=== PATIENT | female | born 1960 | race Caucasian/White ===

== ENCOUNTER 2019-09-08 00:41 | Outpatient (CLI) | payer OTHER, SELFPAY ==
--- NOTE | 2019-09-08 15:58 | DI.MAMMO_ITS ---
EXAM: MG MAMMO SCREENING CLINICAL HISTORY: screening Z12.31 TECHNIQUE: Bilateral full field digital CC and MLO mammographic images were obtained with 3D tomosyn thesis and utilizing computer aided detection (CAD). COMPARISON: Available for comparison. FINDINGS: Masses/Architectural Distortion: None seen. Microcalcifications: No suspicious pleomorphic-type are seen. Skin Thickening/Nipple Retraction: None. IMPRESSION: 1. No significant interval change with no specific features of malignancy noted. 2. Unless there is more urgent need, screening mammography is recommended, as per [employer] guidelines. ACR BI-RAD Category- 1 Negative Breast Density - Category B - Scattered areas of fibroglandular density A negative radiographic report should not delay biopsy if a dominant or clinically suspicious mass is present. Up to ten percent of cancers are not identified on mammography. A negative report may reinforce clinical impression. Adenosis and dense breasts may obscure an underlying neoplasm. False positive reports average 6 to 10%. Patient will receive a letter notifying them of these results.
== END 2019-09-08 01:01 ==
PROVIDERS: PCP Family Medicine; Visit Provider Obstetrics & Gynecology
DX: Z12.31 Encounter for screening mammogram for malignant neoplasm of breast (principal)
CPT/HCPCS: 77063; 77067

== ENCOUNTER 2021-04-05 01:04 | Outpatient (CLI) | payer OTHER, SELFPAY ==
--- NOTE | 2021-04-05 | DI.MAMMO_ITS ---
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 TECHNIQUE: Bilateral full field digital CC and MLO mammographic images were obtained with 3D tomosyn thesis and utilizing computer aided detection (CAD). COMPARISON: Prior mammograms dating back to 2011, the most recent being August 2019. FINDINGS: There are no new spiculated masses nor malignant appearing microcalcification groups. There is no significant architectural distortion nor skin thickening-retraction. IMPRESSION: No radiographic evidence of malignancy. BI-RADS Category 1 - Negative Breast Density - Category B - Scattered areas of fibroglandular density Breast density Category C or D implies that the patient has dense breast tissue. Dense breast tissue can make it harder to find cancer on a mammogram. Dense breast tissue is also associated with an incr eased risk of breast cancer. This information about the result of the mammogram report was provided to the patient to raise their awareness. Use this report when you speak with the patient about their risks for breast cancer, which includes their family history. At that time, you may recommend additional screening tests (Ultrasoun d or MRI) as these tests may add significant information. A negative radiographic report should not delay biopsy if a dominant or clinically suspicious mass is present. Up to ten percent of cancers are not identified on mammography. A negative report may reinforce clinical impression. Adenosis and dense breasts may obscure an underlying neoplasm. False positive reports average 6 to 10%. Patient will receive a letter notifying them of these results.
== END 2021-04-05 01:24 ==
PROVIDERS: PCP Family Medicine; Visit Provider Obstetrics & Gynecology
DX: Z12.31 Encounter for screening mammogram for malignant neoplasm of breast (principal); Z01.419 Encounter for gynecological examination (general) (routine) without abnormal findings; R92.8 Other abnormal and inconclusive findings on diagnostic imaging of breast
CPT/HCPCS: 77063; 77067

== ENCOUNTER 2021-04-05 02:49 | Outpatient (CLI) | payer OTHER, SELFPAY ==
[2021-04-05 13:08] LABS: Abs Immature Grans 0.02 10^3/uL (0.0-0.06); Absolute Basophil Count 0.05 10^3/uL (0.0-0.2); Absolute Lymphocyte Count 1.23 10^3/uL (1.2-3.4); Absolute Monocyte Count 0.58 10^3/uL (0.1-0.8); Absolute Neutrophil Count 6.47 10^3/uL (1.2-6.7); Basophils % 0.6; Eosinophils % 2.3; HCT 38.9 % (36.0-46.0); HGB 12.9 g/dL (11.2-15.7); Immature Grans % 0.2; Lymphocytes % 14.4; MCH 31.2 pg (27.0-33.0); MCHC 33.2 % (32.0-36.0); MPV 10.3 fL (8.0-11.0); Monocytes % 6.8; Neutrophils % 75.7; Nucleated RBC 0 %; Platelet Count 142 10^3/uL (130-400); RBC 4.14 10^6/uL (3.93-5.22); RDW 12.8 % (11.7-14.6); RDW-SD 44.2 fL; WBC 8.55 10^3/uL (4.4-10.8)
[2021-04-05 13:20] LABS: ALT 21 U/L (14-59); AST 17 U/L (15-37); Albumin 3.6 g/dL (3.4-5.0); Alkaline Phosphatase 84 U/L (46-116); BUN 9 mg/dL (7-18); Bilirubin, Total 0.3 mg/dL (0.2-1.0); CREATININE 0.9 mg/dL (0.55-1.02); Chloride 105 mmol/L (98-107); Glucose 139 mg/dL (74-106); LDH 198 U/L (81-234); Potassium 4.1 mmol/L (3.5-5.1); Sodium 141 mmol/L (136-145); Total Protein 6.8 g/dL (6.4-8.2)
== END 2021-04-05 02:50 | disposition home or self-care (01) ==
LOC: LBO 02:49
PROVIDERS: PCP Family Medicine; Visit Provider Internal Medicine Hematology & Oncology
DX: C82.01 Follicular lymphoma grade I, lymph nodes of head, face, and neck (principal)
CPT/HCPCS: 36415; 80053; 83615; 85025

== ENCOUNTER 2021-07-12 01:40 | Outpatient (CLI) | payer OTHER, SELFPAY ==
[2021-07-12 13:47] LABS: Abs Immature Grans 0.01 10^3/uL (0.0-0.06); Absolute Basophil Count 0.04 10^3/uL (0.0-0.2); Absolute Eosinophil Count 0.12 10^3/uL (0.0-0.7); Absolute Lymphocyte Count 1.31 10^3/uL (1.2-3.4); Absolute Monocyte Count 0.57 10^3/uL (0.1-0.8); Basophils % 0.6; Eosinophils % 1.8; HCT 38.5 % (36.0-46.0); HGB 12.6 g/dL (11.2-15.7); Immature Grans % 0.2; MCH 30.6 pg (27.0-33.0); MCHC 32.7 % (32.0-36.0); MCV 93.4 fL (80-95); MPV 10.5 fL (8.0-11.0); Monocytes % 8.7; Neutrophils % 68.7; Nucleated RBC 0 %; Platelet Count 165 10^3/uL (130-400); RBC 4.12 10^6/uL (3.93-5.22); RDW 12.8 % (11.7-14.6); WBC 6.55 10^3/uL (4.4-10.8)
[2021-07-12 14:01] LABS: ALT 21 U/L (14-59); AST 22 U/L (15-37); Albumin 3.6 g/dL (3.4-5.0); Alkaline Phosphatase 98 U/L (46-116); Anion Gap 8.4 mmol/L (3-11); BUN 8 mg/dL (7-18); Bilirubin, Total 0.3 mg/dL (0.2-1.0); CO2 26.6 mmol/L (21.0-32.0); CREATININE 0.8 mg/dL (0.55-1.02); Calcium 8.7 mg/dL (8.5-10.1); Chloride 105 mmol/L (98-107); Glucose 108 mg/dL (74-106); LDH 218 U/L (81-234); Potassium 3.8 mmol/L (3.5-5.1); Sodium 140 mmol/L (136-145); Total Protein 6.7 g/dL (6.4-8.2)
== END 2021-07-12 01:41 | disposition home or self-care (01) ==
LOC: LBO 01:40
PROVIDERS: PCP Family Medicine; Visit Provider Internal Medicine Hematology & Oncology
DX: C82.01 Follicular lymphoma grade I, lymph nodes of head, face, and neck (principal)
CPT/HCPCS: 36415; 80053; 83615; 85025

== ENCOUNTER 2021-08-30 12:43 | Outpatient (CLI) | payer OTHER, SELFPAY ==
[2021-08-30 10:29] LABS: Abs Immature Grans 0.02 10^3/uL (0.0-0.06); Absolute Basophil Count 0.02 10^3/uL (0.0-0.2); Absolute Eosinophil Count 0.09 10^3/uL (0.0-0.7); Absolute Lymphocyte Count 1.26 10^3/uL (1.2-3.4); Absolute Neutrophil Count 4.94 10^3/uL (1.2-6.7); Basophils % 0.3; Eosinophils % 1.3; HCT 38.4 % (36.0-46.0); HGB 12.7 g/dL (11.2-15.7); Immature Grans % 0.3; Lymphocytes % 18.4; MCH 30.9 pg (27.0-33.0); MCHC 33.1 % (32.0-36.0); MCV 93.4 fL (80-95); MPV 10.6 fL (8.0-11.0); Monocytes % 7.3; Neutrophils % 72.4; Nucleated RBC 0 %; Platelet Count 148 10^3/uL (130-400); RBC 4.11 10^6/uL (3.93-5.22); RDW 12.8 % (11.7-14.6); RDW-SD 43.8 fL; WBC 6.83 10^3/uL (4.4-10.8)
[2021-08-30 10:43] LABS: Albumin 3.6 g/dL (3.4-5.0); BUN 11 mg/dL (7-18); Bilirubin, Total 0.3 mg/dL (0.2-1.0); CREATININE 0.8 mg/dL (0.55-1.02); Calcium 8.9 mg/dL (8.5-10.1); Glucose 117 mg/dL (74-106); Total Protein 6.8 g/dL (6.4-8.2)
[2021-08-30 10:44] LABS: ALT 19 U/L (14-59); AST 16 U/L (15-37); Alkaline Phosphatase 88 U/L (46-116); Anion Gap 6.7 mmol/L (3-11); CO2 27.3 mmol/L (21.0-32.0); Chloride 106 mmol/L (98-107); LDH 204 U/L (81-234); Potassium 4.1 mmol/L (3.5-5.1); Sodium 140 mmol/L (136-145)
== END 2021-08-30 12:44 | disposition home or self-care (01) ==
LOC: LBO 12:45
PROVIDERS: PCP Family Medicine; Visit Provider Internal Medicine Hematology & Oncology
DX: C82.01 Follicular lymphoma grade I, lymph nodes of head, face, and neck (principal)
CPT/HCPCS: 36415; 80053; 83615; 85025

== ENCOUNTER 2021-11-29 02:48 | Outpatient (CLI) | payer OTHER, SELFPAY ==
[2021-11-29 12:43] LABS: Abs Immature Grans 0.02 10^3/uL (0.0-0.06); Absolute Basophil Count 0.02 10^3/uL (0.0-0.2); Absolute Eosinophil Count 0.08 10^3/uL (0.0-0.7); Absolute Lymphocyte Count 1.18 10^3/uL (1.2-3.4); Absolute Monocyte Count 0.48 10^3/uL (0.1-0.8); Absolute Neutrophil Count 4.13 10^3/uL (1.2-6.7); Basophils % 0.3; Eosinophils % 1.4; HCT 39.2 % (36.0-46.0); HGB 12.8 g/dL (11.2-15.7); Immature Grans % 0.3; MCH 30.7 pg (27.0-33.0); MCHC 32.7 % (32.0-36.0); MPV 10.3 fL (8.0-11.0); Monocytes % 8.1; Neutrophils % 69.9; Nucleated RBC 0 %; Platelet Count 161 10^3/uL (130-400); RBC 4.17 10^6/uL (3.93-5.22); RDW 12.5 % (11.7-14.6); RDW-SD 43.1 fL; WBC 5.91 10^3/uL (4.4-10.8)
[2021-11-29 12:57] LABS: ALT 70 U/L (14-59); AST 44 U/L (15-37); Albumin 3.8 g/dL (3.4-5.0); Alkaline Phosphatase 100 U/L (46-116); Anion Gap 10.7 mmol/L (3-11); BUN 9 mg/dL (7-18); Bilirubin, Total 0.4 mg/dL (0.2-1.0); CO2 25.3 mmol/L (21.0-32.0); CREATININE 0.9 mg/dL (0.55-1.02); Calcium 9.1 mg/dL (8.5-10.1); Chloride 104 mmol/L (98-107); Glucose 142 mg/dL (74-106); LDH 234 U/L (81-234); Potassium 3.9 mmol/L (3.5-5.1); Sodium 140 mmol/L (136-145); Total Protein 7.2 g/dL (6.4-8.2)
== END 2021-11-29 02:49 | disposition home or self-care (01) ==
LOC: LBO 02:48
PROVIDERS: PCP Family Medicine; Visit Provider Internal Medicine Hematology & Oncology
DX: C82.01 Follicular lymphoma grade I, lymph nodes of head, face, and neck (principal)
CPT/HCPCS: 36415; 80053; 83615; 85025

== ENCOUNTER 2022-04-04 04:03 | Outpatient (CLI) | payer OTHER, SELFPAY ==
[2022-04-04 08:32] LABS: Abs Immature Grans 0.01 10^3/uL (0.0-0.06); Absolute Basophil Count 0.03 10^3/uL (0.0-0.2); Absolute Lymphocyte Count 0.99 10^3/uL (1.2-3.4); Absolute Monocyte Count 0.52 10^3/uL (0.1-0.8); Absolute Neutrophil Count 3.87 10^3/uL (1.2-6.7); Basophils % 0.5; Eosinophils % 1.8; HCT 37.7 % (36.0-46.0); HGB 12.5 g/dL (11.2-15.7); Immature Grans % 0.2; Lymphocytes % 17.9; MCH 30.6 pg (27.0-33.0); MCHC 33.2 % (32.0-36.0); MCV 92 fL (80-95); Monocytes % 9.4; Neutrophils % 70.2; Platelet Count 161 10^3/uL (130-400); RBC 4.08 10^6/uL (3.93-5.22); RDW 12.7 % (11.7-14.6); WBC 5.52 10^3/uL (4.4-10.8)
[2022-04-04 08:50] LABS: ALT 56 U/L (14-59); AST 42 U/L (15-37); Albumin 3.6 g/dL (3.4-5.0); Alkaline Phosphatase 116 U/L (46-116); Anion Gap 9.1 mmol/L (3-11); BUN 13 mg/dL (7-18); Bilirubin, Total 0.6 mg/dL (0.2-1.0); CO2 24.9 mmol/L (21.0-32.0); CREATININE 1.2 mg/dL (0.55-1.02); Chloride 109 mmol/L (98-107); Estimated GFR 45.98 (mL/min/1.73m2); Glucose 118 mg/dL (74-106); LDH 242 U/L (81-234); Potassium 4.4 mmol/L (3.5-5.1); Sodium 143 mmol/L (136-145)
== END 2022-04-04 04:04 | disposition home or self-care (01) ==
LOC: LBO 04:03
PROVIDERS: PCP Family Medicine; Visit Provider Internal Medicine Hematology & Oncology
DX: C82.01 Follicular lymphoma grade I, lymph nodes of head, face, and neck (principal)
CPT/HCPCS: 36415; 80053; 83615; 85025

== ENCOUNTER 2022-08-22 02:57 | Outpatient (CLI) | payer OTHER, SELFPAY ==
[2022-08-22 09:33] LABS: Abs Immature Grans 0.02 10^3/uL (0.0-0.06); Absolute Basophil Count 0.02 10^3/uL (0.0-0.2); Absolute Eosinophil Count 0.07 10^3/uL (0.0-0.7); Absolute Lymphocyte Count 0.73 10^3/uL (1.2-3.4); Absolute Monocyte Count 0.56 10^3/uL (0.1-0.8); Absolute Neutrophil Count 4.41 10^3/uL (1.2-6.7); Basophils % 0.3; Eosinophils % 1.2; HCT 36.8 % (36.0-46.0); HGB 12.3 g/dL (11.2-15.7); Immature Grans % 0.3; Lymphocytes % 12.6; MCH 30.3 pg (27.0-33.0); MCHC 33.4 % (32.0-36.0); MCV 91 fL (80-95); MPV 9.9 fL (8.0-11.0); Monocytes % 9.6; Platelet Count 170 10^3/uL (130-400); RBC 4.06 10^6/uL (3.93-5.22); RDW 13.6 % (11.7-14.6); WBC 5.81 10^3/uL (4.4-10.8)
[2022-08-22 09:53] LABS: ALT 16 U/L (14-59); AST 19 U/L (15-37); Albumin 3.4 g/dL (3.4-5.0); Alkaline Phosphatase 115 U/L (46-116); BUN 15 mg/dL (7-18); Bilirubin, Total 0.5 mg/dL (0.2-1.0); Calcium 9.3 mg/dL (8.5-10.1); Chloride 105 mmol/L (98-107); Estimated GFR 64.49 (mL/min/1.73m2); Glucose 75 mg/dL (74-106); LDH 246 U/L (81-234); Potassium 4.2 mmol/L (3.5-5.1); Sodium 139 mmol/L (136-145)
== END 2022-08-22 02:58 | disposition home or self-care (01) ==
LOC: LBO 02:57
PROVIDERS: PCP Family Medicine; Visit Provider Internal Medicine Hematology & Oncology
DX: C82.01 Follicular lymphoma grade I, lymph nodes of head, face, and neck (principal)
CPT/HCPCS: 36415; 80053; 83615; 85025

== ENCOUNTER 2022-09-10 11:17 | Outpatient (REF) | payer OTHER, SELFPAY ==
--- NOTE | 2022-09-10 10:00 | PAPFT_PTH ---
PATIENT: Alicia Main LOC: [facility]#:[id number] AGE/SX: 62/F ROOM: RE09/10/[address]: Otilia Thomas : 1960 BED: DIS: 09/10/2022 SPEC #: [id number] RECD: 09/10/22 13:03 STATUS: JULIOCESAR REQ #: [id number] FAITH: 09/10/22 10:[address]: Otilia Thomas DEPT: [facility] Cytology RECD BY: Anca Barrera ENTERED: 09/10/22 13:04 SP TYPE: PAPFT OTHR DR: Santhosh Herron Tissues: 1 - CX/ENDOCX FOR PAP SMEARS Procedures: PAP THIN PREP/[facility] Screening HPV DNA PROBE Comments: [id number]
== END 2022-09-10 11:18 | disposition home or self-care (01) ==
LOC: LBN 11:17
PROVIDERS: PCP Family Medicine; Visit Provider Obstetrics & Gynecology Gynecology
DX: Z12.4 Encounter for screening for malignant neoplasm of cervix (principal); Z11.51 Encounter for screening for human papillomavirus (HPV)
CPT/HCPCS: 88142; 87624

== ENCOUNTER → 2022-09-13 00:36 | Outpatient (CLI) | payer OTHER, SELFPAY ==
--- OUTSIDE RECORDS SUMMARY | 2022-09-13 00:37 | XMS_ITS | Encounter Summary ---
:1960 Author Organization [facility] Address [address] [place] [address] Care Team Providers Name Role Phone Santhosh Herron MD Primary Care Provider Encounter Details Date Type Department Care Team Description 11/29/2020 Lab Requisition [facility] Eileen Joe for other Pathology & MD Florinda general examination Laboratory Medicine [address] [place] [address] [address] [place] [address] [place] [address] Social History Tobacco Use Types Packs/Day Years Used Date Smoking Tobacco: Every Day Cigarettes 0.8 Alcohol Use Standard Drinks/Week Comments Yes 0 (1 standard drink = 0.6 oz pure alcoho l) occ Sex Assigned at Date Recorded Not on file documented as of this encounter Plan of Treatment Not on filedocumented as of this encounter Procedures Procedure Name Priority Date/Time Associated Diagnosis Comme nts SURGICAL PATHOLOGY Today 11/29/2020 13:00 Resul ts for this EST procedure are i n the results section. documented in this encounter Results SURGICAL PATHOLOGY (11/29/2020 13:00 EST) Component Value Ref Test Analysis Performed Pathologis t Range Method Time At Signature Final A. LYMPH NODE, RIGHT CERVICAL, EXCISION: 12/01/[address] 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 See comment. 13:32 [facility]ENTER LABORATORY SERVICES Diagnosis The specimen is composed of lymphoid tissue fragments with closely packed follicles that efface the architecture and demonstrate loss of polarity. Concurrent flow cytometry ([id number]) is positive for a 12/01/[address] [facility] MEDICAL Comment CD10+ B-cell lymphoprolifera tive disorder. Immunoperoxidase stains were performed on this case to further characterize the lesion. The follicles contain primarily PAX5+ B-lymphocytes, and CD3+ T-lymphoc 13:3 2 [facility]ENTER ytes are present in a predom inantly interfollicular pattern with some in follicles. The B-lymphocytes are variable in size and range from typlv-wq-bnrxna irregular centrocytes to larger, round, vesicula LABORATORY r centroblasts with prominen t nucleoli. Taken together, the morphologic and immunophenotypic features are diagnostic of follicular lymphoma. The centroblast count averages <15 centroblasts per 40x hi SERVICES gh-powered field correspondi ng to a grade of 1-2 (low grade). Clinical correlation is essential. Dr Ghosh has reviewed selected slides of this case. ANTIBODY(CLONE)(BLOCK):RESULT CD3 (SP7, [employer]) (A1): Highlights predominantly interfollicular T-lymphocytes PAX-5 (1EW, Leica) (A1): Highlights predominantly follicular B-lymphocytes CD21 (2G9, Leica) (A1): Highlights a retained follicular d endritic meshwork Ki67 (MIB-1) (K2, Leica) (A1 ): Estimated at 20%. Few follicles retain some polarization. NOTE: One or more of the re agents used in immunoperoxidase testing in this case may not have been cleared or approved by the U.S. Food and Drug Administration (FDA). The FDA has determined that such cl earance or approval is not n ecessary. These tests are used for clinical purposes. They should not be regarded as investigational or for research. These reagents' performance characteristics have been de termined by [facility] and/or by the referring laboratory. The positive and negative controls worked appropriately. If immunoperoxidase staining has been performed on alcoh ol fixed cytology specimens, which has not been fully validated, the assays should be interpreted with caution and correlated with clinical data. This laboratory is certified under the Clinical Laborato ry Improvement Amendments of 1988 (CLIA-88) as qualified to perform high complexity clinical laboratory testing. Attestation There was significant 12/01/[address] [facility] M EDICAL Electronically resident/fellow 13:32 [facility] sign ed by involvement in the LABORATORY [place], diagnostic evaluation SERVICES Binta Leung, of this case. By the MD on 12/01/2020 signature below, the at 1332 attending physician certifies that they have personally conducted a gross and/or microscopic examination of the described specimens and rendered or confirmed the above diagnosis. Clinical Right cervical 12/01/[address] [facility] MEDICAL History lymphadenopathy 13:32 [facility] LABORATORY SERVICES Gross A. 12/01/[address] [facility] MEDICAL Description Received in formalin ayse d with proper patient identification (initials R, P) and right cervical lymph is a rubbery mnceil-pink portion of lymph node, 1.0 x 0.6 x 0.5 cm. Trisected and entirely submitted in A1. 13:32 [facility] LABORATORY WILLA HUNT(ASCP) 11/30/2020 7:37 SERVICES Preliminary A preliminary 12/01/[address] [facility] MEDICAL Diagnosis diagnosis of B-cell 13:32 [facility] lymphoma was LABORATORY reported to Dr. CASEY Joe's nurse on 11/30/2020 at 15:[address] Camila Cedillo. Resident/Chevy Kramer, 12/01/[address] [facility] MEDICAL ow: 13:32 [facility] LABORATORY SERVICES Performing [facility] 12/01/[address] [facility] MEDIC AL Lab 13:32 [facility] LABORATORY SERVICES Scanned 12/01/[address] [facility] MEDICAL Images 13:32 [facility] LABORATORY SERVICES Specimen Anatomical Collection Method Collection Time Receive d Time (Source) Location / / Volume Laterality Tissue ENTIRE LYMPH NODE 11/29/2020 13:00 2020 7:13 / Unknown EST EST Eileen Joe MD PATHOLOGY ORDERABLES Performing Organization Address City/State/ZIP Code Phon e Number [facility]ORY [address] [place] [address] SERVICES documented in this encounter Visit Diagnoses Diagnosis Encounter for other general examination documented in this encounter Care Teams Electroplater Apprentice Relationship Specialty Start Date End Date Santhosh Herron MD PCP - General 07/13/09 [address] [place], [place] [id number] documented as of this encounter
--- OUTSIDE RECORDS SUMMARY | 2022-09-13 00:37 | XMS_ITS | Encounter Summary ---
:1960 Author Organization [facility] Address [address] [place] [address] Care Team Providers Name Role Phone Santhosh Herron MD Primary Care Provider Encounter Details Date Type Department Care Team Description 12/15/2020 Lab Requisition [facility] Outr Resulting Lab, Pathology & Laboratory Provider General acute hospital [address] [place] [address] Social History Tobacco Use Types Packs/Day Years Used Date Smoking Tobacco: Every Day Cigarettes 0.8 Alcohol Use Standard Drinks/Week Comments Yes 0 (1 standard drink = 0.6 oz pure alcoho l) occ Sex Assigned at Date Recorded Not on file documented as of this encounter Plan of Treatment Not on filedocumented as of this encounter Procedures Procedure Name Priority Date/Time Associated Comments Diagnosis SPEP, INCLUDES Today 12/15/2020 9:07 Results fo r this QUANTITATION OF EST procedure ar e in MONOCLONAL SPIKE the results PERFORMABLE section. IMMUNOGLOBULINS Routine 12/15/2020 9:07 Results f or this EST procedure are i n the results section. SPEP, INCLUDES Routine 12/15/2020 9:07 Results fo r this QUANTITATION OF EST procedure ar e in MONOCLONAL SPIKE the results section. PROTEIN, TOTAL Today 12/15/2020 9:07 EST documented in this encounter Results SPEP, INCLUDES QUANTITATION OF MONOCLONAL SPIKE PERFORMABLE (12/15/2020 9:07 EST) Component Value Ref Test Analysis Performed At Patholo gist Range Method Time Signature Albumin % 63.4 55.8 - 12/18/2020 [facility] 66.1 % 14:20 [facility] LABORATORY SERVICES Alpha-1 % 4.1 2.9 - 12/18/2020 [facility] 4.9 % 14:20 [facility] LABORATORY SERVICES Alpha-2 % 11.4 7.1 - 12/18/2020 [facility] 11.8 % 14:20 [facility] LABORATORY SERVICES Beta % 9.8 8.4 - 12/18/2020 [facility] 13.1 % 14:20 [facility] LABORATORY SERVICES Gamma % 11.3 11.1 - 12/18/2020 [facility] 18.8 % 14:20 [facility] LABORATORY SERVICES SPEP Comment No apparent 12/18/2020 [facility] monoclonal protein 14:20 [facility] seen on serum LABORATORY electrophoresis SERVICES Comment: See scanned/supplementary repor t. Total Protein 6.7 6.3 - 8.2 g/dL 12/18/2020 14:[address] [facility] LABORATORY SERVICES Specimen Anatomical Collection Method Collection Time Receive d Time (Source) Location / / Volume Laterality Blood VENOUS BLOOD / 12/15/2020 9:07 12/15/2020 Unknown EST 21:34 EST Narrative This result has an attachment that is no t available. Provider Outr Resulting Lab CHEMISTRY & BLOOD GAS ORDE SIRI Performing Organization Address City/State/ZIP Code Phon e Number [facility] LABOR[facility]ORY [address] [place] [address] SERVICES PROTEIN, TOTAL (12/15/2020 9:07 EST) Specimen Anatomical Collection Method Collection Time Receive d Time (Source) Location / / Volume Laterality Blood VENOUS BLOOD / 12/15/2020 9:07 12/15/2020 Unknown EST 21:34 EST Provider Outr Resulting Lab CHEMISTRY & BLOOD GAS ORDE UMESHLES Performing Organization Address City/State/ZIP Code Phon e Number [facility] LABOR[facility] [address] [place] [address] SERVICES (ABNORMAL) IMMUNOGLOBULINS (12/15/2020 9:07 EST) P athologist Signature IgG 692 610-1,616 12/18/2020 [facility] mg/dL 9:37 [facility] CENTER LABORATORY SERVICES IgA 127 85 - 499 12/18/2020 [facility] mg/dL 9:37 EST [facility]ENTER LABORATORY SERVICES IgM 280 (H) 35 - 242 12/18/2020 [facility] mg/dL 9:37 [facility] LABORATORY SERVICES Specimen Anatomical Collection Method Collection Time Receive d Time (Source) Location / / Volume Laterality Blood VENOUS BLOOD / 12/15/2020 9:07 12/15/2020 Unknown EST 21:34 EST Provider Outr Resulting Lab CHEMISTRY & BLOOD GAS NITO HORNER Performing Organization Address City/State/ZIP Code Phon e Number [facility] [address] [place] [address] SERVICES documented in this encounter Visit Diagnoses Not on filedocumented in this encounter Care Teams Dip Unit Operator Relationship Specialty Start Date End Date Santhosh Herron MD PCP - General 07/13/[address] [place] [id number] documented as of this encounter
--- OUTSIDE RECORDS SUMMARY | 2022-09-13 00:37 | XMS_ITS | Encounter Summary ---
:1960 Author Organization [facility] Address [address] [place] [address] Care Team Providers Name Role Phone Santhosh Herron MD Primary Care Provider Encounter Details Date Type Department Care Team Description 04/02/2021 Lab Requisition [facility] Eileen Joe for other Pathology & MD Florinda general examination Laboratory Medicine [address] [place] [address] [address] [place] [address] [place], [place] [id number] Social History Tobacco Use Types Packs/Day Years [...] Associated Diagnosis Comme nts SURGICAL PATHOLOGY Today 04/02/2021 11:00 Resul ts for this EDT procedure are i n the results section. documented in this encounter Results SURGICAL PATHOLOGY (04/02/2021 11:00 EDT) Component Value Ref Test Analysis Performed At [facility] Range Method Time Signature Final A. GALLBLADDER, CHOLECYSTECTOMY: 021 [facility] Diagnosis - Changes consistent with chronic cholecystitis 14:42 EDT CENTER LABORATORY SERVICES Attestation By the signature 04/06/2021 [facility] Electronically below, the 14:42 EDT CENTER signed by attending LABORATORY Yaw Gillespie, physician SERVICES on 04/06 certifies that at 14 41 they have 1) personally conducted a gross and/or microscopic examination of the described specimen(s), and/or personally interpreted the results of laboratory testing of the described specimen(s), and 2) personally rendered or confirmed the above diagnosis. Clinical Biliary 04/06/2021 [facility] MEDICAL History dyskinesia 14:42 T CENTER LABORATORY SERVICES Gross A. 04/06/2021 [facility] MEDICAL Description Received in formalin ayse d with proper patient identification (initials R, P) and gallbladder is an intact gallbladder with an attached segment of cystic duct (7.4 x 2.6 x 2.1 cm). A cystic duct lymph node is not present. 14:42 [facility] CENTER The serosa is smooth, blue-g reen and glistening. The mucosa is velvety dark green with focal yellow-mcneil stippling. A collection of intramuscular fundic cysts (0.8 x 0.7 x 0.4 cm) is identified. The wall LABORATORY averages 0.1 cm in thicknes s. The cystic duct lumen is patent and is 0.7 cm in diameter. The cystic duct margin is inked blue. No choleliths are present. SERVICES Two union representative sections (to include the fundic cysts and yellow-mcneil stippling) and the en face cystic duct margin are submitted in A1. WILLA BRENNAN(ASC) 04/03/2021 8:10 Performing Lab [facility] 04/06/2021 [facility] MED[facility] AL LAB 14:42 T CENTER LABORATORY SERVICES Scanned Images 04/06/2021 [facility] 14:42 T [facility] LABORATORY SERVICES Specimen Anatomical Location Collection Method Collection Time Received Time (Source) / Laterality / Volume Tissue ENTIRE GALLBLADDER 04/02/2021 11:00 04/02 / Unknown EDT 21:29 EDT Eileen Joe MD PATHOLOGY ORDERABLES Performing Organization Address City/State/ZIP Code Phon e Number [facility]OR[facility] [address] [place] [address] SERVICES documented in this encounter Visit Diagnoses Diagnosis Encounter for other general examination documented in this encounter Care Teams Archivist Economic History Relationship Specialty Start Date End Date Santhosh Herron MD PCP - General 07/13/09 [address] [place] [address] documented as of this encounter
--- OUTSIDE RECORDS SUMMARY | 2022-09-13 00:37 | XMS_ITS | Encounter Summary ---
:1960 Author Organization [facility] Address [address] [place] [address] Care Team Providers Name Role Phone Santhosh Herron MD Primary Care Provider Encounter Details Date Type Department Care Team Description 09/11/2022 Lab Requisition [facility] Chiquita Alanis Encounter for other Pathology & [address] [place] [address] general examination Laboratory Medicine [facility] [phone] [address] [facility] [phone] [place] [address] (Work) [phone] Social History Tobacco Use Types Packs/Day Years Used Date Smoking Tobacco: Every Day Cigarettes 0.8 Alcohol Use Standard Drinks/Week Comments Yes 0 (1 standard drink = 0.6 oz pure alcoho l) occ Sex Assigned at Date Recorded Not on file documented as of this encounter Plan of Treatment Pending Results Name Type Priority Associated Diagnoses Date/Ti me PAP TEST Pathology Today Encounter for other general 09/10/2022 10:00 EST examination documented as of this encounter Visit Diagnoses Diagnosis Encounter for other general examination documented in this encounter Care Teams Director Of Strategic Partnerships Relationship Specialty Start Date End Date Santhosh Herron MD PCP - General 07/13/[address] [place] [phone] documented as of this encounter
--- OUTSIDE RECORDS SUMMARY | 2022-09-13 00:37 | XMS_ITS | Encounter Summary ---
:1960 Author Organization [facility] Address [address] [place] [address] Care Team Providers Name Role Phone Santhosh Herron MD Primary Care Provider Encounter Details Date Type Department Care Team Description 11/29/2020 Lab Requisition [facility] Eileen Joe for other Pathology & MD Florinda general examination Laboratory Medicine [address] [place] [address] [address] [place] [address] [place] [address] Social History Tobacco Use Types [...] Name Priority Date/Time Associated Diagnosis Comme nts NON ASBESTOS HAZARD ABATEMENT WORKER/FNA Today 11/29/2020 13:45 Results for this CYTOLOGY EST procedure are i n the results section. documented in this encounter Results NON ASBESTOS HAZARD ABATEMENT WORKER/FNA CYTOLOGY (11/29/2020 13:45 EST) Component Value Ref Test Analysis Performed Pathologis t Range Method Time At Signature Final A. LYMPH NODE, RIGHT CERVICAL, FINE-NEEDLE ASPIRATION: 12/05/2020 [facility] MEDICAL Diagnosis - Atypical lymphoproliferative lesion. See comment. 7:53 EST CENTER LABORATORY SERVICES Diagnosis The specimen consists 12/05/2020 [facility] MED ICAL Comment of cell block 7:53 [facility] CENTER material only and LABORATORY shows suboptimal SERVICES cellular preservation precluding further evaluation (credit issued). Please see report of the concurrent right cervical lymph node excision ([id number]) for complete diagnostic information. Attestation By the signature below, the attending physician certifies that they have personally conducted a gross and/or microscopic 0 12/05/2020 [facility] MEDICAL Electronically examination of the described specimens and rendered or confirmed the above diagnosis. 7:53 EST CENTER signed by LABORATORY Erik, CASEY Chavez MD on 12/05 at 0753 Clinical Right cervical 12/05/2020 [facility] MEDICAL History lymphadenopathy 7:53 [facility] LABORATORY SERVICES Gross A. 12/05/2020 [facility] MEDICAL Description 1 tube of RPMI for cell block processing were received. 7:53 [facility] LABORATORY SERVICES Performing [facility] LAB 12/05/2020 [facility] MEDIC AL Lab 7:53 [facility] LABORATORY SERVICES Scanned 12/05/2020 [facility] MEDICAL Images 7:53 [facility] LABORATORY SERVICES Specimen Anatomical Collection Method Collection Time Receive d Time (Source) Location / / Volume Laterality ZZUNK ENTIRE LYMPH NODE 11/29/2020 13:45 2020 8:42 / Unknown EST EST Eileen Joe MD PATHOLOGY ORDERABLES Performing Organization Address City/State/ZIP Code Phon e Number [facility] LABOR[facility]ORY [address] [place] [address] SERVICES documented in this encounter Visit Diagnoses Diagnosis Encounter for other general examination documented in this encounter Care Teams Air Defense Artillery Officer Relationship Specialty Start Date End Date Santhosh Herron MD PCP - General 07/13/[address] [place] [phone] documented as of this encounter
--- OUTSIDE RECORDS SUMMARY | 2022-09-13 00:37 | XMS_ITS | Encounter Summary ---
:1960 Author Organization [facility] Address [address] [place] [address] Care Team Providers Name Role Phone Santhosh Herron MD Primary Care Provider Encounter Details Date Type Department Care Team Description 11/29/2020 Lab Requisition [facility] Eileen Joe for other Pathology & MD Florinda general examination Laboratory Medicine [address] [place] [address] [address] [place] [address] [place] [address] Social History Tobacco Use Types [...] Name Priority Date/Time Associated Diagnosis Comme nts LEUKEMIA/LYMPHOMA Today 11/29/2020 13:45 Result s for this PANEL BY FLOW EST procedure are in CYTOMETRY the results section. documented in this encounter Results LEUKEMIA/LYMPHOMA PANEL BY FLOW CYTOMETRY (11/29/2020 13:45 EST) Component Value Ref Test Analysis Performed Pathologis t Range Method Time At Signature Final Lymph node, right cervical, flow cytometric analysis: [facility] Immunophenotypic - CD10+ B-cell lymphoproliferative disorder. See c omment. 1 16:13 CENTER Interpretation [facility] Comment The results of flow [facility] L cytometry are those 16:13 FANSHAWE of involvement by a [facility] [id number] SERVICES lymphoproliferative disorder of B-cell lineage expressing surface lambda light chains. The immunophenotypic profile is: CD19+, CD20+, CD10+, CD5-. This immunophenotype is typical of lymphomas of a follicular center cell origin, including follicular lymphoma, Burkitt lymphoma, and some diffuse large B-cell lymphomas. By light scatter criteria, a small subset of the cells appear larger than normal lymphocytes. Correlation of these findings with morphologic and clinical data is essential. Please refer to report [id number] and [id number] for morphologic details. Flow cytometry is not sensitive for the detection of large cell lymphoma or Hodgkin lymphoma. Attestation There was [facility] Electr onically significant 1 16:13 FANSHAWE signed b y resident/fellow [facility] Dev itt, involvement in the SERVICES teena Morse MD on 11/20 evaluation of this a t 1613 case. By the signature below, the attending physician certifies that they have personally conducted a gross and/or microscopic examination of the described specimens and rendered or confirmed the above diagnosis. Clinical History 60 yo female with [facility] M EDICAL right cervical 1 16:13 FANSHAWE lymphadenopathy. [facility] Description The specimen consists of lym ph node tissue from which a single cell suspension is prepared. Gating is performed using CD45 fluorescence and side scatter. Cellular viability (assessed by propidium iodide [facility] exclusion) is good (94%) am sara the CD45 positive events. Scatter plots incorporating all of the markers have been interpreted and evaluated for the presence or absence of abnormal cell populations. Onl 16:13 CENTER y pertinent abnormal finding s are included. If not otherwise addressed all other markers were normal/negative. [facility] There is a population of B-c ells that are lambda-restricted comprising 64% of lymphocytes. These cells are positive for CD19, CD10, CD20, FMC7, CD22 (variable) and CD23. They are negative for CD5, kappa , and CD11c. There is a smal l remaining population of B-lymphocytes that are positive for kappa (<1%). The remainder of the lymphocytes are T-lymphocytes (CD2+CD3+CD5+CD7+) with CD4+ and CD8+ subsets represented. By light scatt er criteria, the cells are predominantly similar in size to normal lymphocytes with a subset that is larger. Flow Markers CD2, CD3, CD4, CD5, [facility] ICAL CD7, CD8, CD10, 1 16:13 CENTER CD11b, CD11c, CD14, [facility] CD16, CD19, CD20, SERVICES CD22, CD23, CD38, CD45, CD56, CD57, FMC7, HLADR, [place], and Lambda. FDA Disclaimer This test was [facility] developed and its 1 16:13 CENTER performance [facility] characteristics SERVICES determined by the Department of Pathology and Laboratory Medicine, [facility], [place], [place]. It has not been cleared or approved by the U.S. Food and Drug Administration. FDA does not require this test to go through premarket FDA review. This test is used for clinical purposes. It should not be regarded as investigational or for research. This laboratory is certified under the Clinical Laboratory Improvement Amendments (CLIA) as qualified to perform high complexity clinical laboratory testing. Resident/Fellow: Chevy Cedillo, [facility] DO 1 16:13 FANSHAWE [facility] Scanned Images [facility] 1 16:13 [facility] SERVICES Specimen Anatomical Collection Method Collection Time Receive d Time (Source) Location / / Volume Laterality ZZUNK ENTIRE LYMPH NODE 11/29/2020 13:45 2020 7:32 / Unknown EST EST Eileen Joe MD PATHOLOGY ORDERABLES Performing Organization Address City/State/ZIP Code Phon e Number [facility] [address] [place] [address] SERVICES documented in this encounter Visit Diagnoses Diagnosis Encounter for other general examination documented in this encounter Care Teams Lime Kiln Worker Relationship Specialty Start Date End Date Santhosh Herron MD PCP - General 07/13/[address] [place] [address] [phone] documented as of this encounter
--- OUTSIDE RECORDS SUMMARY | 2022-09-13 00:38 | XMS_ITS | Encounter Summary ---
:[address] [facility] Address [address] [place] [address] Care Team Providers Name Role Phone Santhosh Herron MD Primary Care Provider Encounter Details Date Type Department Care Team Description 10/28/2006 Hospital Encounter [facility] - Barry Herron [place] MD [address] [address] [place] [address] Social History Tobacco Use Types Packs/Day Years [...] Name Priority Date/Time Associated Diagnosis Comme nts L SPINE 2-3 VIEWS 10/28/2006 10:49 Result s for this EST procedure are i n the results section. documented in this encounter Results L SPINE 2-3 VIEWS (10/28/2006 10:49 EST) Anatomical Region Laterality Modality Other Specimen (Source) Anatomical Collection Method Collection Time Re ceived Time Location / / Volume Laterality 10/28/2006 10:49 EST Narrative 04/29/2009 6:15 EDT LBP. S/P 09/18/06 L5-S1 PSF/TLIF. ASSESS FUSION MATURATION. EXAMINATION: ??TWO VIEWS OF THE LUMBAR S AYDEN, 10/28/2006, 1047 HOURS. COMPARISON: ??Two views of the lumbar sp ine from September 19, 2006 and fluoroscopy from September 18, 2006 are available for correlation. CLINICAL HISTORY: ??A 46-year-old female with lower back pain, status post PSF/TLIF of L5-S1. FINDINGS: ??There is a bilateral interpe duncular fusion with posterior fixation associated with transforaminal lumbar interbody fusion. There is no evidence of loosening of eit her lumbosacral screws although the sacral screw extends throug h the cortical layer of the anterior aspect of the vertebral body. ? ?There is no evidence of hardware failure. ??There is slight inte rval maturation of fusion material, though complete fusion not yet present. ?? There may be a slight retrolisthesis of L5 with respect to S1. ??Multilevel degenerative disease is present in the l umbar spine. [id number] D: ??10/29/2006 16:11 T: ??10/31/2006 11:57 I have personally reviewed the images an d the above interpretation and agree with the findings. Procedure Note Cyril Limon MD / Bimal Villafana MD - 04/29/2009 LBP. S/P 09/18/06 L5-S1 PSF/TLIF. ASSES S FUSION MATURATION. EXAMINATION: TWO VIEWS OF THE LUMBAR SPI NE, 10/28/2006, 1047 HOURS. COMPARISON: Two views of the lumbar spin e from September 19, 2006 and fluoroscopy from September 18, 2006 are available for correlation. CLINICAL HISTORY: A 46-year-old female w ith lower back pain, status post PSF/TLIF of L5-S1. FINDINGS: There is a bilateral interpedu ncular fusion with posterior fixation associated with transforaminal lumbar interbody fusion. There is no evidence of loosening of eit her lumbosacral screws although the sacral screw extends throug h the cortical layer of the anterior aspect of the vertebral body. T here is no evidence of hardware failure. There is slight interv al maturation of fusion material, though complete fusion not yet present. There may be a slight retrolisthesis of L5 with respect to S1. Multilevel degenerative disease is present in the l umbar spine. [id number] I have personally reviewed the images an d the above interpretation and agree with the findings. Alessandro Torres MD IMG DIAGNOSTIC IMAGING ORDER HI documented in this encounter Visit Diagnoses Not on filedocumented in this encounter Care Teams Corporate Treasury Analyst Relationship Specialty Start Date End Date Santhosh Herron MD PCP - General 07/13/[address] [place] [id number] documented as of this encounter
--- OUTSIDE RECORDS SUMMARY | 2022-09-13 00:38 | XMS_ITS | Encounter Summary ---
:1960 Author Organization [facility] Address [address] [place] [address] Care Team Providers Name Role Phone Santhosh eHrron MD Primary Care Provider Encounter Details Date Type Department Care Team Description 10/30/2009 Hospital Encounter [facility] - Camila Torres MD [place] [address] [place], [place], [place] [phone] (Wo rk) Social History Tobacco Use Types Packs/Day Years Used Date Smoking Tobacco: Never Assessed Sex Assigned at Date Recorded Not on file documented as of this encounter Medications at Time of Discharge Medication Sig Dispensed Refills Start Date End Date gabapentin (NEURONTIN) 600 Take 600 mg by 0 mg tablet mouth 3 times daily. 2 -3 times daily ibuprofen (MOTRIN) 800 mg Take 800 mg by 0 tablet mouth 2 times daily. acetaminophen (TYLENOL) Take 2 Tabs by 100 Tab 0 08/12/20 09 01/29/2010 325 mg tablet mouth every 6 hours. atorvastatin (LIPITOR) 10 Take 10 mg by mouth 0 07/30/2010 mg tablet daily. docusate sodium (COLACE) Take 2 Caps by 100 Cap 0 009 07/18/2011 100 mg capsule mouth 2 times daily. methocarbamol (ROBAXIN) Take 1-2 Tabs by 30 Tab 0 200801/29/2010 500 mg tablet mouth every 6 hours as needed. muscle spasms multivitamin (THERAGRAN) Take 1 Tab by mouth 0 07/18/2011 per tablet daily. oxycodone (ROXICODONE) 5 Take 1-4 Tabs by 150 Tab 0 08/1201/29/2010 mg immediate release mouth every 4 hours tablet as needed for Pain. documented as of this encounter Discharge Disposition Disposition Code Departure Means Destination Home or Self Correction documented in this encounter Plan of Treatment Not on filedocumented as of this encounter Visit Diagnoses Not on filedocumented in this encounter Care Teams Heater Worker Relationship Specialty Start Date End Date Santhosh Herron MD PCP - General 07/13/[address] [place] [id number] documented as of this encounter
--- OUTSIDE RECORDS SUMMARY | 2022-09-13 00:38 | XMS_ITS | Encounter Summary ---
:1960 Author Organization [facility] Address [address] [place] [address] Care Team Providers Name Role Phone Santhosh Herron MD Primary Care Provider Reason for Visit Reason Comments Follow-up 6 mo. f/u s/p 08/11/09 L5-S1 fusion Encounter Details Date Type Department Care Team Description 01/29/2010 Office Visit [facility] Alessandro Torres, Spondyl isthesis; Spine Program - Acquired spondylolisthesis; [place] [address] Degeneration of lumbar or lumbosacral in tervertebral disc; [address] [place], [place] Lumbago; [place] [address] Nonunion of fracture [id number] [phone] Social History Tobacco Use Types Packs/Day Years Used Date Smoking Tobacco: Never Assessed Sex Assigned at Date Recorded Not on file documented as of this encounter Last Filed Vital Signs Vital Sign Reading Time Taken Comments Blood Pressure - - Pulse - - Temperature - - Respiratory Rate - - Oxygen Saturation - - Inhaled Oxygen Concentration - - Weight 70.3 kg (155 lb) 01/29/2010 1052 EDT Height 162.6 cm (5' 4) 01/29/2010 1052 EDT Body Mass Index 26.61 01/29/2010 1052 EDT documented in this encounter Progress Notes Alessandro Torres MD - 01/29/2010 1154 EDT 49yoF 6mo s/p rev ASF L5,S1. No c/o, no issues. Incisions healed, neuro s change. Xrays healed L5,[id number]. Spent 15min FTF dx, PE and review of Xrays c >50% time counseling wrt above. Plan F/U 6 mo c repeat Xrays. Pt understands and agrees. All Qs answered. JTB documented in this encounter Plan of Treatment Not on filedocumented as of this encounter Visit Diagnoses Diagnosis Spondylisthesis Congenital spondylolisthesis Acquired spondylolisthesis Degeneration of lumbar or lumbosacral in tervertebral disc Lumbago Nonunion of fracture documented in this encounter Discontinued Medications Medication Sig Discontinue Reason Start Date End Date acetaminophen (TYLENOL) Take 2 Tabs by 08/12/2009 325 mg tablet mouth every 6 hours. methocarbamol (ROBAXIN) Take 1-2 Tabs by 08/12/2009 01/29/2010 500 mg tablet mouth every 6 hours as needed. muscle spasms oxycodone (ROXICODONE) 5 Take 1-4 Tabs by 08/12/2009 01/29/2010 mg immediate release mouth every 4 tablet hours as needed for Pain. documented as of this encounter Care Teams Board Handler Relationship Specialty Start Date End Date Santhosh Herron MD PCP - General 07/13/[address] [place] [id number] documented as of this encounter
--- OUTSIDE RECORDS SUMMARY | 2022-09-13 00:38 | XMS_ITS | Encounter Summary ---
:1960 Author Organization [facility] Address [address] [place] [address] Care Team Providers Name Role Phone Santhosh Herron MD Primary Care Provider Encounter Details Date Type Department Care Team Description 2009 - Hospital Encounter [facility] Alessandro Torres, 08/12/2009 General Surgery Unit MD [address] [facility] [address] [place], [place] [id number] [place] [phone] Social History Tobacco Use Types Packs/Day Years Used Date Smoking Tobacco: Never Assessed Sex Assigned at Date Recorded Not on file documented as of this encounter Last Filed Vital Signs Vital Sign Reading Time Taken Comments Blood Pressure 91/59 08/12/200945 EDT Pulse 64 08/12/2009 0545 EDT Temperature 37.2 ??C (99 ??F) 08/12/2009 0545 EDT Respiratory Rate 16 08/12/2009 0545 EDT Oxygen Saturation 95% 08/12/2009 0545 EDT Inhaled Oxygen Concentration - - Weight 70.3 kg (155 lb) 08/03/2009 1452 EDT Height 162.6 cm (5' 4) 08/03/2009 1452 EDT Body Mass Index 26.61 08/03/2009 1452 EDT documented in this encounter Discharge Summaries Chevy Castillo MD - 2009 1307 EDT Discharge Summary Chief Complaint/Reason for Admission: Pseudoarthrosis L5/S1 TLIF Admitted Via: DOSA Principal/Final Diagnosis: Pseudoarthrosis Principal Procedure: L5/S1 ASF Date: 2009 Secondary Procedures: Condition at Discharge: Good Assessment at Discharge: Vital signs: Patient Vitals in the past 12 hrs: BP Temp Temp src Pulse Resp SpO2 Height Wt - Scale 08/12/09 0545 91/59 mmHg 37.2 ??C (99 ??F) Tympanic 64 16 95 % - - 08/12/09 0148 95/55 mmHg 37.3 ??C (99.1 ??F) Tympanic 67 16 93 % - - 08/11/09 2127 94/56 mmHg 36.1 ??C (97 ??F) Tympanic 57 14 93 % - - Hospital Course: Admitted DOS for above procedure. Tolerated the procedure well. Was sent to PACU then floor postoperatively. Recovered well with good pain control on PO pain meds. Participated well with PT. Able to void on own. PT cleared for discharge home. Upright x-rays OK. Discharged to home on 08/12/09. Relevant Studies at Discharge: none Last Lab Results at Discharge: none cc: MD Santhosh CULP Discharge Summary Completed: documented in this encounter Discharge Instructions Discharge InstructionsJessee Aguilar - 2009 13:07 EDT Diet: Regular Activity: Activity as tolerated No heavy lifting or strenuous activity Skin/Wound Care: Remove dressing in 4-5 days. Keep dressing intact intil then. If no drainage then OK to leave uncovered. Bathing: May shower in 5-7 days, if no drainage. Pending Results: Not applicable Symptoms to Call Your Doctor About: No bowel movement within 3 days of discharge Numbness in extremity Odor from incision Pain unrelieved by medication Poor circulation (skin cool to touch or blue) Redness, swelling or drainage from wound Shortness of breath Skin rash Temperature greater than 101 degrees F Appointments: See Alessandro Stock MD in 6 weeks. Please call for an appointment. Follow-up Services Contacted at Discharge: none Health Risk and Disease Information: Not applicable documented in this encounter Medications at Time of Discharge [...] by mouth 0 07/30/2010 mg tablet daily. celecoxib (CELEBREX) 100 Take 1 Cap by mouth 10 Cap 0 08/17/2009 mg capsule every 12 hours for 5 days. docusate sodium (COLACE) Take 2 Caps by 100 Cap 0 009 07/18/2011 100 mg capsule mouth 2 times daily. methocarbamol (ROBAXIN) Take 1-2 Tabs by 30 Tab 0 200801/29/2010 500 mg tablet mouth every 6 hours as needed. muscle spasms morphine (MS CONTIN) 15 mg Take 1 Tab by mouth 15 Tab 0 2009 08/13/2009 CR tablet every 12 hours for 4 doses. multivitamin (THERAGRAN) Take 1 Tab by mouth 0 07/18/2011 per tablet daily. oxycodone (ROXICODONE) 5 Take 1-4 Tabs by 150 Tab 0 08/1201/29/2010 mg immediate release mouth every 4 hours tablet as needed for Pain. documented as of this encounter Ordered Prescriptions Prescription Sig Dispensed Refills Start Date End Date acetaminophen (TYLENOL) Take 2 Tabs by 100 Tab 0 08/12/2001/29/2010 325 mg tablet mouth every 6 hours. celecoxib (CELEBREX) 100 Take 1 Cap by mouth 10 Cap 0 08/17/2009 mg capsule every 12 hours for 5 days. docusate sodium (COLACE) Take 2 Caps by 100 Cap 0 009 07/18/2011 100 mg capsule mouth 2 times daily. methocarbamol (ROBAXIN) Take 1-2 Tabs by 30 Tab 0 200801/29/2010 500 mg tablet mouth every 6 hours as needed. muscle spasms oxycodone (ROXICODONE) 5 Take 1-4 Tabs by 150 Tab 0 08/1201/29/2010 mg immediate release mouth every 4 hours tablet as needed for Pain. oxycodone (ROXICODONE) 5 Take 1-4 Tabs by 150 Tab 0 08/1108/12/2009 mg immediate release mouth every 4 hours tablet as needed for Pain. morphine (MS CONTIN) 15 mg Take 1 Tab by mouth 15 Tab 0 2009 08/13/2009 CR tablet every 12 hours for 4 doses. methocarbamol (ROBAXIN) Take 1-2 Tabs by 30 Tab 0 200808/12/2009 500 mg tablet mouth every 6 hours as needed. muscle spasms docusate sodium (COLACE) Take 2 Caps by 100 Cap 0 009 08/12/2009 100 mg capsule mouth 2 times daily. celecoxib (CELEBREX) 100 Take 1 Cap by mouth 10 Cap 0 08/12/2009 mg capsule every 12 hours for 5 days. documented in this encounter Discharge Disposition Disposition Code Departure Means Destination Home or Self Care documented in this encounter Progress Notes Carolee Herman MD - 09/26/2009 1126 EST Anesthesia Post-op Note Patient location: [facility]/ Procedure detail: Level of Consciousness: Awake BP 91/59 Pulse 64 Temp(Src) 37.2 ??C (99 ??F) (Tympanic) Resp 16 Ht 1.626 m (5' 4) Wt 70.308 kg (155 lb) SpO2 95% Post Op Pain: No complaints of pain or discomfort Perioperative events: No postop complications noted CAROLEE HERMAN MD 09/26/2009 11:26 AM Grecia Cody, PT - 08/12/2009 1134 EDT Physical Therapy Contact Note Site: Acute Care PT consult received. Chart reviewed. Discharge to home today order written. Per RN patient does not require PT examination. Evaluation not completed secondary to patient leaving for home GRECIA CODY, PT 08/12/2009 11:35 AM Zachary Nieto RN - 08/12/2009 1105 EDT BP 91/59 Pulse 64 Temp(Src) 37.2 ??C (99 ??F) (Tympanic) Resp 16 Ht 1.626 m (5' 4) Wt 70.308 kg (155 lb) SpO2 95% DC teaching done. Pain well controlled by PO meds Chevy Castillo MD - 08/12/2009 0708 EDT Ortho Spine Procedure: ASF L5-S1 Surgeon: Melissa Date: 08/11/09 S: Doing well, ambulating without problems. O: Blood pressure 91/59, pulse 64, temperature 37.2 ??C (99 ??F), temperature source Tympanic, resp.rate 16, height 1.626 m (5' 4), weight 70.308 kg (155 lb), SpO2 95%. Awake/alert NAD Dressing C/D/I 2+ DP LTSI Motor 5/ Upright films demonstrate appropriate alignment, broken left Sacral screw that is seen on previous films and not new. A/P: POD 1 s/p ASF L5/S1. Ready for D/C. D/C home today Jessee Aguilar - 2009 191 EDT POC S: Doing OK. Pain controlled O: Blood pressure 112/64, pulse 62, temperature 35.6 ??C (96.1 ??F), resp. rate 15, height 1.626 m (5' 4), weight 70.308 kg (155 lb), SpO2 98%. Awake/alert NAD Dressings clean 2+ DP No gross blood in Bucio LTSI Motor 5/5 A/P: POD 0 s/p ASF L5/S1 Stable D/C bucio in AM Reg diet Uprights Poss d/c home tomorrow Miranda Adkins RN - 2009 1301 EDT 08/11/09 130 Pt awake, comfortable denies any numbness or tingling of lower legs. ABD DDI. Lungs clear. Bucio patent and draining well. visiting. Bed now available on B3 report called. Waiting for transport. LIDIA Stanton Miranda Adkins RN - 2009 1134 EDT 08/11/09 1130 Pt awake visiting with her . Abd pain down to being tolerable 12/27. Antonino sips ofwater. ABD DDI, lungs clear, bucio patent and draining clear yellow. Ready for transfer but waiting for a bed assignment. LIDIA Stanton Miranda Adkins RN - 2009 1027 EDT 08/11/09 1027 Pt admit to pacu, vss, sleepy but arousable, follows commands. Denies pain or nausea, numbness or tingling. LIDIA Stanton documented in this encounter H&P Notes InpatientPhysician MD - 08/17/2009 1228 EDT documented in this encounter Procedure Notes Physician Gray MD - 08/17/2009 1228 EDTAssociated Order(s): ECG REPORT - SCANNED; ECG REPORT - SCANNED Physician Gray MD - 08/17/2009 1228 EDTAssociated Order(s): ORDERS - SCANNED; ORDERS - SCANNED documented in this encounter OR Notes OR PreOp - Inpatient, Physician, MD - 08/17/2009 1228 EDT OR PreOp - Physician Gray MD - 08/17/2009 1228 EDT Anesthesia Procedure Notes - Physician Gray MD - 2009 1009 EDT OR PreOp - Physician Gray MD - 2009 0949 EDT OR PreOp - Physician Gray MD - 2009 0934 EDT OR Surgeon - Rohit Goff MD - 2009 0000 EDT OPERATIVE REPORT SERVICE DATE: 2009 PREOPERATIVE DIAGNOSIS: Dictated by Alessandro Torres MD POSTOPERATIVE DIAGNOSIS: Dictated by Alessandro Torres MD PROCEDURE: Anterior retroperitoneal exposure of the lumbar spine and L5-S1 diskectomy and fusion. SURGEON: Alessandro Torres MD CO-SURGEON: Rohit Goff MD INDICATIONS: Dictated by Dr Torres. NARRATIVE: The patient was brought to the operating room under general anesthesia in the supine position. The abdomen was prepped and draped in a sterile manner. We made a midline left paramedian incision infraumbilical sharply through the skin and then with cautery down onto the rectus sheath. The left rectus sheath was opened up. The muscle was retracted laterally. We entered the retroperitoneal cavity inferiorly in the incision, carefully swept the peritoneum off the transverse fascia, which was then cut laterally at the abdominal wall. This opened up the retroperitoneum. We identified the ureter, which was carefully protected. We dissected on the psoas muscle and down by the iliac vessels. We go in between the iliacs down onto the L5-S1 disk space. The middle sacral artery and vein were carefully dissected out and doubly clipped and divided. Dr Torres then performs diskectomy and fusion, which is separately dictated by him. Good hemostasis was obtained. The wound was irrigated and cleaned. The Omni retractor that was used was removed and the wound then closed with a #1 PDS from each corner for fascial closure, 2-0 Vicryl for dermis and skin closed with nathaniel. Dry dressing placed on the wound. She was stable during the procedure. She had already been fixed on the posterior side, so she was extubated and transferred to the postanesthesia care unit in good stable condition. Instrument and sponge count was correct. She did receive perioperative antibiotics. I was present throughout the full length of the anterior part. Unless otherwise noted, there were no complications, no blood loss, no cultures obtained, no specimens removed, and no drains retained. Rohit Goff MD Dictated by: Rohit Goff MD 09 45 AM / css Confirmation: [id number] Dictation ID: [id number] OR Surgeon - Alessandro Torres MD - 2009 0000 EDT OPERATIVE REPORT SERVICE DATE: 2009 INDICATIONS: Alicia Main is a 49-year-old female who was celebrating her birthday today. She is well known to us for her remote instrumented fusion at the L5-S1 level. Alicia did well for many,many months after this surgery, and indeed by plain x-ray was felt to have a solid fusion. She apparently had a twisting injury last Marguerite and has had progressive pain over the last many months. Weeventually obtained additional imaging including a CT scan and a bone scan which demonstrated a nonunion at the L5-S1 level. We discussed various options for treatment both operative and nonoperative, along with the associated risks, potential complications and expected outcomes. Alicia weighed all of these appropriately, and because of her severe pain, severe disability and the failure of conservative management over an extended period of time she wished to consider surgery at this point in time.We discussed an anterior revision diskectomy with bone grafting, BMP, and possible instrumentation as probably the most appropriate treatment option for her. We discussed the rationale for use of allograft bone, the FDA status of BMP and the rationale for the use of instrumentation. Alicia asked appropriate questions, all of her questions were answered, and she wished to proceed with surgery. 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 PROCEDURE: Anterior spinal fusion with revision diskectomy at L5-S1, with subsequent placement of structural corticocancellous allograft bone, BMP, and single L5 interference screw. SURGEON: Alessandro Torres MD COSURGEON: Rohit Goff MD, who assisted with the approach and closure of the wound. COMPUTED TOMOGRAPHY TECHNOLOGIST: Yeimy Castillo RN ANESTHESIA: General endotracheal. ESTIMATED BLOOD LOSS: Less than 100 mL. FLUIDS: 2.2 L of crystalloid. URINE OUTPUT: 550 mL. DRAINS: None. COMPLICATIONS: None. The patient tolerated the procedure well and was taken to the recovery room in stable condition postoperatively. NARRATIVE: Alicia Main was brought to the operating room, appropriately identified and then intubated by the anesthesia department. After appropriate monitoring equipment was applied she was carefully repositioned on the regular operating table with a towel roll in the small of her back to accentuate her lumbar lordosis and improve the access during the procedure. Once in a stable and appropriate position on the operating table with all bony prominences padded, her anterior abdomen was preppedand draped in the usual sterile fashion, first with alcohol and then subsequently with Hibiclens, alcohol and DuraPrep. Prior to initiation of the procedure a time out was called and a brief performed outlining the goals of the procedure with the operating room personnel. The procedure was then initiated with a vertical left paramedian incision just below the umbilicus extending down to the region ofthe pubis, but not to the pubis. Sharp dissection was used through skin, followed by electrocautery through the subcutaneous tissues down to the rectus sheath which was incised anteriorly. The muscle was teased laterally. The retroperitoneal space was entered, and then blunt dissection carried out down to the great vessels. The details of the exposure will be dictated by Dr Goff, as well as the details of the closure. Nevertheless appropriate retractors were placed allowing exposure of the bifurcation of the great vessels. The L5-S1 disk space was identified beneath these, and then with appropriate retraction and protection of the vessels the disk space was outlined with electrocautery, entered with Wells elevator, and then curettes and rongeurs used to remove disk and previous bone graft. The bone graft had partially healed and was difficult to remove requiring a significant amount of drilling with a 4 mm round catherine. Once the disk space was thoroughly cleaned and the bony endplates were prepared using a 4 mm round catherine, the trial bone graft sizers were used to select the appropriate-sized corticocancellous bone graft. Prior to placement of this bone graft the disk was thoroughly irrigated. A medium Infuse set of BMP sponges were placed within the disk and then bone graft tamped intoposition. In order to ensure the stability of this bone graft a single interference screw was placedin the inferior aspect of the L5 vertebral body with the lip of the screw acting as a doorstop or block to any dislodgement of the L5-S1 graft. At this point a final film was taken to ensure that the bone graft and instrumentation was in good position, and then the wound irrigated and prepared for closure. Closure will be dictated by Dr Goff. It should be noted that a standard layered closure was utilized with use of nathaniel in the skin, Betadine-soaked Adaptic over the wound and a sterile dressing which was taped in place. The patient did tolerate the procedure well and was taken to the recovery room in stable condition. Unless otherwise noted, there were no complications, no blood loss, no cultures obtained, no specimens removed, and no drains retained. Alessandro Torres MD Dictated by: Alessandro Torres MD 05 30 PM / Confirmation: [id number] Dictation ID: [id number] cc:Rohit Goff MD documented in this encounter Miscellaneous Notes Scanned Note-Null - Inpatient, MD Tee - 08/17/2009 1228 EDT Scanned Note-Null - Inpatient, MD Tee - 08/17/2009 1228 EDT Scanned Note-Null - Inpatient, MD Tee - 08/17/2009 1228 EDT Plan of Care - Mnaisha Kramer RN - 08/12/2009 0438 EDT Problem: PAIN Goal: Patient's Pain And Discomfort Are Adequately Managed Outcome: Ongoing Data: pain 12/27 Action: on oxy ir 10mg prn Response: pain well controlled with po meds Manisha Kramer RN 08/12/2009 4:36 AM documented in this encounter Plan of Treatment Not on filedocumented as of this encounter Procedures Procedure Name Priority Date/Time Associated Comments Diagnosis ECG REPORT - SCANNED 08/17/2009 12:28 Res ults for this EDT procedure are i n the results section. ORDERS - SCANNED 08/17/2009 12:28 Results for this EDT procedure are i n the results section. L SPINE 2-3 VIEWS Routine 08/12/2009 7:45 Results for this EDT procedure are i n the results section. COMPLETE BLOOD COUNT Routine 08/12/2009 6:56 Resu lts for this AND DIFFERENTIAL EDT procedure a re in the results section. BUN Routine 08/12/2009 6:56 Results for this EDT procedure are i n the results section. CREATININE Routine 08/12/2009 6:56 Results for this EDT procedure are i n the results section. ELECTROLYTES Routine 08/12/2009 6:56 Results for this EDT procedure are i n the results section. URINALYSIS WITH Routine 08/12/2009 5:45 Results f or this MICROSCOPIC IF EDT procedure are in POSITIVE the results section. UA REFLEX Routine 08/12/2009 5:45 Results for this EDT procedure are i n the results section. URINE CULTURE IF Routine 08/12/2009 5:45 Results for this POSITIVE EDT procedure are i n the results section. SCREENING GLUCOSE Routine 2009 15:38 Result s for this EDT procedure are i n the results section. L SPINE 1 VIEW 2009 9:27 Results fo r this EDT procedure are i n the results section. PREPARE RED BLOOD Routine 2009 7:31 Results for this CELLS EDT procedure are i n the results section. PREPARE RED BLOOD Routine 2009 7:31 Results for this CELLS EDT procedure are i n the results section. TYPE AND SCREEN Routine 2009 7:31 Results f or this EDT procedure are i n the results section. GLUCOSE, GLUCOMETER Routine 2009 6:55 Resul ts for this EDT procedure are i n the results section. documented in this encounter Results ORDERS - SCANNED (08/17/2009 12:28 EDT) Specimen (Source) Anatomical Collection Method Collection Time Re ceived Time Location / / Volume Laterality 08/17/2009 12:28 EDT Narrative This result has an attachment that is no t available. Procedure Note Inpatient, MD Tee - 08/17/2009 12 :28 EDT Physician Inpatient ADMISSION ORDERABLES ECG REPORT - SCANNED (08/17/2009 12:28 EDT) Specimen (Source) Anatomical Collection Method Collection Time Re ceived Time Location / / Volume Laterality 08/17/2009 12:28 EDT Narrative 08/17/2009 13:06 EDT This result has an attachment that is no t available. Ordered by an unspecified provider. Transcriptions Inpatient, MD Tee - 08/17/2009 12 :28 EDT Physician Inpatient PROCEDURE/MINOR SURGICAL ORD ERABLES L SPINE 2-3 VIEWS (08/12/2009 7:45 EDT) Anatomical Region Laterality Modality Other Specimen Anatomical Collection Method Collection Time Receive d Time (Source) Location / / Volume Laterality 08/12/2009 7:45 08/12/2009 EDT 11:11 EDT Narrative 08/12/2009 11:11 EDT L SPINE 2-3 VIEWS ??Aug 12, 2009 07:45:0 0 AM Clinical History/Comments: s/p l5/s1 asf Comparison: 2009. Findings: AP and lateral views of the lo wer lumbar spine show orthopedic hardware spanning the L5-S1 l evel with interval disc plug material. There is a single screw anteri ananda that transfixes the L5 vertebral body. Posterior rods and bilat eral intrapedicular screws are present at the L5-S1 level. Alignmen t is unchanged. The orthopedic hardware appears stable. Procedure Note 08/12/2009 L SPINE 2-3 VIEWS Aug 12, 2009 07:45:00 AM Clinical History/Comments: s/p l5/s1 asf Comparison: 2009. Findings: AP and lateral views of the lo wer lumbar spine show orthopedic hardware spanning the L5-S1 l evel with interval disc plug material. There is a single screw anteri ananda that transfixes the L5 vertebral body. Posterior rods and bilat eral intrapedicular screws are present at the L5-S1 level. Alignmen t is unchanged. The orthopedic hardware appears stable. Jessee Aguilar MD IMG DIAGNOSTIC IMAGING ORDER HI (ABNORMAL) HEMAGRAM AND DIFFERENTIAL (08/12/2009 6:56 EDT) [facility] gist Method Time Signature WBC 11.48 4.0 - PACK 12.4 [facility] K/cmm RBC 3.44 (L) 3.86 - PACK 5.04 [facility] M/cmm Hemoglobin 10.9 (L) 11.6 - PACK 15.2 [facility] gm/dl HCT 32.0 (L) 34.9 - PACK 44.4 % [facility] MCV 93 81 - 98 PACK fl [facility] MCH 31.8 26.7 - PACK 33.3 pg [facility] MCHC 34.1 32.1 - PACK 35.9 [facility] gm/dl PLT 150 141 - 320 PACK K/cmm [facility] RDW-CV 13.1 11.7 - PACK 14.6 % [facility] Neutrophils 68.2 45.5 - PACK 79.7 % [facility] Lymphocytes 25.9 15.0 - PACK 46.8 % [facility] Monocytes 4.3 1.8 - PACK 12.0 % [facility] Eosinophils 1.3 0.6 - 6.9 PACK % [facility] Basophils 0.3 0.2 - 1.4 PACK % [facility] ABS Neutrophils 7.82 2.20 - PACK 8.85 [facility] K/cmm ABS Lymphs 2.97 1.09 - PACK 3.30 [facility] K/cmm ABS Monocytes 0.50 0.1 - 0.8 PACK K/cmm [facility] ABS Eosinophils 0.15 0.03 - PACK 0.61 [facility] K/cmm ABS Basophils 0.04 0.01 - PACK 0.11 [facility] K/cmm Type of Diff: Automated [facility] Specimen Anatomical Collection Method Collection Time Receive d Time (Source) Location / / Volume Laterality Blood specimen 08/12/2009 6:56 08/12/2009 8:12 (specimen) EDT EDT Jessee Aguilar MD PACKAGES & DNA PROBE ORDERAB LES Performing Organization Address City/[facility]/ZIP Code Phon e Number [facility] [address] [place] [address] SERVICES [facility] [address] [place] [address] CREATININE (08/12/2009 6:56 EDT) athologist Signature Creatinine 0.70 0.7 - 1.5 [facility] mg/dl LAB GFR, Calculated >60 ml/min/1.7 [facility] 3[facility]2 [facility] Specimen Anatomical Collection Method Collection Time Receive d Time (Source) Location / / Volume Laterality Blood specimen 08/12/2009 6:56 08/12/2009 8:12 (specimen) EDT EDT Jessee Aguilar MD CHEMISTRY & BLOOD GAS ORDERA BLES Performing Organization Address City/[facility]/ZIP Code Phon e Number [facility] [address] [place] [address] SERVICES [facility] [address] [place] [address] (ABNORMAL) BUN (08/12/2009 6:56 EDT) athologist Signature BUN 6 (L) 10 - 26 [facility] mg/dl LAB Specimen Anatomical Collection Method Collection Time Receive d Time (Source) Location / / Volume Laterality Blood specimen 08/12/2009 6:56 08/12/2009 8:12 (specimen) EDT EDT Jessee Aguilar MD CHEMISTRY & BLOOD GAS ORDERA BLES Performing Organization Address City/[facility]/ZIP Code Phon e Number [facility] [address] [place] [address] SERVICES [facility] [address] [place] [address] ELECTROLYTES (08/12/2009 6:56 EDT) athologist Signature Sodium 140 136 - 145 [facility] mEq/L LAB Potassium 3.5 3.5 - 5.0 [facility] mEq/L LAB Chloride 108 96 - 110 [facility] mEq/L LAB CO2 27 24 - 32 [facility] mEq/L LAB Specimen Anatomical Collection Method Collection Time Receive d Time (Source) Location / / Volume Laterality Blood specimen 08/12/2009 6:56 08/12/2009 8:12 (specimen) EDT EDT Jessee Aguilar MD CHEMISTRY & BLOOD GAS ORDERA BLES Performing Organization Address City/State/ZIP Code Phon e Number [facility] [address] [place] [address] SERVICES [facility] [address] [place] [address] UA REFLEX (08/12/2009 5:45 EDT) [facility] gist Method Time Signature UA Billing Microscopic not [facility]. [facility] Specimen Anatomical Collection Method Collection Time Receive d Time (Source) Location / / Volume Laterality 08/12/2009 5:45 08/12/2009 8 :09 EDT EDT Jessee Aguilar MD URINALYSIS ORDERABLES Performing Organization Address City/[facility]/ZIP Code Phon e Number [facility] [address] [place] [address] SERVICES [facility] [address] [place] [address] URINALYSIS, CHEMICAL (08/12/2009 5:45 EDT) athologist Signature Color, UA Yellow [facility] Clarity, UA Clear [facility] Glucose, UA Neg NEG [facility] Bilirubin, UA Neg NEG [facility] Ketones, UA Neg NEG [facility] Specific <1.005 1.001 - [facility] Tamiment, Urine 1.03 LAB Blood, UA Neg NEG [facility] pH, UA 6.5 4.6 - 8.0 [facility] Protein, UA Neg NEG [facility] Urobilinogen, 0.2 0.2 - 1.0 [facility] UA E.U./dl LAB Nitrite, UA Neg NEG [facility] Leuk Esterase Neg NEG [facility] Specimen Anatomical Collection Method Collection Time Receive d Time (Source) Location / / Volume Laterality 08/12/2009 5:45 08/12/2009 8 :09 EDT EDT Jessee Aguilar MD URINALYSIS ORDERABLES Performing Organization Address [facility]/ZIP Code Phon e Number [facility] [address] [place] [address] SERVICES [facility] [address] [place] [address] CULTURE IF UA POSITIVE (08/12/2009 5:45 EDT) Patholo gist Method Time Signature Culture if Culture not PACK Indicated indicated by [facility] urinalysis results. Specimen Anatomical Collection Method Collection Time Receive d Time (Source) Location / / Volume Laterality Urine 08/12/2009 5:45 08/12/2009 8 :09 (substance) EDT EDT Jessee Aguilar MD MICROBIOLOGY - GENERAL ORDER HI Performing Organization Address [facility] Phon e Number [facility] [address] [place] [address] SERVICES [facility] [address] [place] [address] (ABNORMAL) SCREENING GLUCOSE (2009 15:38 EDT) P athologist Signature Glucose, 172 (H) 70 - 100 [facility] Screening mg/dl LAB Specimen Anatomical Collection Method Collection Time Receive d Time (Source) Location / / Volume Laterality Blood specimen 2009 15:38 9 (specimen) EDT 15:47 EDT Jessee Aguilar MD CHEMISTRY & BLOOD GAS ORDERA BLES Performing Organization Address City/[facility]/ZIP Code Phon e Number [facility] [address] [place] [address] SERVICES [facility] [address] [place] [address] L SPINE 1 VIEW (2009 9:27 EDT) Anatomical Region Laterality Modality Other Specimen Anatomical Collection Method Collection Time Receive d Time (Source) Location / / Volume Laterality 2009 9:27 2009 9 :44 EDT EDT Narrative 2009 9:44 EDT L SPINE 1 VIEW ??2009 09:27:00 A M Clinical History/Comments: LUMBAR PSEUDO ARHTROSIS L5-S1 ASF R/O CHECK LEVEL Comparison: May 2008 Findings: A retractor is seen at the L5-S1 level. This is a crosstable intraoperative lateral film. Procedure Note 2009 L SPINE 1 VIEW 2009 09:27:00 AM Clinical History/Comments: LUMBAR PSEUDO ARHTROSIS L5-S1 ASF R/O CHECK LEVEL Comparison: May 2008 Findings: A retractor is seen at the L5-S1 level. This is a crosstable intraoperative lateral film. Alessandro Torres MD IMG DIAGNOSTIC IMAGING ORDER HI TYPE AND SCREEN (2009 7:31 EDT) P athologist Signature ABO O PACK [facility] Rh Factor Positive PACK [facility] Antibody Negative PACK Screen [facility] Comment: SPECIMEN EXPIRES 23:59 08/14/20 09 Specimen Anatomical Collection Method Collection Time Receive d Time (Source) Location / / Volume Laterality 2009 7:31 2009 7 :31 EDT EDT Alessandro Torres MD BLOOD BANK TESTS Performing Organization Address City/State/ZIP Code Phon e Number [facility] [address] [place] [address] SERVICES PACK [facility] [address] [place] [address] PREPARE RED BLOOD CELLS (2009 7:31 EDT) Patholo gist Method Time Signature Product Code -3 RED BLOOD PACK CELLS,ADENINE- [facility] SALINE ADDED,LEUKOCYT ES REDUCED Donor Number [id number] PACK [facility] Unit ABO O PACK [facility] Unit Rh POS PACK [facility] Cross Match Compatible PACK Interp [facility] Unit Status Released From [facility] Crossmatch [facility] Specimen Anatomical Collection Method Collection Time Receive d Time (Source) Location / / Volume Laterality 2009 7:31 2009 7 :31 EDT EDT Alessandro Torres MD BLOOD BANK ORDERABLES Performing Organization Address City/State/ZIP Code Phon e Number [facility] [address] [place] [address] SERVICES [facility] [address] [place] [address] PREPARE RED BLOOD CELLS (2009 7:31 EDT) [facility] Method Time Signature Product Code -3 RED BLOOD PACK CELLS,ADENINE- [facility] SALINE ADDED,LEUKOCYT ES REDUCED Donor Number [id number] [facility] Unit ABO O [facility] Unit Rh POS [facility] Cross Match Compatible PACK Interp [facility] Unit Status Released From PACK Fernandomstch [facility] Specimen Anatomical Collection Method Collection Time Receive d Time (Source) Location / / Volume Laterality 2009 7:31 2009 7 :31 EDT EDT Alessandro Torres MD BLOOD BANK ORDERABLES Performing Organization Address City/State/ZIP Code Phon e Number [facility] [address] [place] [address] SERVICES [facility] [address] [place] [address] (ABNORMAL) GLUCOSE, GLUCOMETER (2009 6:55 EDT) [facility] Method Time Signature Glucose, 103 (H) 70 - 100 PACK Fingerstick mg/dl [facility] Marketing Traffic Coordinator ID [id number] PACK Test Performed by Nursing Services [facility] Specimen Anatomical Collection Method Collection Time Receive d Time (Source) Location / / Volume Laterality 2009 6:55 2009 6 :59 EDT EDT Alessandro Torres MD CHEMISTRY & BLOOD GAS ORDERA BLES Performing Organization Address City/[facility]/ZIP Code Phon e Number [facility] [address] [place] [address] SERVICES PACK [facility] [address] [place] [address] documented in this encounter Visit Diagnoses Not on filedocumented in this encounter Administered Medications Inactive Administered Medications - up to 3 most recent administrations Medication Order MAR Action Action Date Dose Rate Site acetaminophen (TYLENOL) tablet Given 2009 6:50 EDT 1,000 m g 1,000 mg 1,000 mg, oral, PRE-OP ONCE, 1 dose, On Fri08/11/09 at 0600, Routine, Pre Op Day of Surgery acetaminophen (TYLENOL) tablet 650 mg Given 08/12/2009 6:00 EDT 650 mg 650 mg, oral, EVERY 6 HOURS (4 times per day), First dose on Fri08/11/09 at 1800, Until Discontinued, Routine Given 08/12/2009 0:00 EDT 650 mg Given 2009 18:00 EDT 650 mg atorvastatin (LIPITOR) tablet 10 mg Given 08/12/2009 9:00 EDT 10 mg 10 mg, oral, DAILY, First dose on Fri08/11/09 at 1530, Until Discontinued, Routine, On Unit celecoxib (CELEBREX) capsule 100 mg Given 08/12/2009 9:00 EDT 100 mg 100 mg, oral, EVERY 12 HOURS (2 times per day), 10 doses, First dose on Fri08/11/09 at 2100, Last dose on Fri08/16/09 at 0900, Routine, On Unit Given 2009 21:00 EDT 100 mg celecoxib (CELEBREX) capsule 200 mg Given 2009 6:50 EDT 200 mg 200 mg, oral, PRE-OP ONCE, 1 dose, On Fri08/11/09 at 0600, Routine, Pre Op Day of Surgery Cholecalciferol (Vitamin D3) tablet 400 Given 2009 21:00 E DT 400 Units Units 400 Units, oral, AT BEDTIME, First dose on Fri08/11/09 at 2100, Until Discontinued, Routine, On Unit ciprofloxacin (CIPRO) tablet 750 mg Given 08/12/2009 9:00 EDT 750 mg 750 mg, oral, EVERY 12 HOURS (2 times per day), 2 doses, First dose on Fri08/11/09 at 2100, Last dose on Fri08/12/09 at 0900, Controlled antibiotic, has ID approved? No: Surgical Prophylaxis, Routine, On Unit Given 2009 21:00 EDT 750 mg dexaMETHasone (DECADRON) injection 8 mg Given 2009 7:04 EDT 8 mg 8 mg, intravenous, PRE-OP ONCE, 1 dose, On Fri08/11/09 at 0600, Routine, Pre Op Day of Surgery dextrose 5 % and 0.9 % NaCl with KCl 20 New Bag 2009 12:00 E DT 100 mL/hr mEq/L infusion at 100 mL/hr, intravenous, CONTINUOUS, Starting on Fri08/11/09 at 1215, Until Fri08/12/09 at 1346, Routine, On Unit diazepam (VALIUM) tablet 10 mg Given 2009 6:50 EDT 10 mg 10 mg, oral, PRE-OP ONCE, 1 dose, On Fri08/11/09 at 0600, Routine, Pre Op Day of Surgery diphenhydrAMINE (BENADRYL) 50 mg in sodium Given 2009 7:15 EDT 50 mg chloride 0.9 % 50 mL IVPB 50 mg, intravenous, Administer over 15 Minutes, NOW X1, 1 dose, On Fri08/11/09 at 0730, Routine diphenhydrAMINE (BENADRYL) injection 12. 5 mg Given 08/12/2009 0:10 EDT 12.5 mg 12.5 mg, intravenous, EVERY 6 HOURS PRN, Starting on Fri08/11/09 at 2315, Until 08/12/09 at 1346, Itching, Routine docusate sodium (COLACE) capsule 200 mg Given 08/12/2009 9:00 EDT 200 mg 200 mg, oral, 2 TIMES DAILY, First dose on Fri08/11/09 at 2100, Until Discontinued, Routine, On Unit Given 2009 21:00 EDT 200 mg fentanyl citrate (PF) 50 mcg/mL injection Given 2009 11:05 EDT 50 mcg 25-100 mcg 25-100 mcg, intravenous, EVERY 5 MIN PRN, Starting on Fri08/11/09 at 0721, Until Fri08/11/09 at 1323, Pain, Routine, Recovery (only) Given 2009 10:53 EDT 50 mcg gabapentin (NEURONTIN) capsule 600 mg Given 08/12/2009 9:00 EDT 600 mg 600 mg, oral, 3 TIMES DAILY, First dose on Fri08/11/09 at 1545, Until Discontinued, Routine Given 2009 21:00 EDT 600 mg HYDROmorphone (DILAUDID) 2 mg tablet 1 dose, Starting on Fri08/11/09 at 1051, Until Fri at 1053 HYDROmorphone (DILAUDID) tablet 2 mg Given 2009 10:53 EDT 4 mg 2 mg, oral, PRN, 2 doses, Starting on Fri08/11/09 at 0722, Until Fri08/11/09 at 1215, Pain, Routine, Recovery (only) HYDROmorphone (PF) (DILAUDID) 1 mg/mL injection Given 2009 11:22 EDT 0.2 mg 0.2 mg 0.2 mg, intravenous, EVERY 10 MINUTES PRN, Starting on Fri08/11/09 at 0721, Until Fri08/11/09 at 1323, Pain, Routine, Recovery (only) Given 2009 11:06 EDT 0.4 mg Given 2009 10:54 EDT 0.4 mg lactated ringers (LR) infusion New Bag 2009 7:00 EDT 25 mL/hr at 25 mL/hr, intravenous, CONTINUOUS, Starting on Fri08/09/09 at 1445, Until Fri08/11/09 at 0722, Routine, Pre Op Day of Surgery morphine (MS CONTIN) CR tablet 15 mg Given 08/12/2009 9:00 EDT 15 mg 15 mg, oral, EVERY 12 HOURS (2 times per day), 4 doses, First dose on Fri08/11/09 at 2100, Last dose on Fri08/13/09 at 0900, Routine, On Unit Given 2009 21:00 EDT 15 mg Multivitamins with Minerals tablet 1 Tab Given 2009 21:00 EDT 1 Tablet 1 Tablet, oral, AT BEDTIME, First dose on Fri08/11/09 at 2100, Until Discontinued, Routine, On Unit oxycodone (OXYCONTIN) CR tablet 20 mg Given 2009 6:50 EDT 20 mg 20 mg, oral, PRE-OP ONCE, 1 dose, On Fri08/11/09 at 0600, Routine, Pre Op Day of Surgery oxycodone (ROXICODONE) immediate release tablet Given 2008 19:52 EDT 5 mg 5-20 mg 5-20 mg, oral, EVERY 4 HOURS PRN, Starting on Fri08/11/09 at 1506, Until 08/12/09 at 1346, Pain, Routine, On Unit PEG 3350-Electrolytes (MIRALAX) packet 1 7 g Given 08/12/2009 9:00 EDT 17 g 17 g, oral, DAILY, First dose on Fri08/11/09 at 1530, Until Discontinued, Routine, On Unit pregabalin (LYRICA) capsule 150 mg Given 2009 6:50 EDT 150 mg 150 mg, oral, PRE-OP ONCE, 1 dose, On Fri08/11/09 at 0600, Routine, Pre Op Day of Surgery senna (SENOKOT) tablet 2 Tab Given 2009 21:00 EDT 2 Tablets 2 Tablet, oral, AT BEDTIME, 2 doses, First dose on Fri08/11/09 at 2100, Last dose on Fri08/12/09 at 2100, Routine, On Unit vancomycin (VANCOCIN) IVPB 1,000 mg Given 2009 7:17 EDT 1,000 mg 1,000 mg, intravenous, Administer over 60 Minutes, PRE-OP ONCE, 1 dose, On Fri08/11/09 at 0730, Routine vancomycin (VANCOCIN) IVPB 1,000 mg Given 08/12/2009 0:10 EDT 1,000 mg 1,000 mg, intravenous, Administer over 60 Minutes, EVERY 12 HOURS, 2 doses, First dose on Fri08/11/09 at 1900, Last dose on Fri08/12/09 at 1200, Routine documented in this encounter Discontinued Medications Medication Sig Discontinue Reason Start Date End Date acetaminophen (TYLENOL) Take 2 Tabs by 2009 325 mg tablet mouth every 6 hours. docusate sodium (COLACE) Take 2 Caps by 2009 1 100 mg capsule mouth 2 times daily. methocarbamol (ROBAXIN) Take 1-2 Tabs by 2009 08/12/2009 500 mg tablet mouth every 6 hours as needed. muscle spasms oxycodone (ROXICODONE) 5 Take 1-4 Tabs by 2009 08/12/2009 mg immediate release mouth every 4 tablet hours as needed for Pain. celecoxib (CELEBREX) 100 Take 1 Cap by 2009 mg capsule mouth every 12 hours for 5 days. acetaminophen (TYLENOL Take 650 mg by ARTHRITIS) 650 mg CR mouth 2 times tablet daily. documented as of this encounter Historical Medications This list may reflect changes made after this encounter. Medication Sig Dispensed Refills Start Date End Date ibuprofen (MOTRIN) 800 mg Take 800 mg by 0 tablet mouth 2 times daily. gabapentin (NEURONTIN) 600 Take 600 mg by 0 mg tablet mouth 3 times daily. 2 -3 times daily acetaminophen (TYLENOL) 325 Take 2 Tabs by 100 Tab 0 07/2108/12/2009 mg tablet mouth every 6 hours. multivitamin (THERAGRAN) Take 1 Tab by 0 07/18/2011 per tablet mouth daily. acetaminophen (TYLENOL Take 650 mg by 0 08/12/2009 ARTHRITIS) 650 mg CR tablet mouth 2 times daily. atorvastatin (LIPITOR) 10 Take 10 mg by 0 07/30/2010 mg tablet mouth daily. added in this encounter Active and Recently Administered Medications Times are shown in EDT. Scheduled Medication Order 08/10/2009 2009 08/12/2009 acetaminophen (TYLENOL) tablet 1,000 mg (COMPLETED) 0650 (Given - Provider: Ruma Palma RN) 1,000 mg, Oral, PRE-OP ONCE, 1 dose, Fri08/11/09 at 0600 acetaminophen (TYLENOL) tablet 650 mg 18 00 (Given - Provider: Cynthia Tavares) 0000 (Given - Provider: Manisha Kramer RN)0600 (Given - Provider: Manisha Kramer RN) 650 mg, Oral, EVERY 6 HOURS (4 times per day), First dose on Fri08/11/09 at 1800, Until Discontinued atorvastatin (LIPITOR) tablet 10 mg (CANCELED) 1530 (Not Given - Provider: America Billingsley - Reason: Other - Comment: morning med) 0900 (Given - Provider: Zachary Nieto RN) 10 mg, Oral, DAILY, First dose on Fri08/11/09 at 1530, Until Di scontinued celecoxib (CELEBREX) capsule 100 mg 2100 (Given - Provider: Cynthia Tavares) 0900 (Given - Provider: Zachary pike RN) 100 mg, Oral, EVERY 12 HOURS (2 times pe r day), 10 doses, First dose on Fri08/11/09 at 2100, Last dose on Fri08/16/09 at 0900 celecoxib (CELEBREX) capsule 200 mg (COMPLETED) 0650 (Given - Provider: Ruma Palma RN) 200 mg, Oral, PRE-OP ONCE, 1 dose, Fri08/11/09 at 0600 Cholecalciferol (Vitamin D3) tablet 400 Units (CANCELED) 2100 (Given - Provider: Cynthia Tavares) 400 Units, Oral, AT BEDTIME, First dose on Fri08/11/09 at 2100, Until Discontinued ciprofloxacin (CIPRO) tablet 750 mg (COMPLETED) 2099 (Given - Provider: Cynthia Tavares) 09 (Given - Provider: Zachary pike RN) 750 mg, Oral, EVERY 12 HOURS (2 times pe r day), 2 doses, First dose on Fri08/11/09 at 2100, Last dose on Fri08/12/09 at 0900 dexaMETHasone (DECADRON) injection 8 mg (COMPLETED) 703 (Given - Provider: Ruma Palma RN) 8 mg, Intravenous, PRE-OP ONCE, 1 dose, Fri08/11/09 at 0600 diazepam (VALIUM) tablet 10 mg (COMPLETED) 649 (Given - Provider: Ruma Palma RN) 10 mg, Oral, PRE-OP ONCE, 1 dose, Fri08/11/09 at 0600 diphenhydrAMINE (BENADRYL) 50 mg in sodi um chloride 0.9 % 50 mL IVPB (COMPLETED) 714 (Given - Provider: Ruma Palma RN) 50 mg, Intravenous, for 15 Minutes, NOW X1, 1 dose, Fri08/11/09 at 0730 docusate sodium (COLACE) capsule 200 mg 2099 (Given - Provider: Cynthia Tavares) 09 (Given - Provider: Zachary pike RN) 200 mg, Oral, 2 TIMES DAILY, First dose on Fri08/11/09 at 2100, Until Discontinued gabapentin (NEURONTIN) capsule 600 mg (CANCELED) 1545 (Due)2099 (Given - Provider: Cynthia Tavares) 09 (Given - Provider: Zachary pike RN) 600 mg, Oral, 3 TIMES DAILY, First dose on Fri08/11/09 at 1545, Until Discontinued morphine (MS CONTIN) CR tablet 15 mg 210 0 (Given - Provider: Cynthia Tavares) 0900 (Given - Provider: Zachary pike RN) 15 mg, Oral, EVERY 12 HOURS (2 times per day), 4 doses, First dose on Fri08/11/09 at 2100, Last dose on Fri08/13/09 at 0900 Multivitamins with Minerals tablet 1 Tab (CANCELED) 2099 (Given - Provider: Cynthia Tavares) 1 Tab, Oral, AT BEDTIME, First dose on Fri08/11/09 at 2100, Until Discontinued oxycodone (OXYCONTIN) CR tablet 20 mg (COMPLETED) 0650 (Given - Provider: Ruma Palma, LIDIA) 20 mg, Oral, PRE-OP ONCE, 1 dose, Fri08/11/09 at 0600 PEG 3350-Electrolytes (MIRALAX) packet 17 g (CANCELED) 1530 (Not Given - Provider: America Billingsley - Reason: Other - Comment: morning med) 0900 (Given - Provider: Zachary Nieto RN) 17 g, Oral, DAILY, First dose on Fri08/11/09 at 1530, Until Dis continued pregabalin (LYRICA) capsule 150 mg (COMPLETED) 0650 (Given - Provider: Ruma Palma RN) 150 mg, Oral, PRE-OP ONCE, 1 dose, Fri08/11/09 at 0600 senna (SENOKOT) tablet 2 Tab (CANCELED) 2099 (Given - Provider: Cynthia Tavares) 2 Tab, Oral, AT BEDTIME, 2 doses, First dose on Fri08/11/09 at 2100, Last dose on Fri08/12/09 at 2100 vancomycin (VANCOCIN) IVPB 1,000 mg (COMPLETED) 0717 (Given - Provider: Ruma Palma RN) 1,000 mg, Intravenous, for 60 Minutes, P RE-OP ONCE, 1 dose, Fri08/11/09 at 0730 vancomycin (VANCOCIN) IVPB 1,000 mg (CANCELED) 0010 (Given - Provider: Manisha Kramer RN - Comment: med not given at 1900 r/t pt having vanco allergy history. Md and pharmacy called and aware benadryl order to prevent itching) 1,000 mg, Intravenous, for 60 Minutes, E VERY 12 HOURS, 2 doses, First dose on Fri08/11/09 at 1900, Last dose on 08/12/09 at 1200 Continuous Medication Order 08/10/2009 2009 08/12/2009 dextrose 5 % and 0.9 % NaCl with KCl 20 mEq/L infusion (CANC ELED) 1200 (New Bag - Provider: Miranda Adkins RN) 0800 (Completed - Provider: Zachary Nieto, LIDIA) at 100 mL/hr, Intravenous, CONTINUOUS, S tarting Fri08/11/09 at 1215, Until Discontinued lactated ringers (LR) infusion (CANCELED) 0700 (New Bag - Provider: Ruma Palma, LIDIA) at 25 mL/hr, Intravenous, CONTINUOUS, St arting 08/09/09 at 1445, Until Discontinued PRN Medication Order 08/10/2009 2009 08/12/2009 diphenhydrAMINE (BENADRYL) injection 12.5 mg (CANCELED) 0010 (Given - Provider: Manisha Kramer, LIDIA) 12.5 mg, Intravenous, EVERY 6 HOURS PRN, Starting Fri08/11/09 at 2315, Until Discontinued fentanyl citrate (PF) 50 mcg/mL injection 25-100 mcg (CANCEL ED) 1053 (Given - Provider: Miranda Adkins RN)1105 (Given - Provider: Miranda Adkins RN) 25-100 mcg, Intravenous, EVERY 5 MIN PRN , Starting Fri08/11/09 at 0721, Until Discontinued HYDROmorphone (DILAUDID) tablet 2 mg (CANCELED) 1053 (Given - Provider: Miranda Adkins RN) 2 mg, Oral, PRN, 2 doses, Starting Fri08/11/09 at 0722, Until D iscontinued HYDROmorphone (PF) (DILAUDID) 1 mg/mL injection 0.2 mg (CANC ELED) 1054 (Given - Provider: Miranda Adkins RN)1106 (Given - Provider: Miranda Adkins RN)1122 (Given - Provider: Miranda Adkins RN) 0.2 mg, Intravenous, EVERY 10 MINUTES DC N, Starting Fri08/11/09 at 0721, Until Discontinued methocarbamol (ROBAXIN) tablet 500-1,000 mg 500-1,000 mg, Oral, EVERY 6 HOURS PRN, S tarting Fri08/11/09 at 1506, Until Discontinued, muscle spasms oxycodone (ROXICODONE) immediate release tablet 5-20 mg 1951 (Given - Provider: Cynthia Tavares) 5-20 mg, Oral, EVERY 4 HOURS PRN, Maribel pike Fri08/11/09 at 1506, Until Discontinued documented in this encounter Orders Medications Ordered That Might Not Have Count Last Ord ered Date First Ordered Date Been Administered acetaminophen (TYLENOL) CR tablet 650 mg 1 009 acetaminophen (TYLENOL) suppository 650 mg 2 08/11 aluminum & magnesium hydroxide-simethicone 1 08/11 (MYLANTA-DS) 400-400-40 mg/5 mL suspension 30 mL atropine 0.1 mg/mL 10 mL syringe 0.5 mg 1 08/11/20 09 bisacodyl (DULCOLAX) suppository 10 mg 2 9 calcium carbonate (TUMS) 500 mg per 1 2009 chewable tablet Chew 1-2 Tab gabapentin (NEURONTIN) tablet 600 mg 1 2009 hydrocodone-acetaminophen (LORTAB) 5-500 1 009 mg per tablet 1 Tab HYDROmorphone (DILAUDID) tablet 2 mg 1 2009 HYDROmorphone (DILAUDID) tablet 2-4 mg 1 9 lactated ringers (LR) infusion 2 2009 1 magnesium hydroxide (MILK OF MAGNESIA) 400 2 08/11 mg/5 mL suspension 30 mL meperidine (PF) (DEMEROL) 25 mg/0.5 mL 1 9 injection 12.5 mg methocarbamol (ROBAXIN) tablet 500-1,000 1 009 mg morphine injection 1-4 mg 1 2009 naloxone (NARCAN) injection 0.2 mg 1 2009 ondansetron (PF) (ZOFRAN) 4 mg/2 mL 1 2009 injection 2 mg ondansetron (PF) (ZOFRAN) 4 mg/2 mL 1 2009 injection 2-4 mg oxycodone-acetaminophen (PERCOCET) 5-325 1 009 mg per tablet 1 Tab PEG 3350-Electrolytes (MIRALAX) packet 17 1 2008 g prochlorperazine (COMPAZINE) 25 mg 1 2009 suppository 25 mg prochlorperazine (COMPAZINE) tablet 10 mg 1 2008 promethazine (PHENERGAN) injection 12.5 mg 1 08/11 senna (SENOKOT) tablet 2-4 Tab 1 2009 sodium phosphate (FLEET) enema 1 Enema 1 9 vancomycin (VANCOCIN) 1,000 mg in dextrose 1 08/11 (D5W) 5 % 500 mL IVPB Diet Count Last Ordered Date First Ordered Date DIET REGULAR 1 2009 Nursing Count Last Ordered Date First Ordered Date INSERT BUCIO CATHETER [address] SEQUENTIAL COMPRESSION DEVICE 1 2009 PT Count Last Ordered Date First Ordered Date PT EVALUATION AND TREAT 1 2009 Admission Count Last Ordered Date First Ordered Date ADMIT TO INPATIENT 1 08/12/2009 NOTIFY PPS OF DISCHARGE COMPLETE 1 08/12/2009 NOTIFY PPS PATIENT ARRIVAL IN PACU 1 2009 PPS NOTIFICATION OF PATIENT ARRIVAL ON 1 9 UNIT Precaution Count Last Ordered Date First Ordered Date ORTHOPEDIC SPINAL PRECAUTIONS 1 2009 documented in this encounter Care Teams Cell Inspector Relationship Specialty Start Date End Date Santhosh Herron MD PCP - General 07/13/09 [address] [place] [address] documented as of this encounter
--- OUTSIDE RECORDS SUMMARY | 2022-09-13 00:38 | XMS_ITS | Encounter Summary ---
:1960 Author Organization [facility] Address [address] [place] [address] Care Team Providers Name Role Phone Santhosh Herron MD Primary Care Provider Encounter Details Date Type Department Care Team Description 12/19/2008 Before PRISM Converted [facility] - Alessandro Michelle MD Visit (Maple) Maple conversion [address] [place] [phone] Social History Tobacco Use Types Packs/Day Years Used Date Smoking Tobacco: Never Assessed Sex Assigned at Date Recorded Not on file documented as of this encounter Progress Notes Alessandro Torres MD - 11/22/2009 0027 EST [facility] ([facility] [address] [place] [id number] PROGRESS/FOLLOWUP NOTE - 12/19/2008 Primary Care Provider: Santhosh Herron MD Referred by: Santhosh Herron MD Attending: Alessandro Torres MD SUBJECTIVE Alicia Main is now approximately two and a half years status post a single level instrumented fusion at L5-S1 for spondylolisthesis who was doing quite well until [place] when she bent over a vacuum dry cleaner helper and pulled her low back. Today shecomplains of pain just above her previous incision with some radiation of the pain to her anterior right thigh. Her back pain seems to be the greater component of pain and has not improved over the past two month period. OBJECTIVE Alicia has a well healedlumbar incision today with no evidence of infection. Her incision is non tender. She appears to have a tender area that represents the greatest area of her pain just above herincision. This is somewhat painful with forward flexion but more significantly with 10 degrees of extension. Her neurologic exam is unchanged with no numbness or weakness particularly in her right thigh. Radiographs: Standard lumbar spine films were brought in on CD from October of 2008 which demonstrates good position of L5-[id number] screw instrumentation with what appears to be a solid fusion across this segment. There does not appear to be any evidence of complication. The adjacent segment above appears to have some mild to moderate degenerative change within the disk and facet but this does not appear to have worsened significantly when compared to films over the past two year period. ASSESSMENT Alicia Main is now two and a half years status post single level instrumented fusion at L5-S1.Alicia was doing quite well until a recent bending and lifting type injury in which she appears tohave strained her low back. On exam today this appears to be just above the level of her fusion but c ertainly it is difficult to pinpoint the particular location of her problem clinically or on her radiographs. We did spend at least 25 minutes today with Alicia in face to face discussion, examination and in review of her x-ray images with her with greater than 50% of the visit spent counseling her with respect to her options at this point in time. We did agree to obtain a CT scan of the lumbar spine as well as bone scan to ensure that indeed Alicia has achieved a solid fusion at her L5-S1 leveland to rule out facet arthropathy potentially contributing to her symptoms at L4-5.Alicia did understand and agree with the above plan. She asked appropriate questions today and all questions were answered. She will follow-up once the above studies are completed for a further discussion of options. PLAN 1. CT scan and bone scan of the lumbar spine with follow-up after these tests for further discussionof options. Signed by Alessandro Torres MD 12/21/2008 11:34 MD Damian Lawler: 12/19/2008 - Alessandro Torres MD - TORREY Job ID: [id number] Doc ID: [id number] cc: Santhosh Herron MD documented in this encounter Plan of Treatment Not on filedocumented as of this encounter Visit Diagnoses Not on filedocumented in this encounter Care Teams Stereotyper Apprentice Relationship Specialty Start Date End Date Santhosh Herron MD PCP - General 07/13/[address] [place] [id number] documented as of this encounter
--- OUTSIDE RECORDS SUMMARY | 2022-09-13 00:38 | XMS_ITS | Encounter Summary ---
:1960 Author Organization [facility] Address [address] [place] [address] Care Team Providers Name Role Phone Unavailable Primary Care Provider Unavailable Encounter Details Date Type Department Care Team Description 06/14/2008 Before PRISM Converted [facility] - Alessandro Michelle MD Visit (Maple) Maple conversion [address] [place] [phone] Social History Tobacco Use Types Packs/Day Years Used Date Smoking Tobacco: Never Assessed Sex Assigned at Date Recorded Not on file documented as of this encounter Progress Notes Alessandro Torres MD, MD - 05/13/2009 0626 EDT [facility] ([facility]) [facility] [address] [place] [phone] PROGRESS/FOLLOWUP NOTE - 06/14/2008 Primary Care Provider: Santhosh Herron MD Referred by: Santhosh Herron MD Attending: Alessandro Torres MD SUBJECTIVE Alicia Main is now two years status post a single level fusion at the L5- S1 level for a spondylolisthesis with associated degenerative changes. Alicia has done quite well with her surgery and today has essentially no complaints of pain and no issues with respect to her back or her legs. OBJECTIVE has a well healed lumbar incision with no evidence of infection. Her neurologic exam is grossly intact and her neurologic exam is grossly intact. RADIOGRAPHS Standard x-rays of the lumbar spine including AP and lateral views demonstrate excellent position ofpedicle screw instrumentation spanning L5-S1 with good position of anterior bone graft and what appears to be a solid fusion across this segment. ASSESSMENT Alicia Main is now two years status post a single levellumbar fusion at L5-S1 and has had an excellent result from her surgery. She is quite pleased and has returned essentially to full function.We did spend at least 15 minutes today with Alicia in face to face discussion, examination, and inreview of her x-ray images with her with greater than 50% of the visit today spent counseling her with respect to her status. We did agree at the end of the visit to followup on an as needed basis only. Alicia understood and agreed with the above plan. PLAN 1. Followup on an as needed basis only. Signed by Alessandro Torres MD 06/22/2008 17:50 Alessandro Torres MD - Alessandro Torres MD - [facility] Job ID: [id number] Doc ID: [id number] cc: Santhosh Herron MD documented in this encounter Plan of Treatment Not on filedocumented as of this encounter Visit Diagnoses Not on filedocumented in this encounter
--- OUTSIDE RECORDS SUMMARY | 2022-09-13 00:38 | XMS_ITS | Encounter Summary ---
:1960 Author Organization Health system Address [address] [place] [address] Care Team Providers Name Role Phone Santhosh Herron MD Primary Care Provider Encounter Details Date Type Department Care Team Description 11/29/2020 Lab Requisition [facility] Outr Resulting Lab, Pathology & Laboratory Provider [facility] [address] [place] [address] Social History Tobacco Use Types [...] Name Priority Date/Time Associated Diagnosis Comme nts AFB CULTURE/SMEAR, Routine 11/29/2020 13:42 Resul ts for this OTHER EST procedure are i n the results section. FUNGUS Routine 11/29/2020 13:42 Results for this CULTURE/SMEAR EST procedure are in the results section. documented in this encounter Results FUNGUS CULTURE/SMEAR (11/29/2020 13:42 EST) [facility] Method Time Signature Organism ID No fungi 12/28/2020 [facility] MEDICAL isolated 9:40 [facility] LABORATORY SERVICES Fungal Smear No Fungi 12/28/2020 [facility] MEDICAL Seen 9:40 [facility] LABORATORY SERVICES Specimen Anatomical Collection Method Collection Time Receive d Time (Source) Location / / Volume Laterality Tissue ENTIRE LYMPH NODE 11/29/2020 13:42 2020 / Unknown EST 22:36 EST Provider Outr Resulting Lab MICROBIOLOGY - GENERAL ORD ERABLES Performing Organization Address City/State/ZIP Code Phon e Number [facility] [address] [place] [address] SERVICES AFB CULTURE/SMEAR, OTHER (11/29/2020 13:42 EST) Component Value Ref Test Method Analysis Performed At [facility] Range Time Signature Organism ID No VITEK 01/25/2021 [facility] MEDICAL acid-fast SUSCEPTIBILITY 9:[address] [facility] bacilli LABORATORY isolated SERVICES AFB Smear No Acid 01/25/2021 [facility] MEDICAL Fast 9:[address] [facility] Bacilli LABORATORY Seen SERVICES Specimen Anatomical Collection Method Collection Time Receive d Time (Source) Location / / Volume Laterality Tissue ENTIRE LYMPH NODE 11/29/2020 13:42 2020 / Unknown EST 22:36 EST Provider Outr Resulting Lab MICROBIOLOGY - GENERAL ORD ERABLES Performing Organization Address City/State/ZIP Code Phon e Number [facility] [address] [place] [address] SERVICES documented in this encounter Visit Diagnoses Not on filedocumented in this encounter Care Teams Creative Engagement Director Relationship Specialty Start Date End Date Santhosh Herron MD PCP - General 07/13/[address] [place] [phone] documented as of this encounter
--- OUTSIDE RECORDS SUMMARY | 2022-09-13 00:38 | XMS_ITS | Clinical Summary ---
:1960 Author Organization [facility] [place] [address] Care Team Providers Name Role Phone Santhosh Herron MD Primary Care Provider Allergies Active Allergy Reactions Severity Noted Date Comments Erythromycin Nausea And Vomiting 07/18/2011 Cephalexin Itching 02/07/2021 Itching all ove r Oxycodone Itching 07/30/2017 Penicillins Hives 03/05/2017 Vancomycin Itching 03/05/2017 Red man's synd aline Medications Medication Sig Dispensed Refills Start Date End Date Status ibuprofen (ADVIL;MOTRIN) Take 800 mg by 0 Active 200 mg Tablet mouth 2 times daily. gabapentin (NEURONTIN) Take 600 mg by 0 Active 600 mg Tablet mouth 3 times daily. acetaminophen (TYLENOL) Take 1,000 mg by 0 Active 500 mg Tablet mouth every 6 hours as needed for Pain. albuterol 90 0 03/21/2019 Active mcg/actuation HFA Aerosol Inhaler ascorbic acid, vitamin Take by mouth. 0 Active C, (VITAMIN C) 500 mg Tablet, Chewable calcium-vitamin D 500 Take 1 tablet by 0 Active mg(1,250mg) -200 unit mouth 2 times Tablet daily (with meals). pregabalin (Lyrica) 75 Take 75 mg by 0 Active mg Capsule mouth 3 times daily. Active Problems Problem Noted Date Follicular non-Hodgkin's lymphoma 04/04/2022 Overview: Dx November 2020 - no treatment to date, grade 1-2 (low-grade), Ki67 proliferatio n index is estimated at ~20-30% Acute pain of right knee 07/09/2017 s/p conversion of uni to R TKA 07/08/17 Dr. Hatch 06/20 Cigarette smoker 06/09/2017 Acquired spondylolisthesis 03/14/2008 Degeneration of lumbar or lumbosacral intervertebral d isc 03/14/2008 Lumbago 03/14/2008 Resolved Problems Problem Noted Date Resolved Date Anticoagulation management encounter 07/09/2017 Encounters Date Type Specialty Care Team Description 08/22/2022 Office Visit Hematology and Julian Gutierrez, Follicular Oncology non-Hodgkin's lymphoma Olivia Alonzo, MOHIT 08/22/2022 Travel from Last 3 Months Family History Medical History Relation Comments Arthritis Mother Myocardial Infarction Mother Diabetes Sister Deep Vein Thrombosis Neg Hx Relation Status Comments Mother Sister Social History Tobacco Use Types Packs/Day Years Used Date Smoking Tobacco: Every Day Cigarettes 1 40 Smokeless Tobacco: Never Comments: 3/4 to 1/2 pack a day Alcohol Use Standard Drinks/Week Comments Yes 0 (1 standard drink = 0.6 oz pure alcoho l) occasional Sex Assigned at Date Recorded Not on file Last Filed Vital Signs Vital Sign Reading Time Taken Comments Blood Pressure 123/71 08/22/2022 10:22 AM EDT Pulse 59 08/22/2022 10:22 AM EDT Temperature 36.3 ??C (97.3 ??F) 08/22/2022 10:22 AM EDT Respiratory Rate 16 08/22/2022 10:22 AM EDT Oxygen Saturation 100% 08/22/2022 10:22 AM EDT Inhaled Oxygen Concentration - - Weight 64.4 kg (142 lb) 08/22/2022 10:22 AM EDT Height 157.5 cm (5' 2.01) 08/22/2022 10:22 AM EDT Body Mass Index 25.97 08/22/2022 10:22 AM EDT Plan of Treatment Health Maintenance Due Date Last Done Comments Covid-19 Vaccine (#1) 02/09/1961 Pneumococcal Vaccine: At-Risk 5-64yrs 1968 (1 - PCV) HIV screen 1980 Hepatitis C Screening 1980 Lipid Screening 1980 Tdap adult 1981 Tetanus vaccine 1981 HPV test 1992 PAP Smear 1992 Breast Cancer Share Decision Needed 2002 Colonoscopy 2007 Breast Cancer screening 2012 Zoster vaccine (1 of 2) 2012 Influenza (Flu) vaccine (1 of 1 - 06/20/2022 Influenza standard series) Diabetes Screening (HgbA1C or 12/26/2023 12/25/2020, 2016, Glucose) 06/09/2017 Medical Devices Implanted Type Area Manager Club Device Shelf Model / Identifier Expiration Serial / Date Lot PinaAureliano Mdl,Veena,35mm ([id number]) (Autoreq) - [id number] ANTS Right: DO NOT USE Depuy 03/19/2022 [id number] / Implanted: Qty: 1 on 07/08/2017 by Dylan Hatch MD at [facility] Knee Visual Merchandising Specialist - / [id number] Procedures Procedure Name Priority Date/Time Associated Comments Diagnosis LAB SCAN 08/23/2022 12:00 Results for this AM EDT procedure are i n the results section. COMPREHENSIVE Routine 08/22/2022 Results for th is METABOLIC PANEL procedure ar e in (NON-FASTING) the results section. CBC (WITH DIFF) Routine 08/22/2022 Results for this procedure are i n the results section. from Last 3 Months Results SCAN DOC: LAB (08/23/2022 12:00 AM EDT) Narrative 08/23/2022 12:00 AM EDT This result has an attachment that is no t available. Ordered by an unspecified provider. Scanning Provider MEDIA MGR SCAN EXT ORDR/RSLT CBC (with Diff) (08/22/2022) P athologist Signature WBC 5.81 RBC 4.06 Hemoglobin 12.3 Hematocrit 36.8 Platelets 170 Neutr Abs (ANC) 4.41 Specimen (Source) Anatomical Location Collection Method / Collectio n Time Received Time / Laterality Volume Blood 08/22/2022 Historical Provider HEMATOLOGY ORDERABLES (ABNORMAL) Comprehensive metabolic panel (non-fasting) (08/22/2022) P athologist Signature BUN 15 Creatinine 1.0 Sodium 139 Potassium 4.2 Calcium 9.3 Total Protein 7.0 Albumin 3.4 Total Bilirubin 0.5 Alk Phos 115 AST 19 ALT 16 LDH 246 (H) Specimen (Source) Anatomical Location Collection Method / Collectio n Time Received Time / Laterality Volume Blood 08/22/2022 Historical Provider CHEMISTRY ORDERABLES from Last 3 Months Insurance Payer Benefit Plan / Subscriber ID Effective Dates Phone Addre ss Type Group CIGNA CIGNA POS OPEN [id number] 2019-Present [phone] [address] [facility] [place] [id number] [phone] (Work) Advance Directives Documents on File Type Date Recorded Patient Director Of Construction Explanati on Advance Directives and Living 06/18/2017 9:44 AM 8.17 Will Latest Code Status on File Code Status Date Activated Date Inactivated Comments Full Code 07/08/2017 3:23 PM 07/09/2017 5:38 PM Question Answer Comments Does patient have capacity to make decision: Yes Care Teams Area Cleaner Relationship Specialty Start Date End Date Santhosh Herron MD PCP - General Family Medicine 02/18/17 [address] [place] [phone]
--- OUTSIDE RECORDS SUMMARY | 2022-09-13 00:38 | XMS_ITS | Encounter Summary ---
:1960 Author Organization [facility] Address [address] [place] [address] Care Team Providers Name Role Phone Santhosh Herron MD Primary Care Provider Encounter Details Date Type Department Care Team Description 01/12/[address] [facility] Alessandro Torres MD Visit (Map) Spine Program - [address] [phone] Social History Tobacco Use Types Packs/Day Years Used Date Smoking Tobacco: Never Assessed Sex Assigned at Date Recorded Not on file documented as of this encounter Progress Notes Alessandro Torres MD, MD - 04/12/2009 1818 EDT Spine [place] [facility] [place] (Sp[facility]) [facility] [address] [place] [phone] PROGRESS/FOLLOWUP NOTE - 01/30/2009 Primary Care Provider: Santhosh Herron MD Referred by: Santhosh Herron MD Attending: Alessandro Torres MD SUBJECTIVE Alicia Main is now [age] and [age] years status post an L5-S1 posterior instrumented fusion. She has a very low level of back pain; however, this was enough to prompt a CT scan and a bone scan to assure that she had achieved a solid fusion. 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 ASSESSMENT We did spend at least 25 minutes with Alicia today reviewing her studies and discussion various options for treatment at this point in time. Greater than 50% of the visit was spent counseling her with respect to the above. Alicia is expecting her first grandchild some time in the next several weeks and is not interested in considering revision surgery at this point in time. We did agree to followup in a 3 to 6 month period of time to discuss the potential for an anterior revision surgery at L5-S1 only. Alicia understood and agreed with the above plan. She asked appropriate questions today and all questions were answered. PLAN As above. Signed by Alessandro Torres MD 02/06/2009 12:42 Alessandro Torres MD - Alessandro Torres MD - [facility] Job ID: [id number] Doc ID: [id number] cc: Santhosh Herron MD documented in this encounter Plan of Treatment Not on filedocumented as of this encounter Procedures Procedure Name Priority Date/Time Associated Diagnosis Comme nts NM BONE WHOLE BODY 01/12/2009 16:03 Resul ts for this WITH SPECT EDT procedure are i n the results section. CT LUMBAR SPINE WO 01/12/2009 15:07 Resul ts for this CONTRAST EDT procedure are i n the results section. documented in this encounter Results NM BONE WHOLE BODY WITH SPECT (01/12/2009 16:03 EDT) Anatomical Region Laterality Modality Other Specimen (Source) Anatomical Collection Method Collection Time Re ceived Time Location / / Volume Laterality 01/12/2009 16:03 EDT Narrative 02/14/2009 2:11 EDT LBP, right leg pain NM Bone Whole Body With SPECT ??Jan 12, 2009 4:03:00 PM Signs and Symptoms: ??LBP, right leg renetta n Technique: ??Approximately 3 hours after intravenous administration of 25 mCi Tc 99m MDP whole-body images were obtained. In addition SPECT images were obtained of the lumbar spine with CT. Findings: ??There is increased bone trac er uptake in both acromioclavicular joints, right worse th an left, and proximal right tibia. The latter may be posttraumatic. No comparison radiographs are available. Patient is status post ??posterior spina l fusion L5-S1. Bilateral pedicle screws are identified. No increa sed bone tracer uptake is associated within either of the screws. The tips of the anterior screws extend through the anterior corti rosa of L5 and S1, worse on the left side as described in detail in the separate CT report. There is some increased bone tracer uptake ass ociated with intervertebral disc grafts on both sides of the disc sp farrah, inferiorly likely related to the pseudarthroses and superi ananda due to progressive fusion. There is also increased bone tra cer uptake which corresponds to the central area of the disc space wh ere irregular bone formation is identified on the CT. Mild increased bone tracer uptake is identified associated with endplate trent ges at the L3-L4 level. No abnormal uptake is seen within the lumba r facet joints. Impression: 1. Increased bone tracer uptake at the i nferior margin of the intervertebral disc graft corresponds to area of well-defined sclerosis and likely a failure of incorp oration of the disc graft through the sacrum. 2. Increased osseous activity with progr essive bone formation posterior and central portion of the int ervertebral disc space L5-S1 adjacent to the right and posterior to t he intervertebral disc graft. 3. No evidence of abnormal bone tracer u ptake along the position of the screws to suggest hardware loosening or failure. 4. Incidentally noted increased uptake i n the proximal right tibia presumably posttraumatic. Procedure Note Elian Hauser MD - 02/14/2009Formatti ng of this note might be different from the original. LBP, right leg pain NM Bone Whole Body With SPECT Jan 12 4:03:00 PM Signs and Symptoms: LBP, right leg pain Technique: Approximately 3 hours after i ntravenous administration of 25 mCi Tc 99m MDP whole-body images were obtained. In addition SPECT images were obtained of the lumbar spine with CT. Findings: There is increased bone tracer uptake in both acromioclavicular joints, right worse th an left, and proximal right tibia. The latter may be posttraumatic. No comparison radiographs are available. Patient is status post posterior spinal fusion L5-S1. Bilateral pedicle screws are identified. No increa sed bone tracer uptake is associated within either of the screws. The tips of the anterior screws extend through the anterior corti rosa of L5 and S1, worse on the left side as described in detail in the separate CT report. There is some increased bone tracer uptake ass ociated with intervertebral disc grafts on both sides of the disc sp farrah, inferiorly likely related to the pseudarthroses and superi ananda due to progressive fusion. There is also increased bone tra cer uptake which corresponds to the central area of the disc space wh ere irregular bone formation is identified on the CT. Mild increased bone tracer uptake is identified associated with endplate trent ges at the L3-L4 level. No abnormal uptake is seen within the lumba r facet joints. Impression: 1. Increased bone tracer uptake at the i nferior margin of the intervertebral disc graft corresponds to area of well-defined sclerosis and likely a failure of incorp oration of the disc graft through the sacrum. 2. Increased osseous activity with progr essive bone formation posterior and central portion of the int ervertebral disc space L5-S1 adjacent to the right and posterior to t he intervertebral disc graft. 3. No evidence of abnormal bone tracer u ptake along the position of the screws to suggest hardware loosening or failure. 4. Incidentally noted increased uptake i n the proximal right tibia presumably posttraumatic. Alessandro Torres MD IMG NM ORDERABLES CT LUMBAR SPINE WO CONTRAST (01/12/2009 15:07 EDT) Anatomical Region Laterality Modality Other Specimen (Source) Anatomical Collection Method Collection Time Re ceived Time Location / / Volume Laterality 01/12/2009 15:07 EDT Narrative 02/14/2009 2:11 EDT LBP, right leg pain Lumbar spine CT without contrast Clinical indication: ??Lower back pain w hich radiates to the right leg. Technique: Multiple contiguous axial sec tions were taken through the lumbar spine without the use of contrast , followed by sagittal and coronal reformations. There are no prior lumbar spine CT exams. Findings: The patient has had a prior posterior sp inal fusion. Transpedicular fixation screws are seen at L5 and S1 le vels. On the right side, these extend maybe a couple of millimete rs beyond the cortical margin of the L5 and S1 levels. On the left sushma e, this extends beyond the cortical margin of L5 by about 5 to 6 mm and a couple of millimeters in front of S1. Interbody bone graft is seen with incomplete incorporation of the L5-S1 disc space le consuelo. There is no lucent line at the prothesis-osseous interface or al sara the threads of the screw. There is a slight anterolisthesis of L5 with respect to S1 on the order of about 2-3 mm roughly. Degenerat pamela changes are present in the lumbar spine including marginal oste ophytes and facet joint space compartment narrowing with subchondral s clerosis and ligament flavum hypertrophy. On the coronal reformations , there is slight curvature of the lumbar spine convex-right, some o f which may be positional. At the T12-L1 level, no focal herniation is seen. At the L1-L2 level, no focal herniation or foraminal stenosis or central canal stenosis is seen At the L2-L3 level, there is adiffuse co ncentric bulge present, and there may be a more focal herniation, ri ght paracentral-foraminal. There is right more than left lateral re cess stenosis and foraminal narrowing. There appears to be some comp onent of borderline central canal stenosis or mild central canal radha nosis at that level with narrowing of anterior to posterior dimen shantel of spinal canal. At the L3-L4 level, a more diffuse home ntric disc bulge is present with lateral recess stenosis and foramin al narrowing bilaterally. There does not appear to be significant central canal stenosis at this level. At the L4-L5 level, a diffuse concentric bulge is present. There may be a small component of central disc her niation present as well. There appears be some component of dutch inal narrowing and lateral recess stenosis bilaterally that is mild . There is minor degenerative change of th e SI joints, right more than left, and hypertrophic osteophyte develo pment. Impression: 1. Status post L5-S1 fusion as described above but no evidence of hardware failure. 2. 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 3. Degenerative disc disease with suspec pranav central herniation at L4-L5 level and small right paracentral- foraminal herniation at L2-L3 level. MR may be helpful for further ass essment 4. Stable minor anterolisthesis of L5 wi th respect to S1. Procedure Note Bimal Villafana MD - 02/14/2009F ormatting of this note might be different from the original. LBP, right leg pain Lumbar spine CT without contrast Clinical indication: Lower back pain whi ch radiates to the right leg. Technique: Multiple contiguous axial sec tions were taken through the lumbar spine without the use of contrast , followed by sagittal and coronal reformations. There are no prior lumbar spine CT exams. Findings: The patient has had a prior posterior sp inal fusion. Transpedicular fixation screws are seen at L5 and S1 le vels. On the right side, these extend maybe a couple of millimete rs beyond the cortical margin of the L5 and S1 levels. On the left sushma e, this extends beyond the cortical margin of L5 by about 5 to 6 mm and a couple of millimeters in front of S1. Interbody bone graft is seen with incomplete incorporation of the L5-S1 disc space le consuelo. There is no lucent line at the prothesis-osseous interface or al sara the threads of the screw. There is a slight anterolisthesis of L5 with respect to S1 on the order of about 2-3 mm roughly. Degenerat pamela changes are present in the lumbar spine including marginal oste ophytes and facet joint space compartment narrowing with subchondral s clerosis and ligament flavum hypertrophy. On the coronal reformations , there is slight curvature of the lumbar spine convex-right, some o f which may be positional. At the T12-L1 level, no focal herniation is seen. At the L1-L2 level, no focal herniation or foraminal stenosis or central canal stenosis is seen At the L2-L3 level, there is adiffuse co ncentric bulge present, and there may be a more focal herniation, ri ght paracentral-foraminal. There is right more than left lateral re cess stenosis and foraminal narrowing. There appears to be some comp onent of borderline central canal stenosis or mild central canal radha nosis at that level with narrowing of anterior to posterior dimen shantel of spinal canal. At the L3-L4 level, a more diffuse home ntric disc bulge is present with lateral recess stenosis and foramin al narrowing bilaterally. There does not appear to be significant central canal stenosis at this level. At the L4-L5 level, a diffuse concentric bulge is present. There may be a small component of central disc her niation present as well. There appears be some component of dutch inal narrowing and lateral recess stenosis bilaterally that is mild . There is minor degenerative change of th e SI joints, right more than left, and hypertrophic osteophyte develo pment. Impression: 1. Status post L5-S1 fusion as described above but no evidence of hardware failure. 2. 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 3. Degenerative disc disease with suspec pranav central herniation at L4-L5 level and small right paracentral- foraminal herniation at L2-L3 level. MR may be helpful for further ass essment 4. Stable minor anterolisthesis of L5 wi th respect to S1. Alessandro Torres MD IMG CT ORDERABLES documented in this encounter Visit Diagnoses Not on filedocumented in this encounter Care Teams Market Intelligence Consultant Relationship Specialty Start Date End Date Santhosh Herron MD PCP - General 07/13/[address] [place] [id number] documented as of this encounter
--- OUTSIDE RECORDS SUMMARY | 2022-09-13 00:38 | XMS_ITS | Encounter Summary ---
:1960 Author Organization [facility] Address [address] [place] [address] Care Team Providers Name Role Phone Santhosh Herron MD Primary Care Provider Encounter Details Date Type Department Care Team Description 10/28/2006 Before PRISM Converted [facility] - Alessandro Michelle MD Visit (Maple) Maple conversion [address] [place] [phone] Social History Tobacco Use Types Packs/Day Years Used Date Smoking Tobacco: Never Assessed Sex Assigned at Date Recorded Not on file documented as of this encounter Progress Notes Alessandro Torres MD - 11/06/2009 0026 EST Spine [place] [facility] [place] (SpINE) [facility]ics & Rehabilitation [address] [place] [phone] PROGRESS/FOLLOWUP NOTE - 10/28/2006 S: Alicia Main is now six weeks S/P a one level instrumented fusion at L5- S1 for spondylolisthesis. She is doing quite well at this time with no complaint of back pain and only minimal twinges inher left posterior thigh after walking on the treadmill extensively. Her pain today is essentially zero with no other specific complaints. O: The posterior midline lumbar incision is well healed and the neurologic exam grossly intact. Plain radiographs of the lumbar spine today included AP and lateral views which demonstrate excellent position of bone graft in the L5-S1 disc spaceaswell as pedicle screw instrumentation spanning the L5-[id number]. The overall lumbar alignment is quite good and there is no evidence of complication. A: Alicia Main is doing well at the six week postoperative time point. She is interested in returning to work which I think is quite reasonable for her. She will follow up with us in another six week period of time for repeat x-rays. P: 1. Return to clinic in six to eight weeks for follow up with x-rays. Signed by Alessandro Torres MD 11/02/2006 17:24 Kiley Torres MDJoana Torres MD Alessandro Torres MD - William Torres MD P - cmg Job ID: [id number] Document ID: [id number] cc: Santhosh Herron MD documented in this encounter Plan of Treatment Not on filedocumented as of this encounter Visit Diagnoses Not on filedocumented in this encounter Care Teams Maintenance Mechanic 2Nd Shift Relationship Specialty Start Date End Date Santhosh Herron MD PCP - General 07/13/[address] [place] [id number] documented as of this encounter
--- OUTSIDE RECORDS SUMMARY | 2022-09-13 00:38 | XMS_ITS | Encounter Summary ---
:1960 Author Organization [facility] Address [address] [place] [address] Care Team Providers Name Role Phone Santhosh Herron MD Primary Care Provider Encounter Details Date Type Department Care Team Description 08/28/2007 Before PRISM Converted [facility] - Alessandro Michelle MD Visit (Maple) Maple conversion [address] [place] [phone] Social History Tobacco Use Types Packs/Day Years Used Date Smoking Tobacco: Never Assessed Sex Assigned at Date Recorded Not on file documented as of this encounter Progress Notes Alessandro Torres MD - 08/29/2009 0138 EST Spine [place] [facility] [place] (SpINE) Orthopa[facility]ics and Rehabilitation [address] [place] [phone] PROGRESS/FOLLOWUP NOTE - 08/28/2007 Primary Care Provider: Santhosh Herron M.D. Referred by: Santhosh Herron MD Reason for referral: Attending: Alessandro Torres M.D. SUBJECTIVE Alicia Main is now one year status post an L5-S1 instrumented fusion for spondylolisthesis with associated degenerative changes and stenosis. Alicia is doing quite well at this time with essentially no complaint of back pain. She does get occasional pain at the end of the day in her low back but she states this is minimal and well controlled by Ibuprofen. She does take Ibuprofen, 800 mg. twice a day and states that this is quite helpful to her. She has no complaint of leg pain whatsoever andis quite pleased with her surgical result at this point in time. OBJECTIVE Alicia has a well healed lumbar incision with no evidence of infection. Her neurologic exam is intact. Standard AP and lateral lumbar spine films today demonstrate excellent position of pedicle screwinstrumentation spanning L5-S1 with what appears to be a solid fusion within the disc space, however, the AP film does show perhaps some lucency around the bone graft but it is difficult to mileage clerk if this really represents an aspect of the healing. There is no evidence of non union with respect to loosening of theinstrumentation. The instrumentation looks quite solid and the overall L5-S1 quite good. ASSESSMENT Alicia Main is now one year status post an instrumented fusion at L5-S1 and seems to be doing quite well at this time with a likely solid fusion. We did spend 15 minutes with her today in face toface discussion, examination and in review of her x-rays. Greater than 50% of the visit was spent counseling her with respect to her status and follow-up in one year. Again Alicia is quite happy withher overall surgical result at this point in time. She states that essentially she has no pain and this has made her life quite a bit easier at this point in time. She did understand and agree with theabove and will follow- up as mentioned above. PLAN 1. Follow-up in one year with AP and lateral lumbar spine films. Signed by Alessandro Torres MD 09/02/2007 20:24 Alessandro Torres MD - Alessandro Torres MD - [facility] Job ID: [id number] Doc ID: [id number] cc: Santhosh Herron MD documented in this encounter Plan of Treatment Not on filedocumented as of this encounter Visit Diagnoses Not on filedocumented in this encounter Care Teams Pot Feeder Relationship Specialty Start Date End Date Santhosh Herron MD PCP - General 07/13/09 [address] [place] [address] documented as of this encounter
--- OUTSIDE RECORDS SUMMARY | 2022-09-13 00:38 | XMS_ITS | Encounter Summary ---
:1960 Author Organization [facility] Address [address] [place] [address] Care Team Providers Name Role Phone Santhosh Herron MD Primary Care Provider Reason for Visit Reason Onset Date Comments Appointment Related 07/18/2011 Encounter Details Date Type Department Care Team Description 07/18/2011 Orders Only [facility] Blaire Sinclair listhesis; Spine Program - S, PA-C Degeneration of lumbar or lumbosacral intervertebral disc; [facility] L[facility] [address] [place] [address] Social History Tobacco Use Types Packs/Day Years Used Date Smoking Tobacco: Every Day Cigarettes 0.8 Alcohol Use Standard Drinks/Week Comments Yes 0 (1 standard drink = 0.6 oz pure alcoho l) occ Sex Assigned at Date Recorded Not on file documented as of this encounter Plan of Treatment Not on filedocumented as of this encounter Visit Diagnoses Diagnosis Spondylisthesis Congenital spondylolisthesis Degeneration of lumbar or lumbosacral in tervertebral disc Lumbago documented in this encounter Care Teams Binding Folder Machine Relationship Specialty Start Date End Date Santhosh Herron MD PCP - General 07/13/[address] [place] [phone] documented as of this encounter
--- OUTSIDE RECORDS SUMMARY | 2022-09-13 00:38 | XMS_ITS | Encounter Summary ---
:1960 Author Organization [facility] Address [address] [place] [address] Care Team Providers Name Role Phone Santhosh Herron MD Primary Care Provider Encounter Details Date Type Department Care Team Description 12/19/2008 Hospital Encounter [facility] - Camila Torres MD Maple conversion [address] [place] [phone] (Wo rk) Social History Tobacco Use Types [...] on filedocumented in this encounter Care Teams Park Naturalist Relationship Specialty Start Date End Date Santhosh Herron MD PCP - General 07/13/09 [address] [place], [place] [phone] documented as of this encounter
--- OUTSIDE RECORDS SUMMARY | 2022-09-13 00:38 | XMS_ITS | Encounter Summary ---
:1960 Author Organization [facility] Address [address] [place] [address] Care Team Providers Name Role Phone Unavailable Primary Care Provider Unavailable Encounter Details Date Type Department Care Team Description 10/28/2006 Hospital Encounter [facility] - Camila Torres MD Maple conversion [address] [place] [phone] (Wo rk) Social History Tobacco Use Types Packs/Day Years Used Date Smoking Tobacco: Never Assessed Sex Assigned at Date Recorded Not on file documented as of this encounter Discharge Disposition Disposition Code Departure Means Destination Auto Discharge documented in this encounter Plan of Treatment Not on filedocumented as of this encounter Visit Diagnoses Not on filedocumented in this encounter
--- OUTSIDE RECORDS SUMMARY | 2022-09-13 00:38 | XMS_ITS | Encounter Summary ---
:1960 Author Organization [facility] Address [address] [place] [address] Care Team Providers Name Role Phone Unavailable Primary Care Provider Unavailable Encounter Details Date Type Department Care Team Description 12/25/2006 Hospital Encounter [facility] - Camila Torres MD Maple conversion [address] [place] [phone] (Wo rk) Social History Tobacco Use Types [...] Diagnosis Comme nts L SPINE 2-3 VIEWS 03/30/2007 10:14 Result s for this EDT procedure are i n the results section. L SPINE 2-3 VIEWS 12/25/2006 8:29 EST Res ults for this procedure are i n the results section. documented in this encounter Results L SPINE 2-3 VIEWS (03/30/2007 10:14 EDT) Anatomical Region Laterality Modality Other Specimen (Source) Anatomical Collection Method Collection Time Re ceived Time Location / / Volume Laterality 03/30/2007 10:14 EDT Narrative 04/19/2009 12:43 EDT BACK PAIN, S/P L5-S1 POST FUSION AND TLIF 09/18/06. ASSESS FUSION MATURATION. History: ?? BACK PAIN, S/P L5-S1 POST FU ELIJAH AND TLIF 09/18/06. ASSESS FUSION MATURATION. L SPINE 2-3 VIEWS . Findings: 2 views of the lumbar spine ar e compared with the previous examination of December 25, 2006. Exam again shows pedicle screws transfix L5 and S1. No evidence of hardware failure is seen. Alignment is u nchanged. Interbody graft remains in place. Impression: Changes noted since the prev ious study. Pedicle screws remain satisfactory position with no james dence of hardware failure seen. Graft remains in place at the L5-S 1 level. Procedure Note Alessandro Spencer MD - 04/19/2009Formattin g of this note might be different from the original. BACK PAIN, S/P L5-S1 POST FUSION AND TL IF 09/18/06. ASSESS FUSION MATURATION. History: BACK PAIN, S/P L5-S1 POST FUSIO N AND TLIF 09/18/06. ASSESS FUSION MATURATION. L SPINE 2-3 VIEWS . Findings: 2 views of the lumbar spine ar e compared with the previous examination of December 25, 2006. Exam again shows pedicle screws transfix L5 and S1. No evidence of hardware failure is seen. Alignment is u nchanged. Interbody graft remains in place. Impression: Changes noted since the prev ious study. Pedicle screws remain satisfactory position with no james dence of hardware failure seen. Graft remains in place at the L5-S 1 level. Alessandro Torres MD IMG DIAGNOSTIC IMAGING ORDER HI L SPINE 2-3 VIEWS (12/25/2006 8:29 EST) Anatomical Region Laterality Modality Other Specimen (Source) Anatomical Collection Method Collection Time Re ceived Time Location / / Volume Laterality 12/25/2006 8:29 EST Narrative 04/19/2009 10:04 EDT LBP. S/P 09/18/06 L5-S1 PSF. ASSESS FUSION MATURATION. DOI: 2002. I agree with the above history. Comparison is October 28, 2006. Two views of lumbar spine Hardware is intact. No changes have occu rred. The alignment is near anatomic. In healing is evident. Procedure Note Willie Vance MD - 04/19/2009Formatti ng of this note might be different from the original. LBP. S/P 09/18/06 L5-S1 PSF. ASSESS FUS ION MATURATION. DOI: 2002. I agree with the above history. Comparison is October 28, 2006. Two views of lumbar spine Hardware is intact. No changes have occu rred. The alignment is near anatomic. In healing is evident. Alessandro Torres MD IMG DIAGNOSTIC IMAGING ORDER HI documented in this encounter Visit Diagnoses Not on filedocumented in this encounter
--- OUTSIDE RECORDS SUMMARY | 2022-09-13 00:38 | XMS_ITS | Encounter Summary ---
:1960 Author Organization [facility] Address [address] [place] [address] Care Team Providers Name Role Phone Santhosh Herron MD Primary Care Provider Encounter Details Date Type Department Care Team Description 07/22/2006 Hospital Encounter [facility] - Camila Torres MD Maple conversion [address] [place] [phone] (Wo rk) Social History Tobacco Use Types [...] on filedocumented in this encounter Care Teams Colon Therapist Relationship Specialty Start Date End Date Santhosh Herron MD PCP - General 07/13/09 [address] [place], [place] [phone] documented as of this encounter
--- OUTSIDE RECORDS SUMMARY | 2022-09-13 00:38 | XMS_ITS | Encounter Summary ---
:1960 Author Organization [facility] Address [address] [place] [address] Care Team Providers Name Role Phone Santhosh Herron MD Primary Care Provider Encounter Details Date Type Department Care Team Description 08/30/2009 Hospital Encounter [facility] - Camila Torres MD [place] [address] [place], [place], [place] [phone] (Wo rk) Social History Tobacco Use Types [...] Code Departure Means Destination Home or Self Halfway documented in this encounter Progress Notes Inpatient, PhysicianMD - 08/30/2009 0000 EST documented in this encounter Plan of Treatment Not on filedocumented as of this encounter Procedures Procedure Name Priority Date/Time Associated Diagnosis Comme nts L SPINE 2-3 VIEWS 10/30/2009 11:49 Result s for this EST procedure are i n the results section. documented in this encounter Results L SPINE 2-3 VIEWS (10/30/2009 11:49 EST) Anatomical Region Laterality Modality Other Specimen Anatomical Collection Method Collection Time Receive d Time (Source) Location / / Volume Laterality 10/30/2009 11:49 10/30/2009 EST 14:58 EST Narrative 10/30/2009 14:58 EST L SPINE 2-3 VIEWS ??Oct 30, 2009 11:49:0 0 AM Signs and Symptoms/Comments: ??Low back pain Comparison: 09/18/2009 Findings: Two views of the lumbar spine were obtai madeline. There has been progressive incorporation of the interbo dy bone graft at L5-S1 since the previous examination, with no signif icant surrounding lucency identified on the current projection. Ho shahnaz, the previous AP projection was a Magallon type view, [facility] this level more precisely. Hardware appears intact with no change from the previous examination. Procedure Note 10/30/2009 L SPINE 2-3 VIEWS Oct 30, 2009 11:49:00 AM Signs and Symptoms/Comments: Low back pa in Comparison: 09/18/2009 Findings: Two views of the lumbar spine were obtai madeline. There has been progressive incorporation of the interbo dy bone graft at L5-S1 since the previous examination, with no signif icant surrounding lucency identified on the current projection. Ho wever, the previous AP projection was a Magallon type view, [facility] evaluate this level more precisely. Hardware appears intact with no change from the previous examination. Alessandro Torres MD IMG DIAGNOSTIC IMAGING ORDER HI documented in this encounter Visit Diagnoses Not on filedocumented in this encounter Care Teams Fish Cleaner Machine Tender Relationship Specialty Start Date End Date Santhosh Herron MD PCP - General 07/13/[address] [place] [phone] documented as of this encounter
--- OUTSIDE RECORDS SUMMARY | 2022-09-13 00:38 | XMS_ITS | Encounter Summary ---
:1960 Author Organization [facility] Address [address] [place] [address] Care Team Providers Name Role Phone Santhosh Herron MD Primary Care Provider Encounter Details Date Type Department Care Team Description 08/01/2000 Results Only [facility] - Nicole Lozada MD [address] [facility] ISA [address] [place], [place] [id number] [place] [address] [phone] (Wo rk) Social History Tobacco Use Types Packs/Day Years Used Date Smoking Tobacco: Never Assessed Sex Assigned at Date Recorded Not on file documented as of this encounter Plan of Treatment Not on filedocumented as of this encounter Procedures Procedure Name Priority Date/Time Associated Diagnosis Comme [facility] CYTOPATHOLOGY Routine 08/01/2000 0:00 EDT Results for this procedure are i n the results section . documented in this encounter Results CYTOPATHOLOGY (08/01/2000 0:00 EDT) Component Value Ref Test Analysis Performed At [facility] Pathology CYTOPATHOLOGY REPORT [facility] Report: [facility] Reports generated via electronic interface contain original data; however they are lacking the format of the original report. Caution should be taken when reading/interpreting unformatte d reports. Name: ? JEWEL LAGUNA ? Accession #: ? [id number] : ? 1960 (Age: 39) ??F ?Collect Date: ? 08/01/2000 Location: ? [facility] ? Receive Date: ? 08/04/2000 Provider: ?NICOLE DOSS MD Copy to: ? Specimen/Source: ?Conventional Pap Test, Cervix/En docervix Last Menstrual Period: ? 07/14/00 ? SPECIMEN ADEQUACY ? Satisfactory for evaluation. GENERAL CATEGORIZATION ? Within Normal Limits ? Document reviewed and electronically signed by: ? JENNIFER Figueroa(ASCP) ? Report Date: ??08/08/2000 12:43 End of Report Specimen (Source) Anatomical Location Collection Method / Collectio n Time Received Time / Laterality Volume 08/01/2000 08/04/2000 Nicole Doss MD PATHOLOGY ORDERABLES Performing Organization Address City/State/ZIP Code Phon e Number [facility] [address] [place] [address] SERVICES [facility] [address] [place] [address] documented in this encounter Visit Diagnoses Not on filedocumented in this encounter Care Teams Stage Electrician Helper Relationship Specialty Start Date End Date Santhosh Herron MD PCP - General 07/13/09 [address] [place] [address] documented as of this encounter
--- OUTSIDE RECORDS SUMMARY | 2022-09-13 00:38 | XMS_ITS | Encounter Summary ---
:1960 Author Organization [facility] Address [address] [place] [address] Care Team Providers Name Role Phone Santhosh Herron MD Primary Care Provider Encounter Details Date Type Department Care Team Description 11/23/2020 Lab Requisition [facility] Outr Resulting Lab, Pathology & Laboratory Provider [facility] [address] [place] [address] Social History Tobacco Use Types [...] Name Priority Date/Time Associated Diagnosis Comme nts COVID-19 TEST [facility] Today 11/23/2020 9:59 EST LAB PCR COVID-19 TESTING Routine 11/23/2020 9:59 EST Resu lts for this procedure are i n the results section. documented in this encounter Results COVID-19 TEST [facility] LAB PCR (11/23/2020 9:59 EST) Specimen Anatomical Location Collection Method Collection Time Received Time (Source) / Laterality / Volume Swab ENTIRE NASOPHARYNX 11/23/2020 9:59 2020 / Unknown EST 22:18 EST Provider Outr Resulting Lab MICROBIOLOGY - GENERAL ORD ERABLES Performing Organization Address City/State/[facility] Code Phon e Number [facility] [address] [place] [address] SERVICES COVID-19 TESTING (11/23/2020 9:59 EST) Analysis Performed At [facility] Time Signature COVID-19 Negative Negative 11/24/2020 [facility] rt-PCR Result 13:59 EST CENTER LABORATORY SERVICES Comment: This test has not been FDA cleared or ap proved. This test has been authorized by FDA under an EUA for use by authorized laboratories. This test has been authorized only for detection of nucleic acid fro m 2019-nCoV, not for any other viruses o r pathogens. This test is only authorized for the duration of the declaration that circumstances exist justifying the authorization of emergency use of in vitro d iagnostic tests for detection and/or dalia gnosis of 2019-nCoV under section 564(b)(1) of Act, 21 U.S.C ?? 360bbb-3(b) (1), unless the authorization is terminated or revoked sooner. Negative results do not preclude 2019-nC oV infection and should not be used as the sole basis for treatment or other patient management decisions. Negative results must be combined with clinical observa tions, patient history, and epidemiologi karl information. Testing was performed using the mann SA RS-CoV-2 assay ([employer] on the Mann 6800 System Performing Lab Mann 68[address] [facility] 11/24/2020 13:59 E [facility] Lab LABORATORY SERVICES Specimen Anatomical Collection Method Collection Time Receive d Time (Source) Location / / Volume Laterality Swab 11/23/2020 9:59 11/23/2020 EST 22:18 EST Provider Outr Resulting Lab MICROBIOLOGY - GENERAL ORD ERABLES Performing Organization Address City/[facility]/ZIP Code Phon e Number [facility] [address] [place] [address] SERVICES documented in this encounter Visit Diagnoses Not on filedocumented in this encounter Care Teams Chain Mortiser Operator Relationship Specialty Start Date End Date Santhosh Herron MD PCP - General 07/13/09 [address] [place] [address] documented as of this encounter
--- OUTSIDE RECORDS SUMMARY | 2022-09-13 00:38 | XMS_ITS | Encounter Summary ---
:1960 Author Organization [facility] Address [address] [place] [address] Care Team Providers Name Role Phone Santhosh Herron MD Primary Care Provider Encounter Details Date Type Department Care Team Description 08/19/2006 Hospital Encounter [facility] - Camila Torres MD [place] [address] [place] [phone] (Wo rk) Social History Tobacco Use Types [...] Name Priority Date/Time Associated Diagnosis Comme nts COMPLETE BLOOD Routine 08/19/2006 16:04 Results f or this COUNT EST procedure are i n the results section. documented in this encounter Results HEMAGRAM (08/19/2006 16:04 EST) P athologist Signature WBC 8.80 4.0 - 12.4 [facility] K/cmm LAB RBC 3.92 3.86 - 5.04 [facility] M/cmm LAB Hemoglobin 12.2 11.6 - 15.2 [facility] gm/dl LAB HCT 36.1 34.9 - 44.4 [facility] % LAB MCV 92 81 - 98 fl [facility] LAB MCH 31.0 26.7 - 33.3 [facility] pg LAB MCHC 33.7 32.1 - 35.9 [facility] gm/dl LAB PLT 235 141 - 320 [facility] K/cmm LAB RDW-CV 12.5 11.7 - 14.6 [facility] % LAB Specimen Anatomical Collection Method Collection Time Receive d Time (Source) Location / / Volume Laterality 08/19/2006 16:04 08/19/2006 EST 16:04 EST Alessandro Torres MD HEMATOLOGY & PF4 ORDERABLES Performing Organization Address City/State/ZIP Code Phon e Number [facility] [address] [place] [address] SERVICES [facility] [address] [place] [address] documented in this encounter Visit Diagnoses Not on filedocumented in this encounter Care Teams Barrel Inspector Tight Relationship Specialty Start Date End Date Santhosh Herron MD PCP - General 07/13/[address] [place] [phone] documented as of this encounter
--- OUTSIDE RECORDS SUMMARY | 2022-09-13 00:38 | XMS_ITS | Encounter Summary ---
:1960 Author Organization [facility] Address [address] [place] [address] Care Team Providers Name Role Phone Santhosh Herron MD Primary Care Provider Encounter Details Date Type Department Care Team Description 12/25/[address] [facility] - Alessandro Michelle MD Visit (Maple) Maple conversion [address] [place] [phone] Social History Tobacco Use Types Packs/Day Years Used Date Smoking Tobacco: Never Assessed Sex Assigned at Date Recorded Not on file documented as of this encounter Progress Notes Alessandro Torres MD - 08/23/2009 0311 EST [facility] ([facility] [address] [place] [phone] PROGRESS/FOLLOWUP NOTE - 12/25/2006 PROBLEM SUBJECTIVE Alicia Main is now three months S/P an L5-S1 posterior spinal fusion with pedicle screw instrumentation with an additional TLIF procedure at that same level. She appears to be doing quite well atthis time with minimal complaint of back pain. She does have some fullness she states in the region of her incision but feels this is improving over time. She has been taking some Ibuprofen for her knee arthritis which we suggested she stop because this may actually have some detrimental effects on her fusion. OBJECTIVE Alicia has a well healed lumbar incision today with no evidence of infection. Her neurologic exam is unchanged. Radiographs today demonstrate excellent position of pedicle screw instrumentation spanning L5-S1 with good position of anterior bone graft, however, perhaps a mild halo around the anteriorbone graft of uncertain significance. ASSESSMENT AND PLAN Alicia Main is now three months S/P an L5-S1 posterior instrumented fusion with a TLIF procedure who seems to be doing quite well at the three month priscilla. Alicia has been taking Ibuprofen whichmay wind up being detrimental to her fusion and therefore we have switched her to Celebrex at this time which should have less of an effect on the biology of her fusion. It should also help her knee arthritis which prompted her use of anti-inflammatory medication in the first place. We did spend approximately 15 minutes today with Alicia in face to face discussion, examination and in review of her x-rays with her. Greater than 50% of the visit was spent counseling Alicia with respect to the above. We would like to see her back in a three month period of time with AP and lateral lumbar spine x-rays to assure that he has achieved a solid fusion. She understands and agrees with the above and willfollow up as mentioned above. Signed by Alessandro Torres MD 12/27/2006 16:41 Maria Eugenia Rutledge MD Alessandro Torres MD - Alessandro Torres MD A - [facility] Job ID: [id number] Document ID: [id number] cc: Santhosh Herron MD documented in this encounter Plan of Treatment Not on filedocumented as of this encounter Visit Diagnoses Not on filedocumented in this encounter Care Teams Broomcorn Sorter Relationship Specialty Start Date End Date Santhosh Herron MD PCP - General 07/13/[address] [place] [phone] documented as of this encounter
--- OUTSIDE RECORDS SUMMARY | 2022-09-13 00:38 | XMS_ITS | Encounter Summary ---
:1960 Author Organization [facility] Address [address] [place] [address] Care Team Providers Name Role Phone Santhosh Herron MD Primary Care Provider Encounter Details Date Type Department Care Team Description 01/23/2010 Abstract [facility] Alessandro Torres, Spondyl isthesis; Orthopedics & MD Acquired spondylolisthesis; Rehabilitation Center - [address] [place] [address] Degeneration of lumbar or lumbosacral in tervertebral disc; [employer] [place], [place] Lumbago; [address] [phone] Nonunion of fracture [place] [address] Social History Tobacco Use Types Packs/Day Years Used Date Smoking Tobacco: Never Assessed Sex Assigned at Date Recorded Not on file documented as of this encounter Plan of Treatment Not on filedocumented as of this encounter Visit Diagnoses Diagnosis Spondylisthesis Congenital spondylolisthesis Acquired spondylolisthesis Degeneration of lumbar or lumbosacral in tervertebral disc Lumbago Nonunion of fracture documented in this encounter Care Teams Aerospace Products Sales Engineer Relationship Specialty Start Date End Date Santhosh Herron MD PCP - General 07/13/[address] [place] [phone] documented as of this encounter
--- OUTSIDE RECORDS SUMMARY | 2022-09-13 00:38 | XMS_ITS | Encounter Summary ---
:1960 Author Organization [facility] Address [address] [place] [address] Care Team Providers Name Role Phone Santhosh Herron MD Primary Care Provider Encounter Details Date Type Department Care Team Description 01/22/2010 Results Only [facility] Lenore Valenzuela MD Laboratory Services - [address] [place] [address] [address] [facility] [place] [address] [phone] Social History Tobacco Use Types Packs/Day Years Used Date Smoking Tobacco: Never Assessed Sex Assigned at Date Recorded Not on file documented as of this encounter Plan of Treatment Not on filedocumented as of this encounter Procedures Procedure Name Priority Date/Time Associated Comments Diagnosis HPV DETECTION, HIGH Routine 01/22/2010 14:12 Resu lts for this RISK TYPES EDT procedure are i n the results section. CYTOPATHOLOGY Routine 01/22/2010 0:00 Results for this EDT procedure are i n the results section. documented in this encounter Results HUMAN PAPILLOMA VIRUS DNA TEST (01/22/2010 14:12 EDT) [facility] Method Time Signature Specimen Cervix, PACK Description ThinPrep [facility] vial Result Negative for [facility] HPV types [facility] 16, 18, 31, 33, 35, 39, 45, 51, 52, 56, 58, 59, and 68. Report Status Final [facility] 02/07/2010 [facility] Specimen Anatomical Collection Method Collection Time Receive d Time (Source) Location / / Volume Laterality 01/22/2010 14:12 02/03/2010 EDT 14:12 EDT Lenore Valenzuela MD MICROBIOLOGY - GENERAL ORDER HI Performing Organization Address City/State/ZIP Code Phon e Number [facility] [address] [place] [address] SERVICES [facility] [address] [place] [address] CYTOPATHOLOGY (01/22/2010 0:00 EDT) Component Value Ref Test Analysis Performed At [facility] Range Method Time Signature Pathology CYTOPATHOLOGY REPORT ? PACK Report: ? [facility] Reports generated via [employer] interface contain original data; ? however they are lacking the format of the original report. ? Caution should be taken when reading/interpreting unformatted reports. ? Name: ? TAMEKA LAGUNA ? Accession #: ? [id number] ? : ? 1960 (Age: 49) ??F ?Collect Date: ? 01/22/2010 ? Location: ? [facility] ? Receive Date: ? 01/23/2010 ? Provider: ?LENORE MARGARETTE L MD ? Copy to: ? Specimen/Source: ? Pap Test, Cervix/Endocervix, ThinPrep Imaging System ? with manual evaluation ? Last Menstrual Period: ? 04.03.10 ? Other: ? HPVA - HPV testing requested if ASC-US on the current ThinPrep Pap test. ? SPECIMEN ADEQUACY ? Satisfactory for Eval uation ? - transformation zone compon ent present ? GENERAL CATEGORIZATION ? Epithelial Cell Abnor mality ? INTERPRETATION ? Squamous Cell Abnorma lity - Atypical squamous cells, undetermined ? significance (ASC-US). ? Fungal organisms present mor phologically consistent with Ying species. ? EDUCATIONAL NOTES/RECOMMENDA TIONS ? FA recommends follo wing the 2006 Consensus Guidelines for the Management of Women with Abnormal Cervi karl Cancer Screening Tests (JLGTD, ? 2007;11(4):201-222). ??Conse nsus guidelines are available online at ? www.ASCCP.org. ? Document reviewed and electr onically signed by: ? KRISHNA D PLOTZ MD ? Report Date: ??04/16/ 2010 16:19 ? End of Report ? Specimen (Source) Anatomical Location Collection Method / Collectio n Time Received Time / Laterality Volume 01/22/2010 01/23/2010 Lenore Valenzuela MD PATHOLOGY ORDERABLES Performing Organization Address City/State/ZIP Code Phon e Number [facility] [address] [place] [address] SERVICES [facility] [address] [place] [address] documented in this encounter Visit Diagnoses Not on filedocumented in this encounter Care Teams Technical Producer Relationship Specialty Start Date End Date Santhosh Herron MD PCP - General 07/13/09 [address] [place] [address] documented as of this encounter
--- OUTSIDE RECORDS SUMMARY | 2022-09-13 00:38 | XMS_ITS | Encounter Summary ---
:1960 Author Organization [facility] Address [address] [place] [address] Care Team Providers Name Role Phone Santhosh Herron MD Primary Care Provider Reason for Referral (Routine) - Closed Specialty Diagnoses / Procedures Referred By Contact Refer red To Contact Diagnoses Low back pain Blaire Sinclair PA-C Procedures SED. RATE:WESTERGREN [address] [place] [address] Referral ID Status Reason Start Date Expiration Date Visits Requ ested Visits Authorized [id number] Closed 07/18/2011 1 1 (Routine) - Closed Specialty Diagnoses / Procedures Referred By Contact Refer red To Contact Diagnoses Low back pain Blaire Sinclair PA-C Procedures C-REACTIVE PROTEIN [address] [place] [address] Referral ID Status Reason Start Date Expiration Date Visits Requ ested Visits Authorized [id number] Closed 07/18/2011 1 1 (Routine) - Closed Specialty Diagnoses / Procedures Referred By Contact Refer red To Contact Diagnoses Low back pain Blaire Sinclair PA-C Procedures HLA B27 [address] [place] [address] Referral ID Status Reason Start Date Expiration Date Visits Requ ested Visits Authorized [id number] Closed 07/18/2011 1 1 (Routine) - Closed Specialty Diagnoses / Procedures Referred By Contact Refer red To Contact Diagnoses Low back pain Blaire Sinclair PA-C Procedures RHEUMATOID FACTOR [address] [place] [address] Referral ID Status Reason Start Date Expiration Date Visits Requ ested Visits Authorized [id number] Closed 07/18/2011 1 1 Reason for Visit Reason Comments Back Pain Encounter Details Date Type Department Care Team Description 07/18/2011 Office Visit [facility] [place] [facility] Blaire Sinclair, Low back pain; Spine Program - [facility] FERNANDO Lumbar radiculopathy [address] [place] [address] Social History Tobacco Use Types Packs/Day Years Used Date Smoking Tobacco: Every Day Cigarettes 0.8 Alcohol Use Standard Drinks/Week Comments Yes 0 (1 standard drink = 0.6 oz pure alcoho l) occ Sex Assigned at Date Recorded Not on file documented as of this encounter Progress Notes Blaire Blanc PA - 07/18/2011 1211 EDT Alicia Main is being seen as a consultation from Dr. Torres. Chief Complaint Patient presents with ??? Back Pain Diagnoses of Low back pain and Lumbar radiculopathy were pertinent to this visit. GAMALIEL Vargas is a 50-year-old female that presents with 70% back and 30% leg pain. Approximately in 2006, she had an L5-S1 posterior spinal fusion and TLIF by Dr. Torres. Approximately two years later, she began experiencing increased back pain and further workup indicated nonunion. She then underwent L5-S1 ASF and her back pain improved. She had not been having any issues up until a few weeks ago when she started a new job. 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 She decided to switch jobs because she could not stand anymore due to her right knee pain, for which she one year agohad a partial knee replacement, but continues to have pain. Sitting, bending forward and lifting increases her low back pain and she experiences right greater than left posterior thigh pain that did not go below the knee. She also experiences left anterior thigh and numbness proximally that is unchanged since her first surgery. She denies any lower extremity weakness and she denies any bladder or bowel dysfunction. For this problem has not done any physical therapy, care taker, any acupuncture or had any injections. She takes 800 mg ibuprofen t.i.d. and has done so for the last 10 years. Nany was taking narcotics that she had left over from her knee surgery with some relief and also tried some muscle relaxants from her sister, which helped as well. Alicia states that she has polyarthritis including her hips, her knees, back and wrists. She does have a family history of rheumatoid arthritis with her mother and sister, and her niece has lupus. She recently had a bone scan on her knee last week, which was normal, and a white blood cell count, which she states was slightly elevated. She has never seen rheumatology or had any labs to evaluate for rheumatoid arthritis or any other inflammatory arthropathies. Patient Active Problem List Diagnoses Code ??? Spondylisthesis 756.12B ??? Acquired spondylolisthesis 738.4 ??? Degeneration of lumbar or lumbosacral intervertebral disc 722.52 ??? Lumbago 724.2 ??? 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 Arthritis ??? Hypercholesteremia ??? Migraines ??? Trigeminal neuralgia Past Surgical History Procedure Date ??? Knee surgery 2010 Right partial knee replacement History Substance Use Topics ??? Smoking status: Current Everyday Smoker -- 0.7 packs/day ??? Smokeless tobacco: Not on file ??? Alcohol Use: Yes occ History reviewed. No pertinent family history. Current outpatient prescriptions Medication Sig Dispense Refill ??? hydrOXYzine (ATARAX) 10 mg tablet Take 10 mg by mouth daily. ??? simvastatin (ZOCOR) 20 mg tablet Take 20 mg by mouth at bedtime. ??? gabapentin (NEURONTIN) 600 mg tablet Take 600 mg by mouth 3 times daily. 2 - 3 times daily ??? ibuprofen (MOTRIN) 800 mg tablet Take 800 mg by mouth 2 times daily. Allergies Allergen Reactions ??? Penicillins Hives ??? Vancomycin Itching ??? Erythromycin Nausea And Vomiting Review of Systems Constitutional: Positive for activity change. Eyes: Negative. Respiratory: Negative. Cardiovascular: Negative. Gastrointestinal: Negative. Genitourinary: Negative. Musculoskeletal: Positive for back pain. Skin: Negative. Neurological: Positive for numbness and headaches. Hematological: Negative. Psychiatric/Behavioral: Negative. Physical Exam Constitutional: She is oriented to person, place, and time. She appears well- developed and well-nourished. HENT: Head: Normocephalic and atraumatic. Eyes: Extraocular motions are normal. Cardiovascular: Normal rate. Pulmonary/Chest: Effort normal. Musculoskeletal: Palpable tenderness lumbosacrum. Normal gait. Patient is able to walk on heels and toes without difficulty. 4/5 left 5/5 right hip flexion, 5/5 b/l TA,4+/5 left 5/5 right EHL, 4+/5 left 5/5 right peroneal strength. Negative FABERS maneuver b/l. Neurological: She is alert and oriented to person, place, and time. 2+ patellar, 2+ left and unable to elicit right achilles reflex. Decreased sensation to light touchleft lateral thigh. Straight leg raise elicits back pain only. Negative clonus. Babinski is downgoing. Skin: Skin is warm and dry. No rashes, lesions, or hair serenity. Psychiatric: She has a normal mood and affect. Ortho Exam Neurologic Exam Mental Status Oriented to person, place, and time. Cranial Nerves CN III, IV, Extraocular motions are normal. Radiology: AP, lateral, flexion, and extension x-rays of the lumbar spine reveals multilevel disc degeneration. There are no signs of hardware failure or lucency. No spondylolisthesis. Assessment: 50 year old female with discogenic low back pain and radicular symptoms in an S1 distribution vs. Referred pain. We discussed various treatment options including PT, chiropractics, acupuncture, neuroleptics, and steroid injections. She really does not want to have another surgery. She is interested injections and we also discussed RFA. She would like to see Dr. Zamarripa at [facility] for the injections if she is available. Additionally, I think she should be worked-up for RA. She also states her insurance will be running out tomorrow. MRI would be helpful but we could hold offfor now. She would like to proceed with the following plan: Other Orders Placed This Visit Procedure ??? L spine 4 or more views ??? Rheumatoid factor ??? Hla b27 ??? C-reactive protein ??? Sed. rate:westergren Plan: 1) Injections by Dr. Zamarripa 2) RF, ESR, HLA-B27, CRP. I will call patient once I receive these results. I also cc'd her PCP results. 3) F/u PRN documented in this encounter Plan of Treatment Scheduled Orders Name Type Priority Associated Diagnoses Order S chedule RHEUMATOID FACTOR Lab Routine Low back pain Ordered: 07/18/2011 HLA B27 Lab Routine Low back pain Ordered: 07/18 C-REACTIVE PROTEIN Lab Routine Low back pain Ordered: 07/18/2011 SED. RATE:WESTERGREN Lab Routine Low back pain Ordere d: 07/18/2011 documented as of this encounter Procedures Procedure Name Priority Date/Time Associated Diagnosis Comme nts L SPINE 4 OR MORE Routine 07/18/2011 11:16 Low back pain Results for this VIEWS EDT Lumbar radiculopathy procedu re are in the results section. documented in this encounter Results L SPINE 4 OR MORE VIEWS (07/18/2011 11:16 EDT) Anatomical Region Laterality Modality Other Specimen Anatomical Collection Method Collection Time Receive d Time (Source) Location / / Volume Laterality 07/18/2011 11:16 07/23/2011 EDT 15:15 EDT Narrative 07/23/2011 15:15 EDT L SPINE 4 OR MORE VIEWS ??Jul 18, 2011 11:16:00 AM Signs and Symptoms/Comments: ?? 724.2-LO W BACK PAIN-I9 724.4-LUMBAR RADICULOPATHY-I9 low back pain Comparison: 07/30/2010 Findings: L5 has been fused to S1 with p osterior rods and screws. Another screw traverses the bottom of L5 from front to back. Aside from mild right convex scoliosis, alignm ent is normal. There is narrowing at the L3-L4 disc space. Alexys ectomy has been performed at L5. There is no evidence of hardware saran lure. Procedure Note 07/23/2011 L SPINE 4 OR MORE VIEWS Jul 18, 2011 11: 16:00 AM Signs and Symptoms/Comments: 724.2-LOW B ACK PAIN-I9 724.4-LUMBAR RADICULOPATHY-I9 low back pain Comparison: 07/30/2010 Findings: L5 has been fused to S1 with p osterior rods and screws. Another screw traverses the bottom of L5 from front to back. Aside from mild right convex scoliosis, alignm ent is normal. There is narrowing at the L3-L4 disc space. Alexys ectomy has been performed at L5. There is no evidence of hardware saran lure. Blaire Sinclair PA-C IMG DIAGNOSTIC IMAGING ORDER HI documented in this encounter Visit Diagnoses Diagnosis Low back pain Lumbago Lumbar radiculopathy Thoracic or lumbosacral neuritis or radi culitis, unspecified documented in this encounter Discontinued Medications Medication Sig Discontinue Reason Start Date End Date docusate sodium (COLACE) Take 2 Caps by 08/12/2009 0 07/18/2011 100 mg capsule mouth 2 times daily. multivitamin (THERAGRAN) Take 1 Tab by per tablet mouth daily. documented as of this encounter Historical Medications This list may reflect changes made after this encounter. Medication Sig Dispensed Refills Start Date End Date hydrOXYzine (ATARAX) 10 mg Take 10 mg by mouth 0 07/18/2011 tablet daily. added in this encounter Care Teams Research Neuropsychologist Relationship Specialty Start Date End Date Santhosh Herron MD PCP - General 07/13/[address] [place] [id number] documented as of this encounter
--- OUTSIDE RECORDS SUMMARY | 2022-09-13 00:38 | XMS_ITS | Encounter Summary ---
:1960 Author Organization [facility] Address [address] [place] [address] Care Team Providers Name Role Phone Santhosh Herron MD Primary Care Provider Encounter Details Date Type Department Care Team Description 08/09/2020 Lab Requisition [place] Outr Resulting Lab, Pathology & Laboratory Provider [facility] [address] [place] [address] Social History Tobacco Use Types [...] Procedure Name Priority Date/Time Associated Comments Diagnosis DO NOT ORDER Today 08/09/2020 10:50 Results for this STANDALONE - [facility] EDT procedure are in COVID TEST the results section. COVID-19 TESTING Routine 08/09/2020 10:50 Results for this EDT procedure are i n the results section. documented in this encounter Results DO NOT ORDER STANDALONE - [facility] COVID TEST (08/09/2020 10:50 EDT) Analysis Performed At [facility] Time Signature COVID-19 NEGATIVE Negative 08/10/2020 [facility] rt-PCR Result 22:09 EDT [facility] Comment: 2019-novel Coronavirus (2019-nCoV) not d etected by the qRT-PCR assay. Consider testing for other respiratory viruses or re-collecting for 2019-nCoV testing. Note: Optimum timing for peak viral levels du ring infections caused by 2019-nCoV have not been determined. Collection of multiple specimens from the same patient may be necessary to detect the virus. Limitations Positive results are indicative of activ e infection with SARS-CoV-2 but do not rule out bacterial infection or co-infection with other viruses. The agent detected may not be the definite cause of diseas e. In addition, detection of viral RNA m ay not indicate the presence of infectious virus or that SARS-CoV-2 is the causative agent for clinical symptoms. Negative results do not preclude SARS-Co V-2 infection and should not be used as the sole basis for patient management decisions. Negative results must be combined with clinical observations, patient his tory, and epidemiological information. F alse negative results may also occur if amplification inhibitors are present in the specimen or if inadequate numbers of organisms are present in the specimen. Op timum specimen types and timing for peak viral levels during infections caused by SARS-CoV-2 have not been fully determined. Collection of multiple specimens (types and time points) from the same patient may be necessary to detect the virus. The test was validated for use with uppe r respiratory specimens obtained via nasopharyngeal or oropharyngeal swabs in VTM, UTM, M4, M5, M6, saline, and MTM media. The performance of this test has not be en established for other specimens. Spec imens collected using other FDA recommended Specimen Collection Materials listed in the FDA COVID-19 [employer] communication (January 13, 2020) are pr ocessed with the caveat that they were n ot all validated for use with this test and the result must be interpreted in this context. Furthermore, a false negative results may occur if a specimen is improperly collected, transported or handled. If the virus mutates in the RT-PCR targe t region, SARS-CoV-2 may not be detected or may be detected less predictably. Inhibitors or other types of interferenc e may produce a false negative result. An interference study evaluating the effect of common cold medications was not performed. This test is not FDA-cleared but its per formance characteristics were established by our CLIA-certified, CAP-accredited, high complexity laboratory in accordance with CLIA regulations, College of [employer]ologists (CAP) guidelines (Dec), and FDA guidance (Dec 18, 2019). This test is only for use under the Food and Drug Administration's Emergency Use Authorization. Specimen Anatomical Location Collection Method Collection Time Received Time (Source) / Laterality / Volume Swab ENTIRE NASOPHARYNX 08/09/2020 10:50 08/09 / Unknown EDT 23:38 EDT Provider Outr Resulting Lab MICROBIOLOGY - GENERAL ORD ERABLES Performing Organization Address City/State/ZIP Code Phon e Number [facility] [place] COVID-19 TESTING (08/09/2020 10:50 EDT) Analysis Performed At [facility] Time Signature COVID-19 NEGATIVE Negative 08/10/2020 [facility] rt-PCR Result 23:16 EDT [facility] Comment: 2019-novel Coronavirus (2019-nCoV) not d etected by the qRT-PCR assay. Consider testing for other respiratory viruses or re-collecting for 2019-nCoV testing. Note: Optimum timing for peak viral levels du ring infections caused by 2019-nCoV have not been determined. Collection of multiple specimens from the same patient may be necessary to detect the virus. Limitations Positive results are indicative of activ e infection with SARS-CoV-2 but do not rule out bacterial infection or co-infection with other viruses. The agent detected may not be the definite cause of diseas e. In addition, detection of viral RNA m ay not indicate the presence of infectious virus or that SARS-CoV-2 is the causative agent for clinical symptoms. Negative results do not preclude SARS-Co V-2 infection and should not be used as the sole basis for patient management decisions. Negative results must be combined with clinical observations, patient his tory, and epidemiological information. F alse negative results may also occur if amplification inhibitors are present in the specimen or if inadequate numbers of organisms are present in the specimen. Op timum specimen types and timing for peak viral levels during infections caused by SARS-CoV-2 have not been fully determined. Collection of multiple specimens (types and time points) from the same patient may be necessary to detect the virus. The test was validated for use with uppe r respiratory specimens obtained via nasopharyngeal or oropharyngeal swabs in VTM, UTM, M4, M5, M6, saline, and MTM media. The performance of this test has not be en established for other specimens. Spec imens collected using other FDA recommended Specimen Collection Materials listed in the FDA COVID-19 [employer] communication (January 13, 2020) are pr ocessed with the caveat that they were n ot all validated for use with this test and the result must be interpreted in this context. Furthermore, a false negative results may occur if a specimen is improperly collected, transported or handled. If the virus mutates in the RT-PCR targe t region, SARS-CoV-2 may not be detected or may be detected less predictably. Inhibitors or other types of interferenc e may produce a false negative result. An interference study evaluating the effect of common cold medications was not performed. This test is not FDA-cleared but its per formance characteristics were established by our CLIA-certified, CAP-accredited, high complexity laboratory in accordance with CLIA regulations, College of [employer] an Pathologists (CAP) guidelines (Dec), and FDA guidance (Dec 18, 2019). This test is only for use under the Food and Drug Administration's Emergency Use Authorization. Performing Lab [facility] 08/10/2020 23:1 6 EDT [facility] Specimen Anatomical Collection Method Collection Time Receive d Time (Source) Location / / Volume Laterality Swab 08/09/2020 10:50 08/09/2020 EDT 23:38 EDT Provider Outr Resulting Lab MICROBIOLOGY - GENERAL ORD ERABLES Performing Organization Address City/State/ZIP Code Phon e Number [facility] [address] [place] [address] SERVICES [facility] [place], [place] documented in this encounter Visit Diagnoses Not on filedocumented in this encounter Care Teams Supervisor Decorating Relationship Specialty Start Date End Date Santhosh Herron MD PCP - General 07/13/[address] [place] [id number] documented as of this encounter
--- OUTSIDE RECORDS SUMMARY | 2022-09-13 00:38 | XMS_ITS | Encounter Summary ---
:[address] [facility] Address [address] [place] [address] Care Team Providers Name Role Phone Unavailable Primary Care Provider Unavailable Encounter Details Date Type Department Care Team Description 01/12/2009 Hospital Encounter [facility] - Camila Torres MD [address] [place] [phone] (Wo rk) Social History Tobacco Use Types [...]
--- OUTSIDE RECORDS SUMMARY | 2022-09-13 00:38 | XMS_ITS | Encounter Summary ---
:1960 Author Organization [facility] Address [address] [place] [address] Care Team Providers Name Role Phone Unavailable Primary Care Provider Unavailable Encounter Details Date Type Department Care Team Description 10/08/2006 - Hospital Encounter [facility], 10/19/2006 Merced Trevizo MD [address] [address] [place] [address] Social History Tobacco Use Types Packs/Day Years [...]
--- OUTSIDE RECORDS SUMMARY | 2022-09-13 00:38 | XMS_ITS | Encounter Summary ---
:1960 Author Organization [facility] Address [address] [place] [address] Care Team Providers Name Role Phone Mariia March MD Primary Care Provider Encounter Details Date Type Department Care Team Description 04/27/2013 Results Only [facility] Lenore Valenzuela MD Laboratory Services - [address] [place] [address] [address] [facility] [place] [address] [phone] Social History Tobacco Use Types Packs/Day Years [...] Name Priority Date/Time Associated Diagnosis Comme nts PAP TEST- RESULT Routine 04/27/2013 0:00 EDT Resu lts for this ONLY procedure are i n the results section. documented in this encounter Results PAP TEST- RESULT ONLY (04/27/2013 0:00 EDT) Component Value Ref Test Analysis Performed At [facility] Method Time Signature Pathology CYTOPATHOLOGY REPORT [facility] Report: [facility] Reports generated via electronic interface contain original data; however they are lacking the format of the original report. Caution should be taken when reading/interpreting unformatte d reports. Name: ? TAMEKA LAGUNA ? Accession #: ? [id number] ? : ? 1960 (Age: 52) ??F ?Collect Da te: ? 04/27/2013 ? Location: ? [facility] ? Receive Date: ? 04/28/2013 ? Provider: LENORE VALENZUELA MD Copy to: MARIIA MARCH MD ? Final Report SPECIMEN ADEQUACY ? Satisfactory for Evaluation - transformation zone component present GENERAL CATEGORIZATION ? Negative for Intraepithelial Lesion or Malignancy INTERPRETATION ? Reactive cellular kye nges associated with inflammation present (includes repair). Specimen/Source: ??Pap Test, Cervix/Endocervix, ThinPr ep Imaging System with manual evaluation Document reviewed and electronically signed by: ? KOKI TORO MD ? Report ??Date: 05/05/2013 09:15 HPV with Pap Test ? Date Ordered: ? 05/04/2013 ? Status: ?? Abby d Out ?Date Complete: ? 05/07/2013 ? By: ??System Interface ? Date Reported: ? 05/07/2013 ? Interpretation RESULT: Negative for HPV. No E6 or E7 mRNA is detected from HPV types 16,18,31,33,35, 39,45,51,52,56,58,59,66, and 68 by plain goods hemmer mediated amplification. Comments Document reviewed and electronically signed by: ? System Interface ? Report date: 05/07/2013 By the signature above, the attending physician certifies th at he/she has personally conducted a gross and/or microscopic examin ation of the described specimens and rendered or confirmed the above diagnosis. End of Report Specimen (Source) Anatomical Location Collection Method / Collectio n Time Received Time / Laterality Volume 04/27/2013 04/28/2013 Lenore Valenzuela MD PATHOLOGY ORDERABLES Performing Organization Address City/State/ZIP Code Phon e Number [facility] [address] [place] [address] SERVICES [facility] [address] [place] [address] documented in this encounter Visit Diagnoses Not on filedocumented in this encounter Care Teams Side Gluer Relationship Specialty Start Date End Date Mariia March MD PCP - General 07/13/[address] [place] [id number] documented as of this encounter
--- OUTSIDE RECORDS SUMMARY | 2022-09-13 00:38 | XMS_ITS | Encounter Summary ---
:1960 Author Organization [facility] Address [address] [place] [address] Care Team Providers Name Role Phone Santhosh Herron MD Primary Care Provider Reason for Visit Reason Onset Date Comments Appointment Related 07/05/2011 Encounter Details Date Type Department Care Team Description 07/05/2011 Telephone [facility] Spine Alessandro Torres MD Appointment Related Program - Ozzy [address] [place] [address] [address] [place], [place], [place] [phone] (Wo rk) Social History Tobacco Use Types Packs/Day Years Used Date Smoking Tobacco: Never Assessed Sex Assigned at Date Recorded Not on file documented as of this encounter Miscellaneous Notes Telephone Encounter - Troy Marrero - 07/08/2011 0951 EDT Spoke with Sybil this morning. She states she believes she has a new disc herniation in her back. I let her know that we could get her to see a non-op provider by the end of the month and she approved this plan. Telephone Encounter - Troy Marrero - 07/05/2011 1127 EDT Sybil leaves a msg that she would like to have an appt with Dr. Torres within the next 2 wks as her insurance will at the end of the month. ~ Called back at work number that Sybil left, which was not in service. Left on her [employer] phone to that affect. documented in this encounter Plan of Treatment Not on filedocumented as of this encounter Visit Diagnoses Not on filedocumented in this encounter Care Teams Concrete Handler Relationship Specialty Start Date End Date Santhosh Herron MD PCP - General 07/13/[address] [place] [address] documented as of this encounter
--- OUTSIDE RECORDS SUMMARY | 2022-09-13 00:38 | XMS_ITS | Encounter Summary ---
:1960 Author Organization [facility] Address [address] [place] [address] Care Team Providers Name Role Phone Mariia March MD Primary Care Provider Encounter Details Date Type Department Care Team Description 02/21/2005 Results Only [facility] - Mireya Valenzuela MD Maple conversion [address] [place] [address] [place] [address] [phone] Social History Tobacco Use Types Packs/Day Years Used Date Smoking Tobacco: Never Assessed Sex Assigned at Date Recorded Not on file documented as of this encounter Plan of Treatment Not on filedocumented as of this encounter Procedures Procedure Name Priority Date/Time Associated Diagnosis Comme [facility] SURGICAL PATHOLOGY Routine 02/21/2005 0:00 EDT Re sults for this procedure are i n the results section. documented in this encounter Results SURGICAL PATHOLOGY (02/21/2005 0:00 EDT) Component Value Ref Test Analysis Performed At [facility] Method Time [facility] Pathology SURGICAL PATHOLOGY REPORT JON LOU Report: Reports generated via electronic interface contain jason abernathy data; DEDE VARGAS however they are lacking the format of the original report. Caution should be taken when reading/interpreting unformatte d reports. Name: ? TAMEKA LAGUNA ? Accession #: ? [id number] ? : ? 1960 (Age: 44) ??F ? Collect Date: ? 02/21/2005 ? Location: ? [facility] ? Receive Date: ? 02/22/2005 ? Provider: LENORE VALENZUELA MD Copy to: MARIIA MARCH MD ? Final Pathologic Diagnosis: ? Endometrium, curettage: 1. ?Endometrial polyp, hyperplastic type. 2. ?Fragments o f weakly secretory endometrium with extensive tubal metaplasia. 3. ?Fragments o f benign endocervical and squamous mucosa. ?? See comment. Comment: ? Lie Detector Operator sections have been reviewed at intrade partmental consultation conference. ?? No endometritis is i dentified. ??(Dr. Lovelace)/[facility] [place] Document reviewed and electronically signed by: LACY LOVELACE MD Report ??Date: 02/26/2005 15:44 By the signature above, the attending physician certifies th at he/she has personally conducted a gross and/or microscopic examin ation of the described specimens and rendered or confirmed the above diagnosis. Specimen(s) Received: ? Endometrial curettings Clinical History: ? LLQ pain, dysfunctional uterine bleeding; LMP: 01/25/05 Gross Description: ? Received in formalin labeled Rakowsky and endometrial curettings is a 2.0 x 2.0 x 0.5 cm aggregate of red-pink soft tissue admixed with blood-tinged mucus, submitted in toto as (A1) ??(A3). ??(Yared Oviedo)/[facility] End of Report Specimen (Source) Anatomical Collection Method Collection Time Re ceived Time Location / / Volume Laterality 02/21/2005 02/22/2005 15:2 2 EDT Lenore Valenzuela MD PATHOLOGY ORDERABLES Performing Organization Address City/State/ZIP Code Phon e Number [facility] [address] [place] [address] SERVICES [facility] [address] [place] [address] documented in this encounter Visit Diagnoses Not on filedocumented in this encounter Care Teams Check Weigher Relationship Specialty Start Date End Date Mariia March MD PCP - General 07/13/[address] [place] [address] documented as of this encounter
--- OUTSIDE RECORDS SUMMARY | 2022-09-13 00:38 | XMS_ITS | Encounter Summary ---
:1960 Author Organization [facility] Address [address] [place] [address] Care Team Providers Name Role Phone Unavailable Primary Care Provider Unavailable Encounter Details Date Type Department Care Team Description 08/05/2006 Hospital Encounter [facility] - Camila Torres MD Maple conversion [address] [place] [phone] (Wo rk) Social History Tobacco Use Types [...]
--- OUTSIDE RECORDS SUMMARY | 2022-09-13 00:38 | XMS_ITS | Encounter Summary ---
:1960 Author Organization [facility] Address [address] [place] [address] Care Team Providers Name Role Phone Santhosh Herron MD Primary Care Provider Encounter Details Date Type Department Care Team Description 06/19/2004 Results Only [facility] - Mukund Bruce, conversion HOP WEIGHER [address] [place] [address] Social History Tobacco Use Types Packs/Day Years Used Date Smoking Tobacco: Never Assessed Sex Assigned at Date Recorded Not on file documented as of this encounter Plan of Treatment Not on filedocumented as of this encounter Procedures Procedure Name Priority Date/Time Associated Diagnosis Comme [facility] CYTOPATHOLOGY Routine 06/19/2004 0:00 EDT Results for this procedure are i n the results section . documented in this encounter Results CYTOPATHOLOGY (06/19/2004 0:00 EDT) Component Value Ref Test Analysis Performed At [facility] Method Time [facility] Path[facility] CYTOPATHOLOGY REPORT SIRENA Report: [facility] Reports generated via electronic interface contain original data; however they are lacking the format of the original report. Caution should be taken when reading/interpreting unformatte d reports. Name: ? JEWEL LAGUNA ? Accession #: ? [id number] : ? 1960 (Age: 43) ??F ?Collect Date: ? 06/19/2004 Location: ? [facility] ? Receive Date: ? 06/21/2004 Provider: ?NEMESIO OATES HOP WEIGHER Copy to: ? Specimen/Source: ?ThinPrep Pap Test, Cervix/Endoce rvix Last Menstrual Period: ? 06/12/04 Other: ? HPVA - HPV testing requested if ASC-US on the current ThinPr ep Pap test. ? SPECIMEN ADEQUACY ? Satisfactory for Evaluation - transformation zone component present GENERAL CATEGORIZATION ? Other, see interpretation INTERPRETATION ? Endometrial cells present in a woman equal to o r greater than age 40. Negative for Intraepithelial Lesion or Malignancy. EDUCATIONAL NOTES/RECOMMENDATIONS ? Benign appearing endometrial cells on Pap tests are usually a normal finding in women with regular menstrual cycles, especially if the Pap test was collected during the first half of the menstrual cycle. There is data showing that e ndometrial cells on Pap tests may be associated with endometrial/uterine abnormal ities in post menopausal women or in perimenopausal women with abnormal bleeding. There is limited data on the significance of beatriz ign endometrial cells in post menopausal women on HRT. ??Clinical correlation is recommend ed. Note: ??The Pap test is not an accurate test for the screening of endometrial lesions and should not be used as a follow up in patients wi th clinical suspicion of endometrial pathology. ? Document reviewed and electronically signed by: ? JENNIFER Fried(ASCP) ? Report Date: ??06/22/2004 17:56 End of Report Specimen (Source) Anatomical Location Collection Method / Collectio n Time Received Time / Laterality Volume 06/19/2004 06/21/2004 Nemesio Oates APRN PATHOLOGY ORDERABLES Performing Organization Address City/State/ZIP Code Phon e Number [facility] [address] [place] [address] SERVICES [facility] [address] [place] [address] documented in this encounter Visit Diagnoses Not on filedocumented in this encounter Care Teams Cloth Bleaching Supervisor Relationship Specialty Start Date End Date Santhosh Herron MD PCP - General 07/13/[address] [place] [address] documented as of this encounter
--- OUTSIDE RECORDS SUMMARY | 2022-09-13 00:38 | XMS_ITS | Encounter Summary ---
:1960 Author Organization [facility] Address [address] [place] [address] Care Team Providers Name Role Phone Santhosh Herron MD Primary Care Provider Reason for Visit Reason Comments Back Pain s/p L5-S1 fusion Encounter Details Date Type Department Care Team Description 07/30/2010 Office Visit [facility] Alessandro Torres, Spondyl isthesis; Spine Program - MD Acquired spondylolisthesis; [place] [address] Degeneration of lumbar or lumbosacral in tervertebral disc; [address] [place], [place] Lumbago; [place] [address] Nonunion of fracture [address] [phone] Social History Tobacco Use Types Packs/Day Years Used Date Smoking Tobacco: Never Assessed Sex Assigned at Date Recorded Not on file documented as of this encounter Last Filed Vital Signs Vital Sign Reading Time Taken Comments Blood Pressure - - Pulse - - Temperature - - Respiratory Rate - - Oxygen Saturation - - Inhaled Oxygen Concentration - - Weight 72.6 kg (160 lb) 07/30/2010 0953 EDT Height 162.6 cm (5' 4) 07/30/2010 0953 EDT Body Mass Index 27.46 07/30/2010 0953 EDT documented in this encounter Progress Notes Alessandro Torres MD - 07/30/2010 1817 EDT 49yoF 1yr s/p rev ASF L5,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 Doing well, no c/o. PE s change. Xrays healed fusion, no complication. Spent 15min FTF dx, PE and review of Xrays c 10min counseling wrt above. Plan F/U 1yr c repeat Xrays. Pt understands and agrees c plan. All Qs answered. JTB documented in this encounter Plan of Treatment Not on filedocumented as of this encounter Visit Diagnoses Diagnosis Spondylisthesis Congenital spondylolisthesis Acquired spondylolisthesis Degeneration of lumbar or lumbosacral in tervertebral disc Lumbago Nonunion of fracture documented in this encounter Discontinued Medications Medication Sig Discontinue Reason Start Date End Date atorvastatin (LIPITOR) 10 Take 10 mg by 1 mg tablet mouth daily. documented as of this encounter Historical Medications This list may reflect changes made after this encounter. Medication Sig Dispensed Refills Start Date End Date simvastatin (ZOCOR) 20 mg Take 20 mg by mouth 0 tablet at bedtime. added in this encounter Care Teams Publishing Editor Relationship Specialty Start Date End Date Santhosh Herron MD PCP - General 07/13/[address] [place] [phone] documented as of this encounter
--- OUTSIDE RECORDS SUMMARY | 2022-09-13 00:38 | XMS_ITS | Encounter Summary ---
:[address] [facility] Address [address] [place] [address] Care Team Providers Name Role Phone Santhosh Herron MD Primary Care Provider Encounter Details Date Type Department Care Team Description 06/09/2007 Results Only [facility] [place], TOURIST HOME KEEPER [address] [place] [phone] (Wo rk) Social History Tobacco Use Types Packs/Day Years Used Date Smoking Tobacco: Never Assessed Sex Assigned at Date Recorded Not on file documented as of this encounter Plan of Treatment Not on filedocumented as of this encounter Procedures Procedure Name Priority Date/Time Associated Diagnosis Comme nts CYTOPATHOLOGY Routine 06/09/2007 0:00 EDT Results for this procedure are i n the results section . documented in this encounter Results CYTOPATHOLOGY (06/09/2007 0:00 EDT) Component Value Ref Test Analysis Performed At [facility] Time [facility] Pathology CYTOPATHOLOGY REPORT SIRENA Report: [facility] Reports generated via electronic interface contain original data; however they are lacking the format of the original report. Caution should be taken when reading/interpreting unformatte d reports. Name: ? JEWEL LAGUNA ? Accession #: ? [id number] : ? 1960 (Age: 46) ??F ?Collect Date: ? 06/09/2007 Location: ? [facility] ? Receive Date: ? 06/11/2007 Provider: ?AMANDA BHATT TOURIST HOME KEEPER Copy to: ? Specimen/Source: ? ThinPrep Pap Test, Cervix/Endocervix, processed on [employer] ThinPrep Imaging System, with manual evaluation Last Menstrual Period: ? April 25 end Other: ? HPVA - HPV testing requested if ASC-US on the current ThinPr ep Pap test. ? SPECIMEN ADEQUACY ? Satisfactory for Evaluation - transformation zone component present GENERAL CATEGORIZATION ? Negative for Intraepithelial Lesion or Malignancy ? Document reviewed and electronically signed by: ? JENNIFER Fried(ASCP) ? Report Date: ??06/16/2007 14:52 End of Report Specimen (Source) Anatomical Location Collection Method / Collectio n Time Received Time / Laterality Volume 06/09/2007 06/11/2007 Amanda Bhatt TOURIST HOME KEEPER PATHOLOGY ORDERABLES Performing Organization Address City/State/ZIP Code Phon e Number [facility] [address] [place] [address] [facility] [address] [place] [address] documented in this encounter Visit Diagnoses Not on filedocumented in this encounter Care Teams Plan Examiner Relationship Specialty Start Date End Date Santhosh Herron MD PCP - General 07/13/09 [address] [place] [address] documented as of this encounter
--- OUTSIDE RECORDS SUMMARY | 2022-09-13 00:38 | XMS_ITS | Encounter Summary ---
:1960 Author Organization [facility] Address [address] [place] [address] Care Team Providers Name Role Phone Santhosh Herron MD Primary Care Provider Encounter Details Date Type Department Care Team Description 06/14/2003 Results Only [facility] - Mukund Bruce, conversion SCHEDULING MANAGER [address] [place] [address] Social History Tobacco Use Types Packs/Day Years Used Date Smoking Tobacco: Never Assessed Sex Assigned at Date Recorded Not on file documented as of this encounter Plan of Treatment Not on filedocumented as of this encounter Procedures Procedure Name Priority Date/Time Associated Diagnosis Comme [facility] CYTOPATHOLOGY Routine 06/14/2003 0:00 EDT Results for this procedure are i n the results section . documented in this encounter Results CYTOPATHOLOGY (06/14/2003 0:00 EDT) Component Value Ref Test Analysis Performed At [facility] Method Time [facility] Path[facility] CYTOPATHOLOGY REPORT SIRENA Report: [facility] Reports generated via electronic interface contain original data; however they are lacking the format of the original report. Caution should be taken when reading/interpreting unformatte d reports. Name: ? JEWEL LAGUNA ? Accession #: ? [id number] : ? 1960 (Age: 42) ??F ?Collect Date: ? 06/14/2003 Location: ? [facility] ? Receive Date: ? 06/16/2003 Provider: ?NEMESIO OATES SCHEDULING MANAGER Copy to: ? Specimen/Source: ?ThinPrep Pap Test, Cervix/Endoce rvix Last Menstrual Period: ? 06/09/03 Other: ? HPVA - HPV testing requested if ASC-US on the current ThinPr ep Pap test. ? SPECIMEN ADEQUACY ? Satisfactory for Evaluation - transformation zone component present GENERAL CATEGORIZATION ? Negative for Intraepithelial Lesion or Malignancy ? Document reviewed and electronically signed by: ? JENNIFER Daugherty(ASCP) ? Report Date: ??06/21/2003 12:50 End of Report Specimen (Source) Anatomical Location Collection Method / Collectio n Time Received Time / Laterality Volume 06/14/2003 06/16/2003 Nemesio Oates APRN PATHOLOGY ORDERABLES Performing Organization Address City/State/ZIP Code Phon e Number [facility] [address] [place] [address] SERVICES [place] [facility] [address] [place] [address] documented in this encounter Visit Diagnoses Not on filedocumented in this encounter Care Teams Cracker Off Relationship Specialty Start Date End Date Santhosh Herron MD PCP - General 07/13/09 [address] [place] [address] documented as of this encounter
--- OUTSIDE RECORDS SUMMARY | 2022-09-13 00:38 | XMS_ITS | Encounter Summary ---
:1960 Author Organization [facility] Address [place] [id number] Care Team Providers Name Role Phone Santhosh Herron MD Primary Care Provider Encounter Details Date Type Department Care Team Description 08/22/2022 Travel Social History Tobacco Use Types Packs/Day Years [...] on filedocumented in this encounter Care Teams Area Development Manager Relationship Specialty Start Date End Date Santhosh Herron MD PCP - General Family Medicine 02/18/17 [address] [place] [phone] documented as of this encounter
--- OUTSIDE RECORDS SUMMARY | 2022-09-13 00:38 | XMS_ITS | Encounter Summary ---
:1960 Author Organization [facility] Address [address] [place] [address] Care Team Providers Name Role Phone Santhosh Herron MD Primary Care Provider Reason for Visit Reason Onset Date Comments Results 08/02/2011 Encounter Details Date Type Department Care Team Description 08/02/2011 Telephone [facility] Blaire Boles PA-C Results Program - [address] [place], [place] [address] Social History Tobacco Use Types Packs/Day Years Used Date Smoking Tobacco: Every Day Cigarettes 0.8 Alcohol Use Standard Drinks/Week Comments Yes 0 (1 standard drink = 0.6 oz pure alcoho l) occ Sex Assigned at Date Recorded Not on file documented as of this encounter Miscellaneous Notes Telephone Encounter - Dainel Capps - 08/02/2011 1617 EDT Informed patient of lab results and advised them to follow-up with her PCP. documented in this encounter Plan of Treatment Not on filedocumented as of this encounter Visit Diagnoses Not on filedocumented in this encounter Care Teams Rolled Glass Crosscutter Relationship Specialty Start Date End Date Santhosh Herron MD PCP - General 07/13/[address] [place] [address] documented as of this encounter
--- OUTSIDE RECORDS SUMMARY | 2022-09-13 00:38 | XMS_ITS | Encounter Summary ---
:1960 Author Organization [facility] Address [address] [place] [address] Care Team Providers Name Role Phone Unavailable Primary Care Provider Unavailable Encounter Details Date Type Department Care Team Description 08/04/2006 Hospital Encounter [facility] - Camila Torres MD [address] [place] [phone] (Wo rk) Social History Tobacco Use Types Packs/Day Years Used Date Smoking Tobacco: Never Assessed Sex Assigned at Date Recorded Not on file documented as of this encounter Discharge Disposition Disposition Code Departure Means Destination Auto Discharge documented in this encounter Plan of Treatment Not on filedocumented as of this encounter Procedures Procedure Name Priority Date/Time Associated Diagnosis Comme nts NM BONE SCAN WHOLE 08/04/2006 13:25 Resul ts for this BODY EDT procedure are i n the results section. documented in this encounter Results NM BONE SCAN WHOLE BODY (08/04/2006 13:25 EDT) Anatomical Region Laterality Modality Other Specimen (Source) Anatomical Collection Method Collection Time Re ceived Time Location / / Volume Laterality 08/04/2006 13:25 EDT Narrative 04/29/2009 4:24 EDT LOW BACK PAIN WHOLE-BODY BONE SCAN AND BONE SPECT OF T HE LUMBAR SPINE: ??08/04/2006 AT 1233. HISTORY: ??Low back pain. ??Rule out L5 pars defect, L4-L5 facet arthropathy. Comparison films are 2 views of the spi ne 06/25/2006. TECHNIQUE: ??Esj-nwn-qjg-half hours aft er the IV injection of 22 mCi Tc-99m MDP, standard whole body bone lluvia ges were obtained. Wbg-cwh-vcu-half hours after the IV inj ection of 25 mCi Tc-99m MDP, planar and SPECT images were obtained of lumbar spine. FINDINGS: ??There is mild discogenic up take at the L3-L4 junction. There is no increased uptake in the post erior aspect of L5 where the previous study documented bilateral pars defects. [id number] D: ??08/04/2006 17:32 T: ??08/05/2006 23: /theresa 08/06/06 I have personally reviewed the images an d the above interpretation and agree with the findings. Procedure Note Jude Shelby / Elian Hauser MD - 04/29/2009 LOW BACK PAIN WHOLE-BODY BONE SCAN AND BONE SPECT OF William AGUILAR LUMBAR SPINE: 08/04/2006 AT 1233. HISTORY: Low back pain. Rule out L5 par s defect, L4-L5 facet arthropathy. Comparison films are 2 views of the [facility] 06/25/2006. TECHNIQUE: Bpt-blw-yyo-half hours after the IV injection of 22 mCi Tc-99m MDP, standard whole body bone lluvia ges were obtained. Ksy-nvj-rvv-half hours after the IV inj ection of 25 mCi Tc-99m MDP, planar and SPECT images were obtained of lumbar spine. FINDINGS: There is mild discogenic upta ke at the L3-L4 junction. There is no increased uptake in the post erior aspect of L5 where the previous study documented bilateral pars defects. [id number] 23: /theresa 08/06/06 I have personally reviewed the images an d the above interpretation and agree with the findings. Alessandro Torres MD IMG NM ORDERABLES documented in this encounter Visit Diagnoses Not on filedocumented in this encounter
--- OUTSIDE RECORDS SUMMARY | 2022-09-13 00:38 | XMS_ITS | Encounter Summary ---
:1960 Author Organization [facility] Address [address] [place] [address] Care Team Providers Name Role Phone Unavailable Primary Care Provider Unavailable Encounter Details Date Type Department Care Team Description 09/18/2006 - Hospital Encounter [facility] Alessandro Torres, 09/21/2006 General Surgery Unit MD [id number] [place] [phone] Social History Tobacco Use Types Packs/Day Years Used Date Smoking Tobacco: Never Assessed Sex Assigned at Date Recorded Not on file documented as of this encounter Discharge Disposition Disposition Code Departure Means Destination Home-Health Care Svc documented in this encounter OR Notes OR Surgeon - Alessandro Torres MD - 09/18/2006 0000 EST PROCEDURE REPORT PT TYPE: IP PT LOC: [id number] SERVICE DATE: 09/18/2006 SURGEON: Maria Eugenia Rutledge MDJohn T Braun, MD DATABASE TESTER: Bimal Becker MD PREOPERATIVE DIAGNOSIS: L5 spondylolisthesis, with L5-S1 foraminal stenosis bilaterally. POSTOPERATIVE DIAGNOSIS: L5 spondylolisthesis, with L5-S1 foraminal stenosis bilaterally. PROCEDURE: 1. Posterior spinal fusion with pedicle screw instrumentation at L5-S1, with an additional L5-S1 transforaminal lumbar interbody fusion using structural bone graft as well as local bone and bone morphogenic protein. 2. An additional decompression was performed posteriorly and this was a Dent decompression. 3. Additional posterior bone grafting was accomplished on the left, with local bone and bone morphogenic protein. ANESTHESIA: General endotracheal. INDICATIONS: Alicia Main is a 46-year-old female with an L5-S1 spondylolisthesis causing severe low back pain at the lumbosacral junction as well as bilateral leg pain, sometimes worse on the left,sometimes worse on the right, who immediately prior to surgery had substantially more pain on the left side in her leg. She was thoroughly worked up with plane x-rays, including flexion and extension views, an MRI as well as a bone scan and it was felt that the majority of her symptoms could be explained by her grade 1 spondylolisthesis at L5-S1, with the associated foraminal stenosis bilaterally. We discussed the various options for treatment, both operative and nonoperative, and because Alicia has severe pain, severe disability, and has failed conservative management of her pain at this time, she wishes to pursue surgery. The agreed upon plan included a posterior instrumented fusion with pedicle screws spanning L5 to S1 and a Gilldecompression across the same levels, with an additional TLIF procedure at L5-S1. Bone grafting would include local bone and possibly allograft bone, in addition to BM We did discuss the risks and potential complications of this procedure with Alicia as well as the expected outcomes. She understood all of this and wished to proceed. NARRATIVE: Etelvina was brought to the operating room, appropriately identified, and then intubated by the Anesthesia Department. After appropriate monitoring equipment was applied, the patient was rotated into the prone position on the Jay frame, with appropriate padding to the torso as well as the upper and lower extremities. Care was taken to that the axilla and the groin were free of pressureprior to prepping and draping. A standard prep was carried out, first with alcohol and then with Betadine, Hibiclens, and DuraPrep. The procedure was initiated with a midline vertical incision spanningL4 to S1, using sharp dissection through the skin, followed by electrocautery through the subcutaneous tissues. The spinal elements were exposed in a standard subperiosteal manner from L4 to S1 across the spinous processes and laminae and out to the tips of the transverse processes at L5 and the sacral ala bilaterally. L5-S1 facet was sacrificed. The L4-5 facet was preserved, as this level was not milton included in the fusion. A Dent decompression was then performed, using a microdissecting Blanca curette to remove the ligamentous attachments from the laminae and facets. This Dent fragment was removed in one piece, exposing the dura. A decompression was then performed, spanning L4 to S1, removing ligamentum flavum and decompressing along nerve roots, especially L5 bilaterally. There was a significant amount of lateral recess as well as foraminal stenosis at both of these levels. Additional dissection was carried out on the right side in preparation for the TLIF procedure. This involved placement of a laminar aircraft load controller, spanning L4 to S1, and then exposure of the medial dura and the exiting L5 nerve root at the L5-S1 level on the right. The local vessels, including the epidural veins, were cauterized using bipolar electrocautery. Then the neural elements were appropriately protected, with minimal retraction, and a diskectomy performed. involved a 15 blade scalpel for entry into the disk, remov al of the disk from the endplates using a Wells elevator, and then use of curettes and rongeurs to complete the diskectomy, prepare the endplates for bone graft, and then place a crescent-shaped structural allograft made ODC. Appropriate sizers were used and a 13-mm graft placed in the anterior aspect of the disk space. This had excellent fit and placement. Additional bone graft was then placed behindthis, with two BMP sponges as well as copious amount of local bone, which had been cleaned and morcellized and was tamped into place. Once this was completed, attention was turned to pedicle screw instrumentation, which was placed bilaterally at L5 and S1. This was placed in a standard manner, using a 4-mm round catherine to gain entrance into the posterior part of the pedicle. A large pedicle probe was then used to the cancellous contents of the pedicle down to the vertebral body. A small ball-tipped probe was then used within the pedicle to assure that the cortical margins of the pedicle had not been violated and to gauge the depth of the pedicle. Then appropriate sized screws were placed at each site. The pedicles were palpated medially and inferiorly within the spinal canal during pedicle screw placement to assure that no violations occurred. Fluoroscopy images were also used in multiple planes during all aspects of pedicle screw placement and at the end of pedicle screw placement to assure that,indeed, the instrumentation was placed optimally. Once the screws were in good position, two rods, which had been precut and precontoured, were placed bilaterally. They were tightened at S1 first. Thena reduction maneuver brought the screw up to the shantel at L5. Then top tightening was tightened at both levels, after compression across the L5-S1 screws. This allowed excellent cantilever correction of the malalignment at L5-S1, using the anterior placed bone graft at L5-S1 to maintain disk height, with compression posteriorly. At this point, the wound was copiously irrigated one more time with antibiotic solution, as it had been multiple times during the procedure. Decortication and bone grafting were performed in the left posterolateral gutter, where additional local bone placed and BMP. The rightside was not bone grafted, as this was the TLIF side and the nerve root was, essentially, too exposed to tolerate bone graft posterolaterally. The nerve roots were inspected one more time as well asthebone graft within the L5-S1 disk to ensure that, indeed, the decompression complete and the nerve roots were both free and mobile. At this point, with all instrumentation in good position, bone grafting completed, and final films taken, the woundwas prepared for closure. The deep fascia was then closed in a watertight manner using both interrupted and running #2 Ethibond sutures. The wound was irrigated once more with antibiotic solution and then closed using 2-0 Vicryls in the subcutaneous tissue and a running 3-0 Monocryl stitch in the skin. Steri-Strips were applied to the wound and the wound edges injected with 0.25% Marcaine to assist with postoperative pain control. Betadine soaked Adaptic was applied to the wound as well asa sterile dressing, which was taped in place. The patient toleratedthe procedure well and was taken to the recovery room in stable condition. It should be noted that Iwas present for the entire procedure. The patient tolerated the procedure well and was taken to the recovery room in stable condition. ESTIMATED BLOOD LOSS: 300 cc. FLUIDS: 2.5 liters of crystalloid. DRAINS: None. COMPLICATIONS: None. Signed by Alessandro Torres MD 09/19/2006 17:10 Maria Eugenia Rutledge MD Alessandro Torres MD - William Torres MD P - ljn Job ID: [id number] Document ID: [id number] cc: MD Bimal Lawler MD Warren T Rinehart, MD documented in this encounter Plan of Treatment Not on filedocumented as of this encounter Procedures Procedure Name Priority Date/Time Associated Comments Diagnosis COMPLETE BLOOD COUNT Routine 09/21/2006 7:05 Resu lts for this AND DIFFERENTIAL EST procedure a re in the results section. BUN Routine 09/21/2006 7:05 Results for this EST procedure are i n the results section. CREATININE Routine 09/21/2006 7:05 Results for this EST procedure are i n the results section. ELECTROLYTES Routine 09/21/2006 7:05 Results for this EST procedure are i n the results section. COMPLETE BLOOD COUNT Routine 09/20/2006 6:00 Resu lts for this AND DIFFERENTIAL EST procedure a re in the results section. BUN Routine 09/20/2006 6:00 Results for this EST procedure are i n the results section. CREATININE Routine 09/20/2006 6:00 Results for this EST procedure are i n the results section. ELECTROLYTES Routine 09/20/2006 6:00 Results for this EST procedure are i n the results section. L SPINE 2-3 VIEWS 09/19/2006 14:38 Result s for this EST procedure are i n the results section. COMPLETE BLOOD COUNT Routine 09/19/2006 6:20 Resu lts for this AND DIFFERENTIAL EST procedure a re in the results section. BUN Routine 09/19/2006 6:20 Results for this EST procedure are i n the results section. CREATININE Routine 09/19/2006 6:20 Results for this EST procedure are i n the results section. ELECTROLYTES Routine 09/19/2006 6:20 Results for this EST procedure are i n the results section. L SPINE 2-3 VIEWS 09/18/2006 16:34 Result s for this EST procedure are i n the results section. documented in this encounter Results ELECTROLYTES (09/21/2006 7:05 EST) P athologist Signature Sodium 139 136 - 145 PACK [facility] mEq/L LAB Potassium 3.9 3.5 - 5.0 [facility] mEq/L LAB Chloride 103 96 - 110 [facility] mEq/L LAB CO2 28 24 - 32 [facility] mEq/L LAB Specimen Anatomical Collection Method Collection Time Receive d Time (Source) Location / / Volume Laterality 09/21/2006 7:05 09/21/2006 7 :48 EST EST Alessandro Torres MD CHEMISTRY & BLOOD GAS ORDERA BLES Performing Organization Address City/State/ZIP Code Phon e Number [facility] [address] [place] [address] SERVICES [facility] [address] [place] [address] (ABNORMAL) CREATININE (09/21/2006 7:05 EST) [facility] Signature Creatinine 0.69 (L) 0.7 - 1.5 PACK mg/dl [facility] GFR, Calculated >60 ml/min/1.7 [facility] 3m2 [facility] Specimen Anatomical Collection Method Collection Time Receive d Time (Source) Location / / Volume Laterality 09/21/2006 7:05 09/21/2006 7 :48 EST EST Alessandro Torres MD CHEMISTRY & BLOOD GAS ORDERA BLES Performing Organization Address City/State/ZIP Code Phon e Number [facility] [address] [place] [address] SERVICES [facility] [address] [place] [address] (ABNORMAL) HEMAGRAM AND DIFFERENTIAL (09/21/2006 7:05 EST) Patholo gist Method Time Signature WBC 9.33 4.0 - PACK 12.4 [facility] K/cmm RBC 3.51 (L) 3.86 - PACK 5.04 [facility] M/cmm Hemoglobin 11.0 (L) 11.6 - PACK 15.2 [facility] gm/dl HCT 32.5 (L) 34.9 - PACK 44.4 % [facility] MCV 93 81 - 98 PACK fl [facility] MCH 31.3 26.7 - PACK 33.3 pg [facility] MCHC 33.8 32.1 - PACK 35.9 [facility] gm/dl PLT 207 141 - 320 PACK K/cmm [facility] RDW-CV 12.3 11.7 - PACK 14.6 % [facility] Neutrophils 67.3 45.5 - PACK 79.7 % [facility] Lymphocytes 24.6 15.0 - PACK 46.8 % [facility] Monocytes 5.8 1.8 - PACK 12.0 % [facility] Eosinophils 1.9 0.6 - 6.9 PACK % [facility] Basophils 0.4 0.2 - 1.4 PACK % [facility] ABS Neutrophils 6.27 2.20 - PACK 8.85 [facility] K/cmm ABS Lymphs 2.30 1.09 - PACK 3.30 [facility] K/cmm ABS Monocytes 0.54 0.1 - 0.8 PACK K/cmm [facility] ABS Eosinophils 0.18 0.03 - PACK 0.61 [facility] K/cmm ABS Basophils 0.03 0.01 - PACK 0.11 [facility] K/cmm Type of Diff: Automated [facility] Specimen Anatomical Collection Method Collection Time Receive d Time (Source) Location / / Volume Laterality 09/21/2006 7:05 09/21/2006 7 :48 EST EST Alessandro Torres MD PACKAGES & DNA PROBE ORDERAB LES Performing Organization Address City/[facility]/ZIP Code Phon e Number [facility] [address] [place] [address] SERVICES [facility] [address] [place] [address] (ABNORMAL) BUN (09/21/2006 7:05 EST) athologist Signature BUN 3 (L) 10 - 26 [facility] mg/dl LAB Specimen Anatomical Collection Method Collection Time Receive d Time (Source) Location / / Volume Laterality 09/21/2006 7:05 09/21/2006 7 :48 EST EST Alessandro Torres MD CHEMISTRY & BLOOD GAS ORDERA BLES Performing Organization Address City/[facility]/ZIP Code Phon e Number [facility] [address] [place] [address] SERVICES [facility] [address] [place] [address] (ABNORMAL) ELECTROLYTES (09/20/2006 6:00 EST) P athologist Signature Sodium 132 (L) 136 - 145 [facility] mEq/L LAB Potassium 3.5 3.5 - 5.0 [facility] mEq/L LAB Chloride 100 96 - 110 [facility] mEq/L LAB CO2 26 24 - 32 [facility] mEq/L LAB Specimen Anatomical Collection Method Collection Time Receive d Time (Source) Location / / Volume Laterality 09/20/2006 6:00 09/20/2006 7 :25 EST EST Alessandro Torres MD CHEMISTRY & BLOOD GAS ORDERA BLES Performing Organization Address City/State/ZIP Code Phon e Number [facility] [address] [place] [address] SERVICES [facility] [address] [place] [address] CREATININE (09/20/2006 6:00 EST) P athologist Signature Creatinine 0.72 0.7 - 1.5 [facility] mg/dl LAB GFR, Calculated >60 ml/min/1.7 [facility] PAREKH N 3m2 LAB Specimen Anatomical Collection Method Collection Time Receive d Time (Source) Location / / Volume Laterality 09/20/2006 6:00 09/20/2006 7 :25 EST EST Alessandro Torres MD CHEMISTRY & BLOOD GAS ORDERA BLES Performing Organization Address City/State/ZIP Code Phon e Number [facility] [address] [place] [address] SERVICES [facility] [address] [place] [address] (ABNORMAL) HEMAGRAM AND DIFFERENTIAL (09/20/2006 6:00 EST) Patholo gist Method Time Signature WBC 12.50 (H) 4.0 - PACK 12.4 [facility] K/cmm RBC 3.27 (L) 3.86 - PACK 5.04 [facility] M/cmm Hemoglobin 10.3 (L) 11.6 - PACK 15.2 [facility] gm/dl HCT 30.1 (L) 34.9 - PACK 44.4 % [facility] MCV 92 81 - 98 PACK fl [facility] MCH 31.4 26.7 - PACK 33.3 pg [facility] MCHC 34.2 32.1 - PACK 35.9 [facility] gm/dl PLT 170 141 - 320 PACK K/cmm [facility] RDW-CV 13.3 11.7 - PACK 14.6 % [facility] Neutrophils 75.1 45.5 - PACK 79.7 % [facility] Lymphocytes 18.6 15.0 - PACK 46.8 % [facility] Monocytes 5.0 1.8 - APCK 12.0 % [facility] Eosinophils 0.9 0.6 - 6.9 PACK % [facility] Basophils 0.4 0.2 - 1.4 PACK % [facility] ABS Neutrophils 9.38 (H) 2.20 - PACK 8.85 [facility] K/cmm ABS Lymphs 2.32 1.09 - PACK 3.30 [facility] K/cmm ABS Monocytes 0.63 0.1 - 0.8 PACK K/cmm [facility] ABS Eosinophils 0.11 0.03 - PACK 0.61 [facility] K/cmm ABS Basophils 0.06 0.01 - PACK 0.11 [facility] K/cmm Type of Diff: Automated [facility] Specimen Anatomical Collection Method Collection Time Receive d Time (Source) Location / / Volume Laterality 09/20/2006 6:00 09/20/2006 7 :25 EST EST Alessandro Torres MD PACKAGES & DNA PROBE ORDERAB LES Performing Organization Address City/State/ZIP Code Phon e Number [facility] [address] [place] [address] SERVICES [facility] [address] [place] [address] (ABNORMAL) BUN (09/20/2006 6:00 EST) P athologist Signature BUN 3 (L) 10 - 26 [facility] mg/dl LAB Specimen Anatomical Collection Method Collection Time Receive d Time (Source) Location / / Volume Laterality 09/20/2006 6:00 09/20/2006 7 :25 EST EST Alessandro Torres MD CHEMISTRY & BLOOD GAS ORDERA BLES Performing Organization Address City/[facility]/ZIP Code Phon e Number [facility] [address] [place] [address] SERVICES [facility] [address] [place] [address] L SPINE 2-3 VIEWS (09/19/2006 14:38 EST) Anatomical Region Laterality Modality Other Specimen (Source) Anatomical Collection Method Collection Time Re ceived Time Location / / Volume Laterality 09/19/2006 14:38 EST Narrative 04/29/2009 2:07 EDT L5-S1 TRANSFORAMINAL LUMBAR INTERBODY FUSION EVALUATE HARDWARE LUMBAR SPINE: ??09/19/06 CLINICAL HISTORY: ??L5-S1 transforaminal lumbar interbody fusion. Evaluate hardware. FINDINGS: ??Two views of the lumbar spin e show pedicle screws and connecting rods at L5-S1. ??Hardware is intact. ??There are no other new changes. D: ??09/19/06 T: ??09/22/06 /theresa Procedure Note Renee Hurtado MD - 04/29/2009For matting of this note might be different from the original. L5-S1 TRANSFORAMINAL LUMBAR INTERBODY F USION EVALUATE HARDWARE LUMBAR SPINE: 09/19/06 CLINICAL HISTORY: L5-S1 transforaminal l umbar interbody fusion. Evaluate hardware. FINDINGS: Two views of the lumbar spine show pedicle screws and connecting rods at L5-S1. Hardware is in tact. There are no other new changes. /[facility] Bimal Becker MD IMG DIAGNOSTIC IMAGING ORDER HI ELECTROLYTES (09/19/2006 6:20 EST) P athologist Signature Sodium 137 136 - 145 [facility] mEq/L LAB Potassium 3.9 3.5 - 5.0 [facility] mEq/L LAB Chloride 106 96 - 110 PACK [facility] mEq/L LAB CO2 25 24 - 32 PACK [facility] mEq/L LAB Specimen Anatomical Collection Method Collection Time Receive d Time (Source) Location / / Volume Laterality 09/19/2006 6:20 09/19/2006 7 :30 EST EST Alessandro Torres MD CHEMISTRY & BLOOD GAS ORDERA BLES Performing Organization Address City/State/ZIP Code Phon e Number [facility] [address] [place] [address] SERVICES [facility] [address] [place] [address] CREATININE (09/19/2006 6:20 EST) P athologist Signature Creatinine 0.77 0.7 - 1.5 [facility] mg/dl LAB GFR, Calculated >60 ml/min/1.7 [facility] PAREKH N 3m2 LAB Specimen Anatomical Collection Method Collection Time Receive d Time (Source) Location / / Volume Laterality 09/19/2006 6:20 09/19/2006 7 :30 EST EST Alessandro Torres MD CHEMISTRY & BLOOD GAS ORDERA BLES Performing Organization Address City/State/ZIP Code Phon e Number [facility] [address] [place] [address] SERVICES [facility] [address] [place] [address] (ABNORMAL) HEMAGRAM AND DIFFERENTIAL (09/19/2006 6:20 EST) [facility] Method Time Signature WBC 10.91 4.0 - PACK 12.4 [facility] K/cmm RBC 3.46 (L) 3.86 - PACK 5.04 [facility] M/cmm Hemoglobin 10.8 (L) 11.6 - PACK 15.2 [facility] gm/dl HCT 32.2 (L) 34.9 - PACK 44.4 % [facility] MCV 93 81 - 98 PACK fl [facility] MCH 31.1 26.7 - PACK 33.3 pg [facility] LAB MCHC 33.4 32.1 - PACK 35.9 [facility] gm/dl PLT 191 141 - 320 PACK K/cmm [facility] RDW-CV 12.9 11.7 - PACK 14.6 % [facility] Neutrophils 74.4 45.5 - PACK 79.7 % [facility] Lymphocytes 19.2 15.0 - PACK 46.8 % [facility] Monocytes 5.5 1.8 - PACK 12.0 % [facility] Eosinophils 0.6 0.6 - 6.9 PACK % [facility] Basophils 0.3 0.2 - 1.4 PACK % [facility] ABS Neutrophils 8.13 2.20 - PACK 8.85 [facility] K/cmm ABS Lymphs 2.09 1.09 - PACK 3.30 [facility] K/cmm ABS Monocytes 0.59 0.1 - 0.8 PACK K/cmm [facility] ABS Eosinophils 0.07 0.03 - PACK 0.61 [facility] K/cmm ABS Basophils 0.03 0.01 - PACK 0.11 [facility] K/cmm Type of Diff: Automated PACK [facility] LAB Specimen Anatomical Collection Method Collection Time Receive d Time (Source) Location / / Volume Laterality 09/19/2006 6:20 09/19/2006 7 :30 EST EST Alessandro Torres MD PACKAGES & DNA PROBE ORDERAB LES Performing Organization Address City/State/ZIP Code Phon e Number [facility] [address] [place] [address] SERVICES [facility] [address] [place] [address] (ABNORMAL) BUN (09/19/2006 6:20 EST) P athologist Signature BUN 7 (L) 10 - 26 PACK [facility] mg/dl LAB Specimen Anatomical Collection Method Collection Time Receive d Time (Source) Location / / Volume Laterality 09/19/2006 6:20 09/19/2006 7 :30 EST EST Alessandro Torres MD CHEMISTRY & BLOOD GAS ORDERA BLES Performing Organization Address City/[facility]/ZIP Code Phon e Number [facility] [address] [place] [address] SERVICES [facility] [address] [place] [address] L SPINE 2-3 VIEWS (09/18/2006 16:34 EST) Anatomical Region Laterality Modality Other Specimen (Source) Anatomical Collection Method Collection Time Re ceived Time Location / / Volume Laterality 09/18/2006 16:34 EST Narrative 04/29/2009 2:06 EDT spondylolithesis l5s1 fusion in or r/o hardware placement Five view intraoperative exam showing pl acement of pedicle screws and rods across bilateral pars defects. D: ??09/26/06 T: ??09/28/06 /silvio Procedure Note Willie Vance MD - 04/29/2009Formatti ng of this note might be different from the original. spondylolithesis l5s1 fusion in or r/o hardware placement Five view intraoperative exam showing pl acement of pedicle screws and rods across bilateral pars defects. /jv Alessandro Trores MD IMG DIAGNOSTIC IMAGING ORDER HI documented in this encounter Visit Diagnoses Not on filedocumented in this encounter
--- OUTSIDE RECORDS SUMMARY | 2022-09-13 00:38 | XMS_ITS | Encounter Summary ---
:1960 Author Organization [facility] Address [address] [place] [address] Care Team Providers Name Role Phone Mariia March MD Primary Care Provider Encounter Details Date Type Department Care Team Description 09/26/2004 Results Only [facility] [place] - Mireya Valenzuela MD Maple conversion [address] [place] [address] [place] [address] [phone] Social History Tobacco Use Types Packs/Day Years Used Date Smoking Tobacco: Never Assessed Sex Assigned at Date Recorded Not on file documented as of this encounter Plan of Treatment Not on filedocumented as of this encounter Procedures Procedure Name Priority Date/Time Associated Diagnosis Comme [facility] SURGICAL PATHOLOGY Routine 09/26/2004 0:00 EST Re sults for this procedure are i n the results section. documented in this encounter Results SURGICAL PATHOLOGY (09/26/2004 0:00 EST) Component Value Ref Test Analysis Performed At [facility] Time [facility] Pathology SURGICAL PATHOLOGY REPORT JON LOU Report: Reports generated via electronic interface contain jason abernathy data; DEDE VARGAS however they are lacking the format of the original report. Caution should be taken when reading/interpreting unformatte d reports. Name: ? TAMEKA LAGUNA ? Accession #: ? [id number] ? : ? 1960 (Age: 44) ??F ? Collect Date: ? 09/26/2004 ? Location: ? [facility] ? Receive Date: ? 09/27/2004 ? Provider: LENORE VALENZUELA MD Copy to: MARIIA MARCH MD ? Final Pathologic Diagnosis: ? Endometrium, biopsy: - ??Weakly proliferative endometrium with mild chronic endom etritis. Document reviewed and electronically signed by: DAGO QUEZADA MD Report ??Date: 10/02/2004 15:39 By the signature above, the attending physician certifies th at he/she has personally conducted a gross and/or microscopic examin ation of the described specimens and rendered or confirmed the above diagnosis. Specimen(s) Received: ? Endometrial bx Clinical History: ? AUB, pelvic pain; on Depo; LMP: Bleeding daily since April 21 Gross Description: ? Received in formalin labelled Rakowsky and endometrial bx are 1.5 x 1.0 x 0.3 cm of multiple red-brown, hemorrhagic, slightly mucoid soft tissue fragments. ??The specimen is entirely submitted in one casse tte following filtration. ??(Marina Zaman)/[facility] End of Report Specimen (Source) Anatomical Collection Method Collection Time Re ceived Time Location / / Volume Laterality 09/26/2004 09/27/2004 15:2 2 EST Lenore Valenzuela MD PATHOLOGY ORDERABLES Performing Organization Address City/State/ZIP Code Phon e Number [facility] [address] [place] [address] SERVICES [facility] [address] [place] [address] documented in this encounter Visit Diagnoses Not on filedocumented in this encounter Care Teams Tobacco Sprayer Relationship Specialty Start Date End Date Mariia March MD PCP - General 07/13/09 [address] [place] [address] documented as of this encounter
--- OUTSIDE RECORDS SUMMARY | 2022-09-13 00:38 | XMS_ITS | Encounter Summary ---
:1960 Author Organization [facility] Address [address] [place] [address] Care Team Providers Name Role Phone Santhosh Herron MD Primary Care Provider Encounter Details Date Type Department Care Team Description 09/18/2009 Orders Only [facility] Spine Alessandro Torres MD [facility] - [facility] [address] [facility] [place] [address] [place], [place] [address] [phone] Social History Tobacco Use Types Packs/Day Years Used Date Smoking Tobacco: Never Assessed Sex Assigned at Date Recorded Not on file documented as of this encounter Plan of Treatment Not on filedocumented as of this encounter Procedures Procedure Name Priority Date/Time Associated Diagnosis Comme nts L SPINE 2-3 VIEWS 09/18/2009 9:59 EST Res ults for this procedure are i n the results section. documented in this encounter Results L SPINE 2-3 VIEWS (09/18/2009 9:59 EST) Anatomical Region Laterality Modality Other Specimen Anatomical Collection Method Collection Time Receive d Time (Source) Location / / Volume Laterality 09/18/2009 9:59 09/18/2009 EST 14:14 EST Narrative 09/18/2009 14:14 EST Two views of the lumbar spine August 222008. History: Back pain post fusion. Comparison: August 12, 2009. Findings: Upright lateral neutral and kasper pine Magallon views of the lumbar spine were obtained. There are bi lateral pedicle screws and posterior fusion rods extending from L5 through S1. No hardware failure is identified. A screw is presen t anteriorly extending into the L5 vertebral body. Interbody bone gr aft material at the L5-S1 level is noted with incomplete incorpora tion at this time. Alignment remains anatomic. The surgical nathaniel h ave been removed. There is disc space narrowing at L3-L4 with small anterior spondylitic ridges reflecting degenerative disc disease. Impression: Stable appearance of L5-S1 f usion. There is no hardware failure. I have personally reviewed the images an d the above interpretation and agree with the findings. Procedure Note Jesse Barajas MD / Amina Barajas MD / Jesse Barajas MD - 09/18/2009 Two views of the lumbar spine August 222008. History: Back pain post fusion. Comparison: August 12, 2009. Findings: Upright lateral neutral and kasper pine Magallon views of the lumbar spine were obtained. There are bi lateral pedicle screws and posterior fusion rods extending from L5 through S1. No hardware failure is identified. A screw is presen t anteriorly extending into the L5 vertebral body. Interbody bone gr aft material at the L5-S1 level is noted with incomplete incorpora tion at this time. Alignment remains anatomic. The surgical nathaniel h ave been removed. There is disc space narrowing at L3-L4 with small anterior spondylitic ridges reflecting degenerative disc disease. Impression: Stable appearance of L5-S1 f usion. There is no hardware failure. I have personally reviewed the images an d the above interpretation and agree with the findings. Alessandro Torres MD IMG DIAGNOSTIC IMAGING ORDER HI documented in this encounter Visit Diagnoses Not on filedocumented in this encounter Care Teams Client Service Consultant Relationship Specialty Start Date End Date Santhosh Herron MD PCP - General 07/13/[address] [place] [id number] documented as of this encounter
--- OUTSIDE RECORDS SUMMARY | 2022-09-13 00:38 | XMS_ITS | Encounter Summary ---
:1960 Author Organization [facility] Address [address] [place] [address] Care Team Providers Name Role Phone Unavailable Primary Care Provider Unavailable Encounter Details Date Type Department Care Team Description 08/28/2007 Hospital Encounter [facility] - Camila Torres MD Maple conversion [address] [place] [phone] (Wo rk) Social History Tobacco Use Types [...] Diagnosis Comme nts L SPINE 2-3 VIEWS 08/28/2007 15:01 Result s for this EST procedure are i n the results section. documented in this encounter Results L SPINE 2-3 VIEWS (08/28/2007 15:01 EST) Anatomical Region Laterality Modality Other Specimen (Source) Anatomical Collection Method Collection Time Re ceived Time Location / / Volume Laterality 08/28/2007 15:01 EST Narrative 04/10/2009 3:20 EDT lbp. s/p l5-s1 psf 09/18/06. assess fusion maturation. doi: 2002 L SPINE 2-3 VIEWS ??Aug 28, 2007 3:01:00 PM Clinical history: lbp. ??s/p l5-s1 psf 1 11/18/05. assess fusion maturation. ??doi: 2002 Comparison: 03/30/2007 Findings: Two views of the lumbar spine show pedicle screws with vertical connecting rods at L5-S1. There is grade 1 anterolisthesis at L5-S1, unchanged. Hardware/graft appe ars intact., without change. The remaining lumbar levels are unremark able. Procedure Note Renee Hurtado MD - 04/10/2009For matting of this note might be different from the original. lbp. s/p l5-s1 psf 09/18/06. assess fus ion maturation. doi: 2002 L SPINE 2-3 VIEWS Aug 28, 2007 3:01:00 PM Clinical history: lbp. s/p l5-s1 psf 18/04. assess fusion maturation. doi: 2002 Comparison: 03/30/2007 Findings: Two views of the lumbar spine show pedicle screws with vertical connecting rods at L5-S1. There is grade 1 anterolisthesis at L5-S1, unchanged. Hardware/graft appe ars intact., without change. The remaining lumbar levels are unremark able. Alessandro Torres MD IMG DIAGNOSTIC IMAGING ORDER HI documented in this encounter Visit Diagnoses Not on filedocumented in this encounter
--- OUTSIDE RECORDS SUMMARY | 2022-09-13 00:38 | XMS_ITS | Encounter Summary ---
:1960 Author Organization [facility] Address [address] [place] [address] Care Team Providers Name Role Phone Mariia March MD Primary Care Provider Encounter Details Date Type Department Care Team Description 04/29/2018 Results Only [facility]- Chuck Ansari MD [phone] [place] [phone] (Wo rk) Social History Tobacco Use Types [...] Diagnosis Comme nts PAP TEST- RESULT Routine 04/29/2018 0:00 EDT Resu lts for this ONLY procedure are i n the results section. documented in this encounter Results PAP TEST- RESULT ONLY (04/29/2018 0:00 EDT) Component Value Ref Test Analysis Performed At [facility] Method Time Signature Pathology CYTOP[facility] RE[facility] Report: CENTER Reports generated via electronic interface contain origina l data; LABORATORY however they are lacking the format of the original report. SERVICES Caution should be taken when reading/interpreting unformatte d reports. Name: ? RAKOWSKY, TAMEKA IA M ? Accession #: ? [id number] ? : ? 1960 (Age: 57) ??F ?Collect Date: ? 04/29/2018 ? Location: ? [facility] ? Receive Date: ? 04/30/2018 ? Provider: CHUCK BATISTA MD Copy to: MARIIA MARCH MD ? Final Report SPECIMEN ADEQUACY ? Satisfactory for Evaluation - transformation zone component present GENERAL CATEGORIZATION ? Negative for Intraepithelial Lesion or Malignancy ?? Specimen/Source: ??Pap Test, Cervix/Endocervix, ThinPr ep Imaging System with manual evaluation Document reviewed and electronically signed by: ? JENNIFER Figueroa(ASCP) ? Report ??Date: 05/08/2018 15:46 HPV with Pap Test ? Date Ordered: ? 05/08/2018 ? Status: ?? Signed Out ?Date Complete: ? 05/11/2018 ? By: ??System I nterface ? Date Reported: ? 05/11/2018 ? Interpretation RESULT: Negative for HPV. No E6 or E7 mRNA is detected from HPV types 16,18,31,33,35, 39,45,51,52,56,58,59,66, and 68 by professor of voice mediated amplification. Comments Document reviewed and electronically signed by: ? System Interface ? Report date: 05/11/2018 By the signature above, the attending physician certifies th at he/she has personally conducted a gross and/or microscopic examin ation of the described specimens and rendered or confirmed the above diagnosis. End of Report Specimen (Source) Anatomical Location Collection Method / Collectio n Time Received Time / Laterality Volume 04/29/2018 04/30/2018 Chuck Batista MD PATHOLOGY ORDERABLES Performing Organization Address City/State/ZIP Code Phon e Number [facility] [address] [place] [address] SERVICES documented in this encounter Visit Diagnoses Not on filedocumented in this encounter Care Teams Director University Relationship Specialty Start Date End Date Mariia March MD PCP - General 07/13/[address] [place] [phone] documented as of this encounter
--- OUTSIDE RECORDS SUMMARY | 2022-09-13 00:38 | XMS_ITS | Encounter Summary ---
:1960 Author Organization [facility] Address [address] [place] [address] Care Team Providers Name Role Phone Mariia March MD Primary Care Provider Encounter Details Date Type Department Care Team Description 05/03/2013 Results Only [facility] Lenore Valenzuela MD Laboratory Services - [address] [place] [address] [address] [facility] [place] [address] [phone] Social History Tobacco Use Types Packs/Day Years [...] Date/Time Associated Diagnosis Comme nts SURGICAL PATHOLOGY Routine 05/03/2013 20:41 Resul ts for this EDT procedure are i n the results section. documented in this encounter Results SURGICAL PATHOLOGY (05/03/2013 20:41 EDT) Component Value Ref Test Analysis Performed At [facility] Method Time Signature Pathology SURGICAL PATHOLOGY REPORT FLEWilliam LOU Report: Reports generated via electronic interface contain origina l data; DEDE VARGAS however they are lacking the format of the original report. Caution should be taken when reading/interpreting unformatte d reports. Name: ? RAKOWSKY, TAMEKA IA M ? Accession #: ? [id number] ? : ? 1960 (Age: 52) ??F ? Collect Date: ? 05/03/2013 ? Location: ? [facility] ? Receive Date: ? 05/03/2013 ? Provider: LENORE VALENZUELA MD Copy to: MARIIA MARCH MD ? Final Pathologic Diagnosis: ENDOMETRIUM, BIOPSY: - ??Scant strips of superfic ial endometrium with tubal metaplasia. ??See comment. - ??Fragments of benign lower uterine segment tissue and end ocervical and squamous mucosa. Comment: ? Deeper sections have been examined. Document reviewed and electronically signed by: LACY KNIGHT MD Report ??Date: 05/05/2013 15:49 By the signature above, the attending physician certifies th at he/she has personally conducted a gross and/or microscopic examin ation of the described specimens and rendered or confirmed the above diagnosis. Specimen(s) Received: Endo bx Clinical History: PMB Gross Description: ? Received in formalin labelled with proper patient identification (initials R, P) and endometrial bx i s an aggregate of pink-mcneil tissue fragments admixed with mcneil mucus (1.0 x 1.0 x 0.3 cm). Submitted in toto in charles Preston 05/04/2013 09:00 AM End of Report Specimen Anatomical Collection Method Collection Time Receive d Time (Source) Location / / Volume Laterality 05/03/2013 20:41 05/03/2013 EDT 20:41 EDT Lenore Valenzuela MD PATHOLOGY ORDERABLES Performing Organization Address City/State/ZIP Code Phon e Number [facility] [address] [place] [address] SERVICES [facility] [address] [place] [address] documented in this encounter Visit Diagnoses Not on filedocumented in this encounter Care Teams Occupational Therapy Assist Relationship Specialty Start Date End Date Mariia March MD PCP - General 07/13/[address] [place] [place] [phone] documented as of this encounter
--- OUTSIDE RECORDS SUMMARY | 2022-09-13 00:38 | XMS_ITS | Encounter Summary ---
:1960 Author Organization [facility] Address [address] [place] [address] Care Team Providers Name Role Phone Santhosh Herron MD Primary Care Provider Reason for Visit Reason Onset Date Comments Follow-up 01/25/2010 s/p 6 mo. L5-S1 fusi on Encounter Details Date Type Department Care Team Description 01/25/2010 Orders Only [facility] Alessandro Torres MD Nonunion of fracture Spine Program - [place] [address] (Primary Dx) [address] [place], [place] [address] [phone] Social History Tobacco Use Types Packs/Day Years Used Date Smoking Tobacco: Never Assessed Sex Assigned at Date Recorded Not on file documented as of this encounter Plan of Treatment Not on filedocumented as of this encounter Procedures Procedure Name Priority Date/Time Associated Diagnosis Comme nts L SPINE 2-3 VIEWS Routine 01/29/2010 10:40 Nonunion of fractur e Results for this EDT procedure are i n the results section. documented in this encounter Results L SPINE 2-3 VIEWS (01/29/2010 10:40 EDT) Anatomical Region Laterality Modality Other Specimen Anatomical Collection Method Collection Time Receive d Time (Source) Location / / Volume Laterality 01/29/2010 10:40 01/29/2010 EDT 15:51 EDT Narrative 01/29/2010 15:51 EDT Plain film lumbar spine History: low back pain Comparison: October 30, 2009 Findings: 2 views. The posterior fixatio n hardware at L5-S1 and anterior screw at L5 are stable in posit ion. There is no evidence of hardware failure or loosening. The no ac claire fracture is identified. A grade 1 anterolisthesis of L5 relative t o S1 is stable. There is mild intervertebral disc height loss at L4-L5 and L5-S1, stable. There are hypertrophic degenerative changes of the facets at L3-L4 and L4-L5. Conclusion: No significant interval change Procedure Note 01/29/2010 Plain film lumbar spine History: low back pain Comparison: October 30, 2009 Findings: 2 views. The posterior fixatio n hardware at L5-S1 and anterior screw at L5 are stable in posit ion. There is no evidence of hardware failure or loosening. The no ac claire fracture is identified. A grade 1 anterolisthesis of L5 relative t o S1 is stable. There is mild intervertebral disc height loss at L4-L5 and L5-S1, stable. There are hypertrophic degenerative changes of the facets at L3-L4 and L4-L5. Conclusion: No significant interval change Alessandro Torres MD IMG DIAGNOSTIC IMAGING ORDER HI documented in this encounter Visit Diagnoses Diagnosis Nonunion of fracture - Primary documented in this encounter Care Teams Advertising Space Clerk Relationship Specialty Start Date End Date Santhosh Herron MD PCP - General 07/13/[address] [place] [phone] documented as of this encounter
--- OUTSIDE RECORDS SUMMARY | 2022-09-13 00:39 | XMS_ITS | Encounter Summary ---
:1960 Author Organization [facility] [place] [address] Care Team Providers Name Role Phone Santhosh Herron MD Primary Care Provider Encounter Details Date Type Department Care Team Description 04/05/2021 Office Visit Hematology/Oncology Ariana Gutierrez MD [facility] DR HEMATOLOGY/[place] [address] Grade [facility] AMM[facility] [address] [place] [address] [place] [address] lymphoma of lymph [address] [place] [address] [place] [address] Social History Tobacco Use Types Packs/Day Years Used Date Smoking Tobacco: Every Day Cigarettes 0.5 40 Smokeless Tobacco: Never Comments: 3/4 to 1/2 pack a day Alcohol Use Standard Drinks/Week Comments Yes 0 (1 standard drink = 0.6 oz pure alcoho l) occasional Sex Assigned at Date Recorded Not on file documented as of this encounter Last Filed Vital Signs Vital Sign Reading Time Taken Comments Blood Pressure 163/84 04/05/2021 1:50 PM EDT Pulse 66 04/05/2021 1:50 PM EDT Temperature 36.3 ??C (97.3 ??F) 04/05/2021 1:50 PM EDT Respiratory Rate 20 04/05/2021 1:50 PM EDT Oxygen Saturation 100% 04/05/2021 1:50 PM EDT Inhaled Oxygen Concentration - - Weight 69.4 kg (153 lb) 04/05/2021 1:50 PM EDT Height 159.5 cm (5' 2.8) 04/05/2021 1:50 PM EDT Body Mass Index 27.28 04/05/2021 1:50 PM EDT documented in this encounter Progress Notes Jacquelyn Rodriguez, AMMUNITION SPECIALIST - 04/05/2021 2:00 PM EDT Subjective: Patient ID: Alicia Main is a 60 y.o. female. HPI Patient ID: Alicia Main is a 60 y.o. female. ?? HPI The patient is a 60-year-old female that I am seeing in the [facility]. She has recentlydiagnosed follicular lymphoma ?? 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 grade 1-2 out of 3. Flow cytometry confirmed a CD10 positive lymphoproliferative disorder. CD19 was positive, CD20 was positive, CD5 was negative PET scan showed extensive disease in nodes and skeletal and spleen 01/07 Low risk FL IPI score Observation only ?? The patient is here to go over her staging studies. She did see the report of her PET scan and was alittle concerned by what she read. She does have some right abdominal discomfort. This has been pretty persistent and predated her diagnosis of lymphoma. Occasional aches and pains in her upper chest wall. No fevers chills sweats've h or further weight loss. 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 (See details as outlined above.) Alicia returns to the [facility] clinic today for routine 3-month follow up. She just had a cholysystectomy on 04/03/21, and says she feels she is doing pretty well from that. She had had problems since July with pain in her right shoulder everytime she ate. She is currentlyworking back up to a normal appetite. She denies any new lymphoma symptoms. No B-symptoms. She now always notices some tenderness in her right neck and under her jaw. She has not noticed any other new lumps or bumps. She has some mild abdominal discomfort from the surgery but otherwise has no GI issues. She is eating well, moving her bowels well. She does have a chronic pain in her right tibia and right knee which she says has been going on for five years. She has noticed that when she urinates the stream seems to slow and then restarts. She denies dysuria, urgency or frequency. She does feel her bladder is emptying well. She denies chest pain, cough or shortness of breath. She does not have any neuropathy. Other ROS are negative. Allergies Allergen Reactions ??? Erythromycin Nausea And Vomiting ??? Keflex [Cephalexin] Itching Itching all over ??? Oxycodone Itching ??? Penicillins Hives ??? Vancomycin Itching Red man's syndrome Current Medications ??? ascorbic acid, vitamin C, (VITAMIN C) 500 mg Tablet, Chewable ??? calcium-vitamin D 500 mg(1,250mg) -200 unit Tablet ??? ibuprofen (ADVIL;MOTRIN) 200 mg Tablet ??? gabapentin (NEURONTIN) 600 mg Tablet ??? acetaminophen (TYLENOL) 500 mg Tablet ??? albuterol 90 mcg/actuation HFA Aerosol Inhaler Social History Tobacco Use ??? Smoking status: Current Every Day Smoker Packs/day: 0.50 Years: 40.00 Pack years: 20.00 Types: Cigarettes ??? Smokeless tobacco: Never Used ??? Tobacco comment: 3/4 to 1/2 pack a day Vaping Use ??? Vaping Use: Never used Substance Use Topics ??? Alcohol use: Yes Comment: occasional ??? Drug use: No ??Review of Systems Constitutional: Negative. HENT: Negative. Respiratory: Negative. Negative for cough and shortness of breath. Cardiovascular: Negative. Gastrointestinal: Negative. Genitourinary: Negative for decreased urine volume. Urine stream decreases and increases. Musculoskeletal: Negative. Skin: Negative. Neurological: Negative for dizziness, numbness and headaches. Hematological: Positive for adenopathy. Right neck Psychiatric/Behavioral: Negative. Objective: Physical Exam Vitals reviewed. Constitutional: General: She is not in acute distress. Cardiovascular: Rate and Rhythm: Normal rate and regular rhythm. Heart sounds: Normal heart sounds. Pulmonary: Breath sounds: Normal breath sounds. No wheezing or rales. Abdominal: General: Bowel sounds are normal. There is no distension. Palpations: Abdomen is soft. Tenderness: There is no abdominal tenderness. Comments: Laparoscopic abdominal incisions clean dry, without erythema. Musculoskeletal: Right lower leg: No edema. Left lower leg: No edema. Lymphadenopathy: Cervical: Cervical adenopathy present. Right cervical: Superficial cervical adenopathy present. No deep cervical adenopathy. Left cervical: No superficial cervical adenopathy. Upper Body: Right upper body: No supraclavicular or axillary adenopathy. Left upper body: No supraclavicular or axillary adenopathy. Lower Body: No right inguinal adenopathy. No left inguinal adenopathy. Skin: General: Skin is warm and dry. Neurological: Mental Status: She is alert and oriented to person, place, and time. Psychiatric: Mood and Affect: Mood normal. Thought Content: Thought content normal. BP 163/84 (Patient Position: Sitting) Pulse 66 Temp 36.3 ??C (97.3 ??F) (Temporal) Resp 20 Ht 159.5 cm (5' 2.8) Wt 69.4 kg (153 lb) SpO2 100% BMI 27.28 kg/m?? LABS 04/05/21 WBC 8.55; ANC 6.47; H/H 12.9/38.9; PLT 142; BUN 9; CREAT 0.9; BILI 0.3; ALP 84; AST 17; ALT 21; LDH 198. RECENT IMAGNG 12/26/20 PET Scan - FINDINGS: ?? HEAD/NECK: FDG avid adenopathy in the right greater than left upper lower cervical and supraclavicular regions. ?? CHEST: Multiple FDG avid lymph nodes in the bilateral axillary regions. Small FDG avid adenopathy in the right hilar, subcarinal, and right lower paratracheal regions. Small FDG avid adenopathy in the right retrocrural region (axial [id number]). Small area of mildly FDG avid tree-in-bud appearing opacities in the right upper lobe (for example axial images 56 through 62), consistent with a benign inflammatory/infectious process. Calcified granuloma in the left upper lobe (axial image 85). ?? ABDOMEN/PELVIS: Multiple FDG avid lymph nodes in the gastrohepatic region (axial images 112 through 120), and in the abdominal and pelvic retroperitoneum including in the left para-aortic, retrocaval, right common, and bilateral external iliac regions. Multiple small FDG avid lymph nodes in the bilateral inguinal regions. Mild diffusely increased activity in the normal sized spleen. ?? SKELETON/EXTREMITIES: Multiple FDG avid osseous lesions scattered throughout the axial and visualized proximal appendicular skeleton, with no definite abnormality seen on CT. L5/S1 fusion hardware present. ?? IMPRESSION 1. FDG avid adenopathy in the neck, chest, abdomen, and pelvis as described above, consistent with lymphomatous involvement. 2. Multiple osseous metastases throughout the axial and visualized proximal appendicular skeleton. 3. Mild diffusely increased activity in the spleen, suspicious for splenic involvement by lymphoma. 4. Small area of mildly FDG avid tree-in-bud opacities in the right upper lobe, consistent with benign inflammatory/infectious process. ?? Thank you for letting us participate in the care of this patient. For questions regarding this report, please contact the number below. Electronically signed by: Julian Simms MD, [facility] ([phone]), at 12/26/2020 11:07 AM Assessment and Plan: Assessment: Alicia Main is a 60 yo female diagnosed 12/10 with low grade follicular lymphoma. (See details as outlined above.) Alicia returns to the [facility] clinic today for routine 3-month follow up. She is doing well from a follicular lymphoma standpoint. Lymphoma activity remains at grade 1/2. CBC, CMP and LDH are reviewed with Alicia today. Plan; Monitor for B-symptoms RTC 3 months for visit, labs. Call sooner if new symptoms or concerns, documented in this encounter Plan of Treatment Not on filedocumented as of this encounter Visit Diagnoses Diagnosis Grade 1 follicular lymphoma of lymph nod es of neck documented in this encounter Care Teams Interior Design Assistant Relationship Specialty Start Date End Date Santhosh Herron MD PCP - General Family Medicine 02/18/17 [address] [place] [id number] documented as of this encounter
--- OUTSIDE RECORDS SUMMARY | 2022-09-13 00:39 | XMS_ITS | Encounter Summary ---
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 HEMATOLOGY/[place] [address] [place] [address] Referral ID Status Reason Start Date Expiration Date Visits V isits Requested Authorized [id number] Closed Specialty 12/18/2020 06/16/2021 1 1 Service Requested Encounter Details Date Type Department Care Team Description 12/25/2020 Hospital Encounter Nuclear Medicine at Julian Gutierrez MD [facility] [address] HEMATOLOGY/[place] [address] DEPT. [phone] [place], [place] [address] (Wo rk) Social History Tobacco Use Types [...] Sig Dispensed Refills Start Date End Date albuterol 90 0 03/21/2019 mcg/actuation HFA Aerosol Inhaler ibuprofen Take 800 mg by mouth 2 0 (ADVIL;MOTRIN) 200 mg times daily. Tablet acetaminophen (TYLENOL) Take 1,000 mg by mouth 0 500 mg Tablet every 6 hours as needed for Pain. gabapentin (NEURONTIN) Take 600 mg by mouth 3 0 600 mg Tablet times daily. acyclovir (Zovirax) 800 TAKE 1 TABLET BY MOUTH 0 08/28/2020 02/07/2021 mg Tablet FIVE TIMES A DAY FOR 10 DAYS bisacodyl (DULCOLAX) 5 Take 2 tablets by 0 201602/07/2021 mg Tablet, Delayed mouth 2 times daily as Release (E.C.) needed for Constipation for up to 28 doses. documented as of this encounter Plan of Treatment Not on filedocumented as of this encounter Procedures Procedure Name Priority Date/Time Associated Diagnosis Comme nts NM PET CT SKULL Routine 12/25/2020 3:36 PM Grade 1 follicular Results for this BASE TO MID-THIGH EST lymphoma of lymph proce dure are in ([facility]) nodes of neck the results section. POCT GLUCOSE Routine 12/25/2020 2:17 PM Results f or this EST procedure are i n the results section. documented in this encounter Results POCT Glucose (12/25/2020 2:17 PM EST) P athologist Signature POC Glucose 98 65 - 199 [facility] mg/dL [facility] Comment: Supplemental ranges: <140 mg/dL before meals <180 mg/dL all other times of the day Specimen Anatomical Collection Method Collection Time Receive d Time (Source) Location / / Volume Laterality Blood specimen 12/25/2020 2:17 PM 021 2:17 (specimen) EST PM EST Julian Gutierrez MD POINT OF CARE TEST ORDERABLE S Performing Organization Address City/State/[place] [address] documented in this encounter Visit Diagnoses Not on filedocumented in this encounter Care Teams Tobacco Primer Machine Operator Relationship Specialty Start Date End Date Santhosh Herron MD PCP - General Family Medicine 02/18/17 [address] [place] [id number] documented as of this encounter
--- OUTSIDE RECORDS SUMMARY | 2022-09-13 00:39 | XMS_ITS | Encounter Summary ---
:1960 Author Organization [facility] [place] [address] Care Team Providers Name Role Phone Santhosh Herron MD Primary Care Provider Encounter Details Date Type Department Care Team Description 08/30/2021 Office Visit Hematology/Oncology Ariana Gutierrez MD [facility] DR HEMATOLOGY/[place] [address] Grade [facility] [address] [place] [address] [place] [address] lymphoma of lymph [address] [place] [address] [place] [address] Social History Tobacco Use Types [...] Sign Reading Time Taken Comments Blood Pressure 142/85 08/30/2021 10:57 AM EST Pulse 69 08/30/2021 10:57 AM EST Temperature 35.9 ??C (96.6 ??F) 08/30/2021 10:57 AM EST Respiratory Rate 20 08/30/2021 10:57 AM EST Oxygen Saturation 100% 08/30/2021 10:57 AM EST Inhaled Oxygen Concentration - - Weight 64.9 kg (143 lb) 08/30/2021 10:57 AM EST Height 159.5 cm (5' 2.8) 08/30/2021 10:57 AM EST Body Mass Index 25.5 08/30/2021 10:57 AM EST documented in this encounter Progress Notes Julian Gutierrez MD - 08/30/2021 11:00 AM EST Subjective: Patient ID: Alicia Main is a 61 y.o. female. HPI The patient is a 60-year-old female that I am seeing in the [facility]. 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 grade 1-2 out of 3. Flow cytometry confirmed a CD10 positive lymphoproliferative disorder. CD19 was positive, CD20 was positive, CD5 was negative PET scan showed extensive disease in nodes and skeletal and spleen 01/07 Low risk FL IPI score Observation only The patient returns to the [facility] in follow-up for her low-grade lymphoma. She has not been treated. Since we last saw her she has been about the same. She still has her right knee pain but is trying to avoid any surgical intervention there. She thinks some of the nodes in her neck may be a little bitimproved. No fevers chills sweats. She does occasionally get a feeling of sticking of food in her throat. This comes and goes. She actually has not gotten anything stuck. Past medical history Hyperlipidemia Nicotine dependence Trigeminal neuralgia History of sinusitis Knee replacement surgery Current Outpatient Medications: ??? ascorbic acid, vitamin C, (VITAMIN C) 500 mg Tablet, Chewable, Take by mouth., Disp: , Rfl: ??? calcium-vitamin D 500 mg(1,250mg) -200 unit Tablet, Take 1 tablet by mouth 2 times daily (with meals)., Disp: , Rfl: ??? albuterol 90 mcg/actuation HFA Aerosol Inhaler, , Disp: , Rfl: ??? ibuprofen (ADVIL;MOTRIN) 200 mg Tablet, Take 800 mg by mouth 2 times daily., Disp: , Rfl: ??? gabapentin (NEURONTIN) 600 mg Tablet, Take 600 mg by mouth 3 times daily., Disp: , Rfl: ??? acetaminophen (TYLENOL) 500 mg Tablet, Take 1,000 mg by mouth every 6 hours as needed for Pain.,Disp: , Rfl: Allergies Allergen Reactions ??? Erythromycin Nausea And Vomiting ??? Keflex [Cephalexin] Itching Itching all over ??? Oxycodone Itching ??? Penicillins Hives ??? Vancomycin Itching Red man's syndrome Social history She lives with her 2 daughters age 36, twins Smokes half a pack per day Rare alcohol No exposures to toxins chemicals or radiation Social history Noncontributory Review of Systems Constitutional: Negative for fatigue. HENT: Negative for nosebleeds. Respiratory: Negative for cough and shortness of breath. Cardiovascular: Negative for chest pain and palpitations. Gastrointestinal: Negative for abdominal pain and diarrhea. Musculoskeletal: Negative for back pain. Skin: Negative for rash. Neurological: Negative for speech difficulty. Hematological: Negative for adenopathy. Does not bruise/bleed easily. All other systems reviewed and are negative. Objective: Physical Exam Constitutional: General: She is not in acute distress. Eyes: General: No scleral icterus. Cardiovascular: Rate and Rhythm: Normal rate. Pulmonary: Effort: Pulmonary effort is normal. Skin: Findings: No rash. Neurological: Mental Status: She is alert and oriented to person, place, and time. 1.5 cm right cervical node, no other nodes or splenomegaly White count 6.8, hemoglobin 12.7, platelets 148 Creatinine 0.8, LDH 204 PET scan, I reviewed the images personally and showed them to the patient: EXAMINATION: NM PET CT STANDARD PLUS EXTREMITIES AND HEAD ?? CLINICAL HISTORY: Low-grade no acute lymphoma diagnosed 11/2020 with waxing and waning neck adenopathy. Patient complaining of right knee pain. Subsequent treatment evaluation. ?? TECHNIQUE: Procedure: Following IV injection of 47-sffywv-7-deoxyglucose (FDG) a standard uptake of approximately 60 minutes, a noncontrast CT scan followed by a PET scan were acquired from the top of head to bottom of feet. The noncontrast CT was used for anatomic localization and photon attenuation correction of the PET scan. ?? Blood glucose level: 105 (mg/dL) ?? FDG dose: 9.9 mCi ?? COMPARISON: None ?? FINDINGS: ?? HEAD/NECK: Similar appearance of FDG avid adenopathy in the right upper and lower cervical and right supraclavicular regions and to a small extent in the left upper cervical region. ?? CHEST: Stable to modest interval decreased size and intensity FDG avid adenopathy in the bilateral axillary regions. Modest interval increased size and intensity of small FDG avid adenopathy in the high right posterior paratracheal region. Stable small FDG avid right hilar adenopathy. No significant pulmonary nodules. Stable sub-5 mm calcified granuloma in the left upper lobe ?? ABDOMEN/PELVIS: Similar appearance of FDG avid adenopathy in the abdominal and pelvic retroperitoneum including the left periaortic, bilateral common iliac, external iliac, and obturator regions. Stable small FDG avid lymph nodes in the bilateral inguinal regions. ?? SKELETON/EXTREMITIES: Persistent FDG avid osseous lesions in the axial and proximal appendicular skeleton, most of which are decreased in intensity compared to prior PET/CT of 12/25/2020, while some are stable for example in the right proximal femur (axial image 279) and some lesions have resolved. Small FDG avid lesions in the posterior left femoral head (axial image 269) and in anterior right acetabulum (axial image 268) are increased in intensity compared to prior. An FDG avid marrow based lesion in the left distal humerus, a location that was not imaged on prior PET/CT. No definite osseous abnormality is seen on CT. Right knee prosthesis with diffuse periprosthetic activity around the tibial and femoral component. Peripherally FDG avid moderate size anterior right knee effusion, consistent with a synovitis. Normal activity in all other soft tissue regions of the upper and lower extremities. ?? IMPRESSION 1. Persistent FDG avid adenopathy in the neck, chest, abdomen, and pelvis, with stable or mixed interval changes as described above, consistent with active lymphoma. 2. Persistent FDG avid osseous lesions in the axial and appendicular skeleton, most of which appear decreased in intensity compared to prior PET/CT with mixed interval changes at other sites as above. 3. Moderate sized peripherally FDG avid anterior right knee effusion, consistent with a synovitis. 4. Diffuse periprosthetic activity around the tibial and femoral component of the right knee prosthesis is nonspecific. If concern for loosening, a dedicated CT of the right knee is recommended. ?? Thank you for letting us participate in the care of this patient. If you are a health care provider and have any questions regarding this report, please contact the number below. For patients who have questions please contact the health skin care specialist that requested your imaging first. Electronically signed by: Julian Simms MD, [facility] ([phone]), at 08/20/2021 2:31 PM Assessment and Plan: 61-year-old female with a diagnosis of a follicular low-grade lymphoma. The pathology and flow cytometry is characteristic of a follicular low-grade non- Hodgkin's lymphoma. She does not have anemia or abnormal blood counts. Chemistries are normal including an alkaline phosphatase and LDH. Her current PET scan does show some waxing waning features of typical low-grade lymphoma but no significant progression. I do not think the uptake around her right knee is connected to lymphoma but rather her prosthetic there. She does not wish to pursue anything aggressive there. In terms of lymphoma follow-up I think we can see her every 3 months. I do not think her small neck nodes are contributing to the sensation that she has in her throat with swallowing. I suspect it may be anxiety but if it worsens she may need to have direct visualization. Since it does not appear to be a lot of disease there by PET scan I am not going to send her for anything at this time. I will plan to see her back in 3 months with repeat labs and exam documented in this encounter Plan of Treatment Scheduled Orders Name Type Priority Associated Diagnoses Order S chedule CBC (with Diff) Lab STAT Grade 1 follicular Every 3 months for 4 lymphoma of lymph Occurrence s starting nodes of neck 09/02/2021 unt il 09/02/2022 Comprehensive metabolic Lab STAT Grade 1 follicula r Every 3 months for 4 panel (non-fasting) lymphoma of lymph Occ urrences starting nodes of neck 09/02/2021 unt il 09/02/2022 Lactate Dehydrogenase Lab STAT Grade 1 follicular Every 3 months for 4 lymphoma of lymph Occurrence s starting nodes of neck 09/02/2021 unt il 09/02/2022 documented as of this encounter Visit Diagnoses Diagnosis Grade 1 follicular lymphoma of lymph nod es of neck documented in this encounter Care Teams Valve Assembler Relationship Specialty Start Date End Date Santhosh Herron MD PCP - General Family Medicine 02/18/17 [address] [place] [id number] documented as of this encounter
--- OUTSIDE RECORDS SUMMARY | 2022-09-13 00:39 | XMS_ITS | Encounter Summary ---
:1960 Author Organization [facility] [place] [address] Care Team Providers Name Role Phone Santhosh Herron MD Primary Care Provider Encounter Details Date Type Department Care Team Description 04/04/2022 Office Visit Hematology/Oncology Ariana Gutierrez MD [facility] DR HEMATOLOGY/[place] [address] Follicular non-Hodgkin's lymphoma; at [facility] Olivia Alonzo APRN [facility] DR HEMATOLOGY/[place] [address] Grade 1 follicular lymphoma of lymph nod es of neck [address] [place] [phone] Social History Tobacco Use Types Packs/Day [...] Sign Reading Time Taken Comments Blood Pressure 152/90 04/04/2022 9:24 AM EDT Pulse 70 04/04/2022 9:24 AM EDT Temperature 35.5 ??C (95.9 ??F) 04/04/2022 9:24 AM EDT Respiratory Rate 18 04/04/2022 9:24 AM EDT Oxygen Saturation 100% 04/04/2022 9:24 AM EDT Inhaled Oxygen Concentration - - Weight 66 kg (145 lb 9.6 oz) 04/04/2022 9:24 AM EDT Height 157.5 cm (5' 2) 04/04/2022 9:24 AM EDT Body Mass Index 26.63 04/04/2022 9:24 AM EDT documented in this encounter Progress Notes Olivia Alonzo, MANAGER OF CARE - 04/04/2022 9:30 AM EDT Subjective Patient ID: Alicia Main is a 61 y.o. female here for f/u of NHL Patient Active Problem List Diagnosis ??? Follicular non-Hodgkin's lymphoma Dx November 2020 - no treatment to date, grade 1-2 (low-grade), Ki67 proliferation index is estimated at ~20-30% ??? Acute pain of right knee ??? s/p conversion of uni to R TKA 07/08/17 Dr. Hatch ??? Cigarette smoker ??? Acquired spondylolisthesis ??? Degeneration of lumbar or lumbosacral intervertebral disc ??? 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 She did get Covid about a month ago. She di have antiviral therapy. She did have cough and headache. She has recovered well from this. Also has had sore right neck/nodes since then, but this is getting better. She has been eating and drinking OK. Denies any new lumps or bumps. No drenching night sweats. Her energy is 'not great' and this is unchanged. She is still smoking 1/2- 1 pack/day. She was seen in ED for arm pain - had a CT doneto r/o PE which was ruled out. She does take 1600mg ibuprofen daily for arthritic pain. Review of Systems Constitutional: Positive for fever. HENT: Negative. Eyes: Negative. Respiratory: Negative. Negative for cough and shortness of breath. Cardiovascular: Positive for leg swelling. Negative for chest pain and palpitations. Bilat LE right > left. Gastrointestinal: Positive for constipation. Negative for diarrhea, nausea and vomiting. Stable and unchanged. Senna PRN is effective. Genitourinary: Negative. Musculoskeletal: Negative. Skin: Negative. Neurological: Negative. Negative for weakness and numbness. Hematological: Negative. Psychiatric/Behavioral: Negative. Objective Physical Exam Constitutional: General: She is not in acute distress. Appearance: She is well-developed. HENT: Mouth/Throat: Pharynx: No oropharyngeal exudate. Eyes: Conjunctiva/sclera: Conjunctivae normal. Pupils: Pupils are equal, round, and reactive to light. Cardiovascular: Rate and Rhythm: Normal rate and regular rhythm. Heart sounds: Normal heart sounds. No murmur heard. Pulmonary: Effort: Pulmonary effort is normal. Breath sounds: Normal breath sounds. No wheezing or rales. Chest: Breasts: Right: No supraclavicular adenopathy. Left: No supraclavicular adenopathy. Abdominal: General: Bowel sounds are normal. Palpations: Abdomen is soft. There is no mass. Tenderness: There is no guarding or rebound. Musculoskeletal: General: Normal range of motion. Cervical back: Normal range of motion and neck supple. Right lower leg: Edema present. Comments: Trace right LE edema up to mid calf Lymphadenopathy: Cervical: No cervical adenopathy. Upper Body: Right upper body: No supraclavicular adenopathy. Left upper body: No supraclavicular adenopathy. Comments: A few bilat 1 cm cervical nodes, tender submandibular on right. Skin: General: Skin is warm and dry. Neurological: Mental Status: She is alert and oriented to person, place, and time. Recent Results (from the past 72 hour(s)) CBC (with Diff) Result Value Ref Range WBC 5.52 RBC 4.08 Hemoglobin 12.5 Hematocrit 37.7 Platelets 161 Neutr Abs (ANC) 3.87 Comprehensive metabolic panel (non-fasting) Result Value Ref Range BUN 13 Creatinine 1.2 (H) Sodium 143 Potassium 4.4 Calcium 9.0 Alk Phos 116 AST 42 ALT 56 LDH 242 (H) BP 152/90 (Patient Position: Sitting) Pulse 70 Temp 35.5 ??C (95.9 ??F) (Temporal) Resp 18 Ht 157.5 cm (5' 2) Wt 66 kg (145 lb 9.6 oz) SpO2 100% BMI 26.63 kg/m?? Assessment and Plan 61-year-old female with a diagnosis of a follicular low-grade lymphoma. The pathology and flow cytometry is characteristic of a follicular low-grade non- Hodgkin's lymphoma. ?? She does not have anemia or abnormal blood counts. She does have a mild bump in her creatinine today - she is taking quite large dose of NSAIDS per herPCP - I will alert her PCP office to this. Encourage to maintain good hydration. She also has slow trend up in LDH - this is unchanged - will continue to monitor.She did have ??a chest CT scan to R/O PE A few months ago which showed numerous small 1-2 cm nodes. Her palpable adenopathy is not impressive at this time. I recommended we continue watchful waiting, no indication for treatment at this time. ?? Alicia Main will return to clinic in 3-4 months. she will call before then if any concerns or changes in status. [facility]. documented in this encounter Plan of Treatment Not on filedocumented as of this encounter Procedures Procedure Name Priority Date/Time Associated Diagnosis Comme nts CBC (WITH DIFF) Routine 04/04/2022 Results for this procedure are i n the results section . COMPREHENSIVE METABOLIC Routine 04/04/2022 Resu lts for this PANEL (NON-FASTING) procedur e are in the results section . documented in this encounter Results (ABNORMAL) Comprehensive metabolic panel (non-fasting) (04/04/2022) athologist Signature BUN 13 Creatinine 1.2 (H) Sodium 143 Potassium 4.4 Calcium 9.0 Alk Phos 116 AST 42 ALT 56 LDH 242 (H) Specimen (Source) Anatomical Location Collection Method / Collectio n Time Received Time / Laterality Volume Blood 04/04/2022 Historical Provider CHEMISTRY ORDERABLES CBC (with Diff) (04/04/2022) athologist Signature WBC 5.52 RBC 4.08 Hemoglobin 12.5 Hematocrit 37.7 Platelets 161 Neutr Abs (ANC) 3.87 Specimen (Source) Anatomical Location Collection Method / Collectio n Time Received Time / Laterality Volume Blood 04/04/2022 Historical Provider HEMATOLOGY ORDERABLES documented in this encounter Visit Diagnoses Diagnosis Follicular non-Hodgkin's lymphoma Grade 1 follicular lymphoma of lymph nod es of neck documented in this encounter Care Teams Salvage Supervisor Relationship Specialty Start Date End Date Santhosh Herron MD PCP - General Family Medicine 02/18/[address] [place] [phone] documented as of this encounter
--- OUTSIDE RECORDS SUMMARY | 2022-09-13 00:39 | XMS_ITS | Encounter Summary ---
:1960 Author Organization [facility] Address [address] [place] [address] Care Team Providers Name Role Phone Santhosh Herron MD Primary Care Provider Encounter Details Date Type Department Care Team Description 02/07/2021 Hospital Encounter XRay at [facility] Kaitlin, History of total [address] Isabelle Calloway, MOHIT right knee [facility] [phone] ORTHOPAEDIC SURGERY [place], [place] [address] Social History Tobacco Use Types Packs/Day Years [...] Sig Dispensed Refills Start Date End Date calcium-vitamin D 500 Take 1 tablet by 0 mg(1,250mg) -200 unit mouth 2 times daily Tablet (with meals). albuterol 90 mcg/actuation 0 9 HFA Aerosol Inhaler ibuprofen (ADVIL;MOTRIN) Take 800 mg by mouth 0 200 mg Tablet 2 times daily. acetaminophen (TYLENOL) 500 Take 1,000 mg by 0 mg Tablet mouth every 6 hours as needed for Pain. ascorbic acid, vitamin C, Take by mouth. 0 (VITAMIN C) 500 mg Tablet, Chewable gabapentin (NEURONTIN) 600 Take 600 mg by mouth 0 mg Tablet 3 times daily. documented as of this encounter Plan of Treatment Not on filedocumented as of this encounter Procedures Procedure Name Priority Date/Time Associated Diagnosis Comme nts XR KNEE AP & LAT Routine 02/07/2021 12:41 PM History of total Results for this RIGHT EDT right knee procedure are i n replacement the results section. documented in this encounter Results XR Knee 1-2 Views Right (Generic) (02/07/2021 12:41 PM EDT) Anatomical Region Laterality Modality Knee Right Digital Radiography Specimen (Source) Anatomical Location Collection Method / Collectio n Time Received Time / Laterality Volume Impressions 02/07/2021 1:31 PM EDT 1. ??Stable appearance of right total kn ee arthroplasty. ??No radiographic evidence of prosthetic complication. 2. ??Stable suprapatellar joint effusion . Thank you for letting us participate in the care of this patient. ??If you are a health care provider and have any questi ons regarding this report, please contact the number below. ??For patients who have questions please contact the health school childcare attendant that requested your imaging first. ? Narrative 02/07/2021 1:31 PM EDT EXAMINATION: XR KNEE 1-2 VIEWS RIGHT (GENERIC) CLINICAL HISTORY: 60-year-old female sta tus post total knee arthroplasty. TECHNIQUE: 2 views RIGHT knee COMPARISON: Comparison is made to multip le prior right knee radiographs examinations, the most recent which is d ated May 12, 2019. FINDINGS: There is no fracture. ??There is no disl ocation. There is been prior total right knee art hroplasty with the prosthetic components in their expected position. ??Alignment is expected. ??There is no periprosthetic lucency to suggest loosening. There is a persistent suprapatellar join t effusion. ??Soft tissue structures are otherwise unremarkable. ??There is no ot her radiopaque foreign body. Procedure Note Santhosh Vernon DO - 02/07/2021Formatti ng of this note might be different from the original. EXAMINATION: XR KNEE 1-2 VIEWS RIGHT (GE NERIC) CLINICAL HISTORY: 60-year-old female sta tus post total knee arthroplasty. TECHNIQUE: 2 views RIGHT knee COMPARISON: Comparison is made to multip le prior right knee radiographs examinations, the most recent which is d ated May 12, 2019. FINDINGS: There is no fracture. There is no disloc ation. There is been prior total right knee art hroplasty with the prosthetic components in their expected position. Alignment is expected. There is no periprosthetic lucency to suggest loosening. There is a persistent suprapatellar join t effusion. Soft tissue structures are otherwise unremarkable. There is no othe r radiopaque foreign body. IMPRESSION 1. Stable appearance of right total knee arthroplasty. No radiographic evidence of prosthetic complication. 2. Stable suprapatellar joint effusion. Thank you for letting us participate in the care of this patient. If you are a health care provider and have any questi ons regarding this report, please contact the number below. For patients w ho have questions please contact the health school childcare attendant that requested your imaging first. Isabelle Madrigal BLASTING WORKER IMG DX ORDERABLES documented in this encounter Visit Diagnoses Diagnosis History of total right knee replacement documented in this encounter Care Teams Cloth Bleaching Range Operator Chief Relationship Specialty Start Date End Date Santhosh Herron MD PCP - General Family Medicine 02/18/17 [address] [place] [phone] documented as of this encounter
--- OUTSIDE RECORDS SUMMARY | 2022-09-13 00:39 | XMS_ITS | Encounter Summary ---
:1960 Author Organization [facility] [place] [address] Care Team Providers Name Role Phone Santhosh Herron MD Primary Care Provider Encounter Details Date Type Department Care Team Description 04/04/2022 Notes Only Tobacco Treatment at [facility] OFFICE OF CARE [address] [place] [phone] Social History Tobacco Use Types Packs/Day Years Used Date Smoking Tobacco: Every Day Cigarettes 1 40 Smokeless Tobacco: Never Comments: 3/4 to 1/2 pack a day Alcohol Use Standard Drinks/Week Comments Yes 0 (1 standard drink = 0.6 oz pure alcoho l) occasional Sex Assigned at Date Recorded Not on file documented as of this encounter Progress Notes Cynthia Rawls MSW - 04/04/2022 10:23 AM EDT Tobacco Use Intake Assessment Name: Alicia Main Date: 04-04-22 Referred By: Olivia Alonzo APRN Tobacco Use History ??? What type of tobacco products/ how much do you presently use (all types): Cigarettes about 1/2 to 1 pack a day ??? How many years have you used tobacco products: 40 years Nicotine Dependence/Fagerstrom 0 points 1 point 2 point 3 point Score 1. How soon after you wake do you smoke your first cigarette? Within 5 minutes 3 2. Do you find it difficult to refrain from smoking in places where it is forbidden? Yes 1 3. Which cigarette would you hate to give up? The first one in the morning 1 4. How many cigarettes do you smoke a day? 11-20 1 5. Do you smoke more frequently during the first hour of after waking than the rest of the day? Yes 1 6. Do you smoke even if you are so ill that you are in bed all day? Yes 1 Fagerstrom Score: 8 Classification: 8-10 very high CO Score: Other Substance Use What is your use, if any, of any other substance such as alcohol; caffeine; other drugs: caffeine/soda; 1 alcoholic drink a month Relevant Medical History ??? What medical conditions have you had or are currently being treated for: Lymphoma Relevant Mental Health or Psychiatric History: ??? What past and/or present mental health or psychiatric illness have you been/are you treated for:no Environmental/Social Issues ??? Are there other smokers in your household: no ??? Are there nonsmokers in your household: is a non smoker ??? Are there stressors at home: no ??? 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 Do your primary social supports smoke: no Cultural Influences ??? Are there any cultural influences/factors related to tobacco use: no Quit History/Past Successes/Relapse ??? Have you quit in the past: a few times each lasting about 3 months ??? What age, for how long and what helped in this quit: tried patches and Wellbutrin ??? What withdrawal symptoms did you experience: ??? What factors influenced your relapse: Quit Now ??? What are your reasons to quit now: its gross, it's dirty and it is expensive ??? How important is it to quit ( scale 1/not to 10/extremely): 5 ??? How confident are you to quit (scale 1/not to 10/extremely):5 ??? Intention to quit (Stages of Change) - (Contemplative) - thinking about quitting ??? What personal strengths do you have which will help quit: ??? What concerns do you have re quitting at this time: I don't ant to go through the process of thequit ??? What barriers do you expect to quitting: Ready to set a quit date: no thinking about it Next Steps/Treatment Planning ??? Set a quit date: no ??? Discuss NRT products: Patch; gum; Lozenges ??? Type of NRT and dose recommended: Alicia is interested in trying medication. Discussed following up with her PCP to helped her with this in the past because she is only coming in to this facilityevery 4-5 months for follow up visits. ??? Tobacco Community Relations Liaison follow up: TTS to consult with CTTS re this plan. Will follow up with a call to pt after she also considers reaching out to her PCP to assist her with medication. ??? Refer to Quit Line: Has used in the past of NRT products - patches, gum, lozenges Plan: Consult with CTTS. RELAY TELEGRAPHER to follow up call to pt in 1 week to discuss further. documented in this encounter Plan of Treatment Not on filedocumented as of this encounter Visit Diagnoses Not on filedocumented in this encounter Care Teams Commercial Loan Collection Officer Relationship Specialty Start Date End Date Santhosh Herron MD PCP - General Family Medicine 02/18/[address] [place] [phone] documented as of this encounter
--- OUTSIDE RECORDS SUMMARY | 2022-09-13 00:39 | XMS_ITS | Encounter Summary ---
:1960 Author Organization [facility] [place] [address] Care Team Providers Name Role Phone Santhosh Herron MD Primary Care Provider Encounter Details Date Type Department Care Team Description 07/30/2017 Notes [place] [phone] Social History Tobacco Use Types Packs/Day Years [...] on filedocumented in this encounter Care Teams Hedge Fund Manager Relationship Specialty Start Date End Date Santhosh Herron MD PCP - General Family Medicine 02/18/17 [address] [place] [phone] documented as of this encounter
--- OUTSIDE RECORDS SUMMARY | 2022-09-13 00:39 | XMS_ITS | Encounter Summary ---
:1960 Author Organization [facility] [place] [address] Care Team Providers Name Role Phone Santhosh Herron MD Primary Care Provider Encounter Details Date Type Department Care Team Description 08/22/2022 Office Visit Hematology/Oncology Ariana Gutierrez MD [facility] DR HEMATOLOGY/[place] [address] Follicular at [facility] Olivia Alonzo APRN [facility] DR HEMATOLOGY/[place] [address] non-Hodgkin's lymphoma [address] [place] [phone] Social History Tobacco Use Types Packs/Day [...] Mass Index 25.97 08/22/2022 10:22 AM EDT documented in this encounter Progress Notes Julian Gutierrez MD - 08/22/2022 10:30 AM EDT Subjective: Patient ID: Alicia Main is a 62 y.o. female. HPI The patient is a 62 year-old female that I am seeing in the [facility]. 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 Waxing/waning adenopathy The patient returns to the [facility] in follow-up for her low-grade lymphoma. She has not been treated. Since we last saw her she has been about the same. She thinks some of the nodes in her neck may be alittle bit improved. No fevers chills sweats. No fevers, sweats or weight loss. She did get Covid. Got antiviral treatment. Was not too sick Past medical history Hyperlipidemia Nicotine dependence Trigeminal neuralgia History of sinusitis Knee replacement surgery Current Outpatient Medications: ??? pregabalin (Lyrica) 75 mg Capsule, Take 75 mg by mouth 3 times daily., Disp: , Rfl: ??? calcium-vitamin D 500 mg(1,250mg) -200 unit Tablet, Take 1 tablet by mouth 2 times daily (with meals)., Disp: , Rfl: ??? albuterol 90 mcg/actuation HFA Aerosol Inhaler, , Disp: , Rfl: ??? ibuprofen (ADVIL;MOTRIN) 200 mg Tablet, Take 800 mg by mouth 2 times daily., Disp: , Rfl: ??? acetaminophen (TYLENOL) 500 mg Tablet, Take 1,000 mg by mouth every 6 hours as needed for Pain.,Disp: , Rfl: ??? ascorbic acid, vitamin C, (VITAMIN C) 500 mg Tablet, Chewable, Take by mouth., Disp: , Rfl: ??? gabapentin (NEURONTIN) 600 mg Tablet, Take 600 mg by mouth 3 times daily., Disp: , Rfl: Allergies Allergen Reactions ??? Erythromycin [...] and oriented to person, place, and time. .9 cm right cervical node, no other nodes or splenomegaly White count 5.8, hemoglobin 12.3, platelets 170 Creatinine 1.0, LDH 246 Assessment and Plan: 62-year-old female with a diagnosis of a follicular low-grade lymphoma. The pathology and flow cytometry is characteristic of a follicular low-grade non- Hodgkin's lymphoma. She does not have anemia or abnormal blood counts. Chemistries are normal including an alkaline phosphatase and LDH. Her PET scan from 09/09 did show some waxing waning features of typical low- grade lymphoma but no significant progression. I think her R neck node is smaller on my exam suggesting she is still waxing/waning I recommended continued watchful waiting I will plan to see her back in 6 months with repeat labs and exam. We will hold off on doing any further imaging unless she has clinical changes documented in this encounter Plan of Treatment Scheduled Orders Name Type Priority Associated Diagnoses Order S chedule CBC (with Diff) Lab STAT Follicular Expected: , non-Hodgkin's lymphoma Expir es: 08/21/2023 Comprehensive metabolic Lab STAT Follicular Expe cted: 02/19/2023, panel (non-fasting) non-Hodgkin's lymphom a Expires: 08/21/2023 Lactate Dehydrogenase Lab STAT Follicular Expect ed: 02/19/2023, non-Hodgkin's lymphoma Expir es: 08/21/2023 documented as of this encounter Procedures Procedure Name Priority Date/Time Associated Diagnosis Comme nts CBC (WITH DIFF) Routine 08/22/2022 Results for this procedure are i n the results section . COMPREHENSIVE METABOLIC Routine 08/22/2022 Resu lts for this PANEL (NON-FASTING) procedur e are in the results section . documented in this encounter Results (ABNORMAL) Comprehensive metabolic panel (non-fasting) (08/22/2022) athologist Signature BUN 15 Creatinine 1.0 Sodium 139 Potassium 4.2 Calcium 9.3 Total Protein 7.0 Albumin 3.4 Total Bilirubin 0.5 Alk Phos 115 AST 19 ALT 16 LDH 246 (H) Specimen (Source) Anatomical Location Collection Method / Collectio n Time Received Time / Laterality Volume Blood 08/22/2022 Historical Provider CHEMISTRY ORDERABLES CBC (with Diff) (08/22/2022) athologist Signature WBC 5.81 RBC 4.06 Hemoglobin 12.3 Hematocrit 36.8 Platelets 170 Neutr Abs (ANC) 4.41 Specimen (Source) Anatomical Location Collection Method / Collectio n Time Received Time / Laterality Volume Blood 08/22/2022 Historical Provider HEMATOLOGY ORDERABLES documented in this encounter Visit Diagnoses Diagnosis Follicular non-Hodgkin's lymphoma documented in this encounter Care Teams Stock Checker Relationship Specialty Start Date End Date Santhosh Herron MD PCP - General Family Medicine 02/18/[address] [place] [phone] documented as of this encounter
--- OUTSIDE RECORDS SUMMARY | 2022-09-13 00:39 | XMS_ITS | Encounter Summary ---
:1960 Author Organization [facility] [place] [address] Care Team Providers Name Role Phone Santhosh Herron MD Primary Care Provider Reason for Visit Reason Onset Date Comments Other 04/08/2022 TTS follow up Encounter Details Date Type Department Care Team Description 04/08/2022 Telephone Hematology/Oncology at Cynthia Rawls, Ot her (TTS follow up) [address] OFFICE OF CARE [place], [place]NA[place]EMENT [phone] Social History Tobacco Use Types Packs/Day Years Used Date Smoking Tobacco: Every Day Cigarettes 1 40 Smokeless Tobacco: Never Comments: 3/4 to 1/2 pack a day Alcohol Use Standard Drinks/Week Comments Yes 0 (1 standard drink = 0.6 oz pure alcoho l) occasional Sex Assigned at Date Recorded Not on file documented as of this encounter Miscellaneous Notes Telephone Encounter - Cynthia Rawls [facility] - 04/08/2022 8:49 AM EDT Consulted with KENNETH Easley. Discussed outcome of visit with pt and the followin. Pt is still in the process of considering a quit. 2. Pt comes into [facility] for follow up visits only every 4 months or so . 3. Pt interest in trying medication for smoking cession when she decides to try a quit. Her PCP reportedly prescribed this in the past. CTTS suggests pt follow up with her PCP for this medication. TC pt to discuss. Pt in agreement to follow up with her PCP for medication for smoking cessation when she is ready to try a quit. documented in this encounter Plan of Treatment Not on filedocumented as of this encounter Visit Diagnoses Not on filedocumented in this encounter Care Teams Bait Painter Relationship Specialty Start Date End Date Santhosh Herron MD PCP - General Family Medicine 02/18/[address] [place] [phone] documented as of this encounter
--- OUTSIDE RECORDS SUMMARY | 2022-09-13 00:39 | XMS_ITS | Encounter Summary ---
:1960 Author Organization [place] [address] Care Team Providers Name Role Phone Santhosh Herron MD Primary Care Provider Encounter Details Date Type Department Care Team Description 12/25/2020 Laboratory Appointment Lab 3L [facility] Grade 1 [facility] lymphoma of lymph [facility] [place] [phone] Social History Tobacco Use Types Packs/Day Years [...] Procedure Name Priority Date/Time Associated Comments Diagnosis HC IGG, SERUM STAT 12/25/2020 2:02 PM Grade 1 follicular Re sults for this EST lymphoma of lymph procedure are in nodes of neck the results section. HEMOGRAM STAT 12/25/2020 2:02 PM Grade 1 follicular Res ults for this EST lymphoma of lymph procedure are in nodes of neck the results section. DIFFERENTIAL, STAT 12/25/2020 2:02 PM Grade 1 follicular Re sults for this AUTOMATED EST lymphoma of lymph procedure are in nodes of neck the results section. 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 HC LACTIC STAT 12/25/2020 2:02 PM Grade 1 follicular Res ults for this DEHYDROGENASE EST lymphoma of lymph procedure are in nodes of neck the results section. HC BETA 2 STAT 12/25/2020 2:02 PM Grade 1 follicular Res ults for this MICROGLOBULIN EST lymphoma of lymph procedure are in nodes of neck the results section. COMPREHENSIVE STAT 12/25/2020 2:02 PM Grade 1 follicular Re sults for this METABOLIC PANEL EST lymphoma of lymph procedu re are in (NON-FASTING) nodes of neck the results section. documented in this encounter Results Differential, Automated (12/25/2020 2:02 PM EST) athologist Signature Neutrophils % 66.6 % [facility] Neutr Abs (ANC) 4.76 1.70 - [facility] 6.10 [place] x10(3)/[facility] LABORATORY Lymphocytes % 26.4 % [facility] Lymphocytes Abs 1.9 0.9 - 3.2 [facility] x10(3)/[facility] LABORATORY Monocytes % 5.7 % [facility] Monocyte Abs 0.4 0.3 - 0.9 [facility] x10(3)/[facility] LABORATORY Eosinophils % 0.8 % [facility] Eosinophils Abs 0.1 0.0 - 0.4 [facility] x10(3)/[facility] LABORATORY Basophils % 0.4 % [facility] Basophils Abs 0.0 0.0 - 0.1 [facility] x10(3)/[facility] LABORATORY Immature Gran % 0.10 % [facility] Comment: Immature granulocytes(IG's)percentage an d absolute count will include metamyelocytes, myelocytes, and promyelo cytes. Blood smears from CBCs yielding IG's will be scanned manually for concor dance. If this scan disagrees with the automated IG or if promyelocytes are not ed, a manual differential will be performed. [place] Gran Abs 0.01 0.00 - 0.04 x10(3)/[facility] MAR Y [facility] Specimen Anatomical Collection Method Collection Time Receive d Time (Source) Location / / Volume Laterality Blood specimen 12/25/2020 2:02 PM 021 2:23 (specimen) EST PM EST Resulting Agency Comment Spec In Lab Julian Gutierrez MD HEMATOLOGY ORDERABLES Performing Organization Address City/State/ZIP [place] [address] Hemogram (12/25/2020 2:02 PM EST) P athologist Signature WBC 7.2 4.0 - 9.5 [facility] x10(3)/[facility] LABORATORY RBC 4.31 4.00 - [facility] 5.21 [place] x10(6)/[facility]ORATORY Hemoglobin 13.0 11.7 - [facility] 15.[facility] gm/dL [facility] Hematocrit 38.8 35.7 - [facility] 45.8 % [facility] MCV 90.0 82.6 - [facility] 94[facility]4 [facility] MCH 30.2 27.1 - [facility] 32.0 pg [facility] MCHC 33.5 31.7 - [facility] 35.0 gm/dL [facility] Platelets 173 145 - 357 [facility] x10(3)/[facility] LABOR[facility]ORY RDWSD 40.9 37.0 - [facility] 46.0 [facility] RDWCV 12.4 11.5 - [facility] 14.1 % [facility] MPV 10.8 7.6 - 12.9 [facility] LABORATORY nRBC % Auto 0.0 % [facility] nRBC Abs Auto 0.000 0.000 - [facility] [place] x10(3)/[facility] LABOR[facility]ORY Specimen Anatomical Collection Method Collection Time Receive d Time (Source) Location / / Volume Laterality Blood specimen 12/25/2020 2:02 PM 021 2:23 (specimen) EST PM EST Resulting Agency Comment Spec In Lab Julian Gutierrez MD HEMATOLOGY ORDERABLES Performing Organization Address City/State/ZIP [place] [address] Comprehensive metabolic panel (non-fasting) (12/25/2020 2:02 PM EST) P athologist Signature Glucose Lvl 92 65 - 199 [facility] mg/dL [facility] Comment: Diabetes: >=200 mg/dL plus symp toms BUN 8 8 - 18 mg/dL [facility] Creatinine 0.73 0.70 - 1.20 mg/dL [facility] Sodium 141 135 - 145 mmol/L [facility] Potassium 4.0 3.5 - 5.0 mmol/L [facility] Comment: Please note: ??Patients with WBC >100,00 0 may have falsely elevated Potassium levels. ??For accurate Potassium quantif ication in these patients send serum separator tube (gold top) for subsequent determinations. ??Contact the Clinical Chemistry Laboratory if there are any qu estions. Chloride 106 98 - 107 mmol/L [facility] CO2 24 22 - 31 mmol/L [facility] Anion Gap 11 5 - 15 mmol/L [facility] Calcium 9.8 8.5 - 10.5 mg/dL [facility] Total Protein 7.1 6.1 - 8.0 gm/dL [facility] Albumin 4.5 3.2 - 5.2 gm/dL [facility] AST 17 0 - 30 unit/L [facility] ALT 10 0 - 30 unit/L [facility] Alk Phos 92 35 - 105 unit/L [facility] Total Bilirubin 0.3 0.2 - 1.3 mg/dL [facility] Estimated GFR 91 >=60 mL/min/1.73 m?? [facility] Comment: This patient? s estimated glomerular filtration rate (eGFR) is between 91 mL/min/1.73 m2 (patients with less muscl e mass) and 105 mL/min/1.73 m2 (patients with more muscle mass) as dete rmined by the CKD-EPI equation. Assessment of eGFR is not appropriate wh en creatinine concentrations are rapidly changing. For clinical decisions where creatinine clearance will affect therapy, a 24-hour urine creatinine melecio sadia may be advised. Assignment of CKD stage 1 - 5 for patien ts with an eGFR near the transition point between stages may be based on cli nical assessment of muscle mass and symptoms in addition to eGFR. Specimen Anatomical Collection Method Collection Time Receive d Time (Source) Location / / Volume Laterality Blood specimen 12/25/2020 2:02 PM 021 2:23 (specimen) EST PM EST Resulting Agency Comment Spec In Lab Julian Gutierrez MD CHEMISTRY ORDERABLES Performing Organization Address City/[facility]/[place] [address] Lactate Dehydrogenase (12/25/2020 2:02 PM EST) athologist Signature LDH 211 110 - 220 [facility] unit/[facility] Specimen Anatomical Collection Method Collection Time Receive d Time (Source) Location / / Volume Laterality Blood specimen 12/25/2020 2:02 PM 021 2:23 (specimen) EST PM EST Resulting Agency Comment Spec In Lab Julian Gutierrez MD CHEMISTRY ORDERABLES Performing Organization Address City/[facility]/[place] [address] Beta 2 Microglobulin, serum (12/25/2020 2:02 PM EST) athologist Signature Beta2 2.2 0.8 - 2.2 [facility] Microglob mg/L [facility] Specimen Anatomical Collection Method Collection Time Receive d Time (Source) Location / / Volume Laterality Blood specimen 12/25/2020 2:02 PM 021 2:23 (specimen) EST PM EST Resulting Agency Comment Spec In Lab Julian Gutierrez MD CHEMISTRY ORDERABLES Performing Organization Address City/[facility]/ZIP [facility] [place] [address] (ABNORMAL) Immunoglobulins, Quantitative (12/25/2020 2:02 PM EST) P athologist Signature IgG 713 700 - 1,600 [facility] mg/dL [facility] Comment: Pediatric Reference Intervals obtained f rom the Caliper Reference Interval project. http://www.Iotum.ca/caliperp roject/index.html IgA 121 70 - 400 mg/dL [facility] IgM 290 (H) 40 - 230 mg/dL [facility] Specimen Anatomical Collection Method Collection Time Receive d Time (Source) Location / / Volume Laterality Blood specimen 12/25/2020 2:02 PM 021 2:23 (specimen) EST PM EST Resulting Agency Comment Spec In Lab Julian Gutierrez MD CHEMISTRY ORDERABLES Performing Organization Address City/[facility]/[place] [address] Protein Electrophoresis, serum (12/25/2020 2:02 PM EST) Patholo gist Method Time Signature Total Prot 6.6 6.1 - 8.0 DANIEL Elec gm/dL [facility] Albumin Elect 4.44 3.60 - 6.00 DANIEL gm/dL [facility] Alpha1-Globul 0.19 0.10 - 0.30 DANIEL in gm/dL [facility] Alpha2-Globul 0.71 0.40 - 0.90 DANIEL in gm/dL [facility] Beta Globulin 0.63 0.50 - 1.00 DANIEL gm/dL [facility] Gamma 0.63 0.50 - 1.30 [facility] Globulin gm/dL [facility] M1 Band None None DANILE Detected Detected [facility] Specimen Anatomical Collection Method Collection Time Receive d Time (Source) Location / / Volume Laterality Blood specimen 12/25/2020 2:02 PM 021 2:23 (specimen) EST PM EST Resulting Agency Comment Spec In Lab Julian Gutierrez MD CHEMISTRY ORDERABLES Performing Organization Address City/[facility]/ZIP Code [place] [address] documented in this encounter Visit Diagnoses Diagnosis 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
--- OUTSIDE RECORDS SUMMARY | 2022-09-13 00:39 | XMS_ITS | Encounter Summary ---
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; [facility] J, PT Acute [place] [phone] PHYSICAL MEDICINE & [place] [address] Social History Tobacco Use Types Packs/Day Years Used Date Smoking Tobacco: Every Day Cigarettes 0.5 40 Smokeless Tobacco: Never Comments: 3/4 to 1/2 pack a day Alcohol Use Standard Drinks/Week Comments Yes 0 (1 standard drink = 0.6 oz pure alcoho l) occasional Sex Assigned at Date Recorded Not on file documented as of this encounter Miscellaneous Notes Initial Evaluation - Carlos Amin, PT - 05/12/2019 11:00 AM EDT INITIAL PT TREATMENT: [facility] 05/12/2019 THERAPIST: Carlos Amin PT DX: Right knee pain probable peds anserine bursitis Arthroplasty/Orthopaedic History: 1. Right knee arthroscopy - 2007 2. Right UKA - 2009 - 3. Right UKA revision 2 months post op for nerve pain 4. 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 Hatch REFERRING PHYSICIAN: Dylan Hatch MD. S: Patient reports that she continues to experience medial sided right knee pain. O: PT treatment was formulated in conjunction with Dr. Hatch today during this clinic after a thorough and complete orthopedic evaluation including clinical exam and review of radiology studies. IMPAIRMENT SCREEN PAIN 2-3 /10 medial proximal tibia Pes anserine region ROM DEFICITS: None 0/130 STRENGTH DEFICITS: -5 /5 hamstrings TRANSFERS: Independent GAIT: FWB normal gait dynamics without assistive devices ADL/FUNCTIONAL DEFICITS: Persistent medial sided right knee pain INITIAL PT TREATMENT:Therex: Strength / Endurance / ROM PT -- 15 minutes ([id number]). Patient instructed in eccentric hamstring strengthening sitting, standing and supine starting with yellow Thera-Band 1 set of 7 reps 3 times a week first week progressing to 2 sets of 7 reps-second week with a goal of 3 sets of 7 reps by the third week. We discussed the importance of holding off on anextra set if soreness persists beyond the normal level of soreness expected ie 2-3/10 that the patient reports is her present normal level. A: Clinical presentation seems consistent with the above DX. Signs and SX's appear to be stable and evolving . Pertinent comorbidities and personal factors affecting plan of care Include: Arthroplasty/Orthopaedic History: 5. Right knee arthroscopy - 2007 6. Right UKA - 2009 - [place] 7. Right UKA revision 2 months post op for nerve pain 8. 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 Hatch Patient also reports chronic lower back pain and history of back surgery Clinical decision making INITIAL PHYSICAL THERAPY EVALUATION : DATE CPT CODE LOW COMPLEXITY [id number] using standardized patient assessment instrument and measurable assessment of functional outcome per orthopedic initial intake questionnaire. Expect that skilled PT intervention is medically necessary to establish an appropriate home exercise Program to help this patient reach prior level of Functioning. P:Continue initial PT home exercise program instructions noted above with option for follow-up if needed. PT ST GOALS : 3-6 wks [place] with home exercise program. 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
--- OUTSIDE RECORDS SUMMARY | 2022-09-13 00:39 | XMS_ITS | Encounter Summary ---
:1960 Author Organization [facility] [place] [address] Care Team Providers Name Role Phone Santhosh Herron MD Primary Care Provider Reason for Referral Physical Therapy (Routine) - Specialty Diagnoses / Procedures Referred By Contact Refer cande To Contact Physical Therapy Diagnoses Acute pain of right [place] [address] Referral ID Status Reason Start Date Expiration Date Visits V isits Requested Authorized Evaluate and 07/09/2017 01/05/2018 12 12 Treat Consultation (Routine) - Specialty Diagnoses / Procedures Referred By Contact Refer cande To Contact Orthopaedic Surgery Diagnoses Acute pain of right [place] [address] Referral ID Status Reason Start Date Expiration Date Visits V isits Requested Authorized Assume 07/09/2017 01/05/2018 1 1 Subset of Care Reason for Visit Auth/Cert Specialty Diagnoses / Procedures Referred By Contact Refer red To Contact Diagnoses Broken internal right knee prosthesis, initial encounter RIGHT Failed Total Knee Replacement, RIGHT KNEE Procedures PRO REVISE KNEE JOINT REPLACE, ALL PARTS @TOTAL KNEE REVISION ARTHROPLASTY, COMPLETE (WRVU 27.11) MODIFIER, ATTUNE CURVED FIXED PLATFORM, DEPUY MODIFIER TC3 ROTATING PLATFORM DEPUY Referral ID Status Reason Start Date Expiration Date Visits Requ ested Visits Authorized [id number] 1 1 Encounter Details Date Type Department Care Team Description 07/08/2017 - Hospital Encounter 3 Bernarda Santiago Acute pain of right 07/09/2017 Delfina Day MD knee Hospital [facility] DR [address]arias ORTHOPAEDIC [place], [place] SURGERY [address] [place], [place] [phone] [facility] Social History Tobacco Use Types Packs/Day Years [...] Sign Reading Time Taken Comments Blood Pressure 110/67 07/09/2017 12:13 PM EDT Pulse 64 07/09/2017 11:55 AM EDT Temperature 36.4 ??C (97.5 ??F) 07/09/2017 12:13 PM EDT Respiratory Rate 20 07/09/2017 12:13 PM EDT Oxygen Saturation 94% 07/09/2017 12:13 PM EDT Inhaled Oxygen Concentration - - Weight 72.6 kg (160 lb) 07/08/2017 10:00 PM EDT Height 160 cm (5' 3) 07/08/2017 10:00 PM EDT Body Mass Index 28.34 07/08/2017 10:00 PM EDT documented in this encounter Discharge Summaries Porsha Reese MD - 07/09/2017 2:18 PM EDT Discharge Summary Patient Name: Alicia Main Patient Age: 56 y.o. Language: Comoran Race: White Ethnicity: Not nor Admit date: 07/08/2017 Discharge date and time: 07/09/2017 Attending Physician: Bernarda Hatch MD Discharge Physician: Bernarda Hatch MD Follow-up Recommendations for Providers: See discharge instructions for additional details. Future Appointments Date Time Provider Department Center 07/30/2017 10:30 AM [facility]O WR[facility]PER [facility] 07/30/2017 11:30 AM [facility] DX ROOM 1 [facility] 07/30/2017 12:30 PM Bernarda Hatch MD [facility] Inpatient Provider Contact Information: Bernarda Hatch MD Orthopedics: [phone] After hours and weekends, call [facility], , and have the Orthopedic resident paged. Discharge Diagnoses (Hospital Problems) and Secondary Diagnoses (Chronic Problems): Active Hospital Problems Diagnosis ??? s/p conversion of uni to R TKA 07/08/17 Dr. Hatch Resolved Hospital Problems Diagnosis Date Resolved No resolved problems to display. Active Non-Hospital Problems Diagnosis ??? Acute pain of right knee ??? Cigarette smoker ??? Acquired spondylolisthesis ??? Degeneration of lumbar or lumbosacral intervertebral disc ??? Lumbago Operations/Major Procedures: 07/08/2017 Surgeon(s) and Role: * Bernarda Hatch MD - Primary * Bimal Sampson PA * Vinita Gonzalez MD - Resident-Surgeon Chief Procedure(s): TOTAL KNEE REVISION ARTHROPLASTY, COMPLETE History of Presentation: Alicia Main is a 56 y.o. female with a history of severe osteoarthritis of the right knee being seen today to discuss a RIGHT conversion of UKA to total knee arthroplasty. Her history and physical exam were reviewed in detail. 56 y.o. s/p R TKA. Afebrile, vitals stable. Adequate UOP. Doing well. Continue to work on mobilization and pain management with PO meds. Discussed discharge goals. Hospital Course: The patient was admitted for the above operation. DVT prophylaxis is: Coumadin. Patient began rehab on POD#1 with weight bearing as tolerated of right leg remembering to use and assistive device as needed for balance and protection. Bucio was removed POD#1 and patient was voiding spontaneously. On POD#1 the operative Mepilex Ag dressing was inspected and was dry and intact (dressing should remain in place until POD#7). Patient did have a bowel movement prior to discharge and was passing flatus and was taking a diet without difficulty. Pain was well controlled on oral medications. Patient was voiding spontaneously without issue. By POD#1 the patient was medically stable and was cleared for safe discharge to home per PT. Vital Signs at Discharge: Weight: Wt Readings from Last 1 Encounters: 09/19/17 72.6 kg (160 lb) Height: Ht Readings from Last 1 Encounters: 09/19/17 160 cm (5' 3) HC: HC Readings from Last 1 Encounters: No data found for HC BMI: Body mass index is 28.34 kg/(m^2). Last value Range last 24 hrs Temperature Temp: 36.4 ??C (97.5 ??F) Temp: [36 ??C (96.8 ??F)-37.1 ??C (98.8 ??F)] Heart Rate Heart Rate: 64 Heart Rate: [52-65] Blood Pressure BP: 110/67 BP: (96-125)/(64-81) Respiratory Rate Resp: 20 Resp: [10-20] SpO2 SpO2: 94 % SpO2: [90 %-100 %] Art BP BP (Arterial Line): -- Functional and Cognitive Status: Patient mobilizing with assistance, cognitively intact at baseline mental status at time of discharge. Important Lab Data: Last 3 wbc, hgb, hct plt Recent Labs 07/09/17 0445 06/09/17 1041 WBC 14.5* 9.4 HGB 11.8 14.1 HCT 34.3* 41.5 PLATELET 152 167 Last 3 Lytes Recent Labs 07/09/17 0445 06/09/17 1041 NA 137 142 K 4.4 3.9 CL 101 107 CO2 20* 20* BUN 8 8 CREATININE 0.73 0.82 Studies: Xr Knee Standing Alignment (generic) Result Date: 06/16/2017 FINDINGS: Standing alignment The bilateral weightbearing axis are midline. Unchanged medial uni-condylar arthroplasty. Unchanged fixation hardware in L5-S1 level. Impression Bilateral midline weightbearing axes. Pending Studies and Lab Data at Discharge: None Transfusions: No Discharge Conditions/Prognosis: Stable, awake, and alert. Mobilizing as noted above, pain controlledon oral medications. Discharge to: Home Porsha Reese MD, PGY-1 Orthopaedic Surgery Pager #: [phone] Updated Allergies/ADRs: Allergies Allergen Reactions ??? Penicillins Hives ??? Vancomycin Itching Red man's syndrome Immunizations Given this Hospitalization: There is no immunization history on file for this patient. Discharge Medications: Your Medications New Medications Dose Details acetaminophen 500 mg Tab Commonly known as: TYLENOL Take 2 tablets by mouth every 8 hours for 28 days. Take as directed around the clock for ten days after your surgery. After that you can take Tylenol as needed per package insert. 1000 mg Refills: 0 bisacodyl 5 mg Tbec Commonly known as: DULCOLAX Take 2 tablets by mouth 2 times daily as needed for Constipation for up to 28 doses. 10 mg Refills: 0 naproxen 500 mg Tbec Commonly known as: EC NAPROSYN Take 1 tablet by mouth 2 times daily (with meals) for 41 days. 500 mg Quantity: 82 tablet Refills: 0 oxyCODONE 5 mg Tab Commonly known as: ROXICODONE Take 1-2 tablets by mouth every 4 hours as needed for Pain. Take 1 tablet (5mg) po Q4 hours prn MILD- MODERATE pain -OR- take 2 tablets (10mg) po Q4 hours prn SEVERE pain 5-10 mg Quantity: 70 tablet Refills: 0 pantoprazole 20 mg Tbec Commonly known as: PROTONIX Take 1 tablet by mouth daily. 20 mg Quantity: 60 tablet Refills: 0 polyethylene glycol 17 gram Pwpk Commonly known as: MIRALAX Take 17 g by mouth 2 times daily for 28 days. Take to maintain normal bowel pattern while taking narcotic pain medication. 17 g Refills: 0 senna-docusate 8.6-50 mg Tab Commonly known as: PERICOLACE Take 2 tablets by mouth 2 times daily for 60 doses. Take to maintain normal bowel pattern while taking narcotic pain medication. 2 tablet Refills: 0 warfarin 5 mg Tab Commonly known as: COUMADIN Take 1 tablet by mouth daily. 5 mg Quantity: 45 tablet Refills: 0 Continued medications, unchanged Dose Details PRILOSEC ORAL Take by mouth daily. Refills: 0 STOPPED Medications ibuprofen 800 mg Tab Commonly known as: ADVIL;MOTRIN NEURONTIN 600 mg Tab Generic drug: gabapentin nicotine 14 mg/24 hr Pt24 Commonly known as: NICODERM CQ Smoking Status at Discharge: History Smoking Status ??? Current Every Day Smoker ??? Packs/day: 0.50 ??? Years: 40.00 ??? Types: Cigarettes Smokeless Tobacco ??? Never Used Comment: 12/21 to 1/2 pack a day Instructions Given to Patient at Discharge: Patient Instructions General Instructions Activity: 1. Your weight-bearing status is - weight bearing as tolerated of right leg. 2. Remember to use a walker or crutches as needed for balance and protection. Your physical therapist may progress you to using a cane when appropriate. 3. Flexion AND extension are important to work on at home. You should NOT place a pillow under your operative knee. To help with extension you can place a pillow under your heel or lower leg or placed lengthwise along the operative leg. Again DO NOT place a pillow under the operated knee for comfort. Anticoagulation follow-up: You are being discharged home on Coumadin??, see below for instructions. Coumadin?? (warfarin) Management upon Discharge Reason for anticoagulation therapy: DVT (blood clot) prevention after Orthopedic surgery. Your Coumadin?? (warfarin) dosing instruction upon discharge is: - Day of discharge (07/09): Take 5mg (1 of the 5mg pills) at 5 PM. Your next INR is scheduled on: 07/10. This will be checked by the Visiting Nurses. It is very important that you have your PT/INR checked regularly as your dose may change based on your lab values, at least twice per week (usually every Friday and ). INR Goal: 2 - 3 Expected duration of treatment: 30 days (last day = 08/07) - After your dose on 08/07, stop the Coumadin??. Provider/Team responsible for ongoing outpatient anticoagulation management: - Provider/Team/Clinic: [facility] - - If you have not received a call from your provider, by 4pm, after having your INR drawn, please callthe Orthopedic Clinic Nurse at [phone] for further dose instructions. If it is after 5pm or on the weekends, the Orthopedic resident [facility] consultant will be managing your dosing (please call [phone] and ask for them to be paged). Warfarin (Coumadin??) should be taken at the same time every day, usually at 5pm. The following table shows your most recent INR results and Coumadin?? doses: Date Notes INR Coumadin?? dose day of operation POD#1 POD#2 POD#3 D/C POD#4 If your INR level is ever above 3.5 you should not participate in aggressive Physical therapy exercises - you can mobilize/ambulate. This will decrease the possibility of more bleeding into your joint.Once your INR is less than 3.5 you can resume Physical therapy. One of the Orthopedic nurses will call you with further instructions as needed. Warfarin Education that was reviewed with you in the hospital: (please see your warfarin (Coumadin??) reference sheet for more information) ? Diet and medications can affect your INR ? Maintaining a diet with a consistent amount of vitamin K containing foods is important to keep your INR in range ? Avoid major changes in dietary habits ? Do not take or discontinue any prescription or wkys-goc-afhxgjl medications without asking your doctor or pharmacist ? Inform all your doctors, pharmacists and other healthcare providers that you take warfarin ? Warfarin increases your risk of bleeding If you experience any of these signs or symptoms of bleeding or blood clot please seek immediate medical attention: ?? Increased pain, swelling or sudden shortness of breath ?? Severe headache ?? Dizziness ?? Unusual bleeding or bruising ?? Changes in urine or bowel movement color ?? Coughing or spitting up blood or nosebleeds that do not stop or occur more often Diet: Resume your usual diet but increase your intake of fluids and fiber while you are on narcotic pain meds to prevent constipation. Driving: None until you are cleared to do so by your Orthopedic surgeon. You should not drive while you are on narcotic pain meds as they can affect your judgment and reaction time. Call your surgeon with any questions/concerns. Medications: 1. The pain medication you are on can cause constipation so increase your intake of fluids and fiberwhile you are on them. The stool softener, Pericolace, that has been prescribed can also be taken tofacilitate a bowel movement. You can also take an cmvi-ozj-kvjwytn medication, Miralax if needed to combat constipation. 2. If you need a renewal on your narcotic pain medication, you need to give the Orthopedic clinic enough time to process your request. This can take up to three days, so plan accordingly. 3. Continue acetaminophen (Tylenol) 1,000mg every 8 hours around the clock until 07/19 (for ten days after your surgery). This can be effective in controlling pain along with your other medications. After that you can take Tylenol as needed per package insert. Do not take more than 3,000mg of acetaminophen in a 24 hour period. 4. You have been discharged on a short acting narcotic, oxycodone. You will be on this medication for a limited period of time only. Take the smallest dose possible to control your pain. As your pain improves take smaller, less frequent doses. You may break the tablet to achieve a smaller dose. 5. You are being discharged on prescription strength naproxen (Aleve). This medication is a type of nonsteroidal anti-inflammatory (NSAID). This will help with your pain and inflammation. Take this twice a day for the next 6 weeks. Your last dose will be on. If you no longer are requiring the narcoticpain medication you may change the way you take the prescribed naproxen and instead take twice a dayas needed. 6. You are being discharged on a proton pump inhibitor (protonix). This will decrease stomach irritation that may be caused by NSAIDs. Take this daily for the next 6 weeks while you are on the NSAID. 7. You are being discharged on gabapentin (Neurontin), a non-narcotic medication that will help withyour pain at night and allow you to sleep better. Take this at night for the next 4 weeks. Shower (elena/sutures): 1. You can shower but remember your activity limitations and always have a chair available for balance and protection. DO NOT submerge the dressing/incision. 2. (Mepilex) Do not let water run over the operative dressing. If it becomes wet lightly pat the dressing dry. DO NOT submerge the incision. 3. You have elena/sutures. Always cover them with a waterproof dressing or plastic bag when showering until they are removed. 4. After elena/sutures are removed you can let water run gently over the incision. Wound (Mepilex): 1. Staple/suture removal 2 weeks after surgery (approximately 07/23). 2. Do not lift the edge of the Mepilex dressing to inspect the incision, it will not re-adhere. Remove your operative dressing 7 days from your surgery (08/15). When it is removed you can leave the incision open to air or cover it with a light dressing. 3. If you have lots of drainage when you get home (and it is before 08/15), remove this operative dressing and replace it with dry sterile gauze. Continue with daily dressing changes (and as needed) until the drainage stops, then remove the dressing and leave the incision open to air or lightly covered. Misc: Remember that ICE and elevation are very important after surgery to help decrease swelling andcontrol pain. Use ICE for 20-30 minutes at a time and keep your leg elevated as much as possible. Call your doctor ([phone]) if you develop: 1. Fever greater than 100.5 2. Severe nausea or vomiting 3. Increasing pain that is not controlled by pain medications 4. Increasing redness, swelling, or drainage from incisions 5. Change in sensation FOLLOW-UP APPOINTMENTS: 1. You will have follow-up appointments at [facility] as indicated below in Future Appointment and Orders. 2. You will need to have x-rays prior to your follow-up appointment on 07/30. Please come to Radiology, desk 3T, 1 hour BEFORE that appointment for those x-rays. Future Appointments Date Time Provider Department Center 07/30/2017 10:30 AM [facility]THO WR[facility]PER [facility] 07/30/2017 11:30 AM [facility] DX ROOM 1 [facility] 07/30/2017 12:30 PM Bernarda Hatch MD [facility] If you have questions or concerns: Friday through Friday, 8 AM - 5 PM, please call Bernarda Pyle MD's office at . If it is after 5 PM, the weekend, or holidays, please call and ask to speak with the Orthopedic resident on-call. Future Appointments and Orders Future Appointments Provider Department Dept Phone 07/30/2017 10:30 AM ORTHO WRAPPER HAND [facility] [place] [phone] 07/30/2017 12:30 PM Bernarda Hatch MD [facility] [place] [phone] Future Orders Complete By Expires Prothrombin Time [[id number] Custom] 07/10/2017 (Approximate) 07/09/2018 Process Instructions: Scheduling Instructions: Comments: Draw PT/INR as follow: (Point of care testing is acceptable). Week of discharge: PER MD/GRADE SETTER/PA ORDERS - [place], [place] Coumadin clinic: [phone] Thereafter, PT/INR: every Friday and PT/INR results to be called and faxed as follows: Fri-Fri Ortho anticoagulation (Coumadin) clinic [place] [facility]: ; Sat/Sun: If the PT/INR is drawn on the weekend, call the results to the Orthopedic Resident [facility] consultant @ [phone] for Coumadin dosing Questions: Referral for Anticoagulation Monitoring [[id number] Custom] As directed Process Instructions: If no progress note charted, please enter Clinical details in comments. Scheduling Instructions: Comments: Draw PT/INR as follow: (Point of care testing is acceptable). [place], [place] Week of discharge: PER MD/GRADE SETTER/PA ORDERS Thereafter, PT/INR: every Friday and PT/INR results to be called and faxed as follows: Fri-Fri Ortho anticoagulation (Coumadin) clinic @ [facility]: ; Sat/Sun: If the PT/INR is drawn on the weekend, call the results to the Orthopedic Resident sap [facility] consultant @ [phone] for Coumadin dosing Questions: INR Goal: 2.0-3.0 Responsible Group: [facility] Target End Date: 08/07/2017 Next due INR: 07/10/2017 Risk Factors: My question or request is: coumadin/INR status post total knee arthroplasty Referral to Home Health - at DISCHARGE [[id number] CPT(R)] As directed Process Instructions: Scheduling Instructions: Comments: DISCHARGE DOCUMENTATION FOR VNA SERVICES (INCLUDING THOSE PATIENTS WITH MEDICARE COVERAGE BEING DISCHARGED HOME WITH VNA SERVICES AND THOSE PATIENTS WITH MEDICARE COVERAGE WHO ARE BEING DISCHARGED HOME WITH HOSPICE SERVICES) Alicia Main [address] [facility] [phone] (home) [phone] (work) Telephone Information: Coil Taper: : Jhonny In discussion with the attending physician, it is certified that this patient is under their care and that they, or a nurse practitioner, clinical nurse specialist or physician's assistant analyst who is working directly with them, had a face to face encounter that meets the physician face to face encounter re quirements with this patient on 07/09/2017 The encounter with the patient was in whole, or in part, for the following medical condition, which is the primary reason for home health care services: HOME HEALTH AGENCY: [facility]. PHONE: [phone] FAX: [phone] Home care orders for Total KneeArthroplasty: 1.RN: Draw PT/INR as follows: PER MD ORDERS - Draw INR 07/10 Thereafter, PT/INR: every Friday and PT/INR results to be called and faxed as follows Fri-Fri Ortho anticoagulation (Coumadin) clinic [place] [facility]: ; Sat/Sun: if the PT/INR is drawn on the weekend, call the results to the Orthopedic Resident on callat [phone] for Coumadin dose Point of care testing is acceptable Assess wound , med management, nutrition, and elimination Do not lift the edge of the mepilex dressing to observe the incision; this dressing needs to stay in place until 7 days after surgery. Suture or Staple removal in 10-14 days - PER MD ORDERS - 07/23/17 2. PT: Continue PT rehab for balance, endurance, joint mobility, ROM, Strength, TKA protocol Please note that any additional orders needs or changes will need to be obtained from this patient'sPCP: Santhosh Herron MD [address] [place] [id number] All A agencies which cover the area of patient's residence have been reviewed, either verbally or in writing, and patient/family have chosen the indicated home health care agency for home services. Questions: Agency name and contact information: [facility] [employer] Patient location post discharge: home What services are requested: Registered Nurse Physical Therapy Start date: 07/11/2017 Responsible MD post discharge contact info: PCP Referral to Physical Therapy [REF87 Custom] As directed Process Instructions: Note: Please indicate in the comments any additional Instructions, Precautions or Contra-indications. Scheduling Instructions: Questions: Reason for PT: continue physical therapy for rehab of his R TKA Specialty Program Eval: Modalities could include: Treatment Focus: Primary Care Provider: Santhosh Herron MD [phone] Discharge References/Attachments None Porsha Reese MD, PGY-1 Orthopaedic Surgery Pager #: [phone] documented in this encounter Discharge Instructions Discharge InstructionsMeadPorsha MD - 07/09/2017 2:15 PM EDT Activity: 1. Your weight-bearing status is - weight bearing as tolerated of right leg. 2. Remember to use a walker or crutches as needed for balance and protection. Your physical therapist may progress you to using a cane when appropriate. 3. Flexion AND extension are important to work on at home. You should NOT place a pillow under your operative knee. To help with extension you can place a pillow under your heel or lower leg or placed lengthwise along the operative leg. Again DO NOT place a pillow under the operated knee for comfort. Anticoagulation follow-up: You are being discharged home on Coumadin??, see below for instructions. Coumadin?? (warfarin) Management upon Discharge Reason for anticoagulation therapy: DVT (blood clot) prevention after Orthopedic surgery. Your Coumadin?? (warfarin) dosing instruction upon discharge is: - Day of discharge (07/09): Take 5mg (1 of the 5mg pills) at 5 PM. Your next INR is scheduled on: 07/10. This will be checked by the Visiting Nurses. It is very important that you have your PT/INR checked regularly as your dose may change based on your lab values, at least twice per week (usually every Friday and ). INR Goal: 2 - 3 Expected duration of treatment: 30 days (last day = 08/07) - After your dose on 08/07, stop the Coumadin??. Provider/Team responsible for ongoing outpatient anticoagulation management: - Provider/Team/Clinic: [facility] - - If you have not received a call from your provider, by 4pm, after having your INR drawn, please callthe Orthopedic Clinic Nurse at [phone] for further dose instructions. If it is after 5pm or on the weekends, the Orthopedic resident [facility] consultant will be managing your dosing (please call [phone] and ask for them to be paged). Warfarin (Coumadin??) should be taken at the same time every day, usually at 5pm. The following table shows your most recent INR results and Coumadin?? doses: Date Notes INR Coumadin?? dose day of operation POD#1 POD#2 POD#3 D/C POD#4 If your INR level is ever above 3.5 you should not participate in aggressive Physical therapy exercises - you can mobilize/ambulate. This will decrease the possibility of more bleeding into your joint.Once your INR is less than 3.5 you can resume Physical therapy. One of the Orthopedic nurses will call you with further instructions as needed. Warfarin Education that was reviewed with you in the hospital: (please see your warfarin (Coumadin??) reference sheet for more information) ? Diet and medications can affect your INR ? Maintaining a diet with a consistent amount of vitamin K containing foods is important to keep your INR in range ? Avoid major changes in dietary habits ? Do not take or discontinue any prescription or zgcx-lko-ivqyyvk medications without asking your doctor or pharmacist ? Inform all your doctors, pharmacists and other healthcare providers that you take warfarin ? Warfarin increases your risk of bleeding If you experience any of these signs or symptoms of bleeding or blood clot please seek immediate medical attention: ?? Increased pain, swelling or sudden shortness of breath ?? Severe headache ?? Dizziness ?? Unusual bleeding or bruising ?? Changes in urine or bowel movement color ?? Coughing or spitting up blood or nosebleeds that do not stop or occur more often Diet: Resume your usual diet but increase your intake of fluids and fiber while you are on narcotic pain meds to prevent constipation. Driving: None until you are cleared to do so by your Orthopedic surgeon. You should not drive while you are on narcotic pain meds as they can affect your judgment and reaction time. Call your surgeon with any questions/concerns. Medications: 1. The pain medication you are on can cause constipation so increase your intake of fluids and fiberwhile you are on them. The stool softener, Pericolace, that has been prescribed can also be taken tofacilitate a bowel movement. You can also take an vqsj-swh-qocmdxm medication, Miralax if needed to combat constipation. 2. If you need a renewal on your narcotic pain medication, you need to give the Orthopedic clinic enough time to process your request. This can take up to three days, so plan accordingly. 3. Continue acetaminophen (Tylenol) 1,000mg every 8 hours around the clock until 07/19 (for ten days after your surgery). This can be effective in controlling pain along with your other medications. After that you can take Tylenol as needed per package insert. Do not take more than 3,000mg of acetaminophen in a 24 hour period. 4. You have been discharged on a short acting narcotic, oxycodone. You will be on this medication for a limited period of time only. Take the smallest dose possible to control your pain. As your pain improves take smaller, less frequent doses. You may break the tablet to achieve a smaller dose. 5. You are being discharged on prescription strength naproxen (Aleve). This medication is a type of nonsteroidal anti-inflammatory (NSAID). This will help with your pain and inflammation. Take this twice a day for the next 6 weeks. Your last dose will be on. If you no longer are requiring the narcoticpain medication you may change the way you take the prescribed naproxen and instead take twice a dayas needed. 6. You are being discharged on a proton pump inhibitor (protonix). This will decrease stomach irritation that may be caused by NSAIDs. Take this daily for the next 6 weeks while you are on the NSAID. 7. You are being discharged on gabapentin (Neurontin), a non-narcotic medication that will help withyour pain at night and allow you to sleep better. Take this at night for the next 4 weeks. Shower (elena/sutures): 1. You can shower but remember your activity limitations and always have a chair available for balance and protection. DO NOT submerge the dressing/incision. 2. (Mepilex) Do not let water run over the operative dressing. If it becomes wet lightly pat the dressing dry. DO NOT submerge the incision. 3. You have elena/sutures. Always cover them with a waterproof dressing or plastic bag when showering until they are removed. 4. After elena/sutures are removed you can let water run gently over the incision. Wound (Mepilex): 1. Staple/suture removal 2 weeks after surgery (approximately 07/23). 2. Do not lift the edge of the Mepilex dressing to inspect the incision, it will not re-adhere. Remove your operative dressing 7 days from your surgery (08/15). When it is removed you can leave the incision open to air or cover it with a light dressing. 3. If you have lots of drainage when you get home (and it is before 08/15), remove this operative dressing and replace it with dry sterile gauze. Continue with daily dressing changes (and as needed) until the drainage stops, then remove the dressing and leave the incision open to air or lightly covered. Misc: Remember that ICE and elevation are very important after surgery to help decrease swelling andcontrol pain. Use ICE for 20-30 minutes at a time and keep your leg elevated as much as possible. Call your doctor ([phone]) if you develop: 1. Fever greater than 100.5 2. Severe nausea or vomiting 3. Increasing pain that is not controlled by pain medications 4. Increasing redness, swelling, or drainage from incisions 5. Change in sensation FOLLOW-UP APPOINTMENTS: 1. [place] [facility] indicated below in Future Appointment and Orders. 2. You will need to have x-rays prior to your follow-up appointment on 07/30. Please come to Radiology, desk 3T, 1 hour BEFORE that appointment for those x-rays. Future Appointments Date Time Provider Department Center 07/30/2017 10:30 AM [facility] 07/30/2017 11:30 AM [facility] DX ROOM 1 [facility] 07/30/2017 12:30 PM Bernarda Hatch MD [facility] If you have questions or concerns: Friday through Friday, 8 AM - 5 PM, please call Bernarda Pyle MD's office at . If it is after 5 PM, the weekend, or holidays, please call and ask to speak with the Orthopedic resident on-call. Patient InstructionsPorsha Reese MD - 07/09/2017 2:13 PM EDT documented in this encounter Medications at Time of Discharge Medication Sig Dispensed Refills Start Date End Date senna-docusate Take 2 tablets by 0 07/09/2017 (PERICOLACE) 8.6-50 mg mouth 2 times daily Tablet for 60 doses. Take to maintain normal bowel pattern while taking narcotic pain medication. polyethylene glycol Take 17 g by mouth 2 0 201608/06/2017 (MIRALAX) 17 gram times daily for 28 Powder in Packet days. Take to maintain normal bowel pattern while taking narcotic pain medication. naproxen (EC NAPROSYN) Take 1 tablet by mouth 82 tablet 0 0 07/09/2017 08/19/2017 500 mg Tablet, Delayed 2 times daily (with Release (E.C.) meals) for 41 days. acetaminophen (TYLENOL) Take 2 tablets by 0 07/0908/06/2017 500 mg Tablet mouth every 8 hours for 28 days. Take as directed around the clock for ten days after your surgery. After that you can take Tylenol as needed per package insert. oxyCODONE (ROXICODONE) Take 1-2 tablets by 70 tablet 0 06/2109/24/2017 5 mg Tablet mouth every 4 hours as needed for Pain. Take 1 tablet (5mg) po Q4 hours prn MILD - MODERATE pain -OR- take 2 tablets (10mg) po Q4 hours prn SEVERE pain bisacodyl (DULCOLAX) 5 Take 2 tablets by 0 201602/07/2021 mg Tablet, Delayed mouth 2 times daily as Release (E.C.) needed for Constipation for up to 28 doses. pantoprazole (PROTONIX) Take 1 tablet by mouth 60 tablet 0 07/09/2017 09/24/2017 20 mg Tablet, Delayed daily. Release (E.C.) warfarin (COUMADIN) 5 Take 1 tablet by mouth 45 tablet 0 09/24/2017 mg Tablet daily. OMEPRAZOLE (PRILOSEC Take by mouth daily. 0 09/24/2017 ORAL) documented as of this encounter Progress Notes Neris Gastelum RN - 07/09/2017 3:26 PM EDT Alicia Campa Etelvina discharged to Home by private car with Spouse. Discharge Assessment: Patient AAOx4, Neuro checks wnl, Speech wnl, LS clear on RA, no signs of distress, V/S WDL, reports of pain throughout shift medicated with APAP and oxy with + effect, B/S in all 4 quadrants passing flatus, BM on 07/09 per patient. Patient ambulating with SBA using a FWW. Tolerating Regular Diet with no reports of N/V. Patient teaching over restrictions, diet, medications, incision care, and follow up visits. Prescriptions: Your Medications New Medications Dose Details acetaminophen 500 mg Tab Commonly known as: TYLENOL Take 2 tablets by mouth every 8 hours for 28 days. Take as directed around the clock for ten days after your surgery. After that you can take Tylenol as needed per package insert. 1000 mg Refills: 0 bisacodyl 5 mg Tbec Commonly known as: DULCOLAX Take 2 tablets by mouth 2 times daily as needed for Constipation for up to 28 doses. 10 mg Refills: 0 naproxen 500 mg Tbec Commonly known as: EC NAPROSYN Take 1 tablet by mouth 2 times daily (with meals) for 41 days. 500 mg Quantity: 82 tablet Refills: 0 oxyCODONE 5 mg Tab Commonly known as: ROXICODONE Take 1-2 tablets by mouth every 4 hours as needed for Pain. Take 1 tablet (5mg) po Q4 hours prn MILD- MODERATE pain -OR- take 2 tablets (10mg) po Q4 hours prn SEVERE pain 5-10 mg Quantity: 70 tablet Refills: 0 pantoprazole 20 mg Tbec Commonly known as: PROTONIX Take 1 tablet by mouth daily. 20 mg Quantity: 60 tablet Refills: 0 polyethylene glycol 17 gram Pwpk Commonly known as: MIRALAX Take 17 g by mouth 2 times daily for 28 days. Take to maintain normal bowel pattern while taking narcotic pain medication. 17 g Refills: 0 senna-docusate 8.6-50 mg Tab Commonly known as: PERICOLACE Take 2 tablets by mouth 2 times daily for 60 doses. Take to maintain normal bowel pattern while taking narcotic pain medication. 2 tablet Refills: 0 warfarin 5 mg Tab Commonly known as: COUMADIN Take 1 tablet by mouth daily. 5 mg Quantity: 45 tablet Refills: 0 Continued medications, unchanged Dose Details PRILOSEC ORAL Take by mouth daily. Refills: 0 STOPPED Medications ibuprofen 800 mg Tab Commonly known as: ADVIL;MOTRIN NEURONTIN 600 mg Tab Generic drug: gabapentin nicotine 14 mg/24 hr Pt24 Commonly known as: NICODERM CQ Discharge Dispo: Patient and Verbalized understanding of all teachings and education without question or concern. Patient was educated to call if there was any new concerns. Pablo Junior RN - 07/09/2017 12:47 PM EDT The patient/delivery representative has been provided a list of Home Health Agencies/DME vendors which serve their preferred geographic area. A letter describing our affiliations was reviewed with them and theywere educated about their right to choose where referrals are placed. Patient requests referral to [facility] PHONE: [phone] FAX: [phone] Expected date of discharge: 07-09-2017 Referral routed to the Yard [employer]er for matching with agency/vendor and to provide any required information. Pablo Junior RN CM Pager [phone] Vinita Gonzalez MD - 07/09/2017 6:42 AM EDT ORTHOPAEDIC SURGERY INPATIENT PROGRESS NOTE Patient Name: Alicia Main Age: 56 y.o. Surgery: Right knee - conversion of a uni to a total Attending: Holden POD#: 1 Day Post-Op Subjective: Had a good night. Pain is well controlled. Has not been OOB because she got to the floorpretty late last night. Eager to be discharged. Objective: Last value Range last 24 hrs Temperature Temp: 36.4 ??C (97.5 ??F) Temp: [36 ??C (96.8 ??F)-37.1 ??C (98.8 ??F)] Heart Rate Heart Rate: 62 Heart Rate: [52-73] Blood Pressure BP: 96/64 BP: (96-125)/(64-81) Respiratory Rate Resp: 20 Resp: [10-24] SpO2 SpO2: 90 % SpO2: [90 %-100 %] Intake/Output Summary (Last 24 hours) at 07/09/17 0643 Last data filed at 07/09/17 0600 Gross per 24 hour Intake 3545 ml Output 1250 ml Net 2295 ml Gen: NAD, awake, alert, appropriate CV: Regular rate checked peripherally Pulm: Non-labored breathing Psych: normal mood and affect RLE: Dressing c/d/i Sensation intact to light touch in SP, DP, tibial distributions Motor intact to APF, ADF, EHL Foot wwp, cap refill < 2s Labs: Recent Labs 07/09/17 0445 WBC 14.5* RBC 3.75* HGB 11.8 HCT 34.3* MCV 91.5 MCH 31.5 MCHC 34.4 PLATELET 152 RDWCV 12.8 Lab Results Component Value Date Sodium 137 07/09/2017 Potassium 4.4 07/09/2017 Chloride 101 07/09/2017 CO2 20 (L) 07/09/2017 BUN 8 07/09/2017 Creatinine 0.73 07/09/2017 Glucose Lvl 141 07/09/2017 Recent Labs 07/09/17 0445 INR 1.1 Meds: Scheduled Meds: ??? gabapentin 600 mg Oral TID ??? nicotine 14 mg Transdermal Daily ??? sodium chloride 0.9 % 5 mL Intravenous BID ??? polyethylene glycol 17 g Oral BID ??? senna-docusate 2 tablet Oral BID ??? acetaminophen 1,000 mg Oral Q8H DUGLAS ??? ketorolac 15 mg Intravenous Q6H DUGLAS ??? celecoxib 200 mg Oral BID ??? dexamethasone 4 mg Oral Daily ??? multivitamin Agvx-Mn-JJ-Min 1 tablet Oral Daily ??? pantoprazole 20 mg Oral Daily ??? ceFAZolin 1 g Intravenous Q8H ??? warfarin 5 mg Oral Once ??? warfarin (COUMADIN) daily order reminder Oral Q24H ??? nicotine 1 patch Transdermal Daily Continuous Infusions: ??? sodium chloride 0.9% 1,000 mL (07/08/17 4396) PRN Meds:.sodium chloride 0.9 %, lidocaine, lactulose, bisacodyl, bisacodyl, magnesium citrate OR magnesium citrate, oxyCODONE, ondansetron OR ondansetron, prochlorperazine OR prochlorperazine, bacitracin, povidone- iodine, BUpivacaine-EPINEPHrine Assessment: 56 y.o. s/p R TKA. Afebrile, vitals stable. Adequate UOP. Doing well. Continue to work on mobilization and pain management with PO meds. Discussed discharge goals. Plan: - Issues: smoker - Activity: weight bear as tolerated, work on mobilization - Dressings: mepilex for 7 days - Closure: elena for 2 wks - Antibiotics: ancef x 24hr - Anticoagulation: Pepper B - coumadin - Pain control: PO pain meds - Discharge planning: home Vinita Gonzalez MD, MS Orthopaedic Surgery, PGY 5 Pager #[phone] Future Appointments Date Time Provider Department Center 07/30/2017 10:30 AM [facility] 07/30/2017 11:30 AM [facility] DX ROOM 1 [facility] 07/30/2017 12:30 PM Bernarda Hatch MD [facility] Associated attestation - Bernarda Hatch MD - 07/10/2017 5:50 AM EDT I saw and evaluated the patient. I was integral in formulating the plan as outlined. Mary Solis MD, MD - 07/08/2017 9:15 PM EDT Orthopaedic Surgery Post-Op Check Note Surgery/Issue: Right TKA Attending: Holden Date of surgery: 07/08/2017 Subjective/Events: Resting comfortably. Pain is minimal. Denies CP, SOB, nausea, vomiting, numbness/weakness. No complaints at this time. Objective: Temp: [36 ??C (96.8 ??F)-36.8 ??C (98.2 ??F)] Heart Rate: [52-73] Resp: [10-24] BP: (106-149)/(65-98) Intake/Output Summary (Last 24 hours) at 07/08/17 2331 Last data filed at 07/08/17 2000 Gross per 24 hour Intake 1280 ml Output 200 ml Net 1080 ml Lab Results Component Value Date NA 142 06/09/2017 K 3.9 06/09/2017 CL 107 06/09/2017 CO2 20 (L) 06/09/2017 BUN 8 06/09/2017 CREATININE 0.82 06/09/2017 GLUCOSE 82 06/09/2017 CALCIUM 9.5 06/09/2017 Lab Results Component Value Date WBC 9.4 06/09/2017 HGB 14.1 06/09/2017 HCT 41.5 06/09/2017 MCV 90.2 06/09/2017 PLATELET 167 06/09/2017 Lab Results Component Value Date INR 1.0 07/08/2017 Exam: General: NAD, awake/alert CV: RRR Resp: Breathing comfortably, lungs CTAB RLE: Dressing c/d/i. In cryocuff. Motor intact to EHL, FHL, TA. Sensation intact in foot/calf. Brisk capillary refill distally. A/P: 56 y.o. female POD#0 s/p right TKA, progressing well with stable vitals. Weightbearing Status/Precautions: wbat RLE Closure/Dressing/Drains: elena Anticoagulation: pepper B - coumadin Antibiotics: ancef x 24hr Consults: na Follow-up: Future Appointments Date Time Provider Department Center 07/30/2017 10:30 AM [facility] 07/30/2017 11:30 AM [facility] DX ROOM 1 [facility] 07/30/2017 12:30 PM Bernarda Hatch MD [facility] ? Dispo: home Joelle Quinteros RN - 07/08/2017 9:00 PM EDT Pt. Received into Room 309 from PACU. Alert and oriented. at bedside. See flowsheet for assessment. Oriented to room, call reed in reach. Shelby Mario RN - 07/08/2017 8:01 PM EDT 1714 pt arrived to PACU, attached to monitors, alarms on, settings appropriate for pt. 1930 pt in to visit. Pt resting quietly. Xochitl John RN - 07/08/2017 5:59 PM EDT Break coverage. documented in this encounter H&P Notes Bernarda Hatch MD - 07/08/2017 2:34 PM EDT The patient's history and physical exam have been reviewed and completed. There has been no intervalchange from that of the pre-operative history and physical exam done within the last 30 days. Bernarda Hatch MD - 07/08/2017 2:34 PM EDT Patient Name: Alicia Main Patient Age: 56 y.o. Birthdate: 1960 Admit date: 07/08/2017 Attending Physician: Bernarda Hatch MD See Dr. Wilson's note for H&P. documented in this encounter Miscellaneous Notes Plan of Care - Casey Portillo, PT - 07/09/2017 11:55 AM EDT Problem: Patient Care Overview Goal: Plan of Care Review Outcome: Ongoing (Interventions Implemented as Appropriate) 07/09/17 1305 Coping/Psychosocial Plan Of Care Reviewed With patient Physical Therapy Treatment Number: 1 Pertinent History of Current Problem: 56 y.o. female s/p right TKA revision Living Environment Comment: Pt lives with her in a 1 level home in [place], [place] with 3 ISA and 2 railings. 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 Pt presents with the following impairments and limitations:gait deviations, mildly impaired mobility. Patient educated on skilled exercise, precautions, importance of 2 sided support. Patient demonstrated independent functional mobility to include stair negotia tion after verbal cues for safety and technique during today's session. At this time pt has met all anticipated therapy goals and is safe to discharge home once medically cleared.Please see the Rehab Evaluation Summaries report for objective data and specifics of today???s session. Precautions/Restrictions: weight bearing Precautions Comments: WBAT RLE Weight-Bearing Status Extremity Weight Bearing Status: right lower extremity Right Lower Extremity (Weight Bearing Status): weight-bearing as tolerated Staff Mobility Recommendations: Standby assist with FWW Anticipated Physical Therapy Frequency: evaluation only Anticipated Equipment Needs at Discharge: (has equipment needed ) Anticipated Discharge Disposition: home with assist, home with home health 2017 PT Evaluation Code Rationale: ?? Diagnosis & Pertinent Co-Morbidities affecting Plan of Care: Patient Active Problem List Diagnosis Code ??? Acquired spondylolisthesis M43.10 ??? Degeneration of lumbar or lumbosacral intervertebral disc M51.37 ??? Lumbago M54.5 ??? Cigarette smoker F17.210 ??? s/p conversion of uni to R TKA 07/08/17 Dr. Hatch Z96.659 ?? Clinical presentation: Stable Evolving Unstable x ?? Examination of Body Systems: Addressing 1-2 elements x Addressing 3 + elements Addressing 4 + elements Clinical decision making of low complexity based on pt's functional performance as outlined in this evaluation. Pager: [phone] Casey Portillo PT Inpatient Physical Therapy Plan of Care - Becca Corbin OT - 07/09/2017 10:19 AM EDT Problem: Patient Care Overview Goal: Plan of Care Review Outcome: Ongoing (Interventions Implemented as Appropriate) 07/09/17 1017 Coping/Psychosocial Plan Of Care Reviewed With patient Plan of Care Review Progress progress toward functional goals as expected Occupational Therapy Evaluation Pertinent History of Current Problem: 56 y.o. female s/p right TKA, Active Non-Hospital Problems Diagnosis ??? Cigarette smoker ??? Acquired spondylolisthesis ??? Degeneration of lumbar or lumbosacral intervertebral disc ??? Lumbago Precautions/Restrictions: weight bearing Precautions Comments: WBAT RLE Living Environment Comment: Pt lives with her spouse in a 1 level home with 3 ISA. 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 Assessment: Pt has been seen by OT for evaluation, please refer to associated flowsheet data for details. Pt demonstrates the ability to perform basic ADL???s and functional mobility with modified independence. Pt re-educated on AE for sock donning and educated on walker safety during functional mobility to reduce risk of falls; pt verbalized and demonstrated understanding. Anticipate that pt will return home with assistance once medically ready for discharge. Do not anticipate further OT needs while hospitalized. Anticipated Discharge Disposition: home with home health Pager: [phone] Becca Corbin OT 07/09/2017 Occupational Therapy Rehabilitation Department 2017 OT Evaluation Code Rationale: ?? Diagnosis & Pertinent Co-Morbidities affecting Plan of Care: see PMHx above ?? Clinical presentation: Stable Evolving Unstable x ?? Occupational Profile & Client History: Brief Expanded Extensive x ?? Assessment of Occupational Performance: 1-3 performance deficits x 3-5 performance deficits 5 + performance deficits Clinical decision making of low complexity using standardized patient assessment instrument and measurable assessment of functional outcome. Initial Assessments - Pablo Junior RN - 07/09/2017 9:57 AM EDT Office of Care Management Initial Assessment Pablo Junior RN reviewed record and discussed patient with Care Team. Source of Information: patient Introduced self/reviewed role; services accepted. Reason for Hospitalization: Reason for Admission as Stated by Patient: Knee Surgery No past medical history on file. Hospitalizations Within the Past 30 Days: no Anticipated Length Of Stay (If known): overnight Current Decision-Making Capacity: yes Advance Care Planning: Yes, on file here Current Coping/Education/Information Needs: patient appears to understand hospital course and followup plans Current Functional Ability: up with walker Functional Status Prior to Admission: normally independent at home Home Environment: one story, 3 steps with railing to enter Social & Family Supports/Community Resources: , lives with , [facility] History: none Substance Use/Abuse: one cup of coffee a day, 2-3 cigarettes a day, rare alcohol Other Pertinent/Service Specific Information:none Health/Prescription Coverage: Primary Insurance: [employer] Secondary Insurance: N/A Prescription Coverage: yes [facility]erred Pharmacy: [facility] [place] Other: none Primary Care Provider: Santhosh Herron MD [phone] Patient/Caregiver Goals of Treatment: rehab and return to active lifestyle Potential Needs for Transition of Care: Rehab/SNF: no Home Health: [facility] DME: has all the equipment she needs at home Dialysis: n/a Community Resources: other family in area Transportation: family will provide Other: none Anticipated Barriers to Discharge/Special Considerations: none Plan:discharge to home with family today with [facility] A member of the Care Management team will continue to monitor progress, follow for continuity of care and assist with transition of care planning. Pablo Junior RN Pager: [phone] Op Note - Bernarda Hatch MD - 07/08/2017 4:51 PM EDT [facility] [place] Patient Name: Alicia Main : [id number] MR#: [id number] Case Date: 07/08/2017 Surgeon: Surgeon(s) and Role: * Bernarda Hatch MD - Primary * Bimal Sampson PA * Vinita Gonzalez MD - Resident-Surgeon Chief Preoperative diagnosis: RIGHT Failed Total Knee Replacement, RIGHT KNEE Postoperative diagnosis: RIGHT Failed Total Knee Replacement, RIGHT KNEE Procedure(s) (LRB): RIGHT TOTAL KNEE REVISION ARTHROPLASTY, COMPLETE (WRVU 27.11) (Right) MODIFIER, ATTUNE CURVED FIXED PLATFORM, DEPUY (Right) Anesthesia: General Estimated Blood Loss: 200 CC FLUIDS: 800 CC CRYSTALLOID Specimens removed during surgery: None Drains: NONE Urine Output: NO BUCIO Tourniquet Time: 52 minutes. Right TKR Post OP RT Intra Op Knee Flexion (degrees): 115 RT Intra Op Knee Extension (degrees): 0 RT Intra Op Stability Ap Translation: <5mm RT Intra Op Stability Varus: <5mm RT Intra Op Stability Valgus: <5mm RT Lateral Release Performed: No RT Intra Op Bone Cement : Antibiotic RT Surgical Prep: Duraprep, Other (comment) RT Intra Op Surgical Approach: Quad Split RT Intra Op FX at Index Surgery: No RT Skin Closure: Elena Implant Name Type Inv. Item Serial No. Windows Application Administrator Lot No. [id number] No. Used Action CEMENT,BNE,SMARTSET,GHV,40G ([id number]) - [id number] IMPLANTS CEMENT,BNE,SMARTSET,GHV,40G ([id number]) Depuy Police Chief - [id number] Right 1 Implanted INSER,ATTUNE,CR,FB,SZ5,5MM ([id number]) (AUTOREQ) - [id number] IMPLANTS INSER,ATTUNE,CR,FB,SZ5,5MM ([id number]) (AUTOREQ) Depuy Police Chief - [id number] Right 1 Implanted COMPO,ATTUNE,FEM,CR,SZ5,RT ([id number]) (AUTOREQ) - [id number] IMPLANTS COMPO,ATTUNE,FEM,CR,SZ5,RT ([id number]) (AUTOREQ) Depuy Police Chief - [id number] Right 1 Implanted TRAY,ATTUNE,FB,TIB,BSE,SZ4 ([id number]) (AUTOREQ) - [id number] IMPLANTS TRAY,SHENG,FB,TIB,BSE,SZ4 ([id number]) (AUTOREQ) Depuy Police Chief - [id number] Right 1 Implanted SHENG HERNANDEZ MDL,KEKE,35MM ([id number]) (AUTOREQ) - [id number] IMPLANTS SHENG HERNANDEZ MDL,KEKE,35MM ([id number]) (AUTOREQ) Depuy Police Chief - [id number] Right 1 Implanted INDICATIONS: The patient presented to the orthopaedic surgery clinic with severe RIGHT knee pain with a painful unicompartmental implant that was determined to be loose on pre-op work up. 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 The patient had failed allevidence based non-operative treatments and elected to proceed with surgery. The risks and benefits of operative treatment including bleeding, infection, need for revision, fracture, damage to nerves and blood vessels, hematoma, DVT, PE, and cardiopulmonary complications, and the patient elected to proceed with surgery. I met with the patient prior to surgery in the pre-op holding area and all questions were answered. Informed consent was signed in the clinic during the pre-op visit and the surgicalsite was marked with a green [place] in the pre-op area. DESCRIPTION OF PROCEDURE: PATIENT IDENTIFICATION, POSITIONING AND OPERATIVE SITE PREPARATION: After careful identification of the patient in the holding area and confirmation of the procedure,correct side and site, the patient was transferred to the operating room. Anesthesia was administered by the anesthesiology staff. Adductor canal nerve block had previously been placed in the holding area. Antibiotic prophylaxis was given within the appropriate timeframe. The patient was positioned on the operating room table in the supine position with all pressure points padded and safety restraints placed. Pneumatic compression devices and compression stockings were placed when appropriate. The lower extremity was then prepped and draped in the usual sterile fashion. TIME-OUT FOR SAFE SURGERY: Time-out for safe surgery was undertaken and all agreed that the site was correct, procedure was confirmed, allergies, antibiotics, DVT prophylaxis and any other essential medications were confirmed. Imaging needs were confirmed and relevant images were displayed and reviewed with the team. The operative team was engaged throughout and agreed that we should proceed. DETAILS OF THE PROCEDURE: The limb was exsanguinated and tourniquet inflated. Using a #10 blade, a curvilinear skin incision was then carried out utilizing the previous medial incision. Dissection was carried down to the level of the extensor mechanism. Using a medial parapatellar arthrotomy, the knee joint was then entered. The patient was found to have a loose tibia and a loose femur with gentle manipulation. These were removed with minimal bone loss and thin osteotomes and a bone tamp. A medial subperiosteal peel was then undertaken using Bovie electrocautery. A portion of the patellar fat pad was taken down. The lateral patellofemoral ligaments were released with scissors. The soft tissue was released circumferentially around the patella to allow for easier eversion. Care was takento protect the extensor mechanism during this release. The knee was then carefully flexed up. Careful attention was paid to the tibial tubercle to be sure that there was no violation of the patellar tendon insertion as we flexed. The anterior cruciate ligament was then released as well as the anterior horn of the lateral meniscus. The tibia was subluxated forward using a blunt Hohmann and attention was turned to tibial cut. Theextramedullary tibial alignment guide was placed and set for a 9 mm resection off the less involved lateral compartment. This allowed for a 1 mm resection off the medial surface. The alignment shantel was set in the center of the ankle joint. Appropriate posterior slope was then set. The guide was then pinned into position. Proximal tibial resection was undertaken using an oscillating saw. Care was takento protect the medial and lateral collateral ligaments during the cut. The bone was removed and examined to confirm planned resection. We had excellent alignment. Attention was then turned to the femur. The femoral canal was opened using a starting drill just anterior to the PCL insertion. The canal was irrigated and suctioned prior to insertion of the intramedullary guide shantel. This was then placed and set for the appropriate valgus angle of 5 degrees. The distal femoral cut guide was then placed and set for a 9 mm resection. This was then pinned into position. The cut depth was checked with an mallory wing. The oscillating saw was then used to perform the distal femoral cut. This just undermined the femoral component and we then used flexible osteotomes to finish removing the femoral component. The cut was freshened. All cement was removed from the femur andthe tibia. The extension gap was checked and found to be 5 mm. The gap balancing guide was then placed. The femur was sized and the flexion gap was matched to the previously determined 5 mm extension gap. The appropriate sized cut block was then pinned into position. The flexion gap was checked with this. The cut depth was checked with an mallory wing. The anterior cut was performed followed by the posterior cuts. The anterior and posterior chamfer cuts were then performed. Appropriate soft tissue releases were used where necessary to balance them. We then placed the trialfemoral component followed by the trial tibia and polyethylene. The knee was brought up to full extension. It was found to have good stability to varus and valgus stresses in both flexion and extension. We then proceeded with the patellar preparation. The patellar thickness was then measured with caliper. We then used the Attune patellar clamp technique to remove the articular surface. The patella wasmeasured and the appropriate-sized jig used to prepare the drill holes. Patellar trial was placed and caliper measurement reconfirmed to assure that there was no over-stuffing of the patellofemoral joint. The patellar trial was placed and taken through range of motion. It was found to track well without any evidence of liftoff. The trial components were then removed and the final preparation of the tibia was undertaken. The tibia was exposed and the trial placed. It was pinned into position taking careto maintain the appropriate external rotation and adequate tibial coverage. This was then completed using the step drill and broach. All bony surfaces were then thoroughly irrigated using normal saline pulsatile lavage. The components were opened onto the field. Cement mixing was begun on the back table using vacuum technique. We then placed cement onto the tibial component and the tibial plateau and digitally pressurized it into the bone. We then placed the tibial component and impacted into position using an impactor and mallet.Excess cement was removed with a [place]. The tibial polyethylene insert was impacted into place. We then placed the cement onto the anterior and distal aspects of the femur. The cement was placed on theposterior aspect of the prosthetic condyles. The femoral component was then placed and impacted into position. Excess cement was removed with a [place]. The polyethylene trial was then placed and the knee brought out to full extension where it was held for the entire polymerization time. Cement was thenpressurized into the patellar bone and the patellar component placed. The patella was clamped. Excess cement was removed with a [place]. After all cement had hardened, the knee was flexed up and we checked the posterior femoral condyles for cement. We also subluxated the tibia forward and checked for any remaining cement. It was removed with an osteotome and rongeurs where necessary. 30 cc of 0.25% marcaine with 1:250,000 epinephrine was placed in the meniscal scars and the posterior capsule. The knee was thoroughly irrigated using normal saline pulsatile lavage. It was taken through a full range of motion and had excellent stability to varus and valgus testing in both flexion and extension. The final alignment was excellent. The patella tracked well without liftoff using the no thumbs technique. The wound was irrigated once again. WOUND CLOSURE: The arthrotomy was then closed using #2 Quill. The deep fat layer was closed with 0 Vicryl. The deepdermal layers were closed using 3-0 vicryl. The skin was then closed using elena. The wound was cleansed, dried, and dressing consisting of Mepilex silver was applied. This was then secured with Fredis b andages. The patient was awakened by the anesthesiology staff and transferred to the [facility]. Sequential compression devices were placed. INSTRUMENT COUNT: At the conclusion of the procedure, all sponge, sharps, instruments, and other back table items counts were correct as performed by the nursing team indicating that there were no retained objects. EVENTS: There appeared to be no intraoperative complications and the Anesthesia team deemed the patient stable throughout the procedure. FINAL TIMEOUT AND DISPOSITION: The team performed a final timeout confirming procedure, blood loss and specimen if indicated.The patient was taken to the postanesthesia care unit in stable condition. There appeared to be no intraoperative complications. POSTOPERATIVE PLAN: Weight bearing status of operative extremity: Weight bearing as tolerated Wound closure: Elena (remove 10-14 days) Dressing changes: Mepilex Silver (Do not remove for 7 days. Dry Dressings PRN after that) Follow-up Plan: As scheduled prior to surgery Anticoagulation: PEPPER ARM B Any possible barriers to discharge: None Plan for hospital stay: Standard Anticipated Length of Stay: 2 days. Surgical Closure: Primary Closure - closure of ALL tissue levels during the original surgery regardless of wires, wickes, drains, or other devices extruding through the incision Disposition: awakened from anesthesia, extubated and taken to the recovery room in a stable condition, having suffered no apparent untoward event. Condition: doing well without problems Infection Bundle used? N/A Attestation: Case Date: 07/08/2017 I was present and I participated during the entire procedure (does not need to include opening and closing). BERNARDA HATCH MD 07/08/2017 documented in this encounter Plan of Treatment Scheduled Referrals Name Type Priority Associated Order Schedule Diagnoses Referral for Outpatient Routine Acute pain of Ordered: Anticoagulation Referral right knee 07/09/2017 Monitoring Referral to Physical Outpatient Routine Acute pain of Ordere d: Therapy Referral right knee 07/09/2017 documented as of this encounter Procedures Procedure Name Priority Date/Time Associated Diagnosis Comme nts GEOLOGIST PETROLEUM 07/10/2017 12:00 Results for this SCAN AM EDT procedure are i n the results section. HEMOGRAM Routine 07/09/2017 4:45 Results for this AM EDT procedure are i n the results section. DIFFERENTIAL, Routine 07/09/2017 4:45 Results for this AUTOMATED AM EDT procedure are i n the results section. PROTHROMBIN TIME Routine 07/09/2017 4:45 Results for this AM EDT procedure are i n the results section. CBC (WITH DIFF) Routine 07/09/2017 4:45 AM EDT BASIC METABOLIC Routine 07/09/2017 4:45 Results f or this PANEL (NON-FASTING) AM EDT procedur e are in the results section. PROTHROMBIN TIME Routine 07/08/2017 9:35 Results for this PM EDT procedure are i n the results section. MODIFIER, ATTUNE Yes 07/08/2017 3:20 Status post CURVED FIXED PM EDT unicompartmental knee PLATFORM, DEPUY replacement, rig ht Pain of right lower extremity @TOTAL KNEE Yes 07/08/2017 3:20 Status post REVISION PM EDT unicompartmental knee ARTHROPLASTY, replacement, rig ht COMPLETE (WRVU Pain of right lower 27.11) extremity IMPLANTABLE DEVICES 07/08/2017 12:00 Resu lts for this SCAN AM EDT procedure are i n the results section. documented in this encounter Results SCAN DOC: GEOLOGIST PETROLEUM (07/10/2017 12:00 AM EDT) Anatomical Region Laterality Modality Other Narrative 07/10/2017 12:00 AM EDT This result has an attachment that is no t available. Ordered by an unspecified provider. Scanning Provider MEDIA MGR SCAN EXT ORDR/RSLT (ABNORMAL) Differential, Automated (07/09/2017 4:45 AM EDT) [facility] Method Time Signature Neutrophils % 87.9 % [facility] Neutr Abs (ANC) 12.72 (H) 1.70 - [facility] 6.10 [facility] x10(3)/[facility] LABORATORY Lymphocytes % 7.7 % [facility] Lymphocytes Abs 1.1 0.9 - 3.2 [facility] x10(3)/[facility] LABORATORY Monocytes % 3.8 % [facility] Monocyte Abs 0.6 0.3 - 0.9 [facility] x10(3)/[facility] LABORATORY Eosinophils % 0.0 % [facility] Eosinophils Abs 0.0 0.0 - 0.4 [facility] x10(3)/[facility] LABORATORY Basophils % 0.1 % [facility] Basophils Abs 0.0 0.0 - 0.1 [facility] x10(3)/[facility] LABORATORY Immature Gran % 0.50 % [facility] Comment: Immature granulocytes(IG's)percentage an d absolute count will include metamyelocytes, myelocytes, and promyelo cytes. Blood smears from CBCs yielding IG's will be scanned manually for concor dance. If this scan disagrees with the automated IG or if promyelocytes are not ed, a manual differential will be performed. Chelo Gran Abs 0.07 (H) 0.00 - 0.04 x10(3)/[facility] LABORATORY Specimen Anatomical Collection Method Collection Time Receive d Time (Source) Location / / Volume Laterality Blood specimen 07/09/2017 4:45 AM 017 5:03 (specimen) EDT AM EDT Resulting Agency Comment Spec In Lab Bernarda Hatch MD HEMATOLOGY ORDERABLES Performing Organization Address City/State/[place] [address] (ABNORMAL) Hemogram (07/09/2017 4:45 AM EDT) Analysis Performed At Patho logist Time Signature WBC 14.5 (H) 4.0 - 9.5 [facility] x10(3)/[facility] LABORATORY RBC 3.75 (L) 4.00 - JOELLE REARDONDELFINA 5.21 [facility] x10(6)/[facility] LABORATORY Hemoglobin 11.8 11.7 - [facility] 15.5 gm/dL [facility] Hematocrit 34.3 (L) 35.7 - [facility] 45.8 % [facility] MCV 91.5 82.6 - [facility] 94.4 [facility] LABORATORY MCH 31.5 27.1 - [facility] 32.0 pg [facility] MCHC 34.4 31.7 - [facility] 35.0 gm/dL [facility] Platelets 152 145 - 357 [facility] x10(3)/[facility] LABORATORY RDWSD 42.1 37.0 - [facility] 46.0 [facility] LABORATORY RDWCV 12.8 11.5 - [facility] 14.1 % [facility] LABORATORY MPV 11.0 7.6 - 12.9 [facility] LABORATORY nRBC % Auto 0.0 % [facility] nRBC Abs Auto 0.000 0[facility]000 - [facility] x10(3)/[facility] LABORATORY Specimen Anatomical Collection Method Collection Time Receive d Time (Source) Location / / Volume Laterality Blood specimen 07/09/2017 4:45 AM 017 5:03 (specimen) EDT AM EDT Resulting Agency Comment Spec In Lab Bernarda Hatch MD HEMATOLOGY ORDERABLES Performing Organization Address City/State/[place] [address] Prothrombin Time (07/09/2017 4:45 AM EDT) P athologist Signature PT 14.7 12.0 - 15.0 [facility] LABORATORY Comment: An INR <2.0 indicates adequate procoagul ant activity for hemostasis in most patients without underlying bleeding dis orders, though the INR may not adequately reflect hemostatic capacity i n patients with liver disease and synthetic impairment. The recommended ta rget INR range for therapeutic anticoagulation is 2.0 ? 3.0 for most applications, though lower and higher ranges may be appropriate depending on c linical circumstances. INR 1.1 0.9 - 1.1 [facility] Specimen Anatomical Collection Method Collection Time Receive d Time (Source) Location / / Volume Laterality Blood specimen 07/09/2017 4:45 AM 017 5:03 (specimen) EDT AM EDT Resulting Agency Comment Spec In Lab Bernarda Hatch MD HEMATOLOGY ORDERABLES Performing Organization Address City/State/[place] [address] (ABNORMAL) Basic Metabolic Panel (non-fasting) (07/09/2017 4:45 AM EDT) athologist Signature Glucose Lvl 141 65 - 199 [facility] mg/dL [facility] Comment: Diabetes: >=200 mg/dL plus symp toms BUN 8 8 - 18 mg/dL [facility] Creatinine 0.73 0.70 - 1.20 mg/dL [facility] Comment: Please note that the pediatric reference intervals supplied above were not validated [place] [facility] Results from pediatri c patients should be interpreted in conjunction to the patient's age, height and muscle mass. Sodium 137 135 - 145 mmol/L [facility] Potassium 4.4 3.5 - 5.0 mmol/L [facility] Comment: Please note: ??Patients with WBC >100,00 0 may have falsely elevated Potassium levels. ??For accurate Potassium quantif ication in these patients send serum separator tube (gold top) for subsequent determinations. ??Contact the Clinical Chemistry Laboratory if there are any qu estions. Chloride 101 98 - 107 mmol/L [facility] CO2 20 (L) 22 - 31 mmol/L [facility] Anion Gap 16 (H) 5 - 15 mmol/L [facility] Calcium 8.5 8.5 - 10.5 mg/dL [facility] Estimated GFR >60 >=60 [facility] Comment: This estimated GFR (eGFR) value was calc ulated using the MDRD equation which has been validated on patients between t he ages of 18 and 70. The MDRD should not be used to assess kidney function in patients < 18 years of age or in patients with extremes of body mass, or in patients with acute kidney failure. This value should be multiplied by 1.2 f or patients. For further information please copy and past e the following links into your internet browser. http://Pluromed/DHnkdep http://Pluromed/DHMCnkf Specimen Anatomical Collection Method Collection Time Receive d Time (Source) Location / / Volume Laterality Blood specimen 07/09/2017 4:45 AM 017 5:03 (specimen) EDT AM EDT Resulting Agency Comment Spec In Lab Bernarda Hatch MD CHEMISTRY ORDERABLES Performing Organization Address [facility] [place] [address] Prothrombin Time (07/08/2017 9:35 PM EDT) P athologist Signature PT 14.1 12.0 - 15.0 [facility] LABORATORY Comment: An INR <2.0 indicates adequate procoagul ant activity for hemostasis in most patients without underlying bleeding dis orders, though the INR may not adequately reflect hemostatic capacity i n patients with liver disease and synthetic impairment. The recommended ta rget INR range for therapeutic anticoagulation is 2.0 ? 3.0 for most applications, though lower and higher ranges may be appropriate depending on c linical circumstances. INR 1.0 0.9 - 1.1 [facility] Specimen Anatomical Collection Method Collection Time Receive d Time (Source) Location / / Volume Laterality Blood specimen 07/08/2017 9:35 PM 017 9:40 (specimen) EDT PM EDT Resulting Agency Comment Spec In Lab Bernarda Hatch MD HEMATOLOGY ORDERABLES Performing Organization Address [facility] Phon e Number [address] SCAN DOC: IMPLANTABLE DEVICES (07/08/2017 12:00 AM EDT) Narrative 07/08/2017 12:00 AM EDT This result has an attachment that is no t available. Ordered by an unspecified provider. Scanning Provider MEDIA MGR SCAN EXT ORDR/RSLT documented in this encounter Visit Diagnoses Diagnosis s/p conversion of uni to R TKA 07/08/17 Damian rose Hatch - Primary Knee joint replacement by other means Acute pain of right knee documented in this encounter Admitting Diagnoses Diagnosis S/P revision of total knee Knee joint replacement by other means documented in this encounter Administered Medications Inactive Administered Medications - up to 3 most recent administrations Medication Order MAR Action Action Date Dose Rate Site acetaminophen (TYLENOL) tablet Given 07/08/2017 1:51 PM EDT 1,00 0 mg 1,000 mg 1,000 mg, Oral, ONCE, 1 dose, On Fri07/08/17 at 1400, Administer on arrival in Same Day Program, Day of Surgery (Day of Procedure), Routine acetaminophen (TYLENOL) tablet 1,000 mg Given 07/09/2017 2:03 PM EDT 1,000 mg 1,000 mg, Oral, EVERY 8 HOURS SCHEDULED, First dose on Fri07/08/17 at 2200, Until Discontinued, Maximum dose of acetaminophen is 4000 mg from all sources in 24 hours., Routine Given 07/09/2017 6:04 AM EDT 1,000 mg Given 07/08/2017 10:11 PM EDT 1,000 mg ceFAZolin (ANCEF) 1g in dextrose 5% New Bag 07/09/2017 11:30 A M EDT 1 g 100 mL/hr 50mL 1 g, Intravenous, EVERY 8 HOURS, 3 doses, First dose on Fri07/08/17 at 1930, Last dose on Fri07/09/17 at 1130, Administer over 30 Minutes, Adjust to 4 hours from intraoperative dose. * Beta-lactam based antibiotics (eg. Ampicillin, Cefazolin, Aztreonam) should be administered within 4 hours of the preceding intraoperative dose. * Vancomycin, Flouroquinolones, Clindamycin, Gentamicin, and Metronidazole should be administered within 8 hours of the preceding intraoperative dose., Recovery (Recovery-Hospital Unit), Indication for (Active or Suspected): Prophylaxis New Bag 07/09/2017 4:06 AM EDT 1 g 100 mL/hr New Bag 07/08/2017 7:40 PM EDT 1 g 100 mL/hr celecoxib (CeleBREX) capsule 200 mg Given 07/09/2017 8:17 AM EDT 200 mg 200 mg, Oral, 2 TIMES DAILY, First dose on Fri07/08/17 at 2130, Until Discontinued, Routine Given 07/08/2017 10:12 PM EDT 200 mg celecoxib (CeleBREX) capsule 400 mg Given 07/08/2017 1:51 PM EDT 400 mg 400 mg, Oral, ONCE, 1 dose, On Fri07/08/17 at 1400, Administer on arrival to Same Day Program, Day of Surgery (Day of Procedure), Routine dexamethasone (DECADRON) tablet 4 mg Given 07/09/2017 8:16 AM EDT 4 mg 4 mg, Oral, DAILY, 2 doses, First dose on Fri07/09/17 at 0900, Last dose on Fri07/10/17 at 0900, Routine fentaNYL 50mcg/mL injection Given 07/08/2017 2:13 PM EDT 25 mcg 25-50 mcg, Intravenous, EVERY 5 MIN PRN, Starting on Fri07/08/17 at 1339, Until Fri07/08/17 at 1427, nerve block, Day of Surgery (Day of Procedure), Routine gabapentin (NEURONTIN) capsule 300 mg Given 07/08/2017 1:51 PM EDT 300 mg 300 mg, Oral, ONCE, 1 dose, On Fri07/08/17 at 1400, Administer on arrival in Same Day Program, Day of Surgery (Day of Procedure), Routine gabapentin (NEURONTIN) capsule 600 mg Given 07/09/2017 2:40 PM EDT 600 mg 600 mg, Oral, 3 TIMES DAILY, First dose on Fri07/08/17 at 2130, Until Discontinued, Routine Given 07/09/2017 8:17 AM EDT 600 mg Given 07/08/2017 10:11 PM EDT 600 mg HYDROmorphone (DILAUDID) syringe 0.2-0.4 mg Given 07/08/2017 6:47 PM EDT 0.4 mg 0.2-0.4 mg, Intravenous, EVERY 5 MIN PRN, Pain, Starting on Fri07/08/17 at 1705, Until Fri07/08/17 at 2049, For moderate pain (4-6) give: 0.2 mg every 5 minute prn For severe pain (7-10) give: 0.4 mg every 5 minutes prn Maximum dose: 4 mg per hour Hold for respiratory rate less than 10 per minute., PACU Recovery Given 07/08/2017 5:33 PM EDT 0.4 mg ketorolac (TORADOL) injection 15 mg Given 07/09/2017 11:22 AM EDT 15 mg 15 mg, Intravenous, EVERY 6 HOURS SCHEDULED, 4 doses, First dose on Fri07/08/17 at 1800, Last dose on Fri07/09/17 at 1200, Routine Given 07/09/2017 6:04 AM EDT 15 mg Given 07/09/2017 12:06 AM EDT 15 mg magnesium citrate oral solution 300 mL 300 mL, Oral, DAILY PRN, Starting on Fri07/08/17 at 21 08, Until Fri07/09/17 at 1738, Constipation, Administer if needed per patient's routine or if no bowel movement within 48 hours to achieve: 1) One bowel movement at least every 48 hours, AND 2) Without straining. May repeat times 1 in 4 hour s., Routine magnesium citrate oral solution 300 mL 300 mL, Per G Tube, DAILY PRN, Starting on Fri07/08/17 at 2108, Until Fri07/09/17 at 1738, Constipation, Administer if nee ded per patient's routine or if no bowel movement within 48 hours to achieve: 1) One bowel movement at least every 48 hours, AND 2) Without straining. May repeat times 1 in 4 hour s., Routine midazolam (PF) (VERSED) 1 mg/mL injection 1-2 Given 07/08/20 2:12 PM EDT 1 mg mg 1-2 mg, Intravenous, EVERY 5 MIN PRN, Starting on Fri07/08/17 at 1339, Until Fri07/08/17 at 1427, nerve block, Day of Surgery (Day of Procedure), Routine multivitamin Rsju-Od-SW-Min (THERAPEUTIC-M) Given 06/21 9:00 AM EDT 1 tablet 27-0.4 mg tablet 1 tablet 1 tablet, Oral, DAILY, First dose on Fri07/09/17 at 0900, Until Discontinued nicotine (NICODERM CQ) 14 Given 07/09/2017 8:18 AM EDT 14 mg 04- Shoulder (Right) mg/24 hr patch 14 mg 14 mg, Transdermal, DAILY, First dose on Fri07/09/17 at 0900, Until Discontinued, Routine nicotine (NICODERM CQ) patch REMOVAL Transdermal, DAILY, First dose on Fri at 0900, Until Discontinued, Remove Nicotine Patch ondansetron (ZOFRAN) injection 4 mg 4 mg, Intravenous, EVERY 8 HOURS PRN, St arting on Fri07/08/17 at 1741, Until Fri07/09/17 at 1738, Nausea, May repeat time s one in 30 minutes if ineffective. If multiple antiemetics are ordered, use ondanstron first , Recovery (Recovery-Hospital Unit) ondansetron (ZOFRAN) tablet 4 mg 4 mg, Oral, EVERY 8 HOURS PRN, Starting on Fri07/08/17 at 1741, Until Fri07/09/17 at 1738, Nausea, Vomiting, If multipl e antiemetics are ordered, use ondansetron first. PO Preferred. If patient unable to take PO, may give IV if ordered. May repeat times one in 45 minutes if ineffe ctive., Recovery (Recovery-Hospital Unit), Routine oxyCODONE (ROXICODONE) immediate release Given 07/09/2017 2:02 P M EDT 10 mg tablet 5-15 mg 5-15 mg, Oral, EVERY 4 HOURS PRN, Starting on Fri07/08/17 at 1741, Until Fri07/09/17 at 1738, Pain, Give 5 mg for mild pain (1-3), 10 mg for moderate pain (4-6) or 15 mg for severe pain (7-10) May give an additional 5 mg in 30 minutes ONCE if pain not relieved., Routine Given 07/09/2017 8:18 AM EDT 10 mg Given 07/09/2017 4:06 AM EDT 10 mg pantoprazole (PROTONIX) tablet 20 mg Given 07/09/2017 8:17 AM EDT 20 mg 20 mg, Oral, DAILY, First dose on Fri07/09/17 at 0900, Until Discontinued, DO NOT CRUSH OR OPEN, Routine polyethylene glycol (MIRALAX) packet 17 g Given 07/09/2017 8:17 AM EDT 17 g 17 g, Oral, 2 TIMES DAILY, First dose on Fri07/08/17 at 2130, Until Discontinued, Routine Given 07/08/2017 10:15 PM EDT 17 g prochlorperazine (COMPAZINE) injection 1 0 mg 10 mg, Intravenous, EVERY 6 HOURS PRN, S tarting on Fri07/08/17 at 1741, Until Fri07/09/17 at 1738, Nausea, Vomiting, If multiple anti emetics are ordered, use ondansetron first. If ondansetron ineffe ctive use prochlorperazine. , Recovery (Recovery-Hospital Unit), Routine prochlorperazine (COMPAZINE) tablet 10 m g 10 mg, Oral, EVERY 6 HOURS PRN, Starting on Fri07/08/17 at 1741, Until Fri07/09/17 at 1738, Nausea, Vomiting, If multipl e antiemetics are ordered, use ondansetron first. If ondansetron ineffective use pr ochlorperazine. PO Preferred. If patient unable to take PO, may give IV if ordered., Recovery ( Recovery-Hospital Unit), Routine senna-docusate (PERICOLACE) 8.6-50 mg per Given 2016 8:17 AM EDT 2 tablets tablet 2 tablet 2 tablet, Oral, 2 TIMES DAILY, First dose on Fri07/08/17 at 2130, Until Discontinued, Routine Given 07/08/2017 10:11 PM EDT 2 tablets sodium chloride 0.9 % flush 5 mL Given 07/09/2017 8:18 AM EDT 5 mLs 5 mL, Intravenous, 2 TIMES DAILY, First dose on Fri07/08/17 at 2130, Until Discontinued, Recovery (Recovery-Hospital Unit), Routine Given 07/08/2017 10:12 PM EDT 5 mLs sodium chloride 0.9% infusion New Bag 07/08/2017 5:56 PM EDT 1,000 mLs 100 mL/hr 1,000 mL, at 100 mL/hr, Intravenous, CONTINUOUS, Starting on Fri07/08/17 at 1800, Until Fri07/09/17 at 1738, Recovery (Recovery-Hospital Unit) documented in this encounter Active and Recently Administered Medications Times are shown in EDT. Scheduled Medication Order 07/07/2017 07/08/2017 07/09/2017 acetaminophen (TYLENOL) tablet 1,000 mg (COMPLETED) 1351 (Given - Provider: Melva Sewell RN) 1,000 mg, Oral, ONCE, 1 dose, Fri 7 at 1400, Administer on arrival in Same Day Program, Day of Surgery (Day of Procedure), Routine acetaminophen (TYLENOL) tablet 1,000 mg 2211 (Given - Provider: Joelle Quinteros RN) 0604 (Given - Provider: Roro Short)1403 (Given - Provider: Neris Gastelum, LIDIA) 1,000 mg, Oral, EVERY 8 HOURS SCHEDULED, First dose on Fri07/08/17 at 2200, Until Discontinued, Maximum dose of acetaminophen is 4000 mg from all sources in 24 hours., Routine ceFAZolin (ANCEF) 1g in dextrose 5% 50mL (COMPLETED) 1940 (New Bag - Provider: Shelby Mario RN)2010 (Stopped - Provider: Shelby Mario RN) 0406 (New Bag - Provider: Joelle Quinteros RN)0436 (Stopped - Provider: Joelle Quinteros RN)1130 (New Bag - Provider: Neris Gastelum, LIDIA)1200 (Stopped - Provider: Neris Gastelum, LIDIA) 1 g, Intravenous, EVERY 8 HOURS, 3 doses , First dose on Fri07/08/17 at 1930, Last dose on Fri07/09/17 at 1130, Administer over 30 Minutes, Adjust to 4 hours from intraoperative dose. * Beta-lactam based antibiotics (eg. Ampicillin, Cefazolin, Aztreonam) should be administered within 4 hours of the preceding intraoperative dose. * Vancomycin, Flouroquinolones, Clindamycin, Gentamicin, and Metronidazole should be administered within 8 hours o f the preceding intraoperative dose., Recovery (Recovery-Hospital Unit), Indication for (Active or Suspected): Prophylaxis ceFAZolin (ANCEF) 2g in dextrose 5% 100 mL (COMPLETED) 1528 (Given - Provider: Damaso Morales CRNA) 2 g, Intravenous, EVERY 3 HOURS, 1 dose, First dose on Fri07/08/17 at 1415, Administer over 30 Minutes, Redose after 3 hours., Intra-Operative (Intra- Procedure), Indication for (Active or Suspected): Prophylaxis celecoxib (CeleBREX) capsule 200 mg 2212 (Given - Provider: Joelle Quinteros RN) 0817 (Given - Provider: Neris Gastelum RN) 200 mg, Oral, 2 TIMES DAILY, First dose on Fri07/08/17 at 2130, Until Discontinued, Routine celecoxib (CeleBREX) capsule 400 mg (COMPLETED) 135 (Given - Provider: Melva Sewell RN) 400 mg, Oral, ONCE, 1 dose, Fri07/08/17 at 1400, Administer on arrival to Same Day Program, Day of Surgery (Day of Procedure), Routine dexamethasone (DECADRON) tablet 4 mg 0816 (Given - Provider: Neris Gastelum RN) 4 mg, Oral, DAILY, 2 doses, First dose o n Fri07/09/17 at 0900, Last dose on Fri07/10/17 at 0900, Routine gabapentin (NEURONTIN) capsule 300 mg (COMPLETED) 135 (Given - Provider: Melva Sewell RN) 300 mg, Oral, ONCE, 1 dose, Fri07/08/17 at 1400, Administer on arrival in Same Day Program, Day of Surgery (Day of Procedure), Routine gabapentin (NEURONTIN) capsule 600 mg 22 11 (Given - Provider: Joelle Quinteros RN) 0817 (Given - Provider: Neris Gastelum, LIDIA)1440 (Given - Provider: Neris Gastelum RN) 600 mg, Oral, 3 TIMES DAILY, First dose on Fri07/08/17 at 2130, Until Discontinued, Routine ketorolac (TORADOL) injection 15 mg (COMPLETED) 175 (Given - Provider: Xochitl John RN) 0006 (Given - Provider: Joelle Quinteros, Roro N)0604 (Given - Provider: Joelle Quinteros, LIDIA)1122 (Given - Provider: Neris Gastelum RN) 15 mg, Intravenous, EVERY 6 HOURS SCHEDU LED, 4 doses, First dose on Fri07/08/17 at 1800, Last dose on Fri07/09/17 at 1200, Routine multivitamin Rang-Ld-KO-Min (THERAPEUTIC-M) 27-0.4 mg tablet 1 t ablet 0900 (Given - Provider: Neris Gastelum RN) 1 tablet, Oral, DAILY, First dose on Fri07/09/17 at 0900, Until Discontinued, Routine nicotine (NICODERM CQ) 14 mg/24 hr patch 14 mg 817 (Given - Provider: Neris Gastelum RN) 14 mg, Transdermal, DAILY, First dose on Fri07/09/17 at 0900, Until Discontinued, Routine nicotine (NICODERM CQ) patch REMOVAL 817 (Patch Removed - Provider: Neris Gastelum RN) Transdermal, DAILY, First dose on Fri at 0900, Until Discontinued, Remove Nicotine Patch pantoprazole (PROTONIX) tablet 20 mg 816 (Given - Provider: Neris Gastelum RN) 20 mg, Oral, DAILY, First dose on Fri at 0900, Until Discontinued, DO NOT CRUSH OR OPEN, Routine polyethylene glycol (MIRALAX) packet 17 g 2214 (Given - Provider: Joelle Quinteros RN) 816 (Given - Provider: Neris Gastelum RN) 17 g, Oral, 2 TIMES DAILY, First dose on Fri07/08/17 at 2130, Until Discontinued, Routine senna-docusate (PERICOLACE) 8.6-50 mg per tablet 2 tablet 2210 (Given - Provider: Joelle Quinteros RN) 816 (Given - Provider: Neris Gastelum RN) 2 tablet, Oral, 2 TIMES DAILY, First dos e on Fri07/08/17 at 2130, Until Discontinued, Routine sodium chloride 0.9 % flush 5 mL 2211 (Given - P rovider: Joelle Quinteros RN) 817 (Given - Provider: Neris Gastelum RN) 5 mL, Intravenous, 2 TIMES DAILY, First dose on Fri07/08/17 at 2130, Until Discontinued, Recovery (Recovery-Hospital Unit), Routine tranexamic acid (CYKLOKAPRON) 1,089 mg i n sodium chloride 0.9% 110.89 mL (COMPLETED) 1520 (New Bag - Provider: Damaso rangel, AQUATICS DIRECTOR) 1,089 mg (15 mg/kg/dose ? 72.6 kg), Intravenous, ONCE, 1 dose, Fri07/08/17 at 1415, Administer over 30 Minutes, Dilute tranexamic acid dose in 100 mL sodium chloride 0.9% prior to administration. For p atients less than or equal to 200 kg inf use over 30 minutes. For patients greater than 200 kg infuse over 60 minutes. , Day of Surgery (Day of Procedure) warfarin (COUMADIN) daily order reminder 1400 (Dose confirmed - Provider: Neris Gastelum RN) Oral, EVERY 24 HOURS, First dose on Fri07/09/17 at 1400, If the daily warfarin order has not been placed, contact the Provider to confirm that the order will be written, the dose is held or discontinued. warfarin (COUMADIN) tablet 5 mg 5 mg, Oral, ONCE, 1 dose, Fri07/09/17 at 1700, Routine Continuous Medication Order 07/07/2017 07/08/2017 07/09/2017 sodium chloride 0.9% infusion 1756 (New Bag - Pr ovider: Xochitl John RN) 1,000 mL, at 100 mL/hr, Intravenous, CON TINUOUS, Starting Fri07/08/17 at 1800, Until Fri07/09/17 at 1738, Recovery (Recovery-Hospital Unit) PRN Medication Order 07/07/2017 07/08/2017 07/09/2017 bacitracin injection (CANCELED) 1547 (Given - Pr ovider: Bernarda Hatch MD) ONCE PRN, Starting Fri07/08/17 at 1547, Until Fri07/09/17 at 1738, Intra- Operative (Intra-Procedure), Routine bisacodyl (DULCOLAX) EC tablet 10 mg 10 mg, Oral, 2 TIMES DAILY PRN, Starting Fri07/08/17 at 2108, Until Fri07/09/17 at 1738, Constipation, DO NOT CRUSH OR OPEN Administer if needed per patient's routine or if no bowel movement within 48 hours to achieve: 1) One bowel moveme nt at least every 48 hours, AND 2) Without straining. If multiple bowel medications ordered, consider adding bisacodyl if polyethylene glycol (MIRALAX), docusate/senna, or lactulose not sufficient., Routine bisacodyl (DULCOLAX) suppository 10 mg 10 mg, Rectal, DAILY PRN, Starting Fri at 2108, Until Fri07/09/17 at 1738, Constipation, Administer if needed per patient's routine or if no bowel movement within 48 hours to achieve: 1) One bow el movement at least every 48 hours, AND 2) Without straining. If multiple bowel medications ordered, consider adding bisacodyl if polyethylene glycol (MIRALAX), docusate/senna, or lactulose not suffici ent. If patient unable to take PO, may give IL if ordered, [place] BUpivacaine-EPINEPHrine 0.25 %-1:200,000 injection (CANCELED ) 1637 (Given - Provider: Bernarda Hatch MD) ONCE PRN, Starting Fri07/08/17 at 1637, Until Fri07/09/17 at 1738, Intra- Operative (Intra-Procedure), Routine fentaNYL 50mcg/mL injection (CANCELED) 1 413 (Given - Provider: Melva Sewell RN) 25-50 mcg, Intravenous, EVERY 5 MIN PRN, Starting Fri07/08/17 at 1339, Until Fri07/08/17 at 1427, nerve block, Day of Surgery (Day of Procedure), Routine HYDROmorphone (DILAUDID) syringe 0.2-0.4 mg (CANCELED) 1733 (Given - Provider: Shelby Mario, LIDIA)1847 (Given - Provider: Shelby Mario RN) 0.2-0.4 mg, Intravenous, EVERY 5 MIN PRN , Starting Fri07/08/17 at 1705, Until Fri07/08/17 at 2049, Pain, For moderate pain (4-6) give: 0.2 mg every 5 minute prn For severe pain (7-10) give: 0.4 mg every 5 minutes prn Maximum dose: 4 mg per ho ur Hold for respiratory rate less than 10 per minute., PACU Recovery, Routine lactulose (CHRONULAC) 20 gram/30 mL oral solution 20-40 g 20-40 g (30-60 mL), Oral, DAILY PRN, Sta rting Fri07/08/17 at 2108, Until Fri07/09/17 at 1738, Constipation, Administer if needed per patient's routine or if no bowel movement within 48 hours. Start with 30 mL orally to achieve: 1) One bowel m ovement at least every 48 hours, AND 2) Without straining. If no bowel movement within 24 hours, may increase to 60 mL orally once daily PRN. If multiple bowel me dications ordered, consider adding lactu lose first or if polyethylene glycol (MIRALAX) or docusate/senna not sufficient., Routine lidocaine (XYLOCAINE) 10 mg/mL (1 %) injection 3 mg 3 mg (0.3 mL), Subcutaneous, ONCE PRN, 1 dose, Starting Fri07/08/17 at 2108, Until Fri07/09/17 at 1738, for discomfort with PIV insertion, Recovery (Recovery-Hospital Unit), Routine magnesium citrate oral solution 300 mL(Linked Group 1) 300 mL, Oral, DAILY PRN, Starting Fri at 2108, Until Fri07/09/17 at 1738, Constipation, Administer if needed per patient's routine or if no bowel movement within 48 hours to achieve: 1) One josh l movement at least every 48 hours, AND 2) Without straining. May repeat times 1 in 4 hours., Routine magnesium citrate oral solution 300 mL(Linked Group 1) 300 mL, Per G Tube, DAILY PRN, Starting Fri07/08/17 at 2108, Until Fri07/09/17 at 1738, Constipation, Administer if needed per patient's routine or if no bowel movement within 48 hours to achieve: 1) On e bowel movement at least every 48 hours , AND 2) Without straining. May repeat times 1 in 4 hours., Routine midazolam (PF) (VERSED) 1 mg/mL injection 1-2 mg (CANCELED) 1412 (Given - Provider: Melva Sewell RN) 1-2 mg, Intravenous, EVERY 5 MIN PRN, St arting Fri07/08/17 at 1339, Until Fri07/08/17 at 1427, nerve block, Day of Surgery (Day of Procedure), Routine ondansetron (ZOFRAN) injection 4 mg(Linked Group 2) 4 mg, Intravenous, EVERY 8 HOURS PRN, St artfri07/08/17 at 1741, Until Fri07/09/17 at 1738, Nausea, May repeat times one in 30 minutes if ineffective. If multiple antiemetics are ordered, use onda nstron first, Recovery (Recovery-Hospital Unit) ondansetron (ZOFRAN) tablet 4 mg(Linked Group 2) 4 mg, Oral, EVERY 8 HOURS PRN, Starting Fri07/08/17 at 1741, Until Fri07/09/17 at 1738, Nausea, Vomiting, If multiple antiemetics are ordered, use ondansetron first. PO Preferred. If patient unable to take PO, may give IV if ordered. May repeat times one in 45 minutes if ineffective., Recovery (Recovery-Hospital Unit), Routine oxyCODONE (ROXICODONE) immediate release tablet 5-15 mg 1846 (Given - Provider: Shelby Mario RN) 0006 (Given - Provider: Roro Short)0406 (Given - Provider: Joelle Quinteros, LIDIA)0818 (Given - Provider: Neris Gastelum, LIDIA)1402 (Given - Provider: Neris Gastelum RN) 5-15 mg, Oral, EVERY 4 HOURS PRN, Starti ng Fri07/08/17 at 1741, Until Fri07/09/17 at 1738, Pain, Give 5 mg for mild pain (1-3), 10 mg for moderate pain (4-6) or 15 mg for severe pain (7-10) May give an additional 5 mg in 30 minutes ONCE if pain not relieved., Routin e povidone-iodine 5 % ophthalmic solution (CANCELED) 1548 (Given - Provider: Bernarda Hatch MD - Comment: in 500 ml of NS) ONCE PRN, Starting Fri07/08/17 at 1548, Until Fri07/09/17 at 1738, Intra- Operative (Intra-Procedure), Routine prochlorperazine (COMPAZINE) injection 10 mg(Linked Group 3) 10 mg, Intravenous, EVERY 6 HOURS PRN, S tarting Fri07/08/17 at 1741, Until Fri07/09/17 at 1738, Nausea, Vomiting, If multiple antiemetics are ordered, use ondansetron first. If ondansetron ineffectiv e use prochlorperazine. , Recovery (Recovery-Hospital Unit), R outine prochlorperazine (COMPAZINE) tablet 10 mg(Linked Group 3) 10 mg, Oral, EVERY 6 HOURS PRN, Starting Fri07/08/17 at 1741, Until Fri07/09/17 at 1738, Nausea, Vomiting, If multiple antiemetics are ordered, use ondansetron first. If ondansetron ineffective use p rochlorperazine. PO Preferred. If pat ient unable to take PO, may give IV if ordered., Recovery (Recovery-Hospital Unit), Routine sodium chloride 0.9 % flush 5-20 mL 5-20 mL, Intravenous, EVERY 1 MIN PRN, S tarting Fri07/08/17 at 2108, Until Fri07/09/17 at 1738, flush, Flush pertains to all indwelling lines. Flush per protocol found in the job aid using the link prov ided on this medication record., Recovery (Recovery-Hospital Uni t), Routine Linked Groups Order Group 1: magnesium citrate oral solution 300 mLJump to med 300 mL, Oral, DAILY PRN, Starting Fri at 2108, Until Fri07/09/17 at 1738, Constipation
Administer if needed per patient's routine or if no bowel movement within 48 hours to achi kuldip: 1) One bowel movem ent at least every 48 hours, AND 2) Without straining. May repeat times 1 in 4 hours.
Routine Or magnesium citrate oral solution 300 mLJump to med 300 mL, Per G Tube, DAILY PRN, Starting Fri07/08/17 at 2108, Until Fri07/09/17 at 1738, Constipation
Administer if needed per patient's routine or if no bowel movement within 48 hours t o achieve: 1) One bowel movement at least every 48 hours, AND 2) Without straining. May repeat times 1 in 4 hours.
Routine Group 2: ondansetron (ZOFRAN) tablet 4 mgJump to med 4 mg, Oral, EVERY 8 HOURS PRN, Starting Fri07/08/17 at 1741, Until Fri07/09/17 at 1738, Nausea, Vomiting
If multiple antiemetics are ordered, use ondansetron first. PO Preferred. If patient unable to take PO, may give IV if ordered. May repeat times one in 45 minutes if ineffective.
Recovery (Recovery-Hospital Unit), Routine Or ondansetron (ZOFRAN) injection 4 mgJump to med 4 mg, Intravenous, EVERY 8 HOURS PRN, St arting Fri07/08/17 at 1741, Until Fri07/09/17 at 1738, Nausea
May repeat times one in 30 minutes if ineffective. If multiple antiemetics are ordered, use ondanstron first
Recov mary (Recovery-Hospital Unit) Group 3: prochlorperazine (COMPAZINE) tablet 10 mgJump to med 10 mg, Oral, EVERY 6 HOURS PRN, Starting Fri07/08/17 at 1741, Until Fri07/09/17 at 1738, Nausea, Vomiting
If multiple antiemetics are ordered, use ondansetron first. If on dansetron ineffective use prochlorperazi ne. PO Preferred. If patient unable to take PO, may give IV if ordered.
Recovery (Recovery- Hospital Unit), Routine Or prochlorperazine (COMPAZINE) injection 10 mgJump to med 10 mg, Intravenous, EVERY 6 HOURS PRN, S tarting Fri07/08/17 at 1741, Until Fri07/09/17 at 1738, Nausea, Vomiting
If multiple antiemetics are ordered, use ondansetron first. &nbs p;If ondansetron ineffective use prochlo rperazine.
Recovery (Recovery- Hospital Unit), Routine documented in this encounter Care Teams Help Desk Supervisor Relationship Specialty Start Date End Date Santhosh Herron MD PCP - General Family Medicine 02/18/17 [address] [place] [id number] documented as of this encounter
--- OUTSIDE RECORDS SUMMARY | 2022-09-13 00:39 | XMS_ITS | Encounter Summary ---
:1960 Author Organization [facility] [place] [address] Care Team Providers Name Role Phone Santhosh Herron MD Primary Care Provider Encounter Details Date Type Department Care Team Description 08/04/2017 Anti-Coag Orthopaedics at [facility], Anticoagulation Telephone Visit [facility] Daria Arellano [place] [address] Social History Tobacco Use Types Packs/Day Years Used Date Smoking Tobacco: Every Day Cigarettes 0.5 40 Smokeless Tobacco: Never Comments: 3/4 to 1/2 pack a day Alcohol Use Standard Drinks/Week Comments Yes 0 (1 standard drink = 0.6 oz pure alcoho l) occasional Sex Assigned at Date Recorded Not on file documented as of this encounter Progress Notes Daria Chawla RN - 08/04/2017 2:46 PM EDT Anticoagulation Therapy Nurse Visit Alicia Campa [place] 1960 Surgeon: Dr. Hatch Indication: DVT Prophylaxis S/P Joint Replacement Duration of Treatment: 30 days ends: 30 days (last day = 08/07/17) Therapeutic Range: 2.0-3.0 INR: 2.2 Drawn by: [facility] PHONE: [phone] FAX: [phone] Patient presents with no signs of bleeding or bruising or signs of thromboembolic events related to primary diagnosis above. Follow-up for re- evaluation and safety of continuing anticoagulation. Bleeding: Epistaxis Black tarry stools Gingival bleeding Increased bruising Hematuria Other: Hemoptysis x No bleeding / bruising noted Comments: Symptoms of recurring primary event: Chest pain Dyspnea Palpitations Headache Dizziness Edema Confusion Slurred speech Weakness Visual changes Tender/Red/Swollen extremities x No symptoms reported Other: Comments: Recent Medication Changes: No Comments: Have you missed any dose of Coumadin this past week? No Comments: Dietary Changes: No Comments: documented in this encounter Plan of Treatment Not on filedocumented as of this encounter Procedures Procedure Name Priority Date/Time Associated Diagnosis Comme nts EXTERNAL LAB Routine 08/04/2017 Results for thi s HEMATOLOGY/COAG procedure ar e in the RESULTS PANEL results sectio n. documented in this encounter Results (ABNORMAL) Hematology / Coag External Results (08/04/2017) P athologist Signature POC INR 2.2 (A) 0.9 - 1.1 VISITING NURSE Specimen (Source) Anatomical Location Collection Method / Collectio n Time Received Time / Laterality Volume 08/04/2017 Historical Provider HEMATOLOGY ORDERABLES Performing Organization Address City/State/ZIP Code Phon e Number VISITING NURSE documented in this encounter Visit Diagnoses Diagnosis Anticoagulation management encounter Encounter for therapeutic drug monitorin g documented in this encounter Care Teams Inspecting Machine Adjuster Relationship Specialty Start Date End Date Santhosh Herron MD PCP - General Family Medicine 02/18/[address] [place] [id number] documented as of this encounter
--- OUTSIDE RECORDS SUMMARY | 2022-09-13 00:39 | XMS_ITS | Encounter Summary ---
:1960 Author Organization [facility] [place] [address] Care Team Providers Name Role Phone Santhosh Herron MD Primary Care Provider Encounter Details Date Type Department Care Team Description 07/21/2017 [place] [facility] [place] Anticoagulation Telephone Visit [facility] Daria [place] [address] Social History Tobacco Use Types [...] encounter Progress Notes Daria Chawla RN - 07/21/2017 10:55 AM EDT Anticoagulation Therapy Nurse Visit Alicia Campa Etelvina 1960 Surgeon: Dr. Hatch Indication: DVT Prophylaxis S/P Joint Replacement Duration of Treatment: 30 days ends: 30 days (last day = 08/07/17) Therapeutic Range: 2.0-3.0 INR: 3.1 Drawn by: [facility] PHONE: [phone] FAX: [phone] Patient presents with no signs of bleeding [...] Associated Diagnosis Comme nts EXTERNAL LAB Routine 07/21/2017 Results for thi s HEMATOLOGY/COAG procedure ar e in the RESULTS PANEL results sectio n. documented in this encounter Results (ABNORMAL) Hematology / Coag External Results (07/21/2017) P athologist Signature POC INR 3.1 (A) 0.9 - 1.1 VISITING NURSE Specimen (Source) Anatomical Location Collection Method / Collectio n Time Received Time / Laterality Volume 07/21/2017 Historical Provider HEMATOLOGY ORDERABLES Performing Organization Address City/State/ZIP Code Phon e Number VISITING NURSE documented in this encounter Visit Diagnoses Diagnosis Anticoagulation management encounter Encounter for therapeutic drug monitorin g documented in this encounter Care Teams Sign Out Clerk Relationship Specialty Start Date End Date Santhosh Herron MD PCP - General Family Medicine 02/18/[address] [place] [phone] documented as of this encounter
--- OUTSIDE RECORDS SUMMARY | 2022-09-13 00:39 | XMS_ITS | Encounter Summary ---
:1960 Author Organization [facility] [place] [address] Care Team Providers Name Role Phone Santhosh Herron MD Primary Care Provider Encounter Details Date Type Department Care Team Description 11/29/2021 Office Visit Hematology/Oncology Ariana Gutierrez MD [facility] DR HEMATOLOGY/[place] [address] Grade [facility] [address] [place] [address] DR [place] [address] lymphoma of lymph [address] [place] [address] [place] [address] Social History Tobacco Use Types [...] Sign Reading Time Taken Comments Blood Pressure 146/82 11/29/2021 1:45 PM EST Pulse 69 11/29/2021 1:45 PM EST Temperature 36 ??C (96.8 ??F) 11/29/2021 1:45 PM EST Respiratory Rate 18 11/29/2021 1:45 PM EST Oxygen Saturation 99% 11/29/2021 1:45 PM EST Inhaled Oxygen Concentration - - Weight 65.3 kg (144 lb) 11/29/2021 1:45 PM EST Height 159.5 cm (5' 2.8) 11/29/2021 1:45 PM EST Body Mass Index 25.68 11/29/2021 1:45 PM EST documented in this encounter Progress Notes Julian Gutierrez MD - 11/29/2021 1:30 PM EST Subjective: Patient ID: Alicia Main is a 61 y.o. female. HPI The patient is a 61-year-old female that I am seeing in the [facility]. She has recentlyLow grade follicular lymphoma Follicular low-grade lymphoma, diagnosed [...] Waxing/waning adenopathy The patient returns to the [facility] in follow-up for her low-grade lymphoma. She has not been treated. Since we last saw her she has been about the same. She thinks some of the nodes in her neck may be alittle bit improved. No fevers chills sweats. Her episodes of choking turned out to be SVT on holter. No fevers, sweats or weight loss Past medical history Hyperlipidemia Nicotine dependence Trigeminal [...] no other nodes or splenomegaly White count 5.9, hemoglobin 12.8, platelets 161 Creatinine 0.9, LDH 234 Assessment and Plan: 61-year-old female with a diagnosis of a follicular low-grade lymphoma. The pathology and flow cytometry is characteristic of a follicular low-grade non- Hodgkin's lymphoma. She does not have anemia or abnormal blood counts. Chemistries are normal including an alkaline phosphatase and LDH. Her PET scan from 3 months ago did show some waxing waning features of typical low-grade lymphoma but no significant progression. I think her R neck node is smalled on my exam suggesting she is still waxing/waning I recommended continued watchful waiting I will plan to see her back in 4 months with repeat labs and exam documented in this encounter Plan of Treatment Not on filedocumented as of this encounter Visit Diagnoses Diagnosis Grade 1 follicular lymphoma of lymph nod es of neck documented in this encounter Care Teams Manager Print Relationship Specialty Start Date End Date Santhosh Herron MD PCP - General Family Medicine 02/18/[address] [place] [phone] documented as of this encounter
--- OUTSIDE RECORDS SUMMARY | 2022-09-13 00:39 | XMS_ITS | Encounter Summary ---
:1960 Author Organization [facility] [place] [address] Care Team Providers Name Role Phone Santhosh Herron MD Primary Care Provider Reason for Referral Diagnostic Test (Routine) - Closed Specialty Diagnoses / Procedures Referred By Contact Refer red To Contact Radiology Diagnoses Grade 1 follicular lymphoma of lymph nodes of neck Julian Gutierrez MD [facility] Rad Nuclear Med Procedures NM PET CT Skull Base to Mid-thigh [facility] HEMATOLOGY/[place] [address] [place] [address] Referral ID Status Reason Start Date Expiration Date Visits V isits Requested Authorized [id number] Closed Specialty 12/18/2020 06/16/2021 1 1 Service Requested Reason for Visit Consultation (Routine) - Closed Specialty Diagnoses / Procedures Referred By Contact Refer red To Contact Hematology and Diagnoses Unspecified B-cell lymphoma, unspecified site B CELL LYMPHOMA Eileen Joe MD [facility] Hem Onc Office Oncology Procedures TREATMENT OPTIONS [address] [place] [address] [place] [phone] Referral ID Status Reason Start Date Expiration Date Visits Requ ested Visits Authorized [id number] Closed 12/04/2020 12/04/2021 1 1 Encounter Details Date Type Department Care Team Description 12/14/2020 Office Visit Hematology/Oncology Ariana Gutierrez MD [facility] DR HEMATOLOGY/[place] [address] Grade [facility]N [address] [place] [address] [place] [address] lymphoma of lymph [address] [place] [address] [place] [phone] Social History Tobacco Use Types Packs/Day Years [...] Sign Reading Time Taken Comments Blood Pressure 141/89 12/14/2020 11:02 AM EST Pulse 63 12/14/2020 11:02 AM EST Temperature 35.8 ??C (96.4 ??F) 12/14/2020 11:02 AM EST Respiratory Rate 18 12/14/2020 11:02 AM EST Oxygen Saturation 100% 12/14/2020 11:02 AM EST Inhaled Oxygen Concentration - - Weight 70.8 kg (156 lb) 12/14/2020 11:02 AM EST Height 161 cm (5' 3.39) 12/14/2020 11:02 AM EST Body Mass Index 27.3 12/14/2020 11:02 AM EST documented in this encounter Progress Notes Lenore Smith, RN - 12/14/2020 11:00 AM EST MEDICAL ONCOLOGY INITIAL NURSING ASSESSMENT ADVANCE DIRECTIVES: In [facility] [x ] Has documents [ ] Will bring in [ ] IF NO: Advance Directive pamphlet provided : Referral to Care Management : PRESENTING SYSTEMS and PATHOLOGY: as per Dr. Gutierrez REVIEW OF SYSTEMS: as per Dr. Gutierrez Prior Radiotherapy: no[ x ] Yes[ ]Site Date Facility Prior Chemotherapy: no[ x ] Yes[ ] Drug: Oncologist- LastTreatment: NO: YES: Claustrophobia or requires sedation for MRIs x Allergy to CT or MRI contrast agent or iodine or shellfish x Diabetic and on metformin x Metal in body, implanted device, worked with metal, body piercings,braces x Dentures or hearing device x Pacemaker x Difficulty breathing while lying flat x Kidney problems/creatinine x Balance difficulty: [x ]no [ ]yes At risk for fall: [x ] no [ ] yes If yes, actions implemented to prevent fall. Patient/family instructed to avoid independent ambulation. Use wheelchair and ask for assistance of staff while in the clinic. ADL [ x ] no limits [ ] needs dressing assistance [ ] needs meal assistance Assistive device:[x ]none [ ]cane [ ]walker [ ]wheelchair [ ]other: explain PAIN ASSESSMENT: [ 2 ] out of 10 Location: R jaw, R flank Description: [ ] Dull [ ] Sharp [ ] Burning [ ] Throbbing [ ] Radiating [ ] Continuous [ ]Intermittent Aggravating Factors: [ ] Movement [ ] Position [ ]Immobility [ ]Other Alleviating Factors: [ ]Medication [ ] Positioning [ ] Other Current Pain Management Plan: [ x ]Satisfied [ ] Not satisfied SOCIAL ASSESSMENT: See [facility] social assessment information entered. Support Systems: transportation plan: [x ]private vehicle [ ] RCT needs Social Work referral [ ] Unknown at this time needs Social Work referral Barriers to treatment: none Referrals/Interventions: LEARNING STYLE: Visual and verbal, wants written material and verbal discussion. TEACHING: __ NCI ???Chemotherapy and You?? and folder given __ Specific chemotherapy literature provided and reviewed with patient Julian Padilla MD - 12/14/2020 11:00 AM EST Subjective: Patient ID: Alicia Main is a 60 y.o. female. HPI The patient is a 60-year-old female that I am seeing in the [facility]. She is referred by Dr. Joe for consultation regarding recently diagnosed follicular lymphoma The patient has been aware of some lymph node enlargement in her neck since summer 2019. Initially she was told by her primary care office just to keep an eye on it. By October 2020 they were persisting and an ultrasound was performed. This showed morphologically abnormal lymph nodes up to 1.1 cm in the right cervical area. The patient was referred to general surgery for potential biopsy. She underwent an excisional biopsyon 11/29/2020. Pathology from [facility] confirmed a follicular low- grade non-Hodgkin's lymphoma. There was grade 1-2 out of 3. Flow cytometry confirmed a CD10 positive lymphoproliferative disorder. CD19 was positive, CD20 was positive, CD5 was negative The patient really has very few symptoms. There has been a little bit of weight loss. She still has occasional hot flashes which she thinks are due to menopause. She generally feels well. She does remember the last time she had a significant infection. Past medical history Hyperlipidemia Nicotine dependence Trigeminal neuralgia History of sinusitis Knee replacement surgery Current Outpatient Medications: ??? ibuprofen (ADVIL;MOTRIN) 200 mg Tablet, Take 800 mg by mouth 2 times daily., Disp: , Rfl: ??? gabapentin (NEURONTIN) 600 mg Tablet, Take 600 mg by mouth 3 times daily., Disp: , Rfl: ??? acetaminophen (TYLENOL) 500 mg Tablet, Take 1,000 mg by mouth every 6 hours as needed for Pain.,Disp: , Rfl: ??? albuterol 90 mcg/actuation HFA Aerosol Inhaler, , Disp: , Rfl: ??? bisacodyl (DULCOLAX) 5 mg Tablet, Delayed Release (E.C.), Take 2 tablets by mouth 2 times daily as needed for Constipation for up to 28 doses. (Patient not taking: Reported on 12/14/2020), Disp: , Rfl: Allergies Allergen Reactions ??? Erythromycin Nausea And Vomiting ??? Oxycodone Itching ??? Penicillins Hives ??? Vancomycin Itching Red man's syndrome Social history She lives with her 2 daughters age 36, twins Smokes half a pack per day Rare alcohol No exposures to toxins chemicals or radiation Social history Noncontributory Review of Systems Constitutional: Positive for unexpected weight change. Negative for fatigue and fever (6 lbs weight loss). HENT: Negative for nosebleeds. Respiratory: Negative for [...] General: She is not in acute distress. HENT: Mouth/Throat: Pharynx: No oropharyngeal exudate. Eyes: General: No scleral icterus. Cardiovascular: Rate and Rhythm: Normal rate and regular rhythm. Heart sounds: Normal heart sounds. Pulmonary: Effort: Pulmonary effort is normal. Breath sounds: Normal breath sounds. No wheezing. Abdominal: General: Bowel sounds are normal. Palpations: Abdomen is soft. There is no mass. Tenderness: There is no abdominal tenderness. Lymphadenopathy: Cervical: No cervical adenopathy. Skin: Findings: No rash. Neurological: Mental Status: She is alert and oriented to person, place, and time. Assessment and Plan: 60-year-old female with a new diagnosis of a follicular low-grade lymphoma. The pathology and flow cytometry is characteristic of a follicular low-grade non- Hodgkin's lymphoma. I did talk with the patient about the natural history of low-grade lymphomas. Typically we will observe these without treatment if patients remain asymptomatic. She still has not been completely staged. I did recommend imaging. We discussed the difference between a CT scan and a PET scan. Although her clinical course does fit with the histology I did recommenda PET scan to be sure there is no evidence of a more aggressive/hot lesion that should be biopsied elsewhere in her lymphatic chain. We will also need additional laboratory studies including a CBC and a CMP as well as LDH and a beta-2 microglobulin. If she has localized disease we could consider radiation therapy but if she has systemic disease then I would favor observation since she appears to be quite asymptomatic. The patient had several questions which I answered to her satisfaction. We will see her back after the labs and PET scan. If there is still some question of localized lymphoma we may proceed to a bone marrow biopsy but will review that after her PET scan. documented in this encounter Plan of Treatment Not on filedocumented as of this encounter Results NM PET CT Skull Base to Mid-thigh (12/25/2020 3:36 PM EST) Anatomical Region Laterality Modality Positron Emission To mography (PET) Specimen (Source) Anatomical Location Collection Method / Collectio n Time Received Time / Laterality Volume Impressions 12/26/2020 11:07 AM EST 1. ??FDG avid adenopathy in the neck, chest, abdomen, and pelvis as described above, consistent with lymphomatous invo lvement. 2. ??Multiple osseous metastases through out the axial and visualized proximal appendicular skeleton. 3. ??Mild diffusely increased activity i n the spleen, suspicious for splenic involvement by lymphoma. 4. ??Small area of mildly FDG avid tree- in-bud opacities in the right upper lobe, consistent with benign inflammatory/infe ctious process. Thank you for letting us participate in the care of this patient. For questions regarding this report, please contact e number below. ? Narrative 12/26/2020 11:07 AM EST EXAMINATION: NM PET CT SKULL BASE TO MID-THIGH ? CLINICAL HISTORY: Grade 1 follicular lym phoma of lymph nodes in the neck. TECHNIQUE: Following IV injection of 18- trnjno-2-jdumbzoxdprz (FDG) a standard uptake of approximately 60 minutes, a no ncontrast CT scan followed by a PET scan were acquired from the base of the skull to mid thighs. The noncontrast CT was used for anatomic localization and photo n attenuation correction of the PET scan. Blood glucose level: 90 (mg/dL) FDG dose: 12.5 mCi COMPARISON: None FINDINGS: HEAD/NECK: FDG avid adenopathy in the right greater than left upper lower cervical and supraclavicular regions. CHEST: Multiple FDG avid lymph nodes in the carolynn ateral axillary regions. Small FDG avid adenopathy in the right h ilar, subcarinal, and right lower paratracheal regions. Small FDG avid germania nopathy in the right retrocrural region (axial ). Small area of mildly FDG avid tree-in-bu d appearing opacities in the right upper lobe (for example axial images 56 throug h 62), consistent with a benign inflammatory/infectious process. Calcifi ed granuloma in the left upper lobe (axial image 85). ABDOMEN/PELVIS: Multiple FDG avid lymph nodes in the gas trohepatic region (axial images 112 through 120), and in the abdominal and p elvic retroperitoneum including in the left para-aortic, retrocaval, right comm on, and bilateral external iliac regions. Multiple small FDG avid lymph n odes in the bilateral inguinal regions. Mild diffusely increased activity in the normal sized spleen. SKELETON/EXTREMITIES: Multiple FDG avid osseous lesions scatte red throughout the axial and visualized proximal appendicular skeleton, with no definite abnormality seen on CT. L5/S1 fusion hardware present. Procedure Note Julian Simms MD - 12/26/2020Formatti ng of this note might be different from the original. EXAMINATION: NM PET CT SKULL BASE TO MID -THIGH CLINICAL HISTORY: Grade 1 follicular lym phoma of lymph nodes in the neck. TECHNIQUE: Following IV injection of 18- hyagra-8-pjpnvoczwgtz (FDG) a standard uptake of approximately 60 minutes, a no ncontrast CT scan followed by a PET scan were acquired from the base of the skull to mid thighs. The noncontrast CT was used for anatomic localization and photo n attenuation correction of the PET scan. Blood glucose level: 90 (mg/dL) FDG dose: 12.5 mCi COMPARISON: None FINDINGS: HEAD/NECK: FDG avid adenopathy in the right greater than left upper lower cervical and supraclavicular regions. CHEST: Multiple FDG avid lymph nodes in the carolynn ateral axillary regions. Small FDG avid adenopathy in the right h ilar, subcarinal, and right lower paratracheal regions. Small FDG avid germania nopathy in the right retrocrural region (axial [id number]). Small area of mildly FDG avid tree-in-bu d appearing opacities in the right upper lobe (for example axial images 56 throug h 62), consistent with a benign inflammatory/infectious process. Calcifi ed granuloma in the left upper lobe (axial image 85). ABDOMEN/PELVIS: Multiple FDG avid lymph nodes in the gas trohepatic region (axial images 112 through 120), and in the abdominal and p elvic retroperitoneum including in the left para-aortic, retrocaval, right comm on, and bilateral external iliac regions. Multiple small FDG avid lymph n odes in the bilateral inguinal regions. Mild diffusely increased activity in the normal sized spleen. SKELETON/EXTREMITIES: Multiple FDG avid osseous lesions scatte red throughout the axial and visualized proximal appendicular skeleton, with no definite abnormality seen on CT. L5/S1 fusion hardware present. IMPRESSION 1. FDG avid adenopathy in the neck, ches t, abdomen, and pelvis as described above, consistent with lymphomatous invo lvement. 2. Multiple osseous metastases throughou t the axial and visualized proximal appendicular skeleton. 3. Mild diffusely increased activity in the spleen, suspicious for splenic involvement by lymphoma. 4. Small area of mildly FDG avid tree-in -bud opacities in the right upper lobe, consistent with benign inflammatory/infe ctious process. Thank you for letting us participate in the care of this patient. For questions regarding this report, please contact e number below. Julian Gutierrez MD [facility] PET ORDERABLES Protein Electrophoresis, serum (12/25/2020 2:02 PM EST) [facility] Method Time Signature Total Prot 6.6 6.1 - 8.0 DANIEL Elec gm/dL [facility] Albumin Elect 4.44 3.60 - 6.00 DANIEL gm/dL [facility] Alpha1-Globul 0.19 0.10 - 0.30 DANIEL in gm/dL [facility] Alpha2-Globul 0.71 0.40 - 0.90 DANIEL in gm/dL [facility] Beta Globulin 0.63 0.50 - 1.00 DANIEL gm/dL [facility] Gamma 0.63 0.50 - 1.30 DANIEL Globulin gm/dL [facility] M1 Band None None DANIEL Detected Detected [facility] Specimen Anatomical Collection Method Collection Time Receive d Time (Source) Location / / Volume Laterality Blood specimen 12/25/2020 2:02 PM 021 2:23 (specimen) EST PM EST Resulting Agency Comment Spec In Lab Julian Gutierrez MD CHEMISTRY ORDERABLES Performing Organization Address City/State/ZIP Code Phon e Number [address] (ABNORMAL) Immunoglobulins, Quantitative (12/25/2020 2:02 PM EST) athologist Signature IgG 713 700 - 1,600 [facility] mg/dL [facility] Comment: Pediatric Reference Intervals obtained f rom the Caliper Reference Interval project. http://www.[employer].ca/caliperp roject/index.html IgA 121 70 - 400 mg/dL [facility] IgM 290 (H) 40 - 230 mg/dL [facility] Specimen Anatomical Collection Method Collection Time Receive d Time (Source) Location / / Volume Laterality Blood specimen 12/25/2020 2:02 PM 021 2:23 (specimen) EST PM EST Resulting Agency Comment Spec In Lab Julian Gutierrez MD CHEMISTRY ORDERABLES Performing Organization Address City/[facility]/ZIP Code Phon e Number [address] Beta 2 Microglobulin, serum (12/25/2020 2:02 PM EST) athologist Signature Beta2 2.2 0.8 - 2.2 [facility] Microglob mg/L [facility] Specimen Anatomical Collection Method Collection Time Receive d Time (Source) Location / / Volume Laterality Blood specimen 12/25/2020 2:02 PM 021 2:23 (specimen) EST PM EST Resulting Agency Comment Spec In Lab Julian Gutierrez MD CHEMISTRY ORDERABLES Performing Organization Address City/[facility]/ZIP Code Phon e Number [address] Lactate Dehydrogenase (12/25/2020 2:02 PM EST) athologist Signature LDH 211 110 - 220 [facility] unit/L [facility] Specimen Anatomical Collection Method Collection Time Receive d Time (Source) Location / / Volume Laterality Blood specimen 12/25/2020 2:02 PM 021 2:23 (specimen) EST PM EST Resulting Agency Comment Spec In Lab Julian Gutierrez MD CHEMISTRY ORDERABLES Performing Organization Address City/[facility]/[place] [address] Comprehensive metabolic panel (non-fasting) (12/25/2020 2:02 PM EST) P athologist Signature Glucose Lvl 92 65 - 199 [facility] mg/dL [facility] Comment: Diabetes: >=200 mg/dL plus symp toms BUN 8 8 - 18 mg/dL [facility] Creatinine 0.73 0.70 - 1.20 mg/dL [facility] Sodium 141 135 - 145 mmol/L [facility] Potassium 4.0 3.5 - 5.0 mmol/L [facility] Comment: Please note: ??Patients with WBC >100,00 0 may have falsely elevated Potassium levels. ??For accurate Potassium quantif ication in these patients send serum separator tube (gold top) for subsequent determinations. ??Contact the Clinical Chemistry Laboratory if there are any qu estions. Chloride 106 98 - 107 mmol/L [facility] CO2 24 22 - 31 mmol/L [facility] Anion Gap 11 5 - 15 mmol/L [facility] Calcium 9.8 8.5 - 10.5 mg/dL [facility] Total Protein 7.1 6.1 - 8.0 gm/dL [facility] Albumin 4.5 3.2 - 5.2 gm/dL [facility] AST 17 0 - 30 unit/L [facility] ALT 10 0 - 30 unit/L [facility] Alk Phos 92 35 - 105 unit/L [facility] Total Bilirubin 0.3 0.2 - 1.3 mg/dL [facility] Estimated GFR 91 >=60 mL/min/1.73 m?? [facility] Comment: This patient? s estimated [...] Gutierrez MD CHEMISTRY ORDERABLES Performing Organization Address City/State/[place] [address] documented in this encounter Visit Diagnoses Diagnosis Grade 1 follicular lymphoma of lymph nod es of neck Grade 1 follicular lymphoma of lymph nod es of neck documented in this encounter Care Teams Calculating Machine Mechanic Relationship Specialty Start Date End Date Santhosh Herron MD PCP - General Family Medicine 02/18/17 [address] [place] [id number] documented as of this encounter
--- OUTSIDE RECORDS SUMMARY | 2022-09-13 00:39 | XMS_ITS | Encounter Summary ---
:1960 Author Organization [facility] [place] [address] Care Team Providers Name Role Phone Santhosh Herron MD Primary Care Provider Encounter Details Date Type Department Care Team Description 07/31/2017 Anti-Coag Orthopaedics at [facility] Cammy, Anticoagulation Telephone Visit [facility] Daria [place] [address] Social History Tobacco Use Types [...] encounter Progress Notes Daria Chawla RN - 07/31/2017 2:25 PM EDT Anticoagulation Therapy Nurse Visit Alicia Campa Etelv[place] 1960 Surgeon: Dr. Hatch Indication: DVT Prophylaxis S/P Joint Replacement Duration of Treatment: 30 days ends: 30 days (last day = 08/07/17) Therapeutic Range: 2.0-3.0 INR: 2.0 Drawn by: [facility] PHONE: [phone] FAX: [phone] Patient presents with no signs of bleeding [...] Associated Diagnosis Comme nts EXTERNAL LAB Routine 07/31/2017 Results for thi s HEMATOLOGY/COAG procedure ar e in the RESULTS PANEL results sectio n. EXTERNAL LAB Routine 07/24/2017 Results for thi s HEMATOLOGY/COAG procedure ar e in the RESULTS PANEL results sectio n. documented in this encounter Results (ABNORMAL) Hematology / Coag External Results (07/31/2017) P athologist Signature POC INR 2.0 (A) 0.9 - 1.1 VISITING NURSE Specimen (Source) Anatomical Location Collection Method / Collectio n Time Received Time / Laterality Volume 07/31/2017 Historical Provider HEMATOLOGY ORDERABLES Performing Organization Address City/State/ZIP Code Phon e Number VISITING NURSE (ABNORMAL) Hematology / Coag External Results (07/24/2017) P athologist Signature POC INR 2.0 (A) 0.9 - 1.1 VISITING NURSE Specimen (Source) Anatomical Location Collection Method / Collectio n Time Received Time / Laterality Volume 07/24/2017 Historical Provider HEMATOLOGY ORDERABLES Performing Organization Address City/State/ZIP Code Phon e Number VISITING NURSE documented in this encounter Visit Diagnoses Diagnosis Anticoagulation management encounter Encounter for therapeutic drug monitorin g documented in this encounter Care Teams Shooter'S Helper Relationship Specialty Start Date End Date Santhosh Herron MD PCP - General Family Medicine 02/18/[address] [place] [phone] documented as of this encounter
--- OUTSIDE RECORDS SUMMARY | 2022-09-13 00:39 | XMS_ITS | Encounter Summary ---
:1960 Author Organization [facility] Address [address] [place] [address] Care Team Providers Name Role Phone Santhosh Herron MD Primary Care Provider Encounter Details Date Type Department Care Team Description 07/28/2017 Anti-Coag Orthopaedics at [facility] Cammy, Anticoagulation Telephone Visit [facility] zander [facility] [address] RN [place], [place] [address] ORTHOPAEDICS [phone] Social History Tobacco Use Types Packs/Day Years Used Date Smoking Tobacco: Every Day Cigarettes 0.5 40 Smokeless Tobacco: Never Comments: 3/4 to 1/2 pack a day Alcohol Use Standard Drinks/Week Comments Yes 0 (1 standard drink = 0.6 oz pure alcoho l) occasional Sex Assigned at Date Recorded Not on file documented as of this encounter Progress Notes Sue Chawla RN - 07/28/2017 11:46 AM EDT Anticoagulation Therapy Nurse Visit Alicia Campa [place] 1960 Surgeon: Dr. Hatch Indication: DVT Prophylaxis S/P Joint Replacement Duration of Treatment: 30 days ends: 30 days (last day = 08/07/17) Therapeutic Range: 2.0-3.0 INR: 1.5 Drawn by: [facility] PHONE: [phone] FAX: [phone] Patient presents with no signs of bleeding [...] Associated Diagnosis Comme nts EXTERNAL LAB Routine 07/28/2017 Results for thi s HEMATOLOGY/COAG procedure ar e in the RESULTS PANEL results sectio n. documented in this encounter Results (ABNORMAL) Hematology / Coag External Results (07/28/2017) P athologist Signature POC INR 1.5 (A) 0.9 - 1.1 VISITING NURSE Specimen (Source) Anatomical Location Collection Method / Collectio n Time Received Time / Laterality Volume 07/28/2017 Historical Provider HEMATOLOGY ORDERABLES Performing Organization Address City/State/ZIP Code Phon e Number VISITING NURSE documented in this encounter Visit Diagnoses Diagnosis Anticoagulation management encounter Encounter for therapeutic drug monitorin g documented in this encounter Care Teams Piccoloist Relationship Specialty Start Date End Date Santhosh Herron MD PCP - General Family Medicine 02/18/17 [address] [place] [address] documented as of this encounter
--- OUTSIDE RECORDS SUMMARY | 2022-09-13 00:39 | XMS_ITS | Encounter Summary ---
:1960 Author Organization [facility] Address [place] [address] Care Team Providers Name Role Phone Santhosh Herron MD Primary Care Provider Encounter Details Date Type Department Care Team Description 07/14/2017 Anti-Coag Orthopaedics at [facility] Cammy, Anticoagulation Telephone Visit [facility] zander Rogers [facility] encounter [address] [place], [place] [address] ORTHOPAEDICS [phone] Social History Tobacco Use Types Packs/Day Years Used Date Smoking Tobacco: Every Day Cigarettes 0.5 40 Smokeless Tobacco: Never Comments: 3/4 to 1/2 pack a day Alcohol Use Standard Drinks/Week Comments Yes 0 (1 standard drink = 0.6 oz pure alcoho l) occasional Sex Assigned at Date Recorded Not on file documented as of this encounter Progress Notes Sue Chawla RN - 07/14/2017 11:32 AM EDT Anticoagulation Therapy Nurse Visit Alicia Campa Etelvina 1960 Surgeon: Dr. Hatch Indication: DVT Prophylaxis S/P Joint Replacement Duration of Treatment: 30 days ends: 30 days (last day = 08/07/17) Therapeutic Range: 2.0-3.0 INR: 1.9 Drawn by: [facility] PHONE: [phone] FAX: [phone] Patient presents with no signs of bleeding [...] Associated Diagnosis Comme nts EXTERNAL LAB Routine 07/14/2017 Results for thi s HEMATOLOGY/COAG procedure ar e in the RESULTS PANEL results sectio n. documented in this encounter Results (ABNORMAL) Hematology / Coag External Results (07/14/2017) P athologist Signature POC INR 1.9 (A) 0.9 - 1.1 VISITING NURSE Specimen (Source) Anatomical Location Collection Method / Collectio n Time Received Time / Laterality Volume 07/14/2017 Historical Provider HEMATOLOGY ORDERABLES Performing Organization Address City/State/ZIP Code Phon e Number VISITING NURSE documented in this encounter Visit Diagnoses Diagnosis Anticoagulation management encounter Encounter for therapeutic drug monitorin g documented in this encounter Care Teams Supervisor Sound Technician Relationship Specialty Start Date End Date Santhosh Herron MD PCP - General Family Medicine 02/18/17 [address] [place] [address] documented as of this encounter
--- OUTSIDE RECORDS SUMMARY | 2022-09-13 00:39 | XMS_ITS | Encounter Summary ---
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 [address] Referral ID Status Reason Start Date Expiration Date Visits V isits Requested Authorized [id number] Closed Specialty 08/07/2021 11/05/2021 1 1 Service Requested Encounter Details Date Type Department Care Team Description 08/20/2021 Hospital Encounter Nuclear Medicine at [facility], Grade 1 follicular Joelle Mathis MD lymphoma of lymph [facility] nodes of neck [facility] [address] [facility] HEMATOLOGY/ONCOL [address] [facility] DEPT. [phone] [place] [address] Social History Tobacco Use Types Packs/Day Years [...] Procedure Name Priority Date/Time Associated Comments Diagnosis NM PET CT STANDARD Routine 08/20/2021 12:06 Grade 1 follicular Results for this PLUS EXTREMITIES AND PM EDT lymphoma of lymph pr ocedure are in HEAD nodes of neck the results section. POCT GLUCOSE Routine 08/20/2021 10:31 Results for this AM EDT procedure are i n the results section. documented in this encounter Results NM PET CT Standard Plus Extremities and Head (08/20/2021 12:06 PM EDT) Anatomical Region Laterality Modality Positron Emission To mography (PET) Specimen (Source) Anatomical Location Collection Method / Collectio n Time Received Time / Laterality Volume Impressions 08/20/2021 2:31 PM EDT 1. ??Persistent FDG avid adenopathy in the neck, chest, abdomen, and pelvis, with stable or mixed interval changes as desc ribed above, consistent with active lymphoma. 2. ??Persistent FDG avid osseous lesions in the axial and appendicular skeleton, most of which appear decreased in intens ity compared to prior PET/CT with mixed interval changes at other sites as above . 3. ??Moderate sized peripherally FDG karla d anterior right knee effusion, consistent with a synovitis. 4. ??Diffuse periprosthetic activity erika und the tibial and femoral component of the right knee prosthesis is nonspecific . If concern for loosening, a dedicated CT of the right knee is recommended. Thank you for letting us participate in the care of this patient. ??If you are a health care provider and have any questi ons regarding this report, please contact the number below. ??For patients who have questions please contact the health grounds caretaker that requested your imaging first. ? Narrative 08/20/2021 2:31 PM EDT EXAMINATION: NM PET CT STANDARD PLUS EXTREMITIES AND HEAD CLINICAL HISTORY: Low-grade no acute lym phoma diagnosed 11/2020 with waxing and waning neck adenopathy. Patient complain ing of right knee pain. Subsequent treatment evaluation. TECHNIQUE: Procedure: Following IV injec tion of 38-iyltzx-3-deoxyglucose (FDG) a standard uptake of approximately 60 cely wil, a noncontrast CT scan followed by a PET scan were acquired from the top of h ead to bottom of feet. The noncontrast CT was used for anatomic localization an d photon attenuation correction of the PET scan. Blood glucose level: 105 (mg/dL) FDG dose: 9.9 mCi COMPARISON: None FINDINGS: HEAD/NECK: Similar appearance of FDG avid adenopath y in the right upper and lower cervical and right supraclavicular regions and to a small extent in the left upper cervical region. CHEST: Stable to modest interval decreased size and intensity FDG avid adenopathy in the bilateral axillary regions. Modest interval increased size and inten sity of small FDG avid adenopathy in the high right posterior paratracheal region . Stable small FDG avid right hilar adenop athy. No significant pulmonary nodules. Stable sub-5 mm calcified granuloma in t he left upper lobe ABDOMEN/PELVIS: Similar appearance of FDG avid adenopath y in the abdominal and pelvic retroperitoneum including the left peria ortic, bilateral common iliac, external iliac, and obturator regions. Stable sma ll FDG avid lymph nodes in the bilateral inguinal regions. SKELETON/EXTREMITIES: Persistent FDG avid osseous lesions in t he axial and proximal appendicular skeleton, most of which are decreased in intensity compared to prior PET/CT of 12/25/2020, while some are stable for exam ple in the right proximal femur (axial image 279) and some lesions have resolve d. Small FDG avid lesions in the posterior left femoral head (axial image 269) and in anterior right acetabulum (axial imag e 268) are increased in intensity compared to prior. An FDG avid marrow based lesion in the l eft distal humerus, a location that was not imaged on prior PET/CT. No definite osseous abnormality is seen on CT. Right knee prosthesis with diffuse perip rosthetic activity around the tibial and femoral component. Peripherally FDG avid moderate size ante rior right knee effusion, consistent with a synovitis. Normal activity in all other soft tissue regions of the upper and lower extremities. Procedure Note Julian Simms MD - 08/20/2021Formatti ng of this note might be different from the original. EXAMINATION: NM PET CT STANDARD PLUS EXT REMITIES AND HEAD CLINICAL HISTORY: Low-grade no acute lym phoma diagnosed 11/2020 with waxing and waning neck adenopathy. Patient complain ing of right knee pain. Subsequent treatment evaluation. TECHNIQUE: Procedure: Following IV injec tion of 29-yntfee-1-deoxyglucose (FDG) a standard uptake of approximately 60 cely wil, a noncontrast CT scan followed by a PET scan were acquired from the top of h ead to bottom of feet. The noncontrast CT was used for anatomic localization an d photon attenuation correction of the PET scan. Blood glucose level: 105 (mg/dL) FDG dose: 9.9 mCi COMPARISON: None FINDINGS: HEAD/NECK: Similar appearance of FDG avid adenopath y in the right upper and lower cervical and right supraclavicular regions and to a small extent in the left upper cervical region. CHEST: Stable to modest interval decreased size and intensity FDG avid adenopathy in the bilateral axillary regions. Modest interval increased size and inten sity of small FDG avid adenopathy in the high right posterior paratracheal region . Stable small FDG avid right hilar adenop athy. No significant pulmonary nodules. Stable sub-5 mm calcified granuloma in t he left upper lobe ABDOMEN/PELVIS: Similar appearance of FDG avid adenopath y in the abdominal and pelvic retroperitoneum including the left peria ortic, bilateral common iliac, external iliac, and obturator regions. Stable sma ll FDG avid lymph nodes in the bilateral inguinal regions. SKELETON/EXTREMITIES: Persistent FDG avid osseous lesions in t he axial and proximal appendicular skeleton, most of which are decreased in intensity compared to prior PET/CT of 12/25/2020, while some are stable for exam ple in the right proximal femur (axial image 279) and some lesions have resolve d. Small FDG avid lesions in the posterior left femoral head (axial image 269) and in anterior right acetabulum (axial imag e 268) are increased in intensity compared to prior. An FDG avid marrow based lesion in the l eft distal humerus, a location that was not imaged on prior PET/CT. No definite osseous abnormality is seen on CT. Right knee prosthesis with diffuse perip rosthetic activity around the tibial and femoral component. Peripherally FDG avid moderate size ante rior right knee effusion, consistent with a synovitis. Normal activity in all other soft tissue regions of the upper and lower extremities. IMPRESSION 1. Persistent FDG avid adenopathy in the neck, chest, abdomen, and pelvis, with stable or mixed interval changes as desc ribed above, consistent with active lymphoma. 2. Persistent FDG avid osseous lesions i n the axial and appendicular skeleton, most of which appear decreased in intens ity compared to prior PET/CT with mixed interval changes at other sites as above . 3. Moderate sized peripherally FDG avid anterior right knee effusion, consistent with a synovitis. 4. Diffuse periprosthetic activity aroun d the tibial and femoral component of the right knee prosthesis is nonspecific . If concern for loosening, a dedicated CT of the right knee is recommended. Thank you for letting us participate in the care of this patient. If you are a health care provider and have any questi ons regarding this report, please contact the number below. For patients w ho have questions please contact the health grounds caretaker that requested your imaging first. Julian Gutierrez MD IMG PET ORDERABLES POCT Glucose (08/20/2021 10:31 AM EDT) P athologist Signature POC Glucose 105 65 - 199 [facility] mg/dL [facility] Comment: Supplemental ranges: <140 mg/dL before meals <180 mg/dL all other times of the day Specimen Anatomical Collection Method Collection Time Receive d Time (Source) Location / / Volume Laterality Blood 08/20/2021 10:31 08/20/2021 AM EDT 10:31 AM EDT Julian Gutierrez MD POINT OF CARE TEST ORDERABLE S Performing Organization Address City/State/ZIP [place] [address] documented in this encounter Visit Diagnoses Diagnosis Grade 1 follicular lymphoma of lymph nod es of neck documented in this encounter Administered Medications Inactive Administered Medications - up to 3 most recent administrations Medication Order MAR Action Action Date Dose Rate Site fludeoxyglucose (F-18) FDG Given 08/20/2021 10:34 AM 9.9 mCi Right Arm injection 0-20 mCi EDT 0-20 mCi, Intravenous, ONCE PRN, 1 dose, Starting on 08/20/21 at 1049, Until Fri08/20/21 at 1034, Per Protocol, Radiology Contrast, Routine documented in this encounter Care Teams Air Brake Adjuster Relationship Specialty Start Date End Date Santhosh Herron MD PCP - General Family Medicine 02/18/[address] [place] [phone] documented as of this encounter
--- OUTSIDE RECORDS SUMMARY | 2022-09-13 00:39 | XMS_ITS | Encounter Summary ---
:1960 Author Organization [facility] [address] Care Team Providers Name Role Phone Santhosh Herron MD Primary Care Provider Reason for Visit Reason Onset Date Comments Other 03/19/2022 Positive for covid Encounter Details Date Type Department Care Team Description 03/19/2022 Telephone Hematology/Oncology at Sherice Sinclair RN Other (Positive for [facility] covid) [address] [place] [phone] Social History Tobacco Use Types Packs/Day Years Used Date Smoking Tobacco: Every Day Cigarettes 0.5 40 Smokeless Tobacco: Never Comments: 3/4 to 1/2 pack a day Alcohol Use Standard Drinks/Week Comments Yes 0 (1 standard drink = 0.6 oz pure alcoho l) occasional Sex Assigned at Date Recorded Not on file documented as of this encounter Miscellaneous Notes Telephone Encounter - Sherice Sinclair RN - 03/19/2022 11:05 AM EDT Pt positive for covid on March 14 due in to clinic for follow up on March 28. We will push appointment out at least a week so there is 21 days in between positive test. Pt did get antiviral from PCP for covid. Secretaries will call her with new time. documented in this encounter Plan of Treatment Not on filedocumented as of this encounter Visit Diagnoses Not on filedocumented in this encounter Care Teams Artist And Repertoire Manager Relationship Specialty Start Date End Date Santhosh Herron MD PCP - General Family Medicine 02/18/17 [address] [place] [phone] documented as of this encounter
--- OUTSIDE RECORDS SUMMARY | 2022-09-13 00:39 | XMS_ITS | Encounter Summary ---
:1960 Author Organization [facility] Address [facility] [place] [address] Care Team Providers Name Role Phone Santhosh Herron MD Primary Care Provider Reason for Referral Physical Therapy (Routine) - Specialty Diagnoses / Procedures Referred By Contact Refer red To Contact Physical Therapy Diagnoses Chronic pain of right knee Dylan Hatch MD [facility] D [place] [address] Referral ID Status Reason Start Date Expiration Date Visits V isits Requested Authorized [id number] Evaluate and 05/17/2019 11/13/2019 12 12 Treat Reason for Visit Reason Comments Follow-up DOS 07/08/17 Right TKA Revisi on continued pain Encounter Details Date Type Department Care Team Description 05/12/2019 Office Visit Orthopaedics at [facility], Dr Hatch Chronic pain of right [facility] Team knee (Primary Dx) [place] [address] Social History Tobacco Use Types Packs/Day [...] Sign Reading Time Taken Comments Blood Pressure 129/86 05/12/2019 10:49 AM EDT Pulse 67 05/12/2019 10:49 AM EDT Temperature - - Respiratory Rate - - Oxygen Saturation - - Inhaled Oxygen Concentration - - Weight 72.9 kg (160 lb 11.2 oz) 05/12/2019 10:49 AM kristian sured EDT Height 162.6 cm (5' 4.02) 05/12/2019 10:49 AM measured EDT Body Mass Index 27.57 05/12/2019 10:49 AM EDT documented in this encounter Progress Notes Dylan Hatch MD - 05/12/2019 10:50 AM EDT Subjective: Patient ID: Alicia Main is a 58 y.o. female. Arthroplasty/Orthopaedic History: 1. Right knee arthroscopy - 2007 2. Right UKA - 2009 - [place] 3. Right UKA revision 2 months post op for nerve pain 4. 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 Hatch HPI Medial knee pain RIGHT. Also posterior pain. No instability and states it functions well. Patient Active Problem List Diagnosis Code ??? Acquired spondylolisthesis M43.10 ??? Degeneration of lumbar or lumbosacral intervertebral disc M51.37 ??? Lumbago M54.5 ??? Cigarette smoker F17.210 ??? s/p conversion of uni to R TKA 07/08/17 Dr. Hatch Z96.659 ??? Acute pain of right knee M25.561 Allergies Allergen Reactions ??? Erythromycin Nausea And Vomiting ??? Oxycodone Itching ??? Penicillins Hives ??? Vancomycin Itching Red man's syndrome Current Outpatient Medications on File Prior to Visit Medication Sig Dispense Refill ??? ibuprofen (ADVIL;MOTRIN) 200 mg Tablet Take 200 mg by mouth every 6 hours as needed for Pain. ??? gabapentin (NEURONTIN) 600 mg Tablet Take 600 mg by mouth 3 times daily. ??? acetaminophen (TYLENOL) 500 mg Tablet Take 1,000 mg by mouth every 6 hours as needed for Pain. ??? bisacodyl (DULCOLAX) 5 mg Tablet, Delayed Release (E.C.) Take 2 tablets by mouth 2 times daily as needed for Constipation for up to 28 doses. ??? albuterol 90 mcg/actuation HFA Aerosol Inhaler ??? [DISCONTINUED] naproxen sodium (ALEVE) 220 mg Capsule Take by mouth. ??? [DISCONTINUED] hydrOXYzine (ATARAX) 10 mg Tablet No current facility-administered medications on file prior to visit. Review of Systems [facility] Non-surgical Followup Visit 05/12/2019 PROMIS-10 General Health Very Good PROMIS-10 Quality of Life Very Good PROMIS-10 Physical Health Good PROMIS-10 Mental Health Very Good PROMIS-10 Social Activity Very Good PROMIS-10 Everyday Activities Completely PROMIS-10 Pain 4 PROMIS-10 Fatigue Mild PROMIS-10 Social Roles Excellent PROMIS-10 Anxious or Depressed Rarely PROMIS PHYSICAL SCORE (range 16-68) 47.7 PROMIS MENTAL SCORE (range 21-68) 53.3 Treatments Tried - Prior Surgery - KOOS JRScores 57.14 TKA Grade 3 Satisfaction with Treatment Satisfied Choose Same Treatment Again - Orthopeadics [facility] Response 05/12/2019 KOOS JR Scores 57.14 Spine [facility] Response 05/12/2019 KOOS JR Scores 57.14 Objective: Physical Exam Blood pressure 129/86, pulse 67, height 162.6 cm (5' 4.02), weight 72.9 kg (160 lb 11.2 oz). I have made the following determinations: Tender over the medial hamstrings and extends up the back of the leg. Post Op Right Knee Exam: Knee ROM: Extension:0 Flexion: 120 Alignment: 0-4 degrees Neutral Stability: A/P Translation <5mm. Varus (lateral stability)<5mm Valgus (medial stability) <5mm Extension La degrees or less Patella Tracking: Normal Pulses Palpable: Right PT: Yes Right DP:Yes Motor/Sensory: Distal Motor: Normal Distal Sensory: Normal Quadriceps Strength: 5 Imaging: stable appearing with no evidence of loosening. Assessment and Plan: Pain RIGHT knee I talked to the patient about her findings. There is no effusion or other local finding of a problem in the joint. Her pain is over the hamstrings Will have her work on an eccentric strengthening program to see of that helps. She will let me know how that is going. F/U 1 year with x-ray documented in this encounter Plan of Treatment Scheduled Referrals Name Type Priority Associated Diagnoses Order S chedule Referral to Outpatient Referral Routine Chronic pain of Order ed: Physical Therapy right knee 05/17/2019 documented as of this encounter Visit Diagnoses Diagnosis Chronic pain of right knee - Primary documented in this encounter Care Teams Mortgage Servicing Specialist Relationship Specialty Start Date End Date Santhosh Herron MD PCP - General Family Medicine 02/18/[address] [place] [phone] documented as of this encounter
--- OUTSIDE RECORDS SUMMARY | 2022-09-13 00:39 | XMS_ITS | Encounter Summary ---
:1960 Author Organization [facility] [place] [address] Care Team Providers Name Role Phone Santhosh Herron MD Primary Care Provider Encounter Details Date Type Department Care Team Description 07/17/2017 Anti-Coag Orthopaedics at [facility] Christa Michel Anticoagulation Telephone Visit [facility] [place] [address] Social History Tobacco Use Types Packs/Day Years Used Date Smoking Tobacco: Every Day Cigarettes 0.5 40 Smokeless Tobacco: Never Comments: 3/4 to 1/2 pack a day Alcohol Use Standard Drinks/Week Comments Yes 0 (1 standard drink = 0.6 oz pure alcoho l) occasional Sex Assigned at Date Recorded Not on file documented as of this encounter Progress Notes Christa Michel RN - 07/17/2017 12:42 PM EDT Anticoagulation Therapy Nurse Visit Alicia Campa [place]el[place] 1960 Surgeon: Dr. Hatch Indication: DVT Prophylaxis S/P Joint Replacement Duration of Treatment: 30 days ends: 30 days (last day = 08/07/17) Therapeutic Range: 2.0-3.0 INR: 2.5 Drawn by: [facility] PHONE: [phone] FAX: [phone] Patient presents with no signs of bleeding [...] Associated Diagnosis Comme nts EXTERNAL LAB Routine 07/17/2017 Results for thi s HEMATOLOGY/COAG procedure ar e in the RESULTS PANEL results sectio n. documented in this encounter Results (ABNORMAL) Hematology / Coag External Results (07/17/2017) P athologist Signature POC INR 2.5 (A) 0.9 - 1.1 Comment: [facility] HH&H Specimen (Source) Anatomical Location Collection Method / Collectio n Time Received Time / Laterality Volume 07/17/2017 Historical Provider HEMATOLOGY ORDERABLES documented in this encounter Visit Diagnoses Diagnosis Anticoagulation management encounter Encounter for therapeutic drug monitorin g documented in this encounter Care Teams County Assessor Relationship Specialty Start Date End Date Santhosh Herron MD PCP - General Family Medicine 02/18/[address] [place] [phone] documented as of this encounter
--- OUTSIDE RECORDS SUMMARY | 2022-09-13 00:39 | XMS_ITS | Encounter Summary ---
:1960 Author Organization [facility] Address [address] [place] [address] Care Team Providers Name Role Phone Santhosh Herron MD Primary Care Provider Reason for Visit Reason Comments Follow-up 07/08/17 Right TKA REV Encounter Details Date Type Department Care Team Description 02/07/2021 Office Visit Orthopaedics at [facility], Dr Hatch Status post revision [facility] Team of total replacement [place] [address] Social History Tobacco Use Types Packs/Day [...] Sign Reading Time Taken Comments Blood Pressure 120/74 02/07/2021 1:11 PM EDT Pulse 69 02/07/2021 1:11 PM EDT Temperature - - Respiratory Rate - - Oxygen Saturation - - Inhaled Oxygen Concentration - - Weight 70.8 kg (156 lb) 02/07/2021 1:11 PM EDT Height 160 cm (5' 3) 02/07/2021 1:11 PM EDT Body Mass Index 27.63 02/07/2021 1:11 PM EDT documented in this encounter Progress Notes Dylan Hatch MD - 02/07/2021 2:00 PM EDT Subjective: Patient ID: Alicia Main is a 60 y.o. female. Arthroplasty/Orthopaedic History: 1. Right knee arthroscopy - 2007 2. Right UKA - 2009 - [place] 3. Right UKA revision 2 months post op for nerve pain 4. 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 Hatch HPI Ms. Main presents for routine follow up of her knee. She is s/p REVISION for failed UNI doneelsewhere. She states she is better than she was with her UNI but still has some discomfort at times. 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 grade 1-2 out of 3. Flow cytometry confirmed a CD10 positive lymphoproliferative disorder. CD19 was positive, CD20 was positive, CD5 was negative PET scan showed extensive disease in nodes and skeletal and spleen 01/07 Low risk FL IPI score Observation only Review of Systems [facility] Non-surgical Followup Visit 02/06/2021 PROMIS-10 General Health Good PROMIS-10 Quality of Life Good PROMIS-10 Physical Health Good PROMIS-10 Mental Health Good PROMIS-10 Social Activity Good PROMIS-10 Everyday Activities Completely PROMIS-10 Pain 3 PROMIS-10 Fatigue Moderate PROMIS-10 Social Roles Good PROMIS-10 Anxious or Depressed Rarely PROMIS PHYSICAL SCORE (range 16-68) 47.7 PROMIS MENTAL SCORE (range 21-68) 45.8 Treatments Tried - Prior Surgery - KOOS JRScores 65.99 TKA Grade 5 Satisfaction with Treatment Satisfied Choose Same Treatment Again Probably yes Orthopeadics [facility] Response 02/06/2021 KOOS JR Scores 65.99 Spine [facility] Response 02/06/2021 KOOS JR Scores 65.99 Objective: Physical Exam Blood pressure 120/74, pulse 69, height 160 cm (5' 3), weight 70.8 kg (156 lb). I have made the following determinations: Post Op Right Knee Exam: Knee ROM: Extension:0 Flexion: 135 Alignment: 0-4 degrees Neutral Stability: A/P Translation <5mm. Varus (lateral stability)<5mm Valgus (medial stability) <5mm Extension La degrees or less Patella Tracking: Normal Pulses Palpable: Right PT: Yes Right DP:Yes Motor/Sensory: Distal Motor: Normal Distal Sensory: Normal Quadriceps Strength: 5 Imaging: I personally reviewed the images and shared them with the patient. Stable appearing implants. Assessment and Plan: Stable following REVISION RIGHT TKA RTC 2 years Discussed usual precautions Discussed that she already uses abx with dental work and that may be a good idea given her new diagnosis. She knows to call with any questions or concerns. documented in this encounter Plan of Treatment Not on filedocumented as of this encounter Visit Diagnoses Diagnosis Status post revision of total replacemen t of right knee documented in this encounter Care Teams Brand Recorder Relationship Specialty Start Date End Date Santhosh Herron MD PCP - General Family Medicine 02/18/[address] [place] [phone] documented as of this encounter
--- OUTSIDE RECORDS SUMMARY | 2022-09-13 00:39 | XMS_ITS | Encounter Summary ---
:1960 Author Organization [place] [address] Care Team Providers Name Role Phone Santhosh Herron MD Primary Care Provider Encounter Details Date Type Department Care Team Description 12/25/2020 Hospital Encounter Hematology and Oncol ogy at [facility] [place] [address] Social History Tobacco Use Types Packs/Day [...] on filedocumented in this encounter Care Teams Campaign Specialist Relationship Specialty Start Date End Date Santhosh Herron MD PCP - General Family Medicine 02/18/[address] [place] [phone] documented as of this encounter
--- OUTSIDE RECORDS SUMMARY | 2022-09-13 00:39 | XMS_ITS | Encounter Summary ---
:1960 Author Organization [facility] [place] [address] Care Team Providers Name Role Phone Santhosh Herron MD Primary Care Provider Encounter Details Date Type Department Care Team Description 08/22/2017 Telephone Orth[place]edics at [facility] Olivia Barrow, [place] [address] Social History Tobacco Use Types Packs/Day Years Used Date Smoking Tobacco: Every Day Cigarettes 0.5 40 Smokeless Tobacco: Never Comments: 3/4 to 1/2 pack a day Alcohol Use Standard Drinks/Week Comments Yes 0 (1 standard drink = 0.6 oz pure alcoho l) occasional Sex Assigned at Date Recorded Not on file documented as of this encounter Miscellaneous Notes Telephone Encounter - Olivia Barrow, RN - 08/22/2017 9:08 AM EDT Operations/Major Procedures: 07/08/2017 Surgeon(s) and Role: * Dylan Hatch MD - Primary * Bimal Sampson PA * Vinita Gonzalez MD - Resident-Surgeon Chief Procedure(s): TOTAL KNEE REVISION ARTHROPLASTY, COMPLETE ?? This author called the patient in regards of refill request on oxycodone 5 mg,last medicaion prescription on 07/09/2017. Patient informed that since it has been more than 6 weeks after the surgery withDr. Hatch the request should be made to PCP for pain medication prescription. Patient verbalized understanding and is in agreement with the plan. documented in this encounter Plan of Treatment Not on filedocumented as of this encounter Visit Diagnoses Not on filedocumented in this encounter Care Teams Alumni Relations Officer Relationship Specialty Start Date End Date Santhosh Herron MD PCP - General Family Medicine 02/18/[address] [place] [phone] documented as of this encounter
--- OUTSIDE RECORDS SUMMARY | 2022-09-13 00:39 | XMS_ITS | Encounter Summary ---
:1960 Author Organization [facility] [place] [address] Care Team Providers Name Role Phone Santhosh Herron MD Primary Care Provider Encounter Details Date Type Department Care Team Description 12/18/2020 Hospital [place] [address] Social History Tobacco Use Types Packs/Day [...] Associated Diagnosis Comme nts SURGICAL PATHOLOGY Routine 12/18/2020 3:03 PM Res ults for this REPORT EST procedure are i n the results section. documented in this encounter Results Surgical Pathology Report (12/18/2020 3:03 PM EST) Component Value Ref Test Analysis Performed At [facility] gist Range Method Time Signature Surgical [id number] ? Location: [facility] Pathology RHINELAND Report The signing pathologist has (i) examined the relevant preparation(s) for the [facility] specimen(s) and (ii) rendered or confirmed the diagnosis(es) . HOSPITAL LABORATORY . ?Surgic al Pathology DIAGNOSIS CONSULTATION CASE LYMPH NODE, RIGHT CERVICAL (BIOPSY); [OS R# [id number], COLLECTED 11/29/2020, 5 SLIDES]: ?? 1. Follicular lymphoma, grade 1-2 (low-grade), with a follicular growth pattern ?? 2. The Ki67 proliferation index is estimated at ~20-30% Electronically signed by: ??Johnathan De Oliveira MD Verified: ??12/19/2020 ?Hematopathologist Performed at: ??-[facility] Dept. of Pathology, [place], [place] DISCUSSION A report from the referring institution indicates that tissue from this biopsy was also submitted for flow cyt ometry, showing a lambda-restricted B-cell population (64% of the lymphocytes) th at expressed CD10, CD19, CD20, CD22 (variable), CD23, CD45, and FMC7; and was neg ative for CD5, CD11c, and the remaining selected markers ([facility] case# [id number]). This immunophenotype is compatible with the above diagnosis. ADDITIONAL STUDIES MICROSCOPIC DESCRIPTION The histologic preparation contains fragments of lymph node tissue that show effacement of normal cortic al-medullary architecture by an abnormal proliferation with a nodular growth patte rn. The nodular areas appear to consist of densely-packed abnormal lymphoid follicles . Most of these appear lack clear mantle cuffs, polarity, and tingible-body macrophag es. The cells are mostly intermediate-sized centrocytic lymphocytes, and only centroblastic izabela ls are scattered throughout (averaging ~4-6/50x field). No unusual increased number or aggregation of large-lymphoid cells are seen, and no areas of necrosis are appreciated. IMMUNOHISTOCHEMISTRY STUDIES Block: ? A1 Fixative: ??Formalin ANTIBODY: ??RESULT/COMMENT CD3 ?NEGATIVE; background vbnpn-E-mwign stain PAX5 ? POSITIVE; lymphoma cells stain, nodular patter n highlighted CD21 ? NEGATIVE; SNF-meshworks weakly highlighted Ki67 ? POSITIVE; proliferation estimated at ~20-30% Note: The immunoperoxidase stains reported above were develo ped and their performance characteristics determined by the referring institution and included for interpretation at [facility]. Appropriate controls were included for each case. SPECIMEN(S) SUBMITTED CONSULTATION CASE A - 5 slide(s) labeled [id number], collection date 1. [id number] Report to: [facility] Surgical Pathology Department [facility], 2nd Floor . SPECIMEN(S) SUBMITTED [address] [place] [address], [place] ??[address] CLINICAL INFORMATION A 60 year old woman with rig ht cervical lymphadenopathy noted since the summer or 2019. She underwent an exci sional biopsy at another institution where a low- grade B- cell lymphoma was diagnosed. The patient is now being evaluated by a provider, and slides from the biopsy were submitted for evaluation at [facility]. SPECIMEN PROCESSING [facility] ([facility]) pathology slide(s) are reviewed. ??Refer to Diagnosis and Specimen Submitted for specific case infor elif. For the full text of the [facility] report(s) please refer t o Non- Documentation Pathology in the electronic health record (eDH). Specimen (Source) Anatomical Collection Method Collection Time Re ceived Time Location / / Volume Laterality 12/18/2020 3:03 PM EST Julian Gutierrez MD PATHOLOGY/CYTOLOGY ORDERABLE S Performing Organization Address City/State/ZIP Code Phon e Number [place] [phone] documented in this encounter Visit Diagnoses Not on filedocumented in this encounter Care Teams Fpga Design Engineer Relationship Specialty Start Date End Date Santhosh Herron MD PCP - General Family Medicine 02/18/[address] [place] [phone] documented as of this encounter
--- OUTSIDE RECORDS SUMMARY | 2022-09-13 00:39 | XMS_ITS | Encounter Summary ---
:1960 Author Organization [facility] [place] [address] Care Team Providers Name Role Phone Santhosh Herron MD Primary Care Provider Reason for Visit Reason Comments Follow-up Right TKA Rev. Encounter Details Date Type Department Care Team Description 07/09/2018 Office Visit Orthopaedics at [facility], Status post revision [facility] Isabelle Calloway APRN of total replacement Drive [facility] [place] [place] [address] ORTHOPAEDIC SURG [place] [id number] (Wo rk) Social History Tobacco Use Types [...] Sign Reading Time Taken Comments Blood Pressure 152/94 07/09/2018 11:31 AM EDT Pulse 60 07/09/2018 11:31 AM EDT Temperature - - Respiratory Rate - - Oxygen Saturation - - Inhaled Oxygen Concentration - - Weight 73.9 kg (163 lb) 07/09/2018 11:31 AM EDT measure d Height 162.6 cm (5' 4) 07/09/2018 11:31 AM EDT Body Mass Index 27.98 07/09/2018 11:31 AM EDT documented in this encounter Progress Notes Isabelle Madrigal, MOHIT - 07/09/2018 11:40 AM EDT Arthroplasty/Orthopaedic History: 1. Right knee arthroscopy - 2007 2. Right UKA - 2009 - [place] 3. Right UKA revision 2 months post op for nerve pain 4. 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 Hatch HPI: Alicia Main is a very pleasant 57 y.o. year-old female and is now 1 year status post conversion of uni-to total knee replacement of the right knee. Reports she is doing well postoperatively and her pain is improved from preoperative status. She does have some intermittent occasional medial sided proximal tibia pain. She is not needing to take pain medications for this. She has been ambulating unassisted. 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 Has been otherwise well without infections or hospitalizations since her last visit. ROS: Denies: fever, chills, night sweats, nausea, or vomiting BP (!) 152/94 Pulse 60 Ht 162.6 cm (5' 4) Wt 73.9 kg (163 lb) Comment: measured BMI 27.98 kg/m2 Physical Exam: Well-appearing female in no acute distress. Alert and Oriented x 3 and answers all questions appropriately. The incision is well healed. No effusion or soft tissue swelling. No tenderness to palpation of joint. Post Op Right Knee Exam: Knee ROM: Extension:0 Flexion: 130 Alignment: 0-4 degrees Neutral Stability: A/P Translation <5mm. Varus <5mm Valgus <5mm Extension La degrees or less Patella Tracking: Normal Pulses Palpable: Right PT: Yes Right DP:Yes Motor/Sensory: Distal Motor: Normal Distal Sensory: Normal Quadriceps Strength: 5 X-RAYS: I reviewed multiple x-ray images of the patient's right knee performed today. They reveal well-placed components without periprosthetic lucency, malrotation or complication. Questionnaire Responses: [facility] Surgical Postop Visit 07/06/2018 PROMIS-10 General Health Very Good PROMIS-10 Quality of Life Very Good PROMIS-10 Physical Health Very Good PROMIS-10 Mental Health Very Good PROMIS-10 Social Activity Very Good PROMIS-10 Everyday Activities Mostly PROMIS-10 Pain 3 PROMIS-10 Fatigue Mild PROMIS-10 Social Roles Very Good PROMIS-10 Anxious or Depressed Rarely PROMIS PHYSICAL HEALTH SCORE 50.8 PROMIS MENTAL HEALTH SCORE 53.3 KOOS JR Scores 63.78 Problems with surgical incision/wound after surgery No Gone to ER since knee surgery No Admitted to hospital since recent ortho surgery No Additional surgery on same body part No TKA Grade 7 Pain in other KNEE Moderate Back pain at this moment Moderate Satisfaction with Treatment Satisfied Choose Same Treatment Again Definitely yes ASSESSMENT/PLAN: Ms. Main is a 57 y.o. year old female 1 year status post right total knee (converted from a UKA). Doing well postoperatively. 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 Encouraged continued activities as tolerated and home exercise program. We will see her back in 12 months for repeat examination. X-rays will be needed at that time. Patient may return to normal activities as her pain and function allow. We discussed the appropriate precautions surrounding dental prophylaxis; according to the AAOS Appropriate Use Criteria we do not recommend antibiotic use prior to dental procedures for Alicia. If Alicia has any changes in health status we recommend she contact our office prior to dental procedures for updated recommendations We also discussed maintaining good foot care and giving prompt attention to any source of infection throughout the body including foot ulcers and urinary tract infections. All questions were answered. documented in this encounter Plan of Treatment Not on filedocumented as of this encounter Visit Diagnoses Diagnosis Status post revision of total replacemen t of right knee documented in this encounter Care Teams Brand Sales Manager Relationship Specialty Start Date End Date Santhosh Herron MD PCP - General Family Medicine 02/18/17 [address] [place] [phone] documented as of this encounter
--- OUTSIDE RECORDS SUMMARY | 2022-09-13 00:39 | XMS_ITS | Encounter Summary ---
:1960 Author Organization [facility] [place] [address] Care Team Providers Name Role Phone Santhosh Herron MD Primary Care Provider Encounter Details Date Type Department Care Team Description 07/24/2017 Anti-Coag Orthopaedics at [facility], Anticoagulation Telephone Visit [facility] Daria [place] [phone] Social History Tobacco Use Types Packs/Day Years Used Date Smoking Tobacco: Every Day Cigarettes 0.5 40 Smokeless Tobacco: Never Comments: 3/4 to 1/2 pack a day Alcohol Use Standard Drinks/Week Comments Yes 0 (1 standard drink = 0.6 oz pure alcoho l) occasional Sex Assigned at Date Recorded Not on file documented as of this encounter Progress Notes Daria Chawla RN - 07/24/2017 12:51 PM EDT Anticoagulation Therapy Nurse Visit Alicia Campa Etelvina 1960 Surgeon: Dr. Hatch Indication: DVT Prophylaxis S/P Joint Replacement Duration of Treatment: 30 days ends: 30 days (last day = 08/07/17) Therapeutic Range: 2.0-3.0 INR: 2.5 Drawn by: [facility] PHONE: [phone] FAX: [phone] Patient presents with no signs of bleeding [...] Associated Diagnosis Comme nts EXTERNAL LAB Routine 07/24/2017 Results for thi s HEMATOLOGY/COAG procedure ar e in the RESULTS PANEL results sectio n. documented in this encounter Results (ABNORMAL) Hematology / Coag External Results (07/24/2017) P athologist Signature POC INR 2.5 (A) 0.9 - 1.1 VISITING NURSE Specimen (Source) Anatomical Location Collection Method / Collectio n Time Received Time / Laterality Volume 07/24/2017 Historical Provider HEMATOLOGY ORDERABLES Performing Organization Address City/State/ZIP Code Phon e Number VISITING NURSE documented in this encounter Visit Diagnoses Diagnosis Anticoagulation management encounter Encounter for therapeutic drug monitorin g documented in this encounter Care Teams Phlebotomist Relationship Specialty Start Date End Date Santhosh Herron MD PCP - General Family Medicine 02/18/[address] [place] [phone] documented as of this encounter
--- OUTSIDE RECORDS SUMMARY | 2022-09-13 00:39 | XMS_ITS | Encounter Summary ---
:1960 Author Organization [facility] [place] [address] Care Team Providers Name Role Phone Santhosh Herron MD Primary Care Provider Reason for Visit Reason Onset Date Comments Lymphadenopathy 01/07/2022 Encounter Details Date Type Department Care Team Description 01/07/2022 Telephone Hematology/Oncology at Sherice Washington RN [address] [phone] Social History Tobacco Use Types Packs/Day Years [...] Telephone Encounter - Sherice Sinclair RN - 01/07/2022 1:20 PM EDT Patient calls and states last January 03 she developed pain in upper left arm and down intochest. She went to [facility] ER. The did EKG which was fine. CT scan and ultra sound to rule out clots none were seen. And chest xray. On CT scan they noted some nodes in upper axilla area. They told her they were probably related to her lymphoma. They gave her oxycodone for the pain. She took it for two nights along with using cold packs. Pain is almost gone. She would like to know how she can avoid this pain in the future. Scan reports scanned into media and ER report requested. Let pt know we would review with Dr. Gutierrez and he would get back to us with what he wants her to do. Dr. Gutierrez reviewed reports and stated that the nodes from her lymphoma were to small to cause her that pain. She can follow up with her PCP. This information was relayed to patient. documented in this encounter Plan of Treatment Not on filedocumented as of this encounter Visit Diagnoses Not on filedocumented in this encounter Care Teams Dot Compliance Coordinator Relationship Specialty Start Date End Date Santhosh Herron MD PCP - General Family Medicine 02/18/[address] [place] [phone] documented as of this encounter
--- OUTSIDE RECORDS SUMMARY | 2022-09-13 00:39 | XMS_ITS | Encounter Summary ---
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 [address] Referral ID Status Reason Start Date Expiration Date Visits V isits Requested Authorized [id number] Closed Specialty 08/07/2021 11/05/2021 1 1 Service Requested Encounter Details Date Type Department Care Team Description 07/12/2021 Office Visit Hematology/Oncology Ariana Gutierrez MD [facility] HEMATOLOGY/[place] [address] Grade 1 follicular at [facility] Jacquelyn Rodriguez APRN [address] [place] [address] DR HEMATOLOGY ONCOLOGY [place], [place] [id number] lymphoma of lymph [address] [place] [address] [place] [address] Social History Tobacco Use Types [...] Sign Reading Time Taken Comments Blood Pressure 147/95 07/12/2021 2:34 PM EDT Pulse 65 07/12/2021 2:34 PM EDT Temperature 35.7 ??C (96.2 ??F) 07/12/2021 2:34 PM EDT Respiratory Rate 16 07/12/2021 2:34 PM EDT Oxygen Saturation 99% 07/12/2021 2:34 PM EDT Inhaled Oxygen Concentration - - Weight 65.8 kg (145 lb) 07/12/2021 2:34 PM EDT Height 159.5 cm (5' 2.8) 07/12/2021 2:34 PM EDT Body Mass Index 25.85 07/12/2021 2:34 PM EDT documented in this encounter Progress Notes Julian Gutierrez MD - 07/12/2021 2:30 PM EDT Subjective: Patient ID: Alicia Main is a 60 y.o. female. HPI The patient is a 60-year-old female that I am seeing in the [facility]. She has recentlydiagnosed follicular lymphoma [...] Observation only The patient returns to the [facility] in follow-up for her low-grade lymphoma. She has not been treated. Since we last saw her she has been about the same. Her biggest area of discomfort is below her rightknee where she had surgery. Been slowly getting worse. She did see her orthopedic surgeon who was concerned it might be an area of lymphoma involvement. Recent plain film imaging did not reveal any lytic lesions. She has no fevers. She does have occasional head sweats but not severe. She is lost a few pounds butprobably through the summer months she been a bit more active. She is planning a trip to [place] with her in the end of July. Past medical history Hyperlipidemia Nicotine dependence Trigeminal [...] cervical node, no other nodes or splenomegaly Labs from 07/12/2021 White count 6.5, hemoglobin 12.6, platelets 165 Creatinine 0.8, alkaline phosphatase 98, LDH 218 Assessment and Plan: 60-year-old female with a diagnosis of a follicular low-grade lymphoma. The pathology and flow cytometry is characteristic of a follicular low-grade non- Hodgkin's lymphoma. She does not have anemia or abnormal blood counts. Chemistries are normal including an alkaline phosphatase and LDH. These things point against an aggressive lymphoma involving symptomatic bone diseasebut it may be reasonable to do additional studies. Her PET scan did show more extensive disease including bone and spleen involvement. When I reviewed her images again today the area of her discomfort below the right knee was not imaged on the PET scanfrom December. I think it would be reasonable to follow-up another PET scan with her. I am going to include her whole skeleton as well given her known bone involvement at this point. If she does have evidence of PET positivity below the right knee given her symptoms it may be reasonable to consider treatment. I will bring her back in about 6 weeks after her trip to [place] with a PET scan to be done at [facility]. We will review that with her at that point. documented in this encounter Plan of Treatment Not on filedocumented as of this encounter Results NM PET CT Standard [...] who have questions please contact the health in home caregiver that requested your imaging first. ? Electronically signed by: Julian Simms MD, [facility] ([phone]), at 08/20/2021 2:31 PM Narrative 08/20/2021 2:31 PM EDT EXAMINATION: NM PET CT STANDARD PLUS EXTREMITIES AND HEAD CLINICAL HISTORY: Low-grade no acute lym phoma diagnosed 11/2020 with waxing and waning neck adenopathy. Patient complain ing of right knee pain. Subsequent treatment evaluation. TECHNIQUE: Procedure: Following IV injec tion of 14-eeogqp-3-deoxyglucose (FDG) a standard uptake of approximately 60 [...] TECHNIQUE: Procedure: Following IV injec tion of 68-yzdxpa-2-deoxyglucose (FDG) a standard uptake of approximately 60 [...] ho have questions please contact the health in home caregiver that requested your imaging first. Electronically signed by: Julian Simms MD, [facility] ([phone]), at 08/20/2021 2:31 PM Julian Gutierrez MD IMG PET ORDERABLES documented in this encounter Visit Diagnoses Diagnosis Grade 1 follicular lymphoma of lymph nod es of neck Grade 1 follicular lymphoma of lymph nod es of neck documented in this encounter Care Teams Flight Instructor Relationship Specialty Start Date End Date Santhosh Herron MD PCP - General Family Medicine 02/18/17 [address] [place] [phone] documented as of this encounter
--- OUTSIDE RECORDS SUMMARY | 2022-09-13 00:39 | XMS_ITS | Encounter Summary ---
:1960 Author Organization [facility] Address [address] [place] [address] Care Team Providers Name Role Phone Santhosh Herron MD Primary Care Provider Reason for Visit Reason Comments Follow Up Surgery dos 07/01/17 R TKA REV Encounter Details Date Type Department Care Team Description 07/30/2017 Office Visit Orthopaedics at [facility] Dylan Hatch Status post revision [facility] MD Shay of total replacement Drive [facility] [place] [place] [address] CENTER [phone] ORTHOPAEDIC SURGERY [place] [address] Social History Tobacco Use Types Packs/Day Years [...] Sign Reading Time Taken Comments Blood Pressure 117/85 07/30/2017 12:34 PM EDT Pulse 74 07/30/2017 12:34 PM EDT Temperature 36.8 ??C (98.3 ??F) 07/30/2017 12:34 PM EDT Respiratory Rate - - Oxygen Saturation - - Inhaled Oxygen Concentration - - Weight 72.6 kg (160 lb) 07/30/2017 12:34 PM EDT stated Height 162.6 cm (5' 4) 07/30/2017 12:34 PM EDT stated Body Mass Index 27.46 07/30/2017 12:34 PM EDT documented in this encounter Progress Notes Montse Walton PA - 07/30/2017 12:30 PM EDT Arthroplasty/Orthopaedic History: 1. Right knee arthroscopy - 2007 2. Right UKA - 2009 - [place] 3. Right UKA revision 2 months post op for nerve pain 4. 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 Hatch HPI: Alicia Main is a very pleasant 56 y.o. year-old female and is now 3 weeks post right total knee revision. She has been doing very well. Her pain is minimal and well controlled with APAP and naproxen throughout the day, along with 1 tab of oxycodone at night. She is finishing up with inpatient PT soon and has her outpatient PT ready to go. She is ambulating with a cane only for long distances. Her swelling is minimal and she has had no problems with her incision. She is taking coumadin for anticoagulation and her last day is 08/07. ROS: Denies: fever, chills, night sweats, nausea, or vomiting BP 117/85 Pulse 74 Temp 36.8 ??C (98.3 ??F) (Oral) Ht 162.6 cm (5' 4) Comment: stated Wt 72.6 kg (160 lb) Comment: stated BMI 27.46 kg/m2 Physical Exam: Well-appearing female in no acute distress. Alert and Oriented x 3 and answers all questions appropriately. The incision is well healed, with no signs of infection. Post Op Right Knee Exam: Knee ROM: Extension:-3 Flexion: 115 Alignment: 0-4 degrees Neutral Stability: A/P Translation <5mm. Varus <5mm Valgus <5mm Extension La degrees or less Patella Tracking: Normal Pulses Palpable: Right PT: Yes Right DP:Yes Motor/Sensory: Distal Motor: Normal Distal Sensory: Normal Quadriceps Strength: 5 X-RAYS: Multiple radiographic views were obtained at my request and reviewed with the patient. X-rays show a well-placed prosthesis with no evidence of fracture, subsidence, loosening, or periprosthetic complication. Questionnaire Responses:[facility] Surgical Postop Visit 07/30/2017 PROMIS-10 General Health Very Good PROMIS-10 Quality of Life Very Good PROMIS-10 Physical Health Very Good PROMIS-10 Mental Health Very Good PROMIS-10 Social Activity Very Good PROMIS-10 Everyday Activities Moderately PROMIS-10 Pain 2 PROMIS-10 Fatigue Moderate PROMIS-10 Social Roles Good PROMIS-10 Anxious or Depressed Rarely PROMIS PHYSICAL HEALTH SCORE 44.9 PROMIS MENTAL HEALTH SCORE 53.3 KOOS JR Scores 59.38 Problems with surgical incision/wound after surgery No Gone to ER since knee surgery No Admitted to hospital since recent ortho surgery No Additional surgery on same body part No TKA Grade 7 Pain in other KNEE Mild Back pain at this moment Moderate Satisfaction with Treatment Satisfied Choose Same Treatment Again Definitely yes Orthopeadics [facility] Response 07/30/2017 KOOS JR Scores 59.38 Spine [facility] Response 07/30/2017 KOOS JR Scores 59.38 ASSESSMENT/PLAN: Ms. Main is a 56 y.o. year old female status post right total knee revision. She is doing very well and is very happy with the results of her revision. She can continue to progressher activities as tolerated. We discussed her anticoagulation and transitioning to ASA after coumadin. She will follow up in another 2 months with no X-rays. We discussed the appropriate precautions surrounding dental prophylaxis; according to the AAOS Appropriate Use Criteria we do not recommend antibiotic use prior to dental procedures for Alicia. She should avoid elective dental procedures for a total of 6 months post-operatively. We also discussed maintaining good foot care and giving prompt attention to any source of infection throughout the body including foot ulcers and urinary tract infections. documented in this encounter Plan of Treatment Not on filedocumented as of this encounter Visit Diagnoses Diagnosis Status post revision of total replacemen t of right knee documented in this encounter Care Teams Marketing Database Coordinator Relationship Specialty Start Date End Date Santhosh Herron MD PCP - General Family Medicine 02/18/[address] [place] [phone] documented as of this encounter
--- OUTSIDE RECORDS SUMMARY | 2022-09-13 00:39 | XMS_ITS | Encounter Summary ---
:1960 Author Organization [facility] [place] [address] Care Team Providers Name Role Phone Santhosh Herron MD Primary Care Provider Reason for Visit Reason Onset Date Comments Other 12/05/2020 NPW-w/ Dr. Gutierrez f or 12/14/20 Encounter Details Date Type Department Care Team Description 12/05/2020 Telephone Hematology/Oncology at [facility] (NPW-w/ Dr. Duran [facility] Gutierrez for 12/14/20) [address] [place] [phone] Social History Tobacco Use Types Packs/Day [...] on filedocumented in this encounter Care Teams Nuclear Medicine Technician Relationship Specialty Start Date End Date Santhosh Herron MD PCP - General Family Medicine 02/18/[address] [place] [phone] documented as of this encounter
--- OUTSIDE RECORDS SUMMARY | 2022-09-13 00:39 | XMS_ITS | Encounter Summary ---
:1960 Author Organization [facility] [place] [address] Care Team Providers Name Role Phone Santhosh Herron MD Primary Care Provider Encounter Details Date Type Department Care Team Description 07/30/2017 Hospital XRay at [facility] Dylan Hatch Status post unicompartmental knee replacement, right; Encounter [facility] MD Shay Pain of right lower extremity [facility] [phone] ORTHOPAEDIC [phone] SURGERY [place] [id number] Social History Tobacco Use Types Packs/Day Years [...] Start Date End Date hydrOXYzine (ATARAX) 10 0 07/22/2017 0 05/12/2019 mg Tablet senna-docusate Take 2 tablets by 0 07/09/2017 [...] 09/24/2017 ORAL) documented as of this encounter Plan of Treatment Not on filedocumented as of this encounter Procedures Procedure Name Priority Date/Time Associated Diagnosis Comme nts XR KNEE STANDING Routine 07/30/2017 11:25 Status post Results for this ALIGNMENT AP LAT AM EDT unicompartmental knee pr ocedure are in SKYLINE RIGHT replacement, rig ht the results Pain of right lower section. extremity documented in this encounter Results XR Knee Standing Alignment AP Lat [place] Right (07/30/2017 11:25 AM EDT) Anatomical Region Laterality Modality Knee Right Digital Radiography Specimen (Source) Anatomical Location Collection Method / Collectio n Time Received Time / Laterality Volume Impressions 07/30/2017 1:14 PM EDT Interval revision of right total knee arthroplasty without radiographic evidence of periprosthetic fracture nor loosening . Narrative 07/30/2017 1:14 PM EDT EXAMINATION: XR KNEE STANDING ALIGNMENT AP LAT SKYLINE RIGHT CLINICAL HISTORY: History of knee replac ement TECHNIQUE: Separate images of the pelvis , knees and feet were acquired in the AP projection with the patient standing. Th eli images were stitched together to form a composite image of the pelvis and legs allowing for evaluation of lower extremity alignment in the weight bearin g position. AP and skyline views of both knees and lateral right knee COMPARISON: Standing alignment on June 16, 2017 and January 21, 2017 FINDINGS: Weightbearing axes are midline bilateral ly. Interval revision of right knee hemiarthroplasty to right colon knee art hroplasty without radiographic evidence of loosening nor periprosthetic fracture . Small right suprapatellar effusion persists. Stable morphology left knee. Procedure Note Otilia Cerda MD - 07/30/2017 EXAMINATION: XR KNEE STANDING ALIGNMENT AP LAT SKYLINE RIGHT CLINICAL HISTORY: History of knee replac ement TECHNIQUE: Separate images of the pelvis , knees and feet were acquired in the AP projection with the patient standing. Th eli images were stitched together to form a composite image of the pelvis and legs allowing for evaluation of lower extremity alignment in the weight bearin g position. AP and skyline views of both knees and lateral right knee COMPARISON: Standing alignment on June 16, 2017 and January 21, 2017 FINDINGS: Weightbearing axes are midline bilateral ly. Interval revision of right knee hemiarthroplasty to right colon knee art hroplasty without radiographic evidence of loosening nor periprosthetic fracture . Small right suprapatellar effusion persists. Stable morphology left knee. IMPRESSION Interval revision of right total knee ar throplasty without radiographic evidence of periprosthetic fracture nor loosening . Dylan Hatch MD IMG DX ORDERABLES documented in this encounter Visit Diagnoses Diagnosis Status post unicompartmental knee replac ement, right Knee joint replacement by other means Pain of right lower extremity documented in this encounter Care Teams Asphalt Roller Person Relationship Specialty Start Date End Date Santhosh Herron MD PCP - General Family Medicine 02/18/[address] [place] [phone] documented as of this encounter
--- OUTSIDE RECORDS SUMMARY | 2022-09-13 00:39 | XMS_ITS | Encounter Summary ---
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 [address] Referral ID Status Reason Start Date Expiration Date Visits V isits Requested Authorized [id number] Closed Specialty 08/07/2021 11/05/2021 1 1 Service Requested Encounter Details Date Type Department Care Team Description 08/20/2021 Hospital Encounter Nuclear Medicine at Julian Gutierrez MD [facility] DR [address]arias HEMATOLOGY/[place] [address] DEPT. [phone] [place], [place] [address] (Wo rk) Social History Tobacco [...] HEAD nodes of neck the results section. documented [...] who have questions please contact the health career development associate that requested your imaging first. ? Narrative 08/20/2021 2:31 PM EDT EXAMINATION: NM PET CT STANDARD PLUS EXTREMITIES AND HEAD CLINICAL HISTORY: Low-grade no acute lym phoma diagnosed 11/2020 with waxing and waning neck adenopathy. Patient complain ing of right knee pain. Subsequent treatment evaluation. TECHNIQUE: Procedure: Following IV injec tion of 38-hdmipq-3-deoxyglucose (FDG) a standard uptake of approximately 60 [...] TECHNIQUE: Procedure: Following IV injec tion of 44-iqrzqa-8-deoxyglucose (FDG) a standard uptake of approximately 60 [...] ho have questions please contact the health career development associate that requested your imaging first. Julian Gutierrez MD IMG PET ORDERABLES documented in this encounter Visit Diagnoses Not on filedocumented in this encounter Care Teams Clinical Research Analyst Relationship Specialty Start Date End Date Santhosh Herron MD PCP - General Family Medicine 02/18/[address] [place] [phone] documented as of this encounter
--- OUTSIDE RECORDS SUMMARY | 2022-09-13 00:39 | XMS_ITS | Encounter Summary ---
:1960 Author Organization [facility] [address] Care Team Providers Name Role Phone Santhosh Herron MD Primary Care Provider Encounter Details Date Type Department Care Team Description 07/10/2017 Anti-Coag Orthopaedics at [facility] Christa Michel Anticoagulation Telephone Visit [facility] [place] [address] Social History Tobacco Use Types [...] encounter Progress Notes Christa Michel RN - 07/10/2017 1:14 PM EDT Anticoagulation Therapy Nurse Visit Alicia Campa Etelvina 1960 Surgeon: Dr. Hatch Indication: DVT Prophylaxis S/P Joint Replacement Duration of Treatment: 30 days ends: 30 days (last day = 08/07/17) Therapeutic Range: 2.0-3.0 INR: 1.0 Drawn by: [facility] PHONE: [phone] FAX: [phone] Patient presents with no signs of bleeding [...] symptoms reported Other: Comments: Recent Medication Changes: no Comments: Have you missed any dose of Coumadin this past week? No Comments: Dietary Changes: No Comments: documented in this encounter Plan of Treatment Not on filedocumented as of this encounter Procedures Procedure Name Priority Date/Time Associated Diagnosis Comme nts EXTERNAL LAB Routine 07/10/2017 Results for thi s HEMATOLOGY/COAG procedure ar e in the RESULTS PANEL results sectio n. documented in this encounter Results Hematology / Coag External Results (07/10/2017) P athologist Signature POC INR 1.0 0.9 - 1.1 Comment: Dillon Maki [facility] Specimen (Source) Anatomical Location Collection Method / Collectio n Time Received Time / Laterality Volume 07/10/2017 Historical Provider HEMATOLOGY ORDERABLES documented in this encounter Visit Diagnoses Diagnosis Anticoagulation management encounter Encounter for therapeutic drug monitorin g documented in this encounter Care Teams Airplane Cover Maker Relationship Specialty Start Date End Date Santhosh Herron MD PCP - General Family Medicine 02/18/[address] [place] [phone] documented as of this encounter
--- OUTSIDE RECORDS SUMMARY | 2022-09-13 00:39 | XMS_ITS | Encounter Summary ---
:1960 Author Organization [facility] [place] [address] Care Team Providers Name Role Phone Santhosh Herron MD Primary Care Provider Encounter Details Date Type Department Care Team Description 01/04/2021 Office Visit Hematology/Oncology Ariana Gutierrez MD [facility] DR HEMATOLOGY/[place] [address] Grade [facility] [employer]ING SUPERVIS[employer] [address] [place] [address] [place] [address] lymphoma of lymph [address] [place] [address] [place] [address] Social History Tobacco Use Types [...] Sign Reading Time Taken Comments Blood Pressure 167/82 01/04/2021 3:29 PM EDT Pulse 72 01/04/2021 3:29 PM EDT Temperature 36.4 ??C (97.5 ??F) 01/04/2021 3:29 PM EDT Respiratory Rate 18 01/04/2021 3:29 PM EDT Oxygen Saturation 100% 01/04/2021 3:29 PM EDT Inhaled Oxygen Concentration - - Weight 70.8 kg (156 lb) 01/04/2021 3:29 PM EDT Height 161.2 cm (5' 3.47) 01/04/2021 3:29 PM EDT Body Mass Index 27.23 01/04/2021 3:29 PM EDT documented in this encounter Progress Notes Julian Gutierrez MD - 01/04/2021 3:30 PM EDT Images from the original note were not included. Subjective: Patient ID: Jewel Laguna is a 60 y.o. female. HPI The patient is a 60-year-old female that I am seeing in the [facility]. She has recentlydiagnosed follicular lymphoma [...] FL IPI score Observation only The patient is here to go over her staging studies. She did see the report of her PET scan and was alittle concerned by what she read. She does have some right abdominal discomfort. This has been pretty persistent and predated her diagnosis of lymphoma. Occasional aches and pains in her upper chest wall. No fevers chills sweats or further weight loss. Past medical history Hyperlipidemia Nicotine dependence Trigeminal neuralgia History of sinusitis Knee replacement surgery Current Outpatient Medications: ??? albuterol 90 mcg/actuation HFA Aerosol Inhaler, [...] as needed for Pain.,Disp: , Rfl: ??? bisacodyl (DULCOLAX) 5 mg [...] and oriented to person, place, and time. Lab Results Component Value Date WBC 7.2 12/25/2020 RBC 4.31 12/25/2020 HGB 13.0 12/25/2020 HCT 38.8 12/25/2020 MCV 90.0 12/25/2020 MCH 30.2 12/25/2020 MCHC 33.5 12/25/2020 PLATELET 173 12/25/2020 RDWCV 12.4 12/25/2020 Results for JEWEL LAGUNA ( ) as of 01/05/2021 09:24 Ref. Range 12/25/2020 14:02 Total Protein Latest Ref Range: 6.1 - 8.0 gm/dL 7.1 Albumin Latest Ref Range: 3.2 - 5.2 gm/dL 4.5 Total Bilirubin Latest Ref Range: 0.2 - 1.3 mg/dL 0.3 Alk Phos Latest Ref Range: 35 - 105 unit/L 92 AST Latest Ref Range: 0 - 30 unit/L 17 ALT Latest Ref Range: 0 - 30 unit/L 10 LDH Latest Ref Range: 110 - 220 unit/L 211 Total Prot Elec Latest Ref Range: 6.1 - 8.0 gm/dL 6.6 Albumin Elect Latest Ref Range: 3.60 - 6.00 gm/dL 4.44 Alpha1-Globulin Latest Ref Range: 0.10 - 0.30 gm/dL 0.19 Alpha2-Globulin Latest Ref Range: 0.40 - 0.90 gm/dL 0.71 Beta Globulin Latest Ref Range: 0.50 - 1.00 gm/dL 0.63 Gamma Globulin Latest Ref Range: 0.50 - 1.30 gm/dL 0.63 M1 Band Latest Ref Range: None Detected None Detected Beta2 Microglob Latest Ref Range: 0.8 - 2.2 mg/L 2.2 Pet I reviewed the images personally and showed them to the patient. IMPRESSION 1. FDG avid adenopathy in the [...] below. Electronically signed by: Julian Simms MD, [facility] ([phone]), at 12/26/2020 11:07 AM Assessment and Plan: 60-year-old female with a new diagnosis of a follicular low-grade lymphoma. The pathology and flow cytometry is characteristic of a follicular low-grade non- Hodgkin's lymphoma. She does not have anemia or abnormal blood counts. Chemistries are normal including a beta-2 and LDH. Her PET scan does show more extensive disease than I anticipated but she remains relatively asymptomatic. We did calculate her FL IPI score. She has stage IV disease and multiple sites of tl involvement she has an intermediate score. The area of her discomfort in her right abdomen does not seem to have any correlate in terms of lymphoma involvement. I did recommend observation only at this time. We will plan to see her back in 3 months with repeat exam and laboratory studies. If she does show progressive symptoms and increasing bulk of disease I would consider offering her acombination of bendamustine and Rituxan as first-line therapy for her follicular lymphoma. We also talked about pursuing a bone marrow aspirate and biopsy. Given her bone involvement on PET scan I suspect it would be positive and since her counts are normal I do not think we would gain any additional information at this time. documented in this encounter Plan of Treatment Not on filedocumented as of this encounter Visit Diagnoses Diagnosis Grade 1 follicular lymphoma of lymph nod es of neck documented in this encounter Care Teams Contact Center Rep Relationship Specialty Start Date End Date Santhosh Herron MD PCP - General Family Medicine 02/18/[address] [place] [phone] documented as of this encounter
--- OUTSIDE RECORDS SUMMARY | 2022-09-13 00:39 | XMS_ITS | Encounter Summary ---
:1960 Author Organization [facility] Address [address] [place] [address] Care Team Providers Name Role Phone Santhosh Herron MD Primary Care Provider Reason for Visit Reason Comments Aftercare Of Tjr right TKA REV 07/01/17 Encounter Details Date Type Department Care Team Description 09/24/2017 Office Visit Orthopaedics at [facility] Dylan Hatch Status post revision [facility] MD Shay of total replacement Drive [facility] [place] [address] CENTER [phone] ORTHOPAEDIC SURGERY [place] [address] Social History Tobacco Use Types Packs/Day Years [...] Sign Reading Time Taken Comments Blood Pressure 131/90 09/24/2017 10:57 AM EST Pulse 72 09/24/2017 10:57 AM EST Temperature - - Respiratory Rate - - Oxygen Saturation - - Inhaled Oxygen Concentration - - Weight 72.6 kg (160 lb) 09/24/2017 10:57 AM EST Height 162.6 cm (5' 4) 09/24/2017 10:57 AM EST Body Mass Index 27.46 09/24/2017 10:57 AM EST documented in this encounter Progress Notes Dylan Hatch MD - 09/24/2017 10:50 AM EST Arthroplasty/Orthopaedic History: 1. Right knee arthroscopy - 2007 2. Right UKA - 2009 - [place] 3. Right UKA revision 2 months post op for nerve pain 4. 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 Hatch HPI: Alicia Main is a very pleasant 57 y.o. year-old female and is now 3 months post right knee conversion from UKA to TKA. Alicia has been doing very well regarding her pain, she does note nerve related pain, otherwise no knee pain that is limiting her daily activity. She is currently on Neuronitin daily. Alicia also notes a spitting suture at the proximal incision. She denies fevers, chills, nausea, vomiting, or symptoms of infection. Alicia has been ambulating with no assistive device. She is not currently taking narcotic pain medicine. ROS: Denies: fever, chills, night sweats, nausea, or vomiting BP 131/90 (BP Location (NBP): Right arm, Patient Position: Sitting, BP Cuff Sizes: Adult (25-34 cm)) Pulse 72 Ht 162.6 cm (5' 4) Wt 72.6 kg (160 lb) BMI 27.46 kg/m2 Physical Exam: Well-appearing female in no acute distress. Alert and Oriented x 3 and answers all questions appropriately. The incision is well healed. One spitting suture noted Post Op Right Knee Exam: Knee ROM: Extension:0 Flexion: 120 Alignment: 0-4 degrees Neutral Stability: A/P Translation <5mm. Varus <5mm Valgus <5mm Extension La degrees or less Patella Tracking: Normal Pulses Palpable: Right PT: Yes Right DP:Yes Motor/Sensory: Distal Motor: Normal Distal Sensory: Normal Quadriceps Strength: 5 X-RAYS: No new images taken today Questionnaire Responses:[facility] Surgical Postop Visit 09/18/2017 PROMIS-10 General Health Good PROMIS-10 Quality of Life Good PROMIS-10 Physical Health Good PROMIS-10 Mental Health Good PROMIS-10 Social Activity Good PROMIS-10 Everyday Activities Mostly PROMIS-10 Pain 3 PROMIS-10 Fatigue Mild PROMIS-10 Social Roles Very Good PROMIS-10 Anxious or Depressed Rarely PROMIS PHYSICAL HEALTH SCORE 47.7 PROMIS MENTAL HEALTH SCORE 45.8 KOOS JR Scores 68.28 Problems with surgical incision/wound after surgery No Gone to ER since knee surgery No Admitted to hospital since recent ortho surgery No Additional surgery on same body part No TKA Grade 3 Pain in other KNEE Mild Back pain at this moment Very mild Satisfaction with Treatment Satisfied Choose Same Treatment Again Probably yes ASSESSMENT/PLAN: Ms. Main is a 57 y.o. year old female status post right total knee (converted from a UKA). Doing well postoperatively. Discussed initiating desensitization exercises to use contrast temperatures and different textures over the knee. She should continue with her HEP. We will see her back in 9 months for repeat examination. X-rays will be needed at that time. Patientmay return to normal activities as her pain [...] knee documented in this encounter Care Teams Auto Detailer Relationship Specialty Start Date End Date Santhosh Herron MD PCP - General Family Medicine 02/18/17 [address] [place] [phone] documented as of this encounter
--- OUTSIDE RECORDS SUMMARY | 2022-09-13 00:39 | XMS_ITS | Encounter Summary ---
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 [address] Referral ID Status Reason Start Date Expiration Date Visits V isits Requested Authorized [id number] Closed Specialty 12/18/2020 06/16/2021 1 1 Service Requested Encounter Details Date Type Department Care Team Description 12/25/2020 Hospital Encounter Nuclear Medicine at Julian Gutierrez, Grade 1 follicular Joelle Mathis MD lymphoma of lymph [facility] nodes of neck [facility] [address] [place] HEMATOLOGY/ONCOL [address] OGY DEPT. [phone] [place] [address] Social History Tobacco Use Types Packs/Day Years [...] ([facility]) nodes of neck the results section. documented in this encounter Results NM PET CT Skull [...] report, please contact e number below. ? Electronically signed by: Julian Simms MD, [facility] ([phone]), at 12/26/2020 11:07 AM Narrative 12/26/2020 11:07 AM EST EXAMINATION: NM PET CT SKULL BASE TO MID-THIGH ? CLINICAL HISTORY: Grade 1 follicular lym phoma of lymph nodes in the neck. TECHNIQUE: Following IV injection of 18- nvtckr-2-waowsarqxsqd (FDG) a standard uptake of approximately 60 [...] nopathy in the right retrocrural region (axial [id number]). Small area of mildly FDG avid tree-in-bu [...] neck. TECHNIQUE: Following IV injection of 18- mgokaw-8-kelfhqvfwdkx (FDG) a standard uptake of approximately 60 [...] nopathy in the right retrocrural region (axial [id number]). Small area of mildly FDG avid tree-in-bu [...] For questions regarding this report, please contact th e number below. Electronically signed by: Julian Simms MD, [facility] ([phone]), at 12/26/2020 11:07 AM Julian Gutierrez MD IMG PET ORDERABLES documented in this encounter Visit Diagnoses Diagnosis Grade 1 follicular lymphoma of lymph nod es of neck documented in this encounter Administered Medications Inactive Administered Medications - up to 3 most recent administrations Medication Order MAR Action Action Date Dose Rate Site fludeoxyglucose (F-18) FDG Given 12/25/2020 2:21 PM 12.5 mCi Right Arm injection 0-20 mCi EST 0-20 mCi, Intravenous, ONCE PRN, 1 dose, Starting on Fri12/25/20 at 1430, Until Fri12/25/20 at 1421, Per Protocol, Radiology Contrast, Routine documented in this encounter Care Teams Financial Services Counselor Relationship Specialty Start Date End Date Santhosh Herron MD PCP - General Family Medicine 02/18/[address] [place] [phone] documented as of this encounter
--- OUTSIDE RECORDS SUMMARY | 2022-09-13 00:39 | XMS_ITS | Encounter Summary ---
:1960 Author Organization [facility] [place] [address] Care Team Providers Name Role Phone Santhosh Herron MD Primary Care Provider Encounter Details Date Type Department Care Team Description 07/09/2018 Hospital Encounter XRay at [facility] Dylan Hatch of total knee [address] [place] [address] Dr Shay MD arthroplasty, right [address] [phone] [place] [address] Social History Tobacco Use Types Packs/Day Years [...] Dispensed Refills Start Date End Date ibuprofen Take 800 mg by mouth 2 0 (ADVIL;MOTRIN) 200 mg times daily. Tablet acetaminophen (TYLENOL) Take 1,000 mg by mouth 0 500 mg Tablet every 6 hours as needed for Pain. gabapentin (NEURONTIN) Take 600 mg by mouth 3 0 600 mg Tablet times daily. naproxen sodium (ALEVE) Take by mouth. 0 05/12/2019 220 mg Capsule hydrOXYzine (ATARAX) 10 0 07/22/2017 0 05/12/2019 mg Tablet bisacodyl (DULCOLAX) 5 Take 2 tablets by 0 201602/07/2021 mg Tablet, Delayed mouth 2 times daily as Release (E.C.) needed for Constipation for up to 28 doses. documented as of this encounter Plan of Treatment Not on filedocumented as of this encounter Procedures Procedure Name Priority Date/Time Associated Diagnosis Comme nts XR KNEE AP & LAT Routine 07/09/2018 10:05 AM Hx of total knee Results for this RIGHT EDT arthroplasty, right procedur e are in the results section. documented in this encounter Results XR Knee 1-2 Views Right (Generic) (07/09/2018 10:05 AM EDT) Anatomical Region Laterality Modality Knee Right Digital Radiography Specimen (Source) Anatomical Location Collection Method / Collectio n Time Received Time / Laterality Volume Impressions 07/09/2018 2:40 PM EDT Right TKA without evidence of complication. Narrative 07/09/2018 2:40 PM EDT EXAMINATION: XR KNEE 1-2 VIEWS RIGHT (GENERIC) CLINICAL HISTORY: Status post right tota l knee arthroplasty TECHNIQUE: Frontal and lateral radiographs of the r ight knee obtained COMPARISON: Right knee imaging studies ranging from 04/01/2007 through 07/30/2017 FINDINGS: There was prior conversion of a unicompa rtmental medial compartment right knee arthroplasty to a right total knee arthr oplasty. There has been some interval improvement in the previously seen posto perative anterior soft tissue swelling and some decrease in the previously seen postoperative knee joint effusion. No periprosthetic fracture. No suspicious p eriprosthetic lucency. Procedure Note Maura Portillo MD - 07/09/2018Formatting o f this note might be different from the original. EXAMINATION: XR KNEE 1-2 VIEWS RIGHT (GE NERIC) CLINICAL HISTORY: Status post right tota l knee arthroplasty TECHNIQUE: Frontal and lateral radiographs of the r ight knee obtained COMPARISON: Right knee imaging studies ranging from 04/01/2007 through 07/30/2017 FINDINGS: There was prior conversion of a unicompa rtmental medial compartment right knee arthroplasty to a right total knee arthr oplasty. There has been some interval improvement in the previously seen posto perative anterior soft tissue swelling and some decrease in the previously seen postoperative knee joint effusion. No periprosthetic fracture. No suspicious p eriprosthetic lucency. IMPRESSION Right TKA without evidence of complicati on. Dylan Hatch MD IMG DX ORDERABLES documented in this encounter Visit Diagnoses Diagnosis Hx of total knee arthroplasty, right documented in this encounter Care Teams Lead Nurse Relationship Specialty Start Date End Date Santhosh Herron MD PCP - General Family Medicine 02/18/[address] [place] [phone] documented as of this encounter
--- OUTSIDE RECORDS SUMMARY | 2022-09-13 00:39 | XMS_ITS | Encounter Summary ---
:1960 Author Organization [facility] [place] [address] Care Team Providers Name Role Phone Santhosh Herron MD Primary Care Provider Encounter Details Date Type Department Care Team Description 05/12/2019 Hospital Encounter XRay at [facility] Dylan Hatch Presence of right [address] [place] [address] Dr Shay MD artificial knee [facility] MEDICAL joint [address] [place] [phone] [place] [address] Social History Tobacco Use Types Packs/Day Years [...] 3 0 600 mg Tablet times daily. bisacodyl (DULCOLAX) 5 Take 2 tablets by 0 201602/07/2021 mg Tablet, Delayed mouth 2 times daily as Release (E.C.) needed for Constipation for up to 28 doses. documented as of this encounter Plan of Treatment Not on filedocumented as of this encounter Procedures Procedure Name Priority Date/Time Associated Diagnosis Comme nts XR KNEE AP & LAT Routine 05/12/2019 10:06 AM Presence of right Results for this RIGHT EDT artificial knee procedure eleanor escobedo in joint the results section. documented in this encounter Results XR Knee 1-2 Views Right (Generic) (05/12/2019 10:06 AM EDT) Anatomical Region Laterality Modality Knee Right Digital Radiography Specimen (Source) Anatomical Location Collection Method / Collectio n Time Received Time / Laterality Volume Impressions 05/12/2019 2:15 PM EDT Right TKA without evidence of interval change or complication. Knee joint effusion persists. I have personally reviewed the image(s) and the residents interpretation and agree with the findings, Maura Portillo at 04/20 2:15 PM Thank you for letting us participate in the care of this patient. For questions regarding this report, please contact e number below. ? Narrative 05/12/2019 2:15 PM EDT EXAMINATION: XR KNEE 1-2 VIEWS RIGHT (GENERIC) CLINICAL HISTORY: Right knee pain. Statu s post right knee surgery, most recently conversion from unicompartmental to tota l knee arthroplasty on 07/08/2017. TECHNIQUE: Frontal and lateral radiographs of the r ight knee COMPARISON: Attention is also directed to radiograph s of the right knee from 04/01/2007 to 07/09/2018 FINDINGS: Status post conversion from unicompartme ntal right knee arthroplasty of the medial compartment to a right total knee arthroplasty. Appropriately positioned and intact prosthesis without periprosth etic fracture or evidence of loosening. Anatomic alignment of the knee joint. A knee joint effusion persists. Procedure Note Maura Portillo MD - 05/12/2019Formatting o f this note might be different from the original. EXAMINATION: XR KNEE 1-2 VIEWS RIGHT (GE NERIC) CLINICAL HISTORY: Right knee pain. Statu s post right knee surgery, most recently conversion from unicompartmental to tota l knee arthroplasty on 07/08/2017. TECHNIQUE: Frontal and lateral radiographs of the r ight knee COMPARISON: Attention is also directed to radiograph s of the right knee from 04/01/2007 to 07/09/2018 FINDINGS: Status post conversion from unicompartme ntal right knee arthroplasty of the medial compartment to a right total knee arthroplasty. Appropriately positioned and intact prosthesis without periprosth etic fracture or evidence of loosening. Anatomic alignment of the knee joint. A knee joint effusion persists. IMPRESSION Right TKA without evidence of interval c hange or complication. Knee joint effusion persists. I have personally reviewed the image(s) and the residents interpretation and agree with the findings, Maura Portillo at 04/20 2:15 PM Thank you for letting us participate in the care of this patient. For questions regarding this report, please contact th e number below. Dylan Hatch MD IMG DX ORDERABLES documented in this encounter Visit Diagnoses Diagnosis Presence of right artificial knee joint Knee joint replacement by other means documented in this encounter Care Teams Medical Receptionist Biller Relationship Specialty Start Date End Date Santhosh Herron MD PCP - General Family Medicine 02/18/[address] [place] [phone] documented as of this encounter
--- OUTSIDE RECORDS SUMMARY | 2022-09-13 00:40 | XMS_ITS | Encounter Summary ---
:1960 [place] [address] Care Team Providers Name Role Phone Unavailable Primary Care Provider Unavailable Encounter Details Date Type Department Care Team Description 07/13/2010 Hospital Encounter Radiology Library at [place], Booker Cadena [facility] [place] [address] [address] ORTHOPAEDIC SURGERY [phone] [place] [address] (Wo rk) Social History Tobacco Use Types Packs/Day Years Used Date Smoking Tobacco: Never Assessed Sex Assigned at Date Recorded Not on file documented as of this encounter Medications at Time of Discharge Medication Sig Dispensed Refills Start Date End Date gabapentin (NEURONTIN) 600mg, PO, Three 0 005 07/09/2017 600 mg tablet times daily documented as of this encounter Plan of Treatment Not on filedocumented as of this encounter Procedures Procedure Name Priority Date/Time Associated Diagnosis Comme nts FILM LIBRARY Routine 07/13/2010 12:00 AM Pain Results for this STORAGE ONLY DX EDT procedure ar e in KNEE the results section. documented in this encounter Results Film Library- Storage Only DX Knee (07/13/2010 12:00 AM EDT) Specimen (Source) Anatomical Location Collection Method / Collectio n Time Received Time / Laterality Volume Narrative RAD - 02/25/2017 12:28 PM EDT This exam is for storage only and is aut o-finalizing. Dylan Hatch MD IMG FILM LIBRARY ORDERABLES Performing Organization Address City/State/ZIP Code Phon e Number [facility] [place], [place] documented in this encounter Visit Diagnoses Diagnosis Pain Generalized pain documented in this encounter
--- OUTSIDE RECORDS SUMMARY | 2022-09-13 00:40 | XMS_ITS | Encounter Summary ---
:1960 Author Organization [facility] [place] [address] Care Team Providers Name Role Phone Santhosh Herron MD Primary Care Provider Encounter Details Date Type Department Care Team Description 07/03/2017 Orders Only Orthopaedics at [facility] Dylan Hatch, Acute pain of right [facility] knee (Primary Dx) [place] [phone] ORTHOPAEDIC SURGERY [place] [address] Social History Tobacco Use Types Packs/Day Years [...] as of this encounter Visit Diagnoses Diagnosis Acute pain of right knee - Primary documented in this encounter Care Teams Computer Hardware Developer Relationship Specialty Start Date End Date Santhosh Herron MD PCP - General Family Medicine 02/18/17 [address] [place] [phone] documented as of this encounter
--- OUTSIDE RECORDS SUMMARY | 2022-09-13 00:40 | XMS_ITS | Encounter Summary ---
:1960 Author Organization [facility] [place] [address] Care Team Providers Name Role Phone Santhosh Herron MD Primary Care Provider Reason for Visit Reason Comments Aftercare Of Tjr RIght Tibial Loosening S/P U KA 2009, Discuss TKA Surgical (Routine) - Specialty Diagnoses / Procedures Referred By Contact Refer red To Contact Diagnoses Status post total right knee replacement Dylan Hatch MD Procedures Joint aspiration, knee [facility] [place] [address] Referral ID Status Reason Start Date Expiration Date Visits V isits Requested Authorized [id number] Consult, 03/05/2017 03/05/2018 1 1 Test & Treat Encounter Details Date Type Department Care Team Description 04/16/2017 Office Visit Orthopaedics at [facility] Dylan Hatch S/P knee replacement [facility] MD Shay (Primary Dx) [place] [address] [facility] [phone] ORTHOPAEDIC SURGERY [place], [place] [address] Social History Tobacco Use Types [...] Sign Reading Time Taken Comments Blood Pressure 143/86 04/16/2017 10:00 AM EDT Pulse 68 04/16/2017 10:00 AM EDT Temperature - - Respiratory Rate - - Oxygen Saturation - - Inhaled Oxygen Concentration - - Weight 72.6 kg (160 lb) 04/16/2017 10:00 AM EDT stated Height 162.6 cm (5' 4) 04/16/2017 10:00 AM EDT stated Body Mass Index 27.46 04/16/2017 10:00 AM EDT documented in this encounter Progress Notes Bimal Sampson PA - 04/16/2017 10:10 AM EDT HPI: 56 yo female returns, she has had 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 Imaging has suggested loosening of th tibial component. We had scheduled her for aspirationbut unfortunatley only obtained culture from the fluid which was negative. She returns for reaspiration. Physical Exam: Ambulatory without assist or antalgia. There is some synovial fullness and small effusion to the knee. No warmth or erythema. Skin is intact. Assessment: S/P Right UKA with loosenig Plan: We discussed her knee. We reviewed the implications of presistent infection after TKA and the importance of ensuring an aseptic environment prior to TKA. We'll reaspirate and plan for revision Procedure: Time-out was performed. After consent was obtained, using sterile technique the right knee was prepped and 3 ml's of 1% plain Lidocaine used to anesthetize the needle tract into the joint from the suprapatellar approach. The knee joint was entered and 7cc of benign synovial fluid was aspirated and sent for analysis. documented in this encounter Plan of Treatment Not on filedocumented as of this encounter Procedures Procedure Name Priority Date/Time Associated Diagnosis Comme nts PROSTHETIC JOINT STAT 04/16/2017 10:45 S/P knee replacement CULTURE, EXTENDED AM EDT HOLD, AEROBIC & ANAEROBIC JOINT CULTURE STAT 04/16/2017 10:45 S/P knee replacement Re sults for this AM EDT procedure are i n the results section. ANAEROBIC CULTURE STAT 04/16/2017 10:45 S/P knee replacemen t Results for this AM EDT procedure are i n the results section. CRYSTAL EXAM BODY STAT 04/16/2017 10:45 S/P knee replacemen t Results for this FLUID AM EDT procedure are i n the results section. CELL COUNT BODY STAT 04/16/2017 10:45 S/P knee replacement Results for this FLUID AM EDT procedure are i n the results section. documented in this encounter Results Anaerobic Culture (04/16/2017 10:45 AM EDT) [employer] Method Time Signature Anaerobic No anaerobic [place] Culture organisms [facility] LABORATORY Specimen Anatomical Collection Method Collection Time Receive d Time (Source) Location / / Volume Laterality Joint fluid STRUCTURE OF RIGHT 04/16/2017 10:45 04/16 specimen [place] REGION / AM EDT 11:13 AM EDT (specimen) Unknown Comment: PLEASE DO STAT GRAM STAIN AND C ULTURE. HOLD SPECIMEN FOR 14 DAYS. Resulting Agency Comment Spec In Lab Dylan Hatch MD MICROBIOLOGY - GENERAL ORDER HI Performing Organization Address City/State/[place] [address] Joint Culture (04/16/2017 10:45 AM EDT) Component Value Ref Test Analysis Performed At [employer] Range Method Time Signature Joint Culture No growth at 14 DANIEL days. [facility] LABOR[facility]ORY Gram Stain Cytocentrifuge Gram Stain performed DANIEL White Blood Cells seen [facility] CK No microorganisms seen. [facility] Results called to and read back by Bimal Sampson at ?? 04/16/17 11:44:01 HOSPITAL LABORATORY Specimen Anatomical Collection Method Collection Time Receive d Time (Source) Location / / Volume Laterality Joint fluid STRUCTURE OF RIGHT 04/16/2017 10:45 04/16 specimen [place] / AM EDT 11:13 AM EDT (specimen) Unknown Comment: PLEASE DO STAT GRAM STAIN AND C ULTURE. HOLD SPECIMEN FOR 14 DAYS. Resulting Agency Comment Spec In Lab Dylan Hatch MD MICROBIOLOGY - GENERAL ORDER HI Performing Organization Address City/State/ZIP Code Phon e Number [address] Crystal Exam Body Fluid (04/16/2017 10:45 AM EDT) [facility] [employer] Method Time Signature Crystal BF Knee fluid [facility] LABORATORY Crystal BF None Seen [facility] LABORATORY Specimen Anatomical Collection Method Collection Time Receive d Time (Source) Location / / Volume Laterality Knee joint 04/16/2017 10:45 04/16/2017 synovial fluid AM EDT 11:09 AM EDT (specimen) Resulting Agency Comment Spec In Lab Dylan Hatch MD BODY FLUIDS AND STOOLS ORDER HI Performing Organization Address City/State/ZIP Code Phon e Number [address] Cell Count Body Fluid (04/16/2017 10:45 AM EDT) [facility] [employer] Method Time Signature Spec Type BF Knee Fl [facility] Color BF [place] [facility] Appearance BF Slightly [facility] LABORATORY Nucl Cell BF 169 /mcl [facility] LABORATORY Comment: Guidelines listed below apply to all bod y fluids EXCEPT: Bronchial Lavage Specimens (BAL specimens). Differentials on BAL specimens are perfo rmed by the Cytology lab section If Nucl Cell BF Ct result equals Zero, N o scan or Differential is performed. If Nucl Cell BF Ct result is 1-5 / mcL, a smear is made and scanned but no results are reported unless abnormalitie s are noted. If Nucl Cell BF Ct result is 6 /mcL or g reater, a smear is made and manual differential is performed and reported. Nucl Cell BF Ct results on a body fluid must be correlated with clinical condition. Neut Absolute BF 22 /mcl [facility] LABORATORY Neutrophil BF 13 % [facility] LAB[facility] Lymphocyte BF 18 % [facility] Macrophage BF 65 % [facility] Eosinophil BF 1 % [facility] Synovial BF 3 % [facility] LAB[facility]AT[facility] Tot Diff Ct BF 200 Cells [facility] LABOR[facility]ORY Specimen Anatomical Collection Method Collection Time Receive d Time (Source) Location / / Volume Laterality Knee joint 04/16/2017 10:45 04/16/2017 synovial fluid AM EDT 11:09 AM EDT (specimen) Resulting Agency Comment Spec In Lab Dylan Hatch MD BODY FLUIDS AND STOOLS ORDER HI Performing Organization Address City/State/[place] [address] documented in this encounter Visit Diagnoses Diagnosis S/P knee replacement - Primary Knee joint replacement by other means documented in this encounter Care Teams Freelance Designer Relationship Specialty Start Date End Date Santhosh Herron MD PCP - General Family Medicine 02/18/[address] [place] [phone] documented as of this encounter
--- OUTSIDE RECORDS SUMMARY | 2022-09-13 00:40 | XMS_ITS | Encounter Summary ---
:1960 [place] [address] Care Team Providers Name Role Phone Santhosh Herron MD Primary Care Provider Reason for Visit Auth/Cert Specialty Diagnoses / [...] Expiration Date Visits Requ ested Visits Authorized [id number] 1 1 Encounter Details Date Type Department Care Team Description 07/08/2017 Surgery Main Operating Room Bernarda Hatch, @T OTAL KNEE REVISION Joelle Pulido MD ARTHROPLASTY, COMPLETE [facility] (WRVU 27.11) [facility] [address] [place] [address] [place] [address] [phone] (Wo rk) Social History Tobacco Use Types [...] Alicia Main Patient Age: 56 y.o. Language: Canadian Race: White Ethnicity: Not nor Admit date: 07/08/2017 Discharge date and time: 07/09/2017 Attending Physician: Bernarda Hatch MD Discharge Physician: Bernarda Hatch MD Follow-up Recommendations for Providers: See discharge instructions for additional details. Future Appointments Date Time Provider Department Center 07/30/2017 10:30 AM ORTHO LOCKSMITH [facility] 07/30/2017 11:30 AM [facility] 07/30/2017 12:30 PM Bernarda Hatch MD [facility] Inpatient Provider Contact Information: Bernarda Hatch MD Orthopedics: [phone] After hours and weekends, call [facility] Metal Bonding Assembler, , and have the Orthopedic resident paged. [...] Weight: Wt Readings from Last 1 Encounters: 07/08/17 72.6 kg (160 lb) Height: Ht Readings from Last 1 Encounters: 07/08/17 160 cm (5' 3) HC: HC Readings [...] Reese MD, PGY-1 Orthopaedic Surgery Pager #: [phone] Updated Allergies/ADRs: Allergies Allergen Reactions ??? Penicillins [...] drawn, please callthe Orthopedic Clinic Nurse at [phone] for further dose instructions. If it is after 5pm or on the weekends, the Orthopedic resident air pollution inspector will be managing your dosing (please call [phone] and ask for them to be paged). [...] not take or discontinue any prescription or vxve-gvl-xiwsfol medications without asking your doctor or pharmacist [...] bowel movement. You can also take an cqib-wgb-rezncie medication, Miralax if needed to combat constipation. [...] as much as possible. Call your doctor ([phone]) if you develop: 1. Fever greater than 100.5 2. Severe nausea or vomiting 3. Increasing pain that is not controlled by pain medications 4. Increasing redness, swelling, or drainage from incisions 5. Change in sensation FOLLOW-UP APPOINTMENTS: 1. You will have follow-up appointments at [facility] as indicated below in Future Appointment and Orders. 2. You will need to have x-rays prior to your follow-up appointment on 07/30. Please come to Radiology, desk 3T, 1 hour BEFORE that appointment for those x-rays. Future Appointments Date Time Provider Department Center 07/30/2017 10:30 AM ORTHO LOCKSMITH [facility] 07/30/2017 11:30 AM [facility] DX ROOM 1 [facility] 07/30/2017 12:30 PM Bernarda Hatch MD [facility] If you have questions or concerns: Friday through Friday, 8 AM - 5 PM, please call Bernarda Pyle MD's office at . If it is after 5 PM, the weekend, or holidays, please call and ask to speak with the Orthopedic resident on-call. Future Appointments and Orders Future Appointments Provider Department Dept Phone 07/30/2017 10:30 AM ORTHO LOCKSMITH [facility] [place] [phone] 07/30/2017 12:30 PM Bernarda Hatch MD [facility] [place] [phone] Future Orders Complete By Expires Prothrombin Time [RVQ801 Custom] 07/10/2017 (Approximate) 07/09/2018 Process Instructions: Scheduling Instructions: Comments: Draw PT/INR as follow: (Point of care testing is acceptable). Week of discharge: PER /MELIA/WILLA ORDERS - [place], [place] Coumadin clinic: [phone] Thereafter, PT/INR: every Friday and PT/INR results to be called and faxed as follows: Fri-Fri Ortho anticoagulation (Coumadin) clinic @ [facility]: ; Sat/Sun: If the PT/INR is drawn on the weekend, call the results to the Orthopedic Resident air pollution inspector @ [phone] for Coumadin dosing Questions: Referral for Anticoagulation Monitoring [VNY807 Custom] As directed Process Instructions: If no progress note charted, please enter Clinical details in comments. Scheduling Instructions: Comments: Draw PT/INR as follow: (Point of care testing is acceptable). [place], [place] Week of discharge: PER MD/MANAGED SECURITY SALES CONSULTANT/PA ORDERS Thereafter, PT/INR: every Friday and PT/INR results to be called and faxed as follows: Fri-Fri Ortho anticoagulation (Coumadin) clinic @ [facility]: ; Sat/Sun: If the PT/INR is drawn on the weekend, call the results to the Orthopedic Resident air pollution inspector @ [phone] for Coumadin dosing Questions: INR Goal: 2.0-3.0 Responsible Group: [facility] Target End Date: 08/07/2017 Next due INR: 07/10/2017 Risk Factors: My question or request is: coumadin/INR status post total knee arthroplasty Referral to Home Health - at DISCHARGE [OBN9393 CPT(R)] As directed Process Instructions: Scheduling Instructions: Comments: DISCHARGE DOCUMENTATION FOR VNA SERVICES (INCLUDING THOSE PATIENTS WITH MEDICARE COVERAGE BEING DISCHARGED HOME WITH VNA SERVICES AND THOSE PATIENTS WITH MEDICARE COVERAGE WHO ARE BEING DISCHARGED HOME WITH HOSPICE SERVICES) Alicia Main [address] [facility] [address] [facility] [phone] (home) [phone] (work) Telephone Information: Boat Finisher: : Jhonny In discussion with the attending physician, it is certified that this patient is under their care and that they, or a nurse practitioner, clinical nurse specialist or physician's assistant store leader who is working directly with them, had a face to face encounter that meets the physician face to face encounter re quirements with this patient on 07/09/2017 The encounter with the patient was in whole, or in part, for the following medical condition, which is the primary reason for home health care services: HOME HEALTH AGENCY: [facility] PHONE: [phone] FAX: [phone] Home care orders for Total KneeArthroplasty: 1.RN: Draw PT/INR as follows: PER MD ORDERS - Draw INR 07/10 Thereafter, PT/INR: every Friday and PT/INR results to be called and faxed as follows Fri-Fri Ortho anticoagulation (Coumadin) clinic @ [facility]: ; Sat/Sun: if the PT/INR is drawn on the weekend, call the results to the Orthopedic Resident on callat [phone] for Coumadin dose Point of care testing is acceptable Assess wound , med management, nutrition, and elimination Do not lift the edge of the mepilex dressing to observe the incision; this dressing needs to stay in place until 7 days after surgery. Suture or Staple removal in 10-14 days - PER ORDERS - 07/23/17 2. PT: Continue PT rehab for balance, endurance, joint mobility, ROM, Strength, TKA protocol Please note that any additional orders needs or changes will need to be obtained from this patient'sPCP: Santhosh Herron MD [address] [place] [address] All VNA agencies which cover the area of patient's residence have been reviewed, either verbally or in writing, and patient/family have chosen the indicated home health care agency for home services. Questions: Agency name and contact information: [facility] Patient location post discharge: home What services [...] Focus: Primary Care Provider: Santhosh Herron MD [phone] Discharge References/Attachments None Porsha Reese MD, PGY-1 Orthopaedic Surgery Pager #: [phone] documented in this encounter Discharge Instructions Discharge InstructionsMead, Porsha C, MD - 07/09/2017 2:15 PM EDT Activity: [...] drawn, please callthe Orthopedic Clinic Nurse at [phone] for further dose instructions. If it is after 5pm or on the weekends, the Orthopedic resident air pollution inspector will be managing your dosing (please call [phone] and ask for them to be paged). [...] not take or discontinue any prescription or icrk-ndt-yitixsr medications without asking your doctor or pharmacist [...] bowel movement. You can also take an xkpi-ane-jfrmixm medication, Miralax if needed to combat constipation. [...] as much as possible. Call your doctor ([phone]) if you develop: 1. Fever greater than 100.5 2. Severe nausea or vomiting 3. Increasing pain that is not controlled by pain medications 4. Increasing redness, swelling, or drainage from incisions 5. Change in sensation FOLLOW-UP APPOINTMENTS: 1. You will have follow-up appointments at [facility] as indicated below in Future Appointment and Orders. 2. You will need to have x-rays prior to your follow-up appointment on 07/30. Please come to Radiology, desk 3T, 1 hour BEFORE that appointment for those x-rays. Future Appointments Date Time Provider Department Center 07/30/2017 10:30 AM ORTHO LOCKSMITH [facility] 07/30/2017 11:30 AM [facility] DX ROOM 1 [facility] 07/30/2017 12:30 PM Bernarda Hatch MD [facility] If you have questions [...] RN - 07/09/2017 3:26 PM EDT Alicia Katheryn Main discharged to Home by private car with [...] RN - 07/09/2017 12:47 PM EDT The patient/international account representative has been provided a list of Home Health Agencies/DME vendors which serve their preferred geographic area. A letter describing our affiliations was reviewed with them and theywere educated about their right to choose where referrals are placed. Patient requests referral to [facility]. PHONE: [phone] FAX: [phone] Expected date of discharge: 07-09-2017 Referral routed to the Wrapper Dipper for matching with agency/vendor and to provide any required information. Pablo Junior RN CM Pager [phone] Vinita Gonzalez MD - 07/09/2017 6:42 AM [...] dexamethasone 4 mg Oral Daily ??? multivitamin Vgpw-Ne-FQ-Min 1 tablet Oral Daily ??? pantoprazole 20 mg Oral Daily ??? ceFAZolin 1 g Intravenous Q8H ??? warfarin 5 mg Oral Once ??? warfarin (COUMADIN) daily order reminder Oral Q24H ??? nicotine 1 patch Transdermal Daily Continuous Infusions: ??? sodium chloride 0.9% 1,000 mL (07/08/17 5268) PRN Meds:.sodium chloride 0.9 %, lidocaine, lactulose, [...] MD, MS Orthopaedic Surgery, PGY 5 Pager #[phone] Future Appointments Date Time Provider Department Center 07/30/2017 10:30 AM ORTHO LOCKSMITH [facility] 07/30/2017 11:30 AM [facility] DX ROOM 1 [facility] 07/30/2017 12:30 PM Bernarda Hatch MD [facility] Associated attestation - Bernarda Hatch MD [...] at 07/08/17 2331 Last data filed at 07/08/171999 Gross per 24 hour Intake 1280 ml [...] Provider Department Center 07/30/2017 10:30 AM ORTHO LOCKSMITH [facility] 07/30/2017 11:30 AM [facility] DX ROOM 1 [facility] Rad [...] her in a 1 level home in [place], [place] with 3 ISA and 2 railings. 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 [...] home with assist, home with home health 2016 PT Evaluation Code Rationale: ?? Diagnosis & [...] performance as outlined in this evaluation. 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 Assessment: Pt has been seen by OT [...] Discharge Disposition: home with home health Pager: [phone] Becca Corbin OT 07/09/2017 Occupational Therapy Rehabilitation [...] Family Supports/Community Resources: , lives with , [facility] History: none Substance Use/Abuse: one cup of coffee a day, 2-3 cigarettes a day, rare alcohol Other Pertinent/Service Specific Information:none Health/Prescription Coverage: Primary Insurance: CIGNA Secondary Insurance: N/A Prescription Coverage: yes Preferred Pharmacy: [facility] Other: none Primary Care Provider: Santhosh Herron MD [phone] Patient/Caregiver Goals of Treatment: rehab and return to active lifestyle Potential Needs for Transition of Care: Rehab/SNF: no Home Health: [facility] [employer] DME: has all the equipment she needs [...] of care planning. Pablo Junior RN Pager: [phone] Op Note - Bernarda Hatch MD - 07/08/2017 4:51 PM EDT [facility] Operative Note Patient Name: Alicia Main : [id number] MR#: [id number] Case Date: 07/08/2017 Surgeon: Surgeon(s) and Role: [...] Implant Name Type Inv. Item Serial No. Center Hole Reamer Lot No. LRB No. Used Action CEMENT,BNE,SMARTSET,GHV,40G ([id number]) - [id number] IMPLANTS CEMENT,BNE,SMARTSET,GHV,40G ([id number]) Depuy Armored Truck Driver - [id number] Right 1 Implanted INSER,ATTUNE,CR,FB,SZ5,5MM ([id number]) (AUTOREQ) - [id number] IMPLANTS INSER,ATTUNE,CR,FB,SZ5,5MM ([id number]) (AUTOREQ) Depuy Armored Truck Driver - [id number] Right 1 Implanted COMPO,ATTUNE,FEM,CR,SZ5,RT ([id number]) (AUTOREQ) - [id number] IMPLANTS COMPO,ATTUNE,FEM,CR,SZ5,RT ([id number]) (AUTOREQ) Depuy Armored Truck Driver - [id number] Right 1 Implanted TRAY,ATTUNE,FB,TIB,BSE,SZ4 ([id number]) (AUTOREQ) - [id number] IMPLANTS TRAY,ATTUNE,FB,TIB,BSE,SZ4 ([id number]) (AUTOREQ) Depuy Armored Truck Driver - [id number] Right 1 Implanted HERNANDEZ,ATTUNE,MDL,KEKE,35MM ([id number]) (AUTOREQ) - [id number] IMPLANTS HERNANDEZ,ATTUNE,MDL,KEKE,35MM ([id number]) (AUTOREQ) Depuy Armored Truck Driver - [id number] Right 1 Implanted INDICATIONS: The patient presented [...] the surgicalsite was marked with a green [place] in the pre-op area. DESCRIPTION OF PROCEDURE: [...] and mallet.Excess cement was removed with a [place]. The tibial polyethylene insert was impacted into place. We then placed the cement onto the anterior and distal aspects of the femur. The cement was placed on theposterior aspect of the prosthetic condyles. The femoral component was then placed and impacted into position. Excess cement was removed with a [place]. The polyethylene trial was then placed and the knee brought out to full extension where it was held for the entire polymerization time. Cement was thenpressurized into the patellar bone and the patellar component placed. The patella was clamped. Excess cement was removed with a [place]. After all cement had hardened, the knee [...] the anesthesiology staff and transferred to the hospital gurney. Sequential compression devices were placed. INSTRUMENT COUNT: [...] extremity: Weight bearing as tolerated Wound closure: Mantoloking (remove 10-14 days) Dressing changes: Mepilex Silver [...] Name Priority Date/Time Associated Diagnosis Comme nts LOCKMAKER 07/10/2017 12:00 Results for this SCAN AM [...] documented in this encounter Results SCAN DOC: LOCKMAKER (07/10/2017 12:00 AM EDT) Anatomical Region Laterality Modality Other Narrative 07/10/2017 12:00 AM EDT This result has an attachment that is no t available. Ordered by an unspecified provider. Scanning Provider MEDIA MGR SCAN EXT ORDR/RSLT (ABNORMAL) Differential, Automated (07/09/2017 4:45 AM EDT) [facility] Method Time Signature Neutrophils % 87.9 % [facility] LABOR[facility]ORY Neutr Abs (ANC) 12.72 (H) 1.70 - [facility] 6.10 [facility] x10(3)/[facility] L LABORATORY Lymphocytes % 7.7 % [facility] Lymphocytes Abs 1.1 0.9 - 3.2 [facility] x10(3)/[facility] LABORATORY Monocytes % 3.8 % [facility] Monocyte Abs 0.6 0.3 - 0.9 [facility] x10(3)/[facility] LABORATORY Eosinophils % 0.0 % [facility] Eosinophils Abs 0.0 0.0 - 0.4 [facility] x10(3)/[facility] LABORATORY Basophils % 0.1 % [facility] Basophils Abs 0.0 0.0 - 0.1 [facility] x10(3)/[facility] LABORATORY Immature Gran % 0.50 % [facility] Comment: Immature granulocytes(IG's)percentage an d absolute count will include metamyelocytes, myelocytes, and promyelo cytes. Blood smears from CBCs yielding IG's will be scanned manually for concor dance. If this scan disagrees with the automated IG or if promyelocytes are not ed, a manual differential will be performed. Chelo Gran Abs 0.07 (H) 0.00 - 0.04 x10(3)/[facility] LABORATORY Specimen Anatomical Collection Method Collection Time Receive d Time (Source) Location / / Volume Laterality Blood specimen 07/09/2017 4:45 AM 017 5:03 (specimen) EDT AM EDT Resulting Agency Comment Spec In Lab Bernarda Hatch MD HEMATOLOGY ORDERABLES Performing Organization Address City/State/ZIP [place] [address] (ABNORMAL) Hemogram (07/09/2017 4:45 AM EDT) Analysis Performed At Patho logist Time Signature WBC 14.5 (H) 4.0 - 9.5 [facility] x10(3)/[facility] LABORATORY RBC 3.75 (L) 4.00 - [facility] 5.21 [facility] x10(6)/[facility] LABORATORY Hemoglobin 11.8 11.7 - [facility] 15.[facility] gm/dL [facility] LABORATORY Hematocrit 34.3 (L) 35.7 - [facility] 45.8 % [facility] LABOR[facility]ORY MCV 91.5 82.6 - [facility] 94.4 [facility] LABORATORY MCH 31.5 27.1 - [facility] 32.0 pg [facility] LAB[facility]ORY MCHC 34.4 31.7 - [facility] 35.0 gm/dL [facility] LABOR[facility]ORY Platelets 152 145 - 357 [facility] x10(3)/[facility] LABORATORY RDWSD 42.1 37.0 - [facility] 46.0 [facility] LABORATORY RDWCV 12.8 11.5 - [facility] ROS[facility] 14.1 % [facility] LABORATORY MPV 11.0 7.6 - 12.9 [facility] LABORATORY nRBC % Auto 0.0 % [facility] LABORATORY nRBC Abs Auto 0.000 0.000 - [place] ROSALIND 0.000 [facility] x10(3)/[facility] LABORATORY Specimen Anatomical Collection Method Collection Time Receive d Time (Source) Location / / Volume Laterality Blood specimen 07/09/2017 4:45 AM 017 5:03 (specimen) EDT AM EDT Resulting Agency Comment Spec In Lab Bernarda Hatch MD HEMATOLOGY ORDERABLES Performing Organization Address City/State/ZIP Code Phon e Number [address] Prothrombin Time (07/09/2017 4:45 AM EDT) P athologist Signature PT 14.7 12.0 - 15.0 [facility] LABORATORY Comment: An INR <2.0 indicates [...] linical circumstances. INR 1.1 0.9 - 1.1 [facility] LABORATORY Specimen Anatomical Collection Method Collection Time Receive d Time (Source) Location / / Volume Laterality Blood specimen 07/09/2017 4:45 AM 017 5:03 (specimen) EDT AM EDT Resulting Agency Comment Spec In Lab Bernarda Hatch MD HEMATOLOGY ORDERABLES Performing Organization Address City/State/[place] [address] (ABNORMAL) Basic Metabolic Panel (non-fasting) (07/09/2017 4:45 AM EDT) P athologist Signature Glucose Lvl 141 65 - 199 [facility] mg/dL [facility] LAB[facility]ORY Comment: Diabetes: >=200 mg/dL plus symp toms BUN 8 8 - 18 mg/dL [facility] Creatinine 0.73 0.70 - 1.20 mg/dL [facility] LABOR[facility]ORY Comment: Please note that the pediatric reference intervals supplied above were not validated at [facility]. Results from pediatri c patients should be interpreted in conjunction to the patient's age, height and muscle mass. Sodium 137 135 - 145 mmol/L [facility] Potassium 4.4 3.5 - 5.0 mmol/L [facility] Comment: Please note: ??Patients with WBC >100,00 0 may have falsely elevated Potassium levels. ??For accurate Potassium quantif ication in these patients send serum separator tube (gold top) for subsequent determinations. ??Contact the Clinical Chemistry Laboratory if there are any qu estions. Chloride 101 98 - 107 mmol/L [facility] CO2 20 (L) 22 - 31 mmol/L [facility] Anion Gap 16 (H) 5 - 15 mmol/L [facility] Calcium 8.5 8.5 - 10.5 mg/dL [facility] Estimated GFR >60 >=60 [facility] Comment: This estimated GFR (eGFR) [...] the following links into your internet browser. [email or web address] Specimen Anatomical Collection Method Collection Time Receive d Time (Source) Location / / Volume Laterality Blood specimen 07/09/2017 4:45 AM 017 5:03 (specimen) EDT AM EDT Resulting Agency Comment Spec In Lab Bernarda Hatch MD CHEMISTRY ORDERABLES Performing Organization Address City/State/Z[place] [address] Prothrombin Time (07/08/2017 9:35 PM EDT) P athologist Signature PT 14.1 12.0 - 15.0 [facility] LABORATORY Comment: An INR <2.0 indicates [...] linical circumstances. INR 1.0 0.9 - 1.1 [facility] LABOR[facility] Specimen Anatomical Collection Method Collection Time Receive d Time (Source) Location / / Volume Laterality Blood specimen 07/08/2017 9:35 PM 017 9:40 (specimen) EDT PM EDT Resulting Agency Comment Spec In Lab Bernarda Hatch MD HEMATOLOGY ORDERABLES Performing Organization Address City/State/ZIP [place] [address] SCAN DOC: IMPLANTABLE DEVICES (07/08/2017 12:00 AM EDT) Narrative 07/08/2017 12:00 AM EDT This result has an attachment that is no t available. Ordered by an unspecified provider. Scanning Provider MEDIA MGR SCAN EXT ORDR/RSLT documented in this encounter Visit Diagnoses Diagnosis s/p conversion of uni to R TKA 07/08/17 Damian Hatch - Primary Knee joint replacement by other means Acute pain of right knee Status post unicompartmental knee replac ement, right Knee joint replacement by other means Pain of right lower extremity documented in this encounter Admitting Diagnoses Diagnosis S/P revision of total knee Knee joint replacement by other means documented in this encounter Administered Medications Inactive Administered Medications - up to 3 most recent administrations Medication Order MAR Action Action Date Dose Rate Site acetaminophen (TYLENOL) tablet Given 07/09/2017 2:03 PM EDT 1,00 0 mg 1,000 mg 1,000 mg, Oral, EVERY 8 HOURS SCHEDULED, First dose on Fri07/08/17 at 2200, Until Discontinued, Maximum dose of acetaminophen is 4000 mg from all sources in 24 hours., Routine Given 07/09/2017 6:04 AM EDT 1,000 mg Given 07/08/2017 10:11 PM EDT 1,000 mg bacitracin injection Given 07/08/2017 3:47 PM 50,000 Units 19- Surgi karl Site ONCE PRN, Starting on Fri EDT 07/08/17 at 1547, Until Fri07/09/17 at 1738, Intra-Operative (Intra-Procedure), Routine BUpivacaine-EPINEPHrine 0.25 Given 07/08/2017 4:37 PM 30 mLs 19- Surgical Site %-1:200,000 injection EDT ONCE PRN, Starting on Fri07/08/17 at 1637, Until Fri07/09/17 at 1738, Intra-Operative (Intra-Procedure), Routine celecoxib (CeleBREX) capsule 200 mg Given 07/09/2017 8:17 AM EDT 200 mg 200 mg, Oral, 2 TIMES DAILY, First dose on Fri07/08/17 at 2130, Until Discontinued, Routine Given 07/08/2017 10:12 PM EDT 200 mg dexamethasone (DECADRON) tablet 4 mg Given 07/09/2017 8:16 AM EDT 4 mg 4 mg, Oral, DAILY, 2 doses, First dose on Fri07/09/17 at 0900, Last dose on Fri07/10/17 at 0900, Routine gabapentin (NEURONTIN) capsule 600 mg Given 07/09/2017 2:40 PM EDT 600 mg 600 mg, Oral, 3 TIMES DAILY, First dose on Fri07/08/17 at 2130, Until Discontinued, Routine Given 07/09/2017 8:17 AM EDT 600 mg Given 07/08/2017 10:11 PM EDT 600 mg magnesium citrate oral solution 300 mL [...] times 1 in 4 hour s., Routine multivitamin Dwge-Ax-ZA-Min (THERAPEUTIC-M) Given 06/21 9:00 AM EDT 1 [...] Given 07/08/2017 10:15 PM EDT 17 g povidone-iodine 5 % ophthalmic Given 07/08/2017 3:48 PM EDT 30 m Ls 19- Surgical Site solution ONCE PRN, Starting on Fri07/08/17 at 1548, Until Fri07/09/17 at 1738, Intra-Operative (Intra-Procedure), Routine prochlorperazine (COMPAZINE) injection 1 0 mg 10 [...] Provider: Roro Short)1403 (Given - Provider: Neris Gastelum RN) 1,000 mg, Oral, EVERY 8 HOURS SCHEDULED, [...] Suspected): Prophylaxis celecoxib (CeleBREX) capsule 200 mg 2211 (Given - Provider: Joelle Quinteros RN) 816 (Given - Provider: Neris Gastelum RN) 200 mg, Oral, 2 TIMES DAILY, First dose on Fri07/08/17 at 2130, Until Discontinued, Routine celecoxib (CeleBREX) capsule 400 mg (COMPLETED) 135 (Given - Provider: Melva Sewell RN) 400 mg, Oral, ONCE, 1 dose, Fri07/08/17 at 1400, Administer on arrival to Same Day Program, Day of Surgery (Day of Procedure), Routine dexamethasone (DECADRON) tablet 4 mg 815 (Given - Provider: Neris Gastelum RN) 4 [...] Procedure), Routine gabapentin (NEURONTIN) capsule 600 mg 10 09 (Given - Provider: Joelle Quinteros RN) 08 (Given - Provider: Neris Gastelum RN)1440 (Given - Provider: Neris Gastelum RN) 600 mg, Oral, 3 TIMES DAILY, First dose on Fri07/08/17 at 2130, Until Discontinued, Routine ketorolac (TORADOL) injection 15 mg (COMPLETED) 1752 (Given - Provider: Xochitl John RN) 0006 (Given - Provider: Roro Short)0604 (Given - Provider: Joelle Quinteros RN)1122 (Given - Provider: Neris Gastelum RN) 15 mg, Intravenous, EVERY 6 HOURS SCHEDU LED, 4 doses, First dose on Fri07/08/17 at 1800, Last dose on Fri07/09/17 at 1200, Routine multivitamin Segz-Qn-TW-Min (THERAPEUTIC-M) 27-0.4 mg tablet 1 t ablet [...] 20 mg 816 (Given - Provider: Neris Gastelmu RN) 20 mg, Oral, DAILY, First dose [...] 2210 (Given - Provider: Joelle Quinteros RN) 0817 (Given - Provider: Neris Gastelum RN) 2 tablet, Oral, 2 TIMES DAILY, First dos e on Fri07/08/17 at 2130, Until Discontinued, Routine sodium chloride 0.9 % flush 5 mL 2212 (Given - P rovider: Joelle Quinteros RN) 0818 (Given - Provider: Neris Gastelum RN) 5 mL, Intravenous, 2 TIMES DAILY, First dose on Fri07/08/17 at 2130, Until Discontinued, Recovery (Recovery-Hospital Unit), Routine tranexamic acid (CYKLOKAPRON) 1,089 mg i n sodium chloride 0.9% 110.89 mL (COMPLETED) 1520 (New Bag - Provider: Damaso rangel CRNA) 1,089 mg (15 mg/kg/dose ? 72.6 kg), [...] patient unable to take PO, may give RI if ordered, Routi ne BUpivacaine-EPINEPHrine 0.25 %-1:200,000 injection (CANCELED ) 1637 [...] mg (CANCELED) 1733 (Given - Provider: Shelby Mario RN)1847 (Given - Provider: Shelby Mario RN) 0.2-0.4 mg, Intravenous, EVERY 5 MIN PRN , Starting Fri07/08/17 at 1705, Until Fri07/08/17 at 2048, Pain, For moderate pain (4-6) give: 0.2 mg every 5 minute prn For severe pain (7-10) give: 0.4 mg every 5 minutes prn Maximum dose: 4 mg per ho ur Hold for respiratory rate less than 10 per minute., PACU Recovery, Routine lactulose (CHRONULAC) 20 gram/30 mL oral solution 20-40 g 20-40 g (30-60 mL), Oral, DAILY PRN, Sta rting Fri07/08/17 at 210, Until Fri07/09/17 at 1737, Constipation, Administer if needed per patient's routine [...] ONCE PRN, 1 dose, Starting Fri07/08/17 at 210, Until Fri07/09/17 at 1738, for discomfort with [...] mg (CANCELED) 1412 (Given - Provider: Melva Sewell, RN) 1-2 mg, Intravenous, EVERY 5 MIN [...] mg, Oral, EVERY 8 HOURS PRN, Starting e 07/08/17 at 1741, Until Fri07/09/17 at 1738, Nausea, [...] Provider: Roro Short)0406 (Given - Provider: Joelle Quinteros RN)0818 (Given - Provider: Neris Gastelum, LIDIA)1402 (Given - Provider: Neris Gastelum, LIDIA) 5-15 mg, Oral, EVERY 4 HOURS PRN, [...] mL, Per G Tube, DAILY PRN, Starting Tu07/08/17 at 2108, Until Fri07/09/17 at 1738, Constipation
Administer if needed per patient's routine or if no bowel movement within 48 hours t o achieve: 1) One bowel movement at least every 48 hours, AND 2) Without straining. May repeat times 1 in 4 hours.
Routine Group 2: ondansetron (ZOFRAN) tablet 4 mgJump to med 4 mg, Oral, EVERY 8 HOURS PRN, Starting Tu07/08/17 at 1741, Until Fri07/09/17 at 1738, Nausea, [...] multiple antiemetics are ordered, use ondanstron first
Recoandrew hernandez (Recovery-Hospital Unit) Group 3: prochlorperazine (COMPAZINE) tablet 10 mgJump to med 10 mg, Oral, EVERY 6 HOURS PRN, Starting Tu07/08/17 at 1741, Until Fri07/09/17 at 1738, Nausea, Vomiting
If multiple antiemetics are ordered, use ondansetron first. If on dansetron ineffective use prochlorperazi ne. PO Preferred. If patient unable to take PO, may give IV if ordered.
Recovery (Recovery- Hospital Unit), Routine Or prochlorperazine (COMPAZINE) injection 10 mgJump to med 10 mg, Intravenous, EVERY 6 HOURS PRN, S tarting 07/08/17 at 1741, Until 07/09/17 at 1738, Nausea, Vomiting
If multiple antiemetics are ordered, use ondansetron first. &nbs p;If ondansetron ineffective use prochlo rperazine.
Recovery (Recovery- Hospital Unit), Routine documented in this encounter Care Teams Quarter Backer Relationship Specialty Start Date End Date Santhosh Herron MD PCP - General Family Medicine 02/18/[address] [place] [phone] documented as of this encounter
--- OUTSIDE RECORDS SUMMARY | 2022-09-13 00:40 | XMS_ITS | Encounter Summary ---
:1960 Author Organization [facility] Address [address] [place] [address] Care Team Providers Name Role Phone Santhosh Herron MD Primary Care Provider Reason for Visit Reason Comments Right Knee Pain Pre-op Encounter Details Date Type Department Care Team Description 06/09/2017 Office Visit Orthopaedics at [facility] Steve, Preop examination; [facility] Rudolph Read MD Chronic pain of right knee; [facility] Status post unicompartmental knee replacement, right; [place], [place] [facility] Cigarette smoker [id number] ORTHOPAEDIC [phone] [place] [address] Social History Tobacco Use Types Packs/Day Years [...] Sign Reading Time Taken Comments Blood Pressure 130/88 06/09/2017 11:13 AM EDT Pulse 68 06/09/2017 11:13 AM EDT Temperature - - Respiratory Rate - - Oxygen Saturation 98% 06/09/2017 11:13 AM EDT Inhaled Oxygen Concentration - - Weight 72.6 kg (160 lb 1.6 oz) 06/09/2017 11:13 AM EDT Height 161 cm (5' 3.39) 06/09/2017 11:13 AM EDT Body Mass Index 28.02 06/09/2017 11:13 AM EDT documented in this encounter H&P Notes Rudolph Wilson MD - 06/09/2017 11:20 AM EDT Images from the original note were not included. CC: Alicia Main is a 56 y.o. female with the following problems and medications that is being seen in the clinic for consultation at the request of her surgeon Dr. Dylan Hatch for preoperative risk stratification and management recommendations in anticipation of right total knee arthroplasty for failed loose medial UKA. HPI - Pain - Location - medial knee Quality - aching, Onset - gradual, Duration - several years Intensity - moderate to severe, Aggravating factors - standing, walking, stepping, bending, Alleviating factors - NSAID, APAP, opiate, rest, topical, PT, Associated - does get swollen at end of work day, denies instability, no numbness or weakness. Denies other knee joint/ but does have low back pain and does have right lateral thigh tingling pain sometimes. She has trigeminal neuralgia and so gum and lozenges are not feasible but has patches to help her quit smoking. Active Ambulatory Problems Diagnosis Date Noted ??? Acquired spondylolisthesis 03/14/2008 ??? Degeneration of lumbar or lumbosacral intervertebral disc 03/14/2008 ??? Lumbago 03/14/2008 Resolved Ambulatory Problems Diagnosis Date Noted ??? No Resolved Ambulatory Problems No Additional Past Medical History Current Outpatient Prescriptions Medication Sig Dispense Refill ??? OMEPRAZOLE (PRILOSEC ORAL) Take by mouth daily. ??? ibuprofen (ADVIL;MOTRIN) 800 mg Tablet TAKE ONE TABLET BY MOUTH TWICE A DAY WITH FOOD NEEDED FOR BACK PAIN 4 ??? gabapentin (NEURONTIN) 600 mg tablet 600mg, PO, Three times daily No current facility-administered medications for this visit. Social History Occupational History ??? Not on file. Social History Main Topics ??? Smoking status: Current Every Day Smoker Packs/day: 0.50 Years: 40.00 Types: Cigarettes ??? Smokeless tobacco: Never Used Comment: 3/4 to 1/2 pack a day ??? Alcohol use Yes Comment: occasional ??? Drug use: No ??? Sexual activity: Not on file Family History Problem Relation Age of Onset ??? Deep Vein Thrombosis Neg Hx Review of Systems: Review of Systems Constitutional: Negative for chills, diaphoresis and fever. HENT: Negative for dental problem, mouth sores, nosebleeds, sore throat and trouble swallowing. Eyes: Negative for photophobia and visual disturbance. Respiratory: Negative for cough, shortness of breath and wheezing. Cardiovascular: Negative for chest pain, palpitations and leg swelling. Gastrointestinal: Negative for anal bleeding and blood in stool. Endocrine: Negative for polydipsia and polyphagia. Genitourinary: Negative for dysuria and hematuria. Musculoskeletal: Positive for gait problem and joint swelling. Skin: Negative for pallor and rash. Allergic/Immunologic: Negative for environmental allergies and immunocompromised state. Neurological: Positive for numbness. Negative for syncope, speech difficulty, weakness and light-headedness. Hematological: Negative for adenopathy. Bruises/bleeds easily. Psychiatric/Behavioral: Negative for confusion, decreased concentration and dysphoric mood. Allergies: Allergies Allergen Reactions ??? Penicillins Hives ??? Vancomycin Itching Red man's syndrome Physical Exam: Last Set of Vitals and Range over past 24 hours: Last value Range last 24 hrs Temperature Temp: -- Heart Rate Heart Rate: 68 Heart Rate: [68-80] Blood Pressure BP: 130/88 BP: (130)/(88) Respiratory Rate Resp: -- SpO2 SpO2: 98 % SpO2: [98 %-99 %] Body mass index is 28.02 kg/(m^2). Height: 161 cm (5' 3.39) Physical Exam Constitutional: She is oriented to person, place, and time. She appears well- developed. No distress. HENT: Head: Normocephalic and atraumatic. Mouth/Throat: Oropharynx is clear and moist. No oropharyngeal exudate. Eyes: Conjunctivae and EOM are normal. Right eye exhibits no discharge. Left eye exhibits no discharge. No scleral icterus. Neck: Neck supple. No JVD present. No tracheal deviation present. Cardiovascular: Normal rate, regular rhythm, normal heart sounds and intact distal pulses. Exam reveals no gallop and no friction rub. No murmur heard. Pulmonary/Chest: Effort normal. No stridor. No respiratory distress. She has no wheezes. She has no rales. Fine basilar crackles present in both posterior lungs. Good chest excursion noted. Abdominal: Soft. Bowel sounds are normal. There is no tenderness. There is no rebound and no guarding. Musculoskeletal: She exhibits no edema or deformity. Right knee iwht effusion and warmth. Has crepitus with full extension. Has medial scar. No drift of RLE and ambulatory with antalgic gait and no assistive device. Lymphadenopathy: She has no cervical adenopathy. Neurological: She is alert and oriented to person, place, and time. She displays normal reflexes. Nocranial nerve deficit. She exhibits normal muscle tone. Coordination normal. Skin: Skin is warm and dry. She is not diaphoretic. No pallor. Psychiatric: She has a normal mood and affect. Her behavior is normal. Judgment and thought content normal. Lab Results Component Value Date WBC 9.4 06/09/2017 RBC 4.60 06/09/2017 HGB 14.1 06/09/2017 HCT 41.5 06/09/2017 MCV 90.2 06/09/2017 MCH 30.7 06/09/2017 MCHC 34.0 06/09/2017 PLATELET 167 06/09/2017 RDWCV 12.9 06/09/2017 Lab Results Component Value Date NA 142 06/09/2017 K 3.9 06/09/2017 CL 107 06/09/2017 CO2 20 (L) 06/09/2017 BUN 8 06/09/2017 CREATININE 0.82 06/09/2017 GLUCOSE 82 06/09/2017 CALCIUM 9.5 06/09/2017 Lab Results Component Value Date PT 13.7 06/09/2017 INR 1.0 06/09/2017 PTT 34 06/09/2017 Estimated Creatinine Clearance: 75.5 mL/min (based on Cr of 0.82). EKG (image reviewed): Normal sinus rhythm Possible Left atrial enlargement Nonspecfic ST segment changes Xray images and bone scan report reviewed - has uptake on medial tibial component of medial UKA consistent with loosening or infection A/P 1. Preop examination 2. Chronic pain of right knee 3. Status post unicompartmental knee replacement, right 4. Cigarette smoker She is receptive to smoking cessation counseling. She had negative culture per aspiration of this knee and so the loosening is considered aseptic. Role of smoking, osteoporosis and SHANA in this was reviewed with her. Major Risk Factor per the Revised Cardiac Risk Index (Bold if present) - There is no history of CAD,CHF, CVA or TIA, DM2 on insulin, or a Creatinine >2 Risk diagnosis for MACE (major adverse cardiovascular event = Myocardial infarction, pulmonary edema, ventricular fibrillation, primary cardiac arrest, or complete heart block.) : Low <1% . The patient describes a functional status of equal to 4METs and more (continues to work as a [employer] in the [employer]) and based on the ACC/AHA 2014 guideline no further cardiovascular testing is indicated. ARISCAT/CANET Score - estimates the risk of postoperative pulmonary complications as being low ~3.5%. STOP BANG Score - low risk for SHANA. Per the ACS NSQIP calculator I estimated the following. Reiterated importance of smoking cessation. She has some patches from prior and I provided a script for 14mg/day patches to use. We also discussed Nicotrol inhaler, e-cig and medications to help and she would like to use the patches. She did not like the Ecig she tried. Role of smoking in increasing risk of infection and also aseptic loosening was explained. RECCO: Continue PPI and gabapentin. Reiterate smoking cessation documented in this encounter Plan of Treatment Not on filedocumented as of this encounter Visit Diagnoses Diagnosis Preop examination Preoperative examination, unspecified Chronic pain of right knee Status post unicompartmental knee replac ement, right Knee joint replacement by other means Cigarette smoker Tobacco use disorder documented in this encounter Care Teams Wood Machinist Apprentice Relationship Specialty Start Date End Date Santhosh Herron MD PCP - General Family Medicine 02/18/[address] [place] [phone] documented as of this encounter
--- OUTSIDE RECORDS SUMMARY | 2022-09-13 00:40 | XMS_ITS | Encounter Summary ---
:1960 [place] [address] Care Team Providers Name Role Phone April Gamez MOHIT Primary Care Provider Encounter Details Date Type Department Care Team Description 09/29/2012 Hospital Encounter Radiology [facility] [place] [facility] [place] [phone] ORTHOPAEDIC SURGERY [phone] [place], [place] [address] (Wo rk) Social History Tobacco [...] Associated Diagnosis Comme nts FILM LIBRARY Routine 09/29/2012 12:00 AM Pain Results for this STORAGE ONLY DX EST procedure ar e in KNEE the results section. documented in this encounter Results Film Library- Storage Only DX Knee (09/29/2012 12:00 AM EST) Specimen (Source) Anatomical Location Collection Method / Collectio n Time Received Time / Laterality Volume Narrative RAD - 02/25/2017 12:24 PM EDT This exam is for storage only and is aut o-finalizing. Dylan Hatch MD IMG FILM LIBRARY ORDERABLES Performing Organization Address City/State/ZIP Code Phon e Number [place], [place] documented in this encounter Visit Diagnoses Diagnosis Pain Generalized pain documented in this encounter Care Teams Kettle Cook Relationship Specialty Start Date End Date April Gamez APRN PCP - General 09/11/10 02/17/[address] [place] [phone] documented as of this encounter
--- OUTSIDE RECORDS SUMMARY | 2022-09-13 00:40 | XMS_ITS | Encounter Summary ---
:1960 [place] [address] Care Team Providers Name Role Phone Santhosh Herron MD Primary Care Provider Reason for Referral Surgical (Routine) - Specialty Diagnoses / Procedures Referred By Contact Refer red To Contact Diagnoses Status post total right knee replacement Dylan Hatch MD Procedures Joint aspiration, knee [facility] [place] [address] Referral ID Status Reason Start Date Expiration Date Visits V isits Requested Authorized [id number] Consult, 03/05/2017 03/05/2018 1 1 Test & Treat Reason for Visit Reason Comments [facility] R partial TKA 2009 Consultation (Routine) - Closed Specialty Diagnoses / Procedures Referred By Contact Refer red To Contact Orthopaedics Diagnoses Tibial loosening s/p PKR 2009 Santhosh Herron MD [facility] [address] [place] [phone] [place] [address] Fax: Referral ID Status Reason Start Date Expiration Date Visits V isits Requested Authorized [id number] Closed Consult, Test 02/19/2017 02/19/2018 1 1 [facility] PCP Updated and/or Approved Encounter Details Date Type Department Care Team Description 03/05/2017 Office Visit [place] [place] [facility] [place] Hatch Status post total [facility] MD Shay right knee Drive [facility] ([place] [address] [place]) [phone] ORTHOPAEDIC SURGERY [place], [place] [address] Social History Tobacco Use Types Packs/Day Years Used Date Smoking Tobacco: Every Day Alcohol Use Standard Drinks/Week Comments Yes 0 (1 standard drink = 0.6 oz pure alcoho l) occasional Sex Assigned at Date Recorded Not on file documented as of this encounter Last Filed Vital Signs Vital Sign Reading Time Taken Comments Blood Pressure 140/89 03/05/2017 10:52 AM EDT Pulse 66 03/05/2017 10:52 AM EDT Temperature - - Respiratory Rate - - Oxygen Saturation - - Inhaled Oxygen Concentration - - Weight 72.6 kg (160 lb) 03/05/2017 10:52 AM EDT Height 162.6 cm (5' 4) 03/05/2017 10:52 AM EDT Body Mass Index 27.46 03/05/2017 10:52 AM EDT documented in this encounter Progress Notes Dylan Hatch MD - 03/05/2017 10:30 AM EDT Subjective: Patient ID: Alicia Main is a 56 y.o. female. Arthroplasty History: Arthroscopy Meniscal Intervention 2007A 2009 in [place] Revision for Nerve pain at 2mos post op. HPI Pain since her surgery. Never better. Has deep bone pain. No fevers or chills. Negative labs from outside. Takes Ibuprofen 800 mg BID. Pain with walking and pain at rest. She has tried physical therapy and braces without much help. Problems: Trigeminal Neuralgia Back Surgery x 2 Dr. Torres Allergies Allergen Reactions ??? Penicillins Hives ??? 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 gabapentin (NEURONTIN) 600 mg tablet 600mg, PO, Three times daily No current facility-administered medications on file prior to visit. Review of Systems General Health, Prior Treatments, PreExisting Condition, Health Habits, About You 03/05/2017 PROMIS-10 General Health Very Good PROMIS-10 Quality of Life Very Good PROMIS-10 Physical Health Good PROMIS-10 Mental Health Very Good PROMIS-10 Social Activity Very Good PROMIS-10 Everyday Activities Completely PROMIS-10 Pain 4 PROMIS-10 Fatigue Mild PROMIS-10 Social Roles Very Good PROMIS-10 Anxious or Depressed Rarely PROMIS PHYSICAL SCORE (range 16-68) 47.7 PROMIS MENTAL SCORE (range 21-68) 53.3 Treatments Tried Heat and ice therapy, Brace, Physical therapy, Acetaminophen (e.g. Tylenol) Prior Surgery partial knee replacement 201o KOOS JR Scores 47.49 TKA Grade 2 Alzheimers or dementia No Cirrohosis or liver disease No HIV/AIDS No Pain in more than one joint in legs No Back or neck pain Yes Heart attack No Heart failure No Unclog/bypass leg arteries No Stroke, blood clot, TIA No Asthma No Emphysema, chronic bronchities, or COPD No Stomach ulcers/peptic ulcer disease Yes Condition diagnosed by endoscopy No Diabetes No Poor kidney function No Rheumatic condtions No Cancer No Weight (lbs) 160 Height (feet) 5 feet Height (Inches) 4 BMI 27.46 (Overweight) Ever used tobacco products Yes Tobacco frequency Daily or almost daily WHO - Tobacco Advice 6 (You are at risk of health and other problems from your current pattern of tobacco use.) Ever used alcoholic beverages Yes Alcohol frequency Once or twice WHO - Alcohol Advice 2 (You are at low risk of health and other problems from your current pattern of use.) Live Alone No Marital situation Schooling High school graduate or GED Combined Household Income $50,000 to less than $75,000 # People Supported 2 Gambian, , No, not Gambian// Health Literacy Extremely Currently working Yes Current job situation Full-time [facility] Response 03/05/2017 KOOS JR Scores 47.49 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 I have made the following determinations: Knee Exam: Right Prior surgery on this joint: Yes Knee ROM: Extension:0 Flexion: 105 Alignment: 0-4 degrees Varus Stability: A/P Translation <5mm. Varus (lateral stability) <5mm Valgus (medial stability) <5mm Extension La degrees or less Radiographic evidence of joint damage: [0= normal; 1=minimal ; 2= some osteophytes , some narrowing ; 3= moderate osteophytes, significant narrowing, mild deformity; 4= large osteophytes, marked narrowing, obvious deformity]: Unicompartmental knee in place with some evidence of loosening Patella Tracking: Normal Skin Integrity: Normal Pulses Palpable: Right PT: Yes Right DP:Yes Motor/Sensory: Distal Motor: Normal Distal Sensory: Normal Quadriceps Strength: 5 Imaging: I reviewed the images today. These reveal unicompartmental knee with mild evidence of loosening. There is mild deformity present. A bone scan from outside reveals significant increased uptake especially on the tibial side. Labs were reviewed in the scan and record today. She does not have elevated inflammatory markers. Assessment and Plan: Painful UNI-compartmental knee RIGHT The patient her significant other and I discussed the findings today. I had to search for her lab results in the chart but was able to find results which were normal according to the parameters for those labs. As she has been painful ever since the surgery I think infection is still on the list. We'll proceed with aspiration and alpha defensiveness testing She would be a candidate for revision to a total knee replacement if the infection workup is negative given the evidence of loosening of the implant. documented in this encounter Plan of Treatment Scheduled Orders Name Type Priority Associated Diagnoses Order S chedule Joint aspiration, Procedures Routine Status post total right Ordered: 03/05/2017 knee knee replacement documented as of this encounter Results XR Fluoro Guided Joint Aspiration Large Right (03/10/2017 11:44 AM EDT) Anatomical Region Laterality Modality Right Radio Fluoroscopy Specimen (Source) Anatomical Location Collection Method / Collectio n Time Received Time / Laterality Volume Impressions 03/10/2017 12:38 PM EDT Uneventful right knee joint aspiration. No fluid spontaneously returned, and therefore 5 mL of sterile saline was injected into the right knee joint, after which less than 1 mL of jun ar fluid returned. This was sent for culture, sensitivity, and gram stain. In sufficient fluid was obtained to send for either cell count or Synovasure. Resident/Fellow: None. Manager Product Support: MELIA Elmore Attending: Maura Tomas I performed the escobar parts of this proced ure. Narrative 03/10/2017 12:38 PM EDT HISTORY: Status post unicondylar right medial compartment total knee arthroplasty, with pain; rule out infect ion. RIGHT KNEE ASPIRATION UNDER FLUOROSCOPY TECHNIQUE: After an extensive conversation with the patient regarding risks and benefits, oral and written consent were obtained. A pre-procedural time-out was performed as per [facility] protocol. The patient was placed in right lateral decubitus position on the fluoroscopic table. ??The skin overlying the right kn ee was prepped and draped in the usual aseptic manner. 1% Lidocaine was used to achieve local anesthesia. Under fluoroscopic guidance, an 18-gauge 3.5 spinal needle was advanced into the right knee joint space. A small amount o f air was injected to document intra-articular needle placement. No tank nt fluid spontaneously returned, so a second 18-gauge 3.5 spinal needle was a dvanced into the right knee joint space, and again, a small amount of air was inj ected to document intra-articular needle placement. Still, no fluid spontaneously returned, and therefore 5 mL of sterile saline was injected into the right knee joint, after which less than 1 mL of clear fluid returned. All needles were r emoved at the end of the procedure. FINDINGS: 1. ??Small amount of injected air in the right knee joint space. 2. ??No fluid spontaneously returned, an d therefore 5 mL of sterile saline was injected into the right knee joint, afte r which less than 1 mL of clear fluid returned. This was sent for culture, sen sitivity, and gram stain. Insufficient fluid was obtained to send for either ce ll count or Synovasure. MEDICATIONS: Lidocaine 1% - <5 ml, for subcutaneous a nesthesia Fluoroscopy time: 0.032 minutes COMPLICATIONS: None immediate. POST-PROCEDURE CARE: Instructions on mon itoring for infection and management of postprocedure pain were reviewed with ac collins. Procedure Note Maura Portillo MD - 03/10/2017Formatting o f this note might be different from the original. HISTORY: Status post unicondylar right m edial compartment total knee arthroplasty, with pain; rule out infect ion. RIGHT KNEE ASPIRATION UNDER FLUOROSCOPY TECHNIQUE: After an extensive conversation with the patient regarding risks and benefits, oral and written consent were obtained. A pre-procedural time-out was performed as per [facility] protocol. The patient was placed in right lateral decubitus position on the fluoroscopic table. The skin overlying the right knee was prepped and draped in the usual aseptic manner. 1% Lidocaine was used to achieve local anesthesia. Under fluoroscopic guidance, an 18-gauge 3.5 spinal needle was advanced into the right knee joint space. A small amount o f air was injected to document intra-articular needle placement. No tank nt fluid spontaneously returned, so a second 18-gauge 3.5 spinal needle was a dvanced into the right knee joint space, and again, a small amount of air was inj ected to document intra-articular needle placement. Still, no fluid spontaneously returned, and therefore 5 mL of sterile saline was injected into the right knee joint, after which less than 1 mL of clear fluid returned. All needles were r emoved at the end of the procedure. FINDINGS: 1. Small amount of injected air in the r ight knee joint space. 2. No fluid spontaneously returned, and therefore 5 mL of sterile saline was injected into the right knee joint, afte r which less than 1 mL of clear fluid returned. This was sent for culture, sen sitivity, and gram stain. Insufficient fluid was obtained to send for either ce ll count or Synovasure. MEDICATIONS: Lidocaine 1% - <5 ml, for subcutaneous a nesthesia Fluoroscopy time: 0.032 minutes COMPLICATIONS: None immediate. POST-PROCEDURE CARE: Instructions on mon itoring for infection and management of postprocedure pain were reviewed with ac collins. IMPRESSION Uneventful right knee joint aspiration. No fluid spontaneously returned, and therefore 5 mL of sterile saline was injected into the right knee joint, after which less than 1 mL of jun ar fluid returned. This was sent for culture, sensitivity, and gram stain. In sufficient fluid was obtained to send for either cell count or Synovasure. Resident/Fellow: None. Manager Product Support: MELIA Elmore Attending: Maura Tomas I performed the escobar parts of this proced ure. Dylan Hatch MD IMG FLUORO ORDERABLES Fungus culture Joint (03/10/2017 10:49 AM EDT) [facility] Method Time Signature Fungus No Fungus [facility] Culture isolated [facility] Specimen Anatomical Collection Method Collection Time Receive d Time (Source) Location / / Volume Laterality Joint specimen 03/10/2017 10:49 7 (specimen) AM EDT 12:00 PM EDT Resulting Agency Comment Spec In Lab Dylan Hatch MD MICROBIOLOGY - GENERAL ORDER HI Performing Organization Address City/State/[place] [address] documented in this encounter Visit Diagnoses Diagnosis Status post total right knee replacement - Primary Status post total right knee replacement documented in this encounter Care Teams Adjustment Clerk Relationship Specialty Start Date End Date Santhosh Herron MD PCP - General Family Medicine 02/18/[address] [place] [phone] documented as of this encounter
--- OUTSIDE RECORDS SUMMARY | 2022-09-13 00:40 | XMS_ITS | Encounter Summary ---
:1960 Author Organization [facility] [place] [address] Care Team Providers Name Role Phone Santhosh Herron MD Primary Care Provider Encounter Details Date Type Department Care Team Description 06/16/2017 Notes Only [place] [facility] [place] [address] Social History Tobacco Use Types Packs/Day Years Used Date Smoking Tobacco: Every Day Cigarettes 0.5 40 Smokeless Tobacco: Never Comments: 3/4 to 1/2 pack a day Alcohol Use Standard Drinks/Week Comments Yes 0 (1 standard drink = 0.6 oz pure alcoho l) occasional Sex Assigned at Date Recorded Not on file documented as of this encounter Progress Notes Estela Conrad - 06/16/2017 3:52 PM EDT Study Title: Comparative Effectiveness of Pulmonary Embolism Prevention after hip and knee Replacement: Balancing Safety and Effectiveness. Principle Quality Assurance Auditor: Dr. Christopher Robbins #: [id number] Informed consent for the above entitled study was reviewed with subject -in detail. The details of the study, length of study, and risks were reviewed with subject. Upon review, subject verbalized adequate understanding of the protocol and signed the consent along with me. No study procedures were initiated prior to signing the consent. A copy was provided to subject, and the original consent will bekept with the study chart. Reviewed initial inclusion and exclusion, will continue to review medical history. Subject meets ALL of the inclusion criteria for entry into this clinical trial: 1) Males and females 21 years of age or older 2) Undergoing elective primary, revision, or second stage re-implantation total hip replacement 3) Undergoing elective primary, revision, or second stage re-implantation total or uni-compartmental knee replacement 4) Patient has necessary mental capacity to participate and is able to comply with study protocol requirements 5) Patient is willing and able to give informed consent 6) Patient is willing to be randomized and participate Subject does NOT meet any exclusion criteria for entry into this clinical trial: 1) Patients undergoing bilateral hip or knee replacement 2) Patient undergoing total hip or knee replacement who has been enrolled in this study for a priorhip or knee replacement. 3) Patient who is concurrently enrolled in another active interventional clinical trial testing a drug or intervention known or believed to interact with aspirin, warfarin, rivaroxaban. 4) Patients who have a contraindication to two or more of the three study prophylaxis regimens 5) Women who are or , as well as those of reproductive potential unless thereis a negative urine test on the day of surgery. 6) Patients on chronic (longer than the prior 6 months) anticoagulation other than with antiplatelet medications 7) Patients with documented gastrointestinal, cerebral, or other hemorrhage within 3 months of the operation 8) Patients with a known diagnosis of defective hemostasis and past history of clinical bleeding requiring transfusion and treatment. 9) Patients who have had an operative procedure involving the eye, ear, or central nervous system within one month 10) Patient with severe uncontrolled hypertension with systolic BP > 220mmHg and diastolic BP > 120mmHg 11) Patient with an absolute body weight of less than 41 kilograms (90.4 lbs) at baseline visit. 12) Vulnerable patient populations including prisoners and institutionalized individuals. Schedule of events were reviewed with the subject. Verbalized understanding of appointment dates andprocedures, subject agrees to all. Encouraged to call with any questions/concerns. Note Submitted by Estela Conrad, Clinical Research Coordinator. documented in this encounter Plan of Treatment Not on filedocumented as of this encounter Visit Diagnoses Not on filedocumented in this encounter Care Teams Chisel Grinder Relationship Specialty Start Date End Date Santhosh Herron MD PCP - General Family Medicine 02/18/17 [address] [place] [phone] documented as of this encounter
--- OUTSIDE RECORDS SUMMARY | 2022-09-13 00:40 | XMS_ITS | Encounter Summary ---
:1960 Author Organization [employer] [place] [address] Care Team Providers Name Role Phone Santhosh Herron MD Primary Care Provider Encounter Details Date Type Department Care Team Description 06/09/[address] [facility] Status post unicompartmental knee replacement, right; Appointment One [facility] Pain of r ight lower [place] [address] Social History Tobacco Use Types [...] Name Priority Date/Time Associated Diagnosis Comme nts ABORH RECHECK Routine 06/09/2017 10:41 Results fo r this STATUS AM EDT procedure are i n the results section. HEMOGRAM Routine 06/09/2017 10:41 Status post Results for this AM EDT unicompartmental knee proced ure are in replacement, rig ht the results Pain of right lower section. extremity DIFFERENTIAL, Routine 06/09/2017 10:41 Status post Results fo r this AUTOMATED AM EDT unicompartmental knee proced ure are in replacement, rig ht the results Pain of right lower section. extremity TYPE AND SCREEN, Routine 06/09/2017 10:41 Status post SDP (FUTURE AM EDT unicompartmental knee SURGERY, [facility] SAME replacement, right DAY PROGRAM ONLY) Pain of right lower extremity ABO/RH TYPING Routine 06/09/2017 10:41 Status post Results fo r this AM EDT unicompartmental knee proced ure are in replacement, rig ht the results Pain of right lower section. extremity APTT Routine 06/09/2017 10:41 Status post Results for this AM EDT unicompartmental knee proced ure are in replacement, rig ht the results Pain of right lower section. extremity PROTHROMBIN TIME Routine 06/09/2017 10:41 Status post Results for this AM EDT unicompartmental knee proced ure are in replacement, rig ht the results Pain of right lower section. extremity CBC (WITH DIFF) Routine 06/09/2017 10:41 Status post AM EDT unicompartmental knee replacement, rig ht Pain of right lower extremity ANTIBODY SCREEN Routine 06/09/2017 10:41 Status post Results for this AM EDT unicompartmental knee proced ure are in replacement, rig ht the results Pain of right lower section. extremity BASIC METABOLIC Routine 06/09/2017 10:41 Status post Results for this PANEL (NON-FASTING) AM EDT unicompartmental knee procedure are in replacement, rig ht the results Pain of right lower section. extremity documented in this encounter Results ABORH Recheck Status (06/09/2017 10:41 AM EDT) [facility] Signature ABORH Recheck Order Placed [facility] LABORATORY ABORH Type Complete [facility] LABORATORY Specimen Anatomical Collection Method Collection Time Receive d Time (Source) Location / / Volume Laterality Blood specimen 06/09/2017 10:41 7 (specimen) AM EDT 10:44 AM EDT Resulting Agency Comment Spec In Lab Dylan Hatch MD BLOOD BANK ORDERABLES Performing Organization Address City/State/[place] [address] (ABNORMAL) Differential, Automated (06/09/2017 10:41 AM EDT) [facility] Method Time Signature Neutrophils % 65.9 % [facility] LABORATORY Neutr Abs (ANC) 6.16 (H) 1.70 - [facility] 6.10 [facility] x10(3)/[facility] LABORATORY Lymphocytes % 26.7 % [facility] LABORATORY Lymphocytes Abs 2.5 0.9 - 3.2 [facility] x10(3)/[facility] LABORATORY Monocytes % 5.5 % [facility] LABORATORY Monocyte Abs 0.5 0.3 - 0.9 [facility] x10(3)/[facility] LABORATORY Eosinophils % 0.9 % [facility] LABORATORY Eosinophils Abs 0.1 0.0 - 0.4 [facility] x10(3)/[facility] LABORATORY Basophils % 0.4 % [facility] LABORATORY Basophils Abs 0.0 0.0 - 0.1 [facility] x10(3)/[facility] LABORATORY Immature Gran % 0.60 % [facility] LABORATORY Comment: Immature granulocytes(IG's)percentage an d absolute count will include metamyelocytes, myelocytes, and promyelo cytes. Blood smears from CBCs yielding IG's will be scanned manually for concor dance. If this scan disagrees with the automated IG or if promyelocytes are not ed, a manual differential will be performed. Chelo Gran Abs 0.06 (H) 0.00 - 0.04 x10(3)/[facility] LABORATORY Specimen Anatomical Collection Method Collection Time Receive d Time (Source) Location / / Volume Laterality Blood specimen 06/09/2017 10:41 7 (specimen) AM EDT 10:55 AM EDT Resulting Agency Comment Spec In Lab Dylan Hatch MD HEMATOLOGY ORDERABLES Performing Organization Address City/State/[place] [address] Hemogram (06/09/2017 10:41 AM EDT) P athologist Signature WBC 9.4 4.0 - 9.5 [facility] x10(3)/[facility] LABORATORY RBC 4.60 4.00 - [facility] 5.21 [facility] x10(6)/[facility] LABORATORY Hemoglobin 14.1 11.7 - DANIEL ROSALIND 15.5 gm/dL [facility] LABORATORY Hematocrit 41.5 35.7 - DANIEL ROSALIND 45.8 % [facility] LABORATORY MCV 90.2 82.6 - [facility] 94.4 [facility] LABORATORY MCH 30.7 27.1 - DANIEL ROSALIND 32.0 pg [facility] LABORATORY MCHC 34.0 31.7 - [facility] ROSALIND 35.0 gm/dL [facility] LABORATORY Platelets 167 145 - 357 [facility] x10(3)/[facility] LABORATORY RDWSD 42.5 37.0 - [facility] 46.0 [facility] LABORATORY RDWCV 12.9 11.5 - [facility] 14.1 % [facility] LABORATORY MPV 10.9 7.6 - 12.9 [facility] LABORATORY nRBC % Auto 0.0 % [facility] LABORATORY nRBC Abs Auto 0.000 0.000 - [facility] ROSALIND 0.000 [facility] x10(3)/[facility] LABORATORY Specimen Anatomical Collection Method Collection Time Receive d Time (Source) Location / / Volume Laterality Blood specimen 06/09/2017 10:41 7 (specimen) AM EDT 10:55 AM EDT Resulting Agency Comment Spec In Lab Dylan Hatch MD HEMATOLOGY ORDERABLES Performing Organization Address City/State/[place] [address] Antibody screen (06/09/2017 10:41 AM EDT) [facility] gist Method Time Signature Ab Screen Negative [facility] LABORATORY Expires at 07/11/2017 DANIEL BOYER [id number] on: [facility] LABORATORY Comment: Corrected from 07/24/17 12:00 [Unknown] on 07/04/17 04:26 by Xochitl Santacruz I.. Corrected from 07/04/17 12:00 [Unknown] on 07/02/17 06:07 by Xochitl Santacruz I.. Specimen Anatomical Collection Method Collection Time Receive d Time (Source) Location / / Volume Laterality Blood specimen 06/09/2017 10:41 7 (specimen) AM EDT 10:44 AM EDT Resulting Agency Comment Spec In Lab Dylan Hatch MD BLOOD BANK ORDERABLES Performing Organization Address City/[facility]/[place] [address] ABO/Rh Typing (06/09/2017 10:41 AM EDT) P athologist Signature ABORh Type O Pos [facility] LABORATORY Specimen Anatomical Collection Method Collection Time Receive d Time (Source) Location / / Volume Laterality Blood specimen 06/09/2017 10:41 7 (specimen) AM EDT 10:44 AM EDT Resulting Agency Comment Spec In Lab Dylan Hatch MD BLOOD BANK ORDERABLES Performing Organization Address [facility] [place] [address] APTT (06/09/2017 10:41 AM EDT) P athologist Signature PTT 34 25 - 35 sec [facility] LABORATORY Comment: The recommended therapeutic range for fu ll dose, unfractionated heparin at [facility] is 80 ? 114 seconds. The use of the anti-Xa (heparin) level rather than the PTT is recommended for monitoring anticoagul ation intensity in critically ill patients receiving unfractionated hepari n by continuous IV infusion. Specimen Anatomical Collection Method Collection Time Receive d Time (Source) Location / / Volume Laterality Blood specimen 06/09/2017 10:41 7 (specimen) AM EDT 10:55 AM EDT Resulting Agency Comment Spec In Lab Dylan Hatch MD HEMATOLOGY ORDERABLES Performing Organization Address City/[facility]/[place]IP [place] [address] Prothrombin Time (06/09/2017 10:41 AM EDT) P athologist Signature PT 13.7 12.0 - 15.0 [facility] LABORATORY Comment: An INR <2.0 indicates adequate [...] linical circumstances. INR 1.0 0.9 - 1.1 [facility] LABORATORY Specimen Anatomical Collection Method Collection Time Receive d Time (Source) Location / / Volume Laterality Blood specimen 06/09/2017 10:41 7 (specimen) AM EDT 10:55 AM EDT Resulting Agency Comment Spec In Lab Dylan Hatch MD HEMATOLOGY ORDERABLES Performing Organization Address City/State/[place] [address] (ABNORMAL) Basic Metabolic Panel (non-fasting) (06/09/2017 10:41 AM EDT) athologist Signature Glucose Lvl 82 65 - 199 [facility] mg/dL [facility] LABORATORY Comment: Diabetes: >=200 mg/dL plus symp toms BUN 8 8 - 18 mg/dL [facility] LABORATORY Creatinine 0.82 0.70 - 1.20 mg/dL [facility] LABORATORY Comment: Please note that the pediatric reference intervals supplied above were not validated at [facility]. Results from pediatri c patients should be interpreted in conjunction to the patient's age, height and muscle mass. Sodium 142 135 - 145 mmol/L [facility] LABORATORY Potassium 3.9 3.5 - 5.0 mmol/L [facility] LABORATORY Comment: Please note: ??Patients with WBC >100,00 0 may have falsely elevated Potassium levels. ??For accurate Potassium quantif ication in these patients send serum separator tube (gold top) for subsequent determinations. ??Contact the Clinical Chemistry Laboratory if there are any qu estions. Chloride 107 98 - 107 mmol/L [facility] LABORAT[facility] CO2 20 (L) 22 - 31 mmol/L [facility] LABOR[facility] Anion Gap 15 5 - 15 mmol/L [facility] LABORATORY Calcium 9.5 8.5 - 10.5 mg/dL [facility] LABORAT[facility] Estimated GFR >60 >=60 [facility] LABORATORY Comment: This estimated GFR (eGFR) [...] the following links into your internet browser. [email or web address] Specimen Anatomical Collection Method Collection Time Receive d Time (Source) Location / / Volume Laterality Blood specimen 06/09/2017 10:41 7 (specimen) AM EDT 10:55 AM EDT Resulting Agency Comment Spec In Lab Dylan Hatch MD CHEMISTRY ORDERABLES Performing Organization Address City/State/[place] [address] documented in this encounter Visit Diagnoses Diagnosis Status post unicompartmental knee replac ement, right Knee joint replacement by other means Pain of right lower extremity documented in this encounter Care Teams Pad Extraction Tender Relationship Specialty Start Date End Date Santhosh Herron MD PCP - General Family Medicine 02/18/[address] [place] [phone] documented as of this encounter
--- OUTSIDE RECORDS SUMMARY | 2022-09-13 00:40 | XMS_ITS | Encounter Summary ---
:1960 [place] [address] Care Team Providers Name Role Phone Unavailable Primary Care Provider Unavailable Encounter Details Date Type Department Care Team Description 04/01/2007 Hospital Encounter Radiology Library at [place], Booker Cadena [facility] [place] [address] [place] [address] ORTHOPAEDIC SURGERY [phone] [place] [address] (Wo rk) Social History Tobacco Use Types [...] Associated Diagnosis Comme nts FILM LIBRARY Routine 04/01/2007 12:00 AM Pain Results for this STORAGE ONLY DX EDT procedure ar e in KNEE the results section. documented in this encounter Results Film Library- Storage Only DX Knee (04/01/2007 12:00 AM EDT) Specimen (Source) Anatomical Location Collection Method / Collectio n Time Received Time / Laterality Volume Narrative RAD - 02/25/2017 12:35 PM EDT This exam is for storage only and is aut o-finalizing. Dylan Hatch MD IMG FILM LIBRARY ORDERABLES Performing Organization Address City/State/ZIP Code Phon e Number [facility] HUMAIRA [place], [place] documented in this encounter Visit Diagnoses Diagnosis Pain Generalized pain documented in this encounter
--- OUTSIDE RECORDS SUMMARY | 2022-09-13 00:40 | XMS_ITS | Encounter Summary ---
:1960 [place] [address] Care Team Providers Name Role Phone Unavailable Primary Care Provider Unavailable Encounter Details Date Type Department Care Team Description 05/27/2007 Hospital Encounter Radiology Library at [place], Booker Cadena [facility] [place] [place] [facility] [place] [address] [address] ORTHOPAEDIC SURGERY [phone] [place] [address] (Wo rk) Social History Tobacco Use Types [...] Associated Diagnosis Comme nts FILM LIBRARY Routine 05/27/2007 12:00 AM Pain Results for this STORAGE ONLY MR EDT procedure ar e in KNEE the results section. documented in this encounter Results Film Library- Storage Only MR Knee (05/27/2007 12:00 AM EDT) Specimen (Source) Anatomical Location Collection Method / Collectio n Time Received Time / Laterality Volume Narrative RAD - 02/25/2017 12:37 PM EDT This exam is for storage only and is aut o-finalizing. Dylan Hatch MD IMG FILM LIBRARY ORDERABLES Performing Organization Address City/State/ZIP Code Phon e Number [facility] HUMAIR[place], [place] documented in this encounter Visit Diagnoses Diagnosis Pain Generalized pain documented in this encounter
--- OUTSIDE RECORDS SUMMARY | 2022-09-13 00:40 | XMS_ITS | Encounter Summary ---
:1960 Author Organization [facility] [place] [address] Care Team Providers Name Role Phone Santhosh Herron MD Primary Care Provider Reason for Visit Auth/Cert Specialty Diagnoses / Procedures Referred By Contact Refer red To Contact Diagnoses Failed total right knee replacement RIGHT Failed Total Knee Replacement, RIGHT KNEE Procedures PRO REVISE KNEE JOINT REPLACE, ALL PARTS @TOTAL KNEE REVISION ARTHROPLASTY, COMPLETE (WRVU 27.11) Referral ID Status Reason Start Date Expiration Date Visits Requ ested Visits Authorized [id number] 1 1 Encounter Details Date Type Department Care Team Description 07/01/2017 Surgery Main Operating Room Dylan Hatch, Not Performed Joelle Pulido MD @TOTAL KNEE REVISION [facility] ARTHROPLASTY, COMPLETE [facility] (WRVU 27.11) [facility] [place] [address] [place] [address] [phone] (Wo rk) Social History Tobacco Use Types [...] Sign Reading Time Taken Comments Blood Pressure 133/87 07/01/2017 1:08 PM EDT Pulse 69 07/01/2017 1:08 PM EDT Temperature 37 ??C (98.6 ??F) 07/01/2017 1:08 PM EDT Respiratory Rate 16 07/01/2017 1:08 PM EDT Oxygen Saturation 97% 07/01/2017 1:08 PM EDT Inhaled Oxygen Concentration - - Weight - - Height - - Body Mass Index - - documented in this encounter Medications at Time of Discharge Medication Sig Dispensed Refills Start Date End Date nicotine (NICODERM CQ) 14 Place 1 patch onto 28 patch 3 07/09/2017 mg/24 hr Patch 24 hr the skin daily. OMEPRAZOLE (PRILOSEC Take by mouth daily. 0 09/24/2017 ORAL) ibuprofen (ADVIL;MOTRIN) TAKE ONE TABLET BY 4 07/09/2017 800 mg Tablet MOUTH TWICE A DAY WITH FOOD NEEDED FOR BACK PAIN gabapentin (NEURONTIN) 600mg, PO, Three 0 005 07/09/2017 600 mg tablet times daily documented as of this encounter H&P Notes Dylan Hatch MD - 07/01/2017 1:43 PM EDT The patient's history and physical exam have been reviewed and completed. There has been no intervalchange from that of the pre-operative history and physical exam done within the last 30 days. Dylan Hatch MD - 07/01/2017 1:43 PM EDT Patient Name: Alicia Main Patient Age: 56 y.o. Birthdate: 1960 Admit date: 07/01/2017 Attending Physician: Dylan Hatch MD See Dr. Wilson's note for H&P. documented in this encounter Miscellaneous Notes Plan of Care - Arabella Garcia MD - 06/29/2017 4:46 PM EDT The chart for Alicia Campa mckenna has been reviewed. X-rays show medial unicompartmental knee arthroplasty of right knee; subtle evidence of loosening. Evidence of loosening on bone scan. Labs negativefor infection - negative alpha defensin. Multiple prior right knee surgeries. Pre-op H&P with Dr. Wilson on file, reviewed. Informed consent and appropriate opiate documentation also in chart. Plan to proceed to revision R TKA (conversion of unicompartmental arthroplasty to total) for loosening. Plan for CR fixed platform implant with TC3 as back-up. Additional considerations: - PEPPER trial documented in this encounter Plan of Treatment Not on filedocumented as of this encounter Visit Diagnoses Diagnosis Status post unicompartmental knee replac ement, right Knee joint replacement by other means Pain of right lower extremity Status post unicompartmental knee replac ement, right Knee joint replacement by other means Pain of right lower extremity documented in this encounter Administered Medications Inactive Administered Medications - up to 3 most recent administrations Medication Order MAR Action Action Date Dose Rate Site fentaNYL 50mcg/mL injection 25-50 mcg, Intravenous, EVERY 5 MIN PRN, Starting on Fri07/01/17 at 1310, Until Fri07/01/17 at 1935, nerve block, Day of Surgery (Day of P rocedure), Routine lactated Ringers infusion 1,000 New Bag 07/01/2017 1:30 PM EDT 1,000 mLs 100 mL/hr mL 1,000 mL, at 100 mL/hr, Intravenous, CONTINUOUS, Starting on Fri07/01/17 at 1330, Until Fri07/01/17 at 1935, Day of Surgery (Day of Procedure) lidocaine (XYLOCAINE) 10 mg/mL (1 %) inj ection 3 mg 3 mg (0.3 mL), Subcutaneous, ONCE PRN, 1 dose, Startin g on Fri07/01/17 at 1310, Until Fri07/01/17 at 1935, for discomfor t with PIV insertion, Day of Surgery (Day of Procedure), Routine midazolam (PF) (VERSED) 5 mg/mL injectio n 1-2 mg 1-2 mg, Intravenous, EVERY 5 MIN PRN, St arting on Fri07/01/17 at 1310, Until Fri07/01/17 at 1935, nerve block, Day of Surgery (Day of P rocedure), Routine sodium chloride 0.9 % flush 5-20 mL 5-20 mL, Intravenous, EVERY 1 MIN PRN, S tarting on Fri07/01/17 at 1310, Until Fri07/01/17 at 1935, flush, Flush pertains t o all indwelling lines. Flush per protocol found in the job aid using the link provided on this m edication record., Day of Surgery (Day of Procedure), Routine warfarin (COUMADIN) daily order reminder Oral, DAILY AFTER LUNCH, First dose on W ed 07/02/17 at 1400, Until Discontinued, If the daily warfarin order has not been pl aced, contact the Provider to confirm that the order will be written, the dose is held or discont inued. documented in this encounter Active and Recently Administered Medications Times are shown in EDT. Scheduled Medication Order 06/29/2017 06/30/2017 07/01/2017 acetaminophen (TYLENOL) tablet 1,000 mg (COMPLETED) 1340 (Given - Provider: Izabela Macias RN) 1,000 mg, Oral, ONCE, 1 dose, Fri 7 at 1330, Administer on arrival in Same Day Program, Day of Surgery (Day of Procedure), Routine ceFAZolin (ANCEF) 2g in dextrose 5% 100 mL 1330 (Due) 2 g, Intravenous, EVERY 3 HOURS, 1 dose, First dose on Fri07/01/17 at 1330, Administer over 30 Minutes, Redose after 3 hours., Intra-Operative (Intra- Procedure), Indication for (Active or Suspected): Prophylaxis celecoxib (CeleBREX) capsule 400 mg (COMPLETED) 1340 (Given - Provider: Izabela Macias RN) 400 mg, Oral, ONCE, 1 dose, Fri07/01/17 at 1330, Administer on arrival to Same Day Program, Day of Surgery (Day of Procedure), Routine gabapentin (NEURONTIN) capsule 300 mg 1330 (Not Given - Provider: Izabela Macias RN - Reason: See comment - Comment: Pt took gabapentin today at home) 300 mg, Oral, ONCE, 1 dose, Fri07/01/17 at 1330, Administer on arrival in Same Day Program, Day of Surgery (Day of Procedure), Routine tranexamic acid (CYKLOKAPRON) 1,089 mg in sodium chloride 0.9% 1 10.89 mL 1330 (Due) 1,089 mg (15 mg/kg/dose ? 72.6 kg), Intravenous, ONCE, 1 dose, Fri07/01/17 at 1330, Administer over 30 Minutes, Dilute tranexamic acid dose in 100 mL sodium chloride 0.9% prior to administration. For p atients less than or equal to 200 kg inf use over 30 minutes. For patients greater than 200 kg infuse over 60 minutes. , Day of Surgery (Day of Procedure) warfarin (COUMADIN) daily order reminder Oral, DAILY AFTER LUNCH, First dose on W ed 07/02/17 at 1400, If the daily warfarin order has not been placed, contact the Provider to confirm that the order will be written, the dose is held or discontinued. warfarin (COUMADIN) tablet 5 mg 1329 (Due) 5 mg, Oral, ONCE, 1 dose, Fri07/01/17 at 1330, Administer pre-op, Day of Surgery (Day of Procedure), STAT Continuous Medication Order 06/29/2017 06/30/2017 07/01/2017 lactated Ringers infusion 1,000 mL 1330 (New Bag - Provider: Izabela Macias RN) 1,000 mL, at 100 mL/hr, Intravenous, CON TINUOUS, Starting Fri07/01/17 at 1330, Until Fri07/01/17 at 1935, Day of Surgery (Day of Procedure) PRN Medication Order 06/29/2017 06/30/2017 07/01/2017 fentaNYL 50mcg/mL injection 25-50 mcg, Intravenous, EVERY 5 MIN PRN, Starting Fri07/01/17 at 1310, Until Fri07/01/17 at 1935, nerve block, Day of Surgery (Day of Procedure), Routine lidocaine (XYLOCAINE) 10 mg/mL (1 %) injection 3 mg 3 mg (0.3 mL), Subcutaneous, ONCE PRN, 1 dose, Starting Fri07/01/17 at 1310, Until Fri07/01/17 at 1935, for discomfort with PIV insertion, Day of Surgery (Day of Procedure), Routine midazolam (PF) (VERSED) 5 mg/mL injection 1-2 mg 1-2 mg, Intravenous, EVERY 5 MIN PRN, St arting 07/01/17 at 1310, Until Tu07/01/17 at 193, nerve block, Day of Surgery (Day of Procedure), Routine sodium chloride 0.9 % flush 5-20 mL 5-20 mL, Intravenous, EVERY 1 MIN PRN, S tarting Fri07/01/17 at 1310, Until Fri07/01/17 at 193, flush, Flush pertains to all indwelling lines. Flush per protocol found in the job aid using the link prov ided on this medication record., Day of Surgery (Day of Procedur e), Routine documented in this encounter Care Teams Senior Naval Parachutist Relationship Specialty Start Date End Date Santhosh Herron MD PCP - General Family Medicine 02/18/[address] [place] [phone] documented as of this encounter
--- OUTSIDE RECORDS SUMMARY | 2022-09-13 00:40 | XMS_ITS | Encounter Summary ---
:1960 [place] [address] Care Team Providers Name Role Phone Santhosh [...] Expiration Date Visits Requ ested Visits Authorized [id number] 1 1 Encounter Details Date Type Department Care Team Description 07/01/2017 Hospital Same Day Program Dylan Hatch Status p ost unicompartmental knee replacement, right; Encounter at Joelle Day MD Pain of right lower extremity [facility] [address] [place], [place] SURGERY [id number] [place], [place] [phone] Social History Tobacco Use Types Packs/Day Years [...] PM EDT The chart for Alicia Campa Jarochovasyl has been reviewed. X-rays show medial unicompartmental [...] Dose Rate Site acetaminophen (TYLENOL) tablet Given 07/01/2017 1:40 PM EDT 1,00 0 mg 1,000 mg 1,000 mg, Oral, ONCE, 1 dose, On Fri07/01/17 at 1330, Administer on arrival in Same Day Program, Day of Surgery (Day of Procedure), Routine celecoxib (CeleBREX) capsule 400 mg Given 07/01/2017 1:40 PM EDT 400 mg 400 mg, Oral, ONCE, 1 dose, On Fri07/01/17 at 1330, Administer on arrival to Same Day Program, Day of Surgery (Day of Procedure), Routine fentaNYL 50mcg/mL injection 25-50 mcg, Intravenous, EVERY [...] on Fri07/01/17 at 1310, Until Fri07/01/17 at 193, nerve block, Day of Surgery (Day of P rocedure), Routine sodium chloride 0.9 % flush 5-20 mL 5-20 mL, Intravenous, EVERY 1 MIN PRN, S tarting on Fri07/01/17 at 1310, Until Fri07/01/17 at 193, flush, Flush pertains t o all indwelling [...] RN) 400 mg, Oral, ONCE, 1 dose, 07/01/17 at 1330, Administer on arrival to Same Day Program, Day of Surgery (Day of Procedure), Routine gabapentin (NEURONTIN) capsule 300 mg 1330 (Not Given - Provider: Izabela Macias RN - Reason: See comment - Comment: Pt took gabapentin today at home) 300 mg, Oral, ONCE, 1 dose, 07/01/17 at 1330, Administer on arrival in Same Day Program, Day of Surgery (Day of Procedure), Routine tranexamic acid (CYKLOKAPRON) 1,089 mg in sodium chloride 0.9% 1 10.89 mL 1330 (Due) 1,089 mg (15 mg/kg/dose ? 72.6 kg), Intravenous, ONCE, 1 dose, 07/01/17 at 1330, Administer over 30 Minutes, Dilute [...] or discontinued. warfarin (COUMADIN) tablet 5 mg 1330 (Due) 5 mg, Oral, ONCE, 1 dose, 07/01/17 at 1330, Administer pre-op, Day of Surgery (Day of Procedure), STAT Continuous Medication Order 06/29/2017 06/30/2017 07/01/2017 lactated Ringers infusion 1,000 mL 1330 (New Bag - Provider: Izabela Macias RN) 1,000 mL, at 100 mL/hr, Intravenous, CON TINUOUS, Starting 07/01/17 at 1330, Until 07/01/17 at 1935, Day of Surgery (Day of Procedure) PRN Medication Order 06/29/2017 06/30/2017 07/01/2017 fentaNYL 50mcg/mL injection 25-50 mcg, Intravenous, EVERY 5 MIN PRN, Starting e 07/01/17 at 1310, Until 07/01/17 at 1935, nerve block, Day of Surgery (Day of Procedure), Routine lidocaine (XYLOCAINE) 10 mg/mL (1 %) injection 3 mg 3 mg (0.3 mL), Subcutaneous, ONCE PRN, 1 dose, Starting Fri07/01/17 at 1310, Until Tu07/01/17 at 193, for discomfort with PIV insertion, Day of Surgery (Day of Procedure), Routine midazolam (PF) (VERSED) 5 mg/mL injection 1-2 mg 1-2 mg, Intravenous, EVERY 5 MIN PRN, St arting e 07/01/17 at 1310, Until Fri07/01/17 at 193, nerve block, Day of Surgery [...] Routine documented in this encounter Care Teams Handle Finisher Relationship Specialty Start Date End Date Santhosh Herron MD PCP - General Family Medicine 02/18/[address] [place] [address] [phone] documented as of this encounter
--- OUTSIDE RECORDS SUMMARY | 2022-09-13 00:40 | XMS_ITS | Encounter Summary ---
:1960 Author Organization [facility] [address] Care Team Providers Name Role Phone Santhosh Herron MD Primary Care Provider Encounter Details Date Type Department Care Team Description 06/09/2017 Clinical Support Same Day at [facility] Status post unicompartmental knee replacement, right; [facility] Pain of [place] [address] Social History Tobacco Use Types [...] Taken Comments Blood Pressure - - Pulse 80 06/09/2017 10:06 AM EDT Temperature - - Respiratory Rate - - Oxygen Saturation 99% 06/09/2017 10:06 AM EDT Inhaled Oxygen Concentration - - Weight 72.6 kg (160 lb) 06/09/2017 10:06 AM EDT Height 162.6 cm (5' 4) 06/09/2017 10:06 AM EDT Body Mass Index 27.46 06/09/2017 10:06 AM EDT documented in this encounter Progress Notes FindlayKaterine pradhan RN - 06/09/2017 10:20 AM EDT PAT questionnaire reviewed with patient while in Pre Admission testing. Pre- operative instruction booklet reviewed. Patient verbalizes a good understanding of all information reviewed. PLAN: Testing: T&S,lab EKG. Special medication instructions: Procedure date: 07-01. documented in this encounter Plan of Treatment Not on filedocumented as of this encounter Procedures Procedure Name Priority Date/Time Associated Diagnosis Comme nts EKG 12-LEAD Routine 06/09/2017 10:21 Status post Results for this AM EDT unicompartmental knee proced ure are in replacement, rig ht the results Pain of right lower section. extremity documented in this encounter Results EKG 12 Lead (06/09/2017 10:21 AM EDT) Component Value Ref Range Test Analysis Performed Pathologis t Method Time At Signature Ventricular rate 67 BPM MUSE SYSTEM Atrial Rate 67 BPM MUSE SYSTEM P-R Interval 134 ms MUSE SYSTEM QRS Duration 82 ms MUSE SYSTEM Q-T Interval 400 ms MUSE SYSTEM QTC Calculated 422 ms MUSE SYSTEM (Bezet) Calculated P [place] 54 degrees MUSE SYSTEM Calculated R [place] 56 degrees MUSE SYSTEM Calculated T [place] 34 degrees MUSE SYSTEM INTERPRETATION Normal sinus rhythm MUSE SYSTEM Nonspecfic ST segment changes Abnormal ECG No previous ECGs available I personally reviewed the tracing and edited the fellows int erpretation Confirmed by fellow MD Antoine, Jeanette ([id number]) on 06/09/2017 11:26:32 AM Confirmed by MD Breana, Sony Martines ([id number]) on 06/09/2017 2:58: 09 PM Specimen Anatomical Collection Method Collection Time Receive d Time (Source) Location / / Volume Laterality 06/09/2017 10:21 06/09/2017 2:58 AM EDT PM EDT Dylan Hatch MD ECG ORDERABLES Performing Organization Address City/State/ZIP Code Phon e Number MUSE SYSTEM documented in this encounter Visit Diagnoses Diagnosis Status post unicompartmental knee replac ement, right Knee joint replacement by other means Pain of right lower extremity documented in this encounter Care Teams Electronics Processing Supervisor Relationship Specialty Start Date End Date Santhosh Herron MD PCP - General Family Medicine 02/18/[address] [place] [phone] documented as of this encounter
--- OUTSIDE RECORDS SUMMARY | 2022-09-13 00:40 | XMS_ITS | Encounter Summary ---
:1960 Author Organization [facility] Address [facility] [address] [place] [address] Care Team Providers Name Role Phone Santhosh Herron MD Primary Care Provider Reason for Visit Reason Onset Date Comments Pre Procedure Call 04/21/2017 Results 04/21/2017 Encounter Details Date Type Department Care Team Description 04/21/[address] [facility] Florecita Clemens, Pre Procedure Call; [facility] Dam[place] [address] Social History Tobacco Use Types Packs/Day Years Used Date Smoking Tobacco: Every Day Cigarettes 0.5 40 Smokeless Tobacco: Never Comments: 3/4 to 1/2 pack a day Alcohol Use Standard Drinks/Week Comments Yes 0 (1 standard drink = 0.6 oz pure alcoho l) occasional Sex Assigned at Date Recorded Not on file documented as of this encounter Miscellaneous Notes Telephone Encounter - Cathleen New - 04/24/2017 11:24 AM EDT Call placed to Alicia; discussed results per Reji Sampson PA-C that preliminary results of synovasure (negative) and low cell count are not indicative of infection. I discussed with her that our planis to proceed with conversion to a total knee. We discussed pre-op and post op course and that orders will be placed and our scheduling team will contact her. She would like next available. I gave her the OR schedulers number to follow up with them directly regarding scheduling if she does not hear from them. Alicia was appreciative of the call and has no other questions or concerns. She can be reached at work during the day - she cannot have her cell phone on at work Telephone Encounter - Florecita Clemens RN - 04/21/2017 8:24 AM EDT Patient aware that cultures need 14 days for complete results. Per 04/16/2017 with WILLA Agarwal She request conversation with WILLA Sampson for review. S/P Right UKA with loosening The knee joint was entered and 7cc of benign synovial fluid was aspirated and sent for analysis documented in this encounter Plan of Treatment Not on filedocumented as of this encounter Visit Diagnoses Not on filedocumented in this encounter Care Teams Floorworker Distributor Relationship Specialty Start Date End Date Santhosh Herron MD PCP - General Family Medicine 02/18/[address] [place] [phone] documented as of this encounter
--- OUTSIDE RECORDS SUMMARY | 2022-09-13 00:40 | XMS_ITS | Encounter Summary ---
:1960 Author Organization [facility] [place] [address] Care Team Providers Name Role Phone Santhosh Herron MD Primary Care Provider Encounter Details Date Type Department Care Team Description 06/16/2017 Hospital XRay at [facility] Dylan Hatch Status post Encounter [facility] MD Shay unicompartmental knee Dr [facility], [facility] [id number] ORTHOPAEDIC [phone] [place] [address] Social History Tobacco Use Types Packs/Day Years [...] Diagnosis Comme nts XR KNEE STANDING Routine 06/16/2017 2:09 Status post Results for this ALIGNMENT PM EDT unicompartmental knee proced ure are in replacement, right the resul ts section. documented in this encounter Results XR Knee Standing Alignment (Generic) (06/16/2017 2:09 PM EDT) Anatomical Region Laterality Modality N/A Digital Radiography Specimen (Source) Anatomical Location Collection Method / Collectio n Time Received Time / Laterality Volume Narrative 06/16/2017 3:31 PM EDT EXAMINATION: XR KNEE STANDING ALIGNMENT (GENERIC) CLINICAL HISTORY: need for SA for surgic al planning, knee pain TECHNIQUE: Separate images of the pelvis , knees and feet were acquired in the AP projection with the patient standing. Th eli images were stitched together to form a composite image of the pelvis and legs allowing for evaluation of lower extremity alignment in the weight bearin g position. ? COMPARISON: Knee radiographs from January 2017. FINDINGS: Standing alignment The bilateral weightbearing axis are mid line. Unchanged medial uni-condylar arthroplasty. Unchanged fixation hardware in L5-S1 lev el. Impression Bilateral midline weightbearing axes. Procedure Note Faye Rahman MD - 06/16/2017Formatt ing of this note might be different from the original. EXAMINATION: XR KNEE STANDING ALIGNMENT (GENERIC) CLINICAL HISTORY: need for SA for surgic al planning, knee pain TECHNIQUE: Separate images of the pelvis , knees and feet were acquired in the AP projection with the patient standing. Th eli images were stitched together to form a composite image of the pelvis and legs allowing for evaluation of lower extremity alignment in the weight bearin g position. COMPARISON: Knee radiographs from January 2017. FINDINGS: Standing alignment The bilateral weightbearing axis are mid line. Unchanged medial uni-condylar arthroplasty. Unchanged fixation hardware in L5-S1 lev el. Impression Bilateral midline weightbearing axes. Dylan Hatch MD IMG DX ORDERABLES documented in this encounter Visit Diagnoses Diagnosis Status post unicompartmental knee replac ement, right Knee joint replacement by other means documented in this encounter Care Teams Wood Room Supervisor Relationship Specialty Start Date End Date Santhosh Herron MD PCP - General Family Medicine 02/18/[address] [place] [phone] documented as of this encounter
--- OUTSIDE RECORDS SUMMARY | 2022-09-13 00:40 | XMS_ITS | Encounter Summary ---
:1960 Author Organization [facility] [place] [address] Care Team Providers Name Role Phone Santhosh Herron MD Primary Care Provider Reason for Visit Reason Onset Date Comments Disability Paperwork 04/18/2017 Encounter Details Date Type Department Care Team Description 04/18/2017 Telephone [place] [facility] [place] Bimal Sampson, Disability Paperwork [facility] [place] [address] ORTHOPAEDIC SURGERY [phone] [place], [place] [address] (Wo rk) Social History Tobacco [...] this encounter Miscellaneous Notes Telephone Encounter - Meenakshi Mauro - 04/30/2017 2:57 PM EDT Faxed/Mailed/Pick-up Date: 04/30/17 Fax Number: Mailed to [facility] el?, attrosanne Verma Telephone Encounter - Karis Mclaughlin - 04/28/2017 11:10 AM EDT To provider for review/signature: to Camilla for signature Telephone Encounter - Karis Mclaughlin - 04/24/2017 10:25 AM EDT LM #[id number] ASK PT IS SHE IS ANTICIPATING SURGERY AGAIN IN ORDER TO PROPERLY FILL OUT HER FMLA PAPERS PT VOICEM[facility] [place] [facility] [place] [phone], CALLED AND NUMBER JUST RANG AND RANG UNABLE TO LEAVE VM Telephone Encounter - Karis Mclaughlin - 04/18/2017 2:15 PM EDT LM#1 TO ASK PT IS SHE IS ANTICIPATING SURGERY AGAIN IN ORDER TO PROPERLY FILL OUT HER FMLA PAPERS Telephone Encounter - Karis Mclaughlin - 04/18/2017 1:16 PM EDT Date Received: 04/18/17 Insurance/Disability Company Name: [employer] Release on file/mailed: na Completed by: karis documented in this encounter Plan of Treatment Not on filedocumented as of this encounter Visit Diagnoses Not on filedocumented in this encounter Care Teams Neon Technician Relationship Specialty Start Date End Date Santhosh Herron MD PCP - General Family Medicine 02/18/[address] [place] [phone] documented as of this encounter
--- OUTSIDE RECORDS SUMMARY | 2022-09-13 00:40 | XMS_ITS | Encounter Summary ---
:1960 [place] [address] Care Team Providers Name Role Phone Unavailable Primary Care Provider Unavailable Encounter Details Date Type Department Care Team Description 08/17/2010 Hospital Encounter Radiology Library at [place], [facility] [place] [address] [address] ORTHOPAEDIC SURGERY [phone] [place] [address] (Wo rk) Social History Tobacco Use Types [...] Associated Diagnosis Comme nts FILM LIBRARY Routine 08/17/2010 12:00 AM Pain Results for this STORAGE ONLY DX EDT procedure ar e in KNEE the results section. documented in this encounter Results Film Library- Storage Only DX Knee (08/17/2010 12:00 AM EDT) Specimen (Source) Anatomical Location Collection Method / Collectio n Time Received Time / Laterality Volume Narrative RAD - 02/25/2017 12:27 PM EDT This exam is for storage only and is aut o-finalizing. Dylan Hatch MD IMG FILM LIBRARY ORDERABLES Performing Organization Address City/State/ZIP Code Phon e Number [facility] [place], [place] documented in this encounter Visit Diagnoses Diagnosis Pain Generalized pain documented in this encounter
--- OUTSIDE RECORDS SUMMARY | 2022-09-13 00:40 | XMS_ITS | Encounter Summary ---
:1960 Author Organization [facility] [place] [address] Care Team Providers Name Role Phone Santhosh Herron MD Primary Care Provider Reason for Visit Reason Comments Pre-op Exam Encounter Details Date Type Department Care Team Description 06/16/2017 Office Visit Orthopaedics at [facility] HatchDylan Status post unicompartmental knee replacement, right; [facility] MD Shay Pain of right lower extremity Drive [facility] [phone] ORTHOPAEDIC [phone] [place] [address] Social History Tobacco Use Types Packs/Day Years [...] Sign Reading Time Taken Comments Blood Pressure 112/63 06/16/2017 12:06 PM EDT Pulse 70 06/16/2017 12:06 PM EDT Temperature - - Respiratory Rate - - Oxygen Saturation - - Inhaled Oxygen Concentration - - Weight 72.6 kg (160 lb) 06/16/2017 12:06 PM EDT Height 162.6 cm (5' 4) 06/16/2017 12:06 PM EDT Body Mass Index 27.46 06/16/2017 12:06 PM EDT documented in this encounter Progress Notes Dylan Hatch MD - 06/16/2017 12:20 PM EDT Arthroplasty History/Previous Knee Surgery: 1. Arthroscopy Meniscal Intervention 2007 2. UKA 2009 in [place] 3. Revision for Nerve pain at 2mos post op. This note is recorded by Cathleen New acting as a scribe for Dr. Marina Hatch. PREOPERATIVE VISIT Interval History: Alicia Main is a pleasant 56 y.o. year old female with a history of severe osteoarthritis ofthe right knee being seen today to discuss a RIGHT conversion of UKA to total knee arthroplasty. Herhistory and physical exam were reviewed in detail. Her history in regards to her knee was once again discussed and is outlined in a previous note. She states the knee pain and disability is unchanged since their previous visit. They have reviewed theiroptions and at this point are expressing a desire to proceed with surgery. She does not endorse a history of DVT/PE or clotting Physical Exam: Exam is previously documented and is essentially unchanged. Inspection of her skin on the operative leg demonstrates no skin breakdown. Significant Medical Comorbidities Patient Active Problem List Diagnosis Code ??? Acquired spondylolisthesis M43.10 ??? Degeneration of lumbar or lumbosacral intervertebral disc M51.37 ??? Lumbago M54.5 ??? Cigarette smoker F17.210 VITALS: BP Readings from Last 1 Encounters: 06/16/17 112/63 Pulse Readings from Last 1 Encounters: 06/16/17 70 Height: 162.6 cm (5' 4) Weight - Scale: 72.6 kg (160 lb) Body mass index is 27.46 kg/(m^2). Relevant Lab Studies Lab Results Component Value Date WBC 9.4 06/09/2017 HGB 14.1 06/09/2017 HCT 41.5 06/09/2017 PLATELET 167 06/09/2017 CREATININE 0.82 06/09/2017 BUN 8 06/09/2017 NA 142 06/09/2017 K 3.9 06/09/2017 INR 1.0 06/09/2017 Blood Type: O Pos Questionnaire Response [facility] Visit 06/10/2017 PROMIS-10 General Health Very Good PROMIS-10 Quality of Life Very Good PROMIS-10 Physical Health Good PROMIS-10 Mental Health Very Good PROMIS-10 Social Activity Very Good PROMIS-10 Everyday Activities Mostly PROMIS-10 Pain 6 PROMIS-10 Fatigue Moderate PROMIS-10 Social Roles Good PROMIS-10 Anxious or Depressed Rarely PROMIS PHYSICAL SCORE (range 16-68) 42.3 PROMIS MENTAL SCORE (range 21-68) 53.3 Treatments Tried Heat and ice therapy, Brace, Physical therapy, Medicines applied on the skin (topical), Over the counter anti-inflammatory drugs (e.g Advil, Aspirin, Aleve), Prescribed anti-inflammatory drugs, Electrical stimulation (TENS/Transcutaneous Electrical Nerve Stimulation) Prior Surgery - KOOS JR Scores 42.28 TKA Grade 2 Pain in other KNEE Mild Back pain at this moment Very mild Health Literacy Quite a bit Assessment and Plan: This is a pleasant 56 y.o. year-old female who presents for a preoperative appointment today for RIGHT UKA conversion to TKA. I had a long discussion with her regarding the risks and benefits of total knee arthroplasty. I indicated that in my opinion, this is the treatment option most likely to restore a more normal, pain-free level of function and that we have exhausted reasonable non- operative alternatives. I used total knee implants to demonstrate how I perform the procedure and all of their questions were answered. Ms. Main expressed a desire to pursue this option. We then discussed in great detail the risks associated with the proposed surgery. These included butwere not limited to: bleeding (which may or may not require transfusion), infection, deep venous thrombosis, pulmonary embolus, prosthetic failure, loosening, prosthetic fracture, femur, tibia or patella fracture, dislocation, leg-length inequality, persistent pain, medical complications (including cardiac, respiratory and neurologic complications), anaesthetic complications, and . The patient seemed to understand the nature of this procedure's risks. We also discussed the likely benefit of impr bebe stride length, improved range of motion, decreased pain, decreased need for pain medications and decrease functional limitations. The patient is aware that it would take on average of one to two days in the hospital, followed by approximately 12-18 months to full rehabilitation. I did review the history and physical today which says the patient is cleared for surgery and has nospecific recommendations for further testing. I reviewed the labs and did not identify anything thatwould warrant surgical delay. We discussed DNR status and she is a Full Code We reviewed options for postoperative DVT prophylaxis, based on AAOS guidelines. We discussed the pros and cons of different anticoagulants in terms of effectiveness and clot / embolus preventions vs. risks of bleeding and wound complications. We also reviewed their preferences regarding use of blood products and confirmed that while we wouldendeavor to minimize the risks of needing any transfusions, if circumstances were such that one or more were indeed required, she would NOT refuse a blood transfusion. Opioid PDMP 06/16/2017 [place] PDMP Query Date 06/12/2017 Alicia Main will be prescribed a prescription opioid for the treatment of acute post-operative pain related to Orthopedic surgery. Alicia Main will be advised to take the smallest dose possible to control their pain and as their pain improves to take smaller doses and increase the timebetween doses. In addition to this medication, non-opioid medications will be prescribed for adjunct treatment of their pain. Non-pharmacological treatment such as ice, elevation and activity modification will be recommended as appropriate. The Acute Opioid Therapy Informed Consent form has been completed and sent to medical records for scanning to chart. We discussed with them the possible discharge scenarios including going home versus needing to go toa rehab facility depending on how well their mobility progresses post-operatively. TJA Clotting and Bleeding Assessment Genetic predisposition or history of DVT or PE: No Hypercoaguable state?: No History of bleeding disorder?: No GI bleed or history of hemorrhagic stroke within the past 2 years: No Patient on lifelong anticoagulant for other reasons: No Discharge anticoagulation plan: Other (comment) (PEPPER) Infection Prevention Patient demonstrated appropriate skin integrity/infection knowledge level after instructions provided: Yes Patient demonstrated appropriate dental prophylaxis knowledge level after instructions provided: Yes Patient demonstrated appropriate understanding of pre-op chlorhexideine wash and mupirocin ointment use after instructions provided: Yes General Assessment Total joint preparedness for surgery: 1:1 Patient understands when to call the office pre-op and post-op: No knowledge Assistive device(s) used pre-op: None Patient currently on narcotics: No Patient has narcotic agreement signed: No Prep for Surgery Advance Directive: Has one (will bring in copy) Recommend referral to Patient Financial Services: No Living arrangement: House Home layout: One level, Stairs to enter w/ rails Number of stairs within home: 0 Who will provide post-op care and support: Her , Ed Who will provide transportation home: Ed Patient's desired discharge disposition: Home with VNA Top 3 nursing choice facilities: No selection [facility]NA preference: [facility] Outpatient PT preference: [facility] Discharge barriers and challenges: None Any remaining questions were solicited from the patient and answered. Ms. Main wishes to proceedaccordingly and informed consent was subsequently obtained for a RIGHT total knee arthroplasty. We discussed using Celebrex while in house. We discussed using Naprosyn for 6 weeks after surgery for post-operative pain management if she is randomized to ASA on the PEPPER TRIAL. If she is on Xarelto or Coumadin we would not prescribe I ensured that the patient has the needed samples of hibiclens wash to use both the night before andthe morning of the anticipated surgery. We will plan to use IV TXA Planned Implant: CR fixed vs TC3 Rotating platform Type and Screen: Yes Recommendations from Dr. Wilson: Continue PPI and gabapentin. Reiterate smoking cessation I have personally evaluated the patient and agree with the above note as recorded by Cathleen New. Marina Hatch MD 06/16/2017 documented in this encounter Plan of Treatment Not on filedocumented as of this encounter Results XR Knee Standing Alignment [...] means documented in this encounter Care Teams Carpet Layer Relationship Specialty Start Date End Date Santhosh Herron MD PCP - General Family Medicine 02/18/[address] [place] [address] [phone] documented as of this encounter
--- OUTSIDE RECORDS SUMMARY | 2022-09-13 00:40 | XMS_ITS | Encounter Summary ---
:1960 [place] [address] Care Team Providers Name Role Phone April Gamez MOHIT Primary Care Provider Encounter Details Date Type Department Care Team Description 02/12/2017 Hospital Encounter Radiology Library at [place], [place], Pain [facility] [place] [address] [place] [address] ORTHOPAEDIC SURGERY [phone] [place], [place] [address] (Wo rk) Social History Tobacco Use Types Packs/Day Years Used Date Smoking Tobacco: Never Assessed Sex Assigned at Date Recorded Not on file documented as of this encounter Medications at Time of Discharge Medication Sig Dispensed Refills Start Date End Date ibuprofen (ADVIL;MOTRIN) TAKE ONE TABLET BY 4 07/09/2017 800 mg Tablet MOUTH TWICE A DAY WITH FOOD NEEDED FOR BACK PAIN gabapentin (NEURONTIN) 600mg, PO, Three 0 005 07/09/2017 600 mg tablet times daily documented as of this encounter Plan of Treatment Not on filedocumented as of this encounter Procedures Procedure Name Priority Date/Time Associated Diagnosis Comme nts FILM LIBRARY Routine 02/12/2017 12:00 AM Pain Results for this STORAGE ONLY EDT procedure are i n NUCLEAR MEDICINE the results section. documented in this encounter Results Film Library- Storage Only nuclear medicine (02/12/2017 12:00 AM EDT) Specimen (Source) Anatomical Location Collection Method / Collectio n Time Received Time / Laterality Volume Narrative [facility] - 02/25/2017 12:19 PM EDT This exam is for storage only and is aut o-finalizing. Dylan Hatch MD IMG FILM LIBRARY ORDERABLES Performing Organization Address City/State/ZIP Code Phon e Number [place], [place] documented in this encounter Visit Diagnoses Diagnosis Pain Generalized pain documented in this encounter Care Teams Director Radio Relationship Specialty Start Date End Date April Gamez APRN PCP - General 09/11/10 02/17/[address] [place] [phone] documented as of this encounter
--- OUTSIDE RECORDS SUMMARY | 2022-09-13 00:40 | XMS_ITS | Encounter Summary ---
:1960 Author Organization [facility] [place] [address] Care Team Providers Name Role Phone Santhosh Herron MD Primary Care Provider Reason for Visit Reason Onset Date Comments Pre Procedure Call 07/02/2017 Encounter Details Date Type Department Care Team Description 07/02/2017 Telephone Orthopaedics at [facility] Dylan Hatch, Pre Procedure Call [facility] [place] [address] [facility] [phone] DR ORTHOPAEDIC SURG [place], [place] [address] (Wo rk) Social History Tobacco [...] this encounter Miscellaneous Notes Telephone Encounter - Zaida Womack - 07/02/2017 1:36 PM EDT Patient calling from [phone] to reschedule surgery with Dr. Hatch due to having to cancel and Lock Down on 9.12.17 documented in this encounter Plan of Treatment Not on filedocumented as of this encounter Visit Diagnoses Not on filedocumented in this encounter Care Teams Agent Contract Clerk Relationship Specialty Start Date End Date Santhosh Herron MD PCP - General Family Medicine 02/18/[address] [place] [address] [phone] documented as of this encounter
--- OUTSIDE RECORDS SUMMARY | 2022-09-13 00:40 | XMS_ITS | Encounter Summary ---
:1960 Author Organization [facility] Address [facility] [place] [address] Care Team Providers Name Role Phone Santhosh Herron MD Primary Care Provider Encounter Details Date Type Department Care Team Description 03/10/2017 Hospital Encounter XRay at [facility] Dylan Hatch Status post total [address] Shay MD right knee [place], [place] [facility] [phone] IDA [phone] [place] [address] Social History Tobacco Use Types Packs/Day Years [...] Priority Date/Time Associated Diagnosis Comme nts XR JOINT ASPIRATION Routine 03/10/2017 11:44 Status post total Results for this - LARGE JOINT RIGHT AM EDT right knee procedur e are in replacement the results section. PROSTHETIC JOINT Routine 03/10/2017 10:49 Status post total CULTURE, EXTENDED AM EDT right knee HOLD, AEROBIC & replacement ANAEROBIC JOINT CULTURE Routine 03/10/2017 10:49 Status post total Resul ts for this AM EDT right knee procedure are i n replacement the results section. ANAEROBIC CULTURE Routine 03/10/2017 10:49 Status post total R esults for this AM EDT right knee procedure are i n replacement the results section. FUNGUS CULTURE Routine 03/10/2017 10:49 Status post total Resu lts for this AM EDT right knee procedure are i n replacement the results section. documented in this encounter Results XR Fluoro Guided Joint [...] either cell count or Synovasure. Resident/Fellow: None. Tie Loader: MELIA Elmore Attending: Maura Tomas I performed [...] A pre-procedural time-out was performed as per [facility] protocol. The patient was placed in right [...] A pre-procedural time-out was performed as per [facility] protocol. The patient was placed in right [...] either cell count or Synovasure. Resident/Fellow: None. Tie Loader: MELIA Elmore Attending: Maura Tomas I performed the escobar parts of this proced ure. Dylan Hatch MD IMG FLUORO ORDERABLES Anaerobic Culture (03/10/2017 10:49 AM EDT) [address] Method Time Signature Anaerobic No anaerobic [facility] Culture organisms [facility] LABORATORY Specimen Anatomical Collection Method Collection Time Receive d Time (Source) Location / / Volume Laterality Joint fluid STRUCTURE OF LEFT 03/10/2017 10:49 2016 specimen KNEE REGION / AM EDT 12:00 PM EDT (specimen) Unknown Comment: PLEASE DO STAT GRAM STAIN AND C ULTURE. HOLD SPECIMEN FOR 14 DAYS. Resulting Agency Comment Spec In Lab Dylan Hatch MD MICROBIOLOGY - GENERAL ORDER HI Performing Organization Address City/State/[place] [address] Joint Culture (03/10/2017 10:49 AM EDT) Component Value Ref Test Analysis Performed At [address] Range Method Time Signature Joint Culture No growth at 14 DANIEL days. [facility] Gram Stain Cytocentrifuge Gram Stain performed [facility] No WBC's seen. [place] No microorganisms seen. [facility] LABOR[facility]ORY Specimen Anatomical Collection Method Collection Time Receive d Time (Source) Location / / Volume Laterality Joint fluid STRUCTURE OF LEFT 03/10/2017 10:49 2016 specimen KNEE REGION / AM EDT 12:00 PM EDT (specimen) Unknown Comment: PLEASE DO STAT GRAM STAIN AND C ULTURE. HOLD SPECIMEN FOR 14 DAYS. Resulting Agency Comment Spec In Lab Dylan Hatch MD MICROBIOLOGY - GENERAL ORDER HI Performing Organization Address City/[facility]/[place] [address] Fungus culture Joint (03/10/2017 10:49 AM EDT) [facility] gist Method Time Signature Fungus No Fungus [facility] Culture isolated [facility] Specimen Anatomical Collection Method Collection Time Receive d Time (Source) Location / / Volume Laterality Joint specimen 03/10/2017 10:49 7 (specimen) AM EDT 12:00 PM EDT Resulting Agency Comment Spec In Lab Dylan Hatch MD MICROBIOLOGY - GENERAL ORDER HI Performing Organization Address City/[facility]/[place] [address] documented in this encounter Visit Diagnoses Diagnosis Status post total right knee replacement documented in this encounter Care Teams Housing Installer Relationship Specialty Start Date End Date Santhosh Herron MD PCP - General Family Medicine 02/18/[address] [place] [phone] documented as of this encounter
--- OUTSIDE RECORDS SUMMARY | 2022-09-13 00:40 | XMS_ITS | Encounter Summary ---
:1960 Author Organization [facility] [place] [address] Care Team Providers Name Role Phone Santhosh Herron MD Primary Care Provider Encounter Details Date Type Department Care Team Description 06/24/2017 Notes Only Research at [facility] Shahnaz Bernabe, MOHIT [facility] [place] [phone] UROLOGY [phone] [place], [place] [address] (Wo rk) Social History Tobacco Use Types Packs/Day Years Used Date Smoking Tobacco: Every Day Cigarettes 0.5 40 Smokeless Tobacco: Never Comments: 3/4 to 1/2 pack a day Alcohol Use Standard Drinks/Week Comments Yes 0 (1 standard drink = 0.6 oz pure alcoho l) occasional Sex Assigned at Date Recorded Not on file documented as of this encounter Progress Notes Shahnaz Bernabe RN - 06/24/2017 7:10 AM EDT Study Title: Comparative Effectiveness of Pulmonary Embolism Prevention after hip and knee Replacement: Balancing Safety and Effectiveness. Principle Sand Tester: Dr. Christopher Robbins #: [id number] Subject #: [id number] Subject has been randomized to arm B for the above named clinical trial. Orders placed for drug to be administered pre-op. documented in this encounter Plan of Treatment Not on filedocumented as of this encounter Visit Diagnoses Not on filedocumented in this encounter Care Teams Senior Payroll Manager Relationship Specialty Start Date End Date Santhosh Herron MD PCP - General Family Medicine 02/18/[address] [place] [phone] documented as of this encounter
--- OUTSIDE RECORDS SUMMARY | 2022-09-13 00:40 | XMS_ITS | Encounter Summary ---
:1960 Author Organization [place] [address] Care Team Providers Name Role Phone Santhosh Herron MD Primary Care Provider Encounter Details Date Type Department Care Team Description 04/24/2017 Orders Only Orthopaedics at [facility] Dylan Hatch Status post unicompartmental knee replacement, right; [facility] MD Shay Pain of right lower extremity [facility] [id number] ORTHOPAEDIC [phone] [place] [address] Social History Tobacco Use Types Packs/Day Years [...] Name Priority Date/Time Associated Diagnosis Comme nts TOTAL KNEE REVISION Routine 04/24/2017 11:31 AM Status post ARTHROPLASTY, EDT unicompartmental knee COMPLETE replacement, rig ht Pain of right lower extremity documented in this encounter Results XR Knee Standing Alignment AP Lat [place] Right (07/30/2017 11:25 AM EDT) Anatomical Region [...] . Dylan Hatch MD IMG DX ORDERABLES APTT (06/09/2017 10:41 AM EDT) P athologist Signature PTT 34 25 - 35 sec [facility] Comment: The recommended therapeutic range for fu ll dose, unfractionated heparin at [facility] is 80 ? 114 seconds. The use [...] Hatch MD HEMATOLOGY ORDERABLES Performing Organization Address City/[facility]/[place] [address] Prothrombin Time (06/09/2017 10:41 AM EDT) athologist Signature PT 13.7 12.0 - 15.0 [facility] Comment: An INR <2.0 [...] linical circumstances. INR 1.0 0.9 - 1.1 [facility] Specimen Anatomical Collection Method Collection Time Receive d Time (Source) Location / / Volume Laterality Blood specimen 06/09/2017 10:41 7 (specimen) AM EDT 10:55 AM EDT Resulting Agency Comment Spec In Lab Dylan Hatch MD HEMATOLOGY ORDERABLES Performing Organization Address City/[facility]/[place] [address] (ABNORMAL) Basic Metabolic Panel (non-fasting) (06/09/2017 10:41 AM EDT) athologist Signature Glucose Lvl 82 65 - 199 [facility] mg/dL [facility] Comment: Diabetes: >=200 mg/dL plus symp toms BUN 8 8 - 18 mg/dL [facility] Creatinine 0.82 0.70 - 1.20 mg/dL [facility] Comment: Please note that the pediatric reference intervals supplied above were not validated at [facility]. Results from pediatri c patients should be interpreted in conjunction to the patient's age, height and muscle mass. Sodium 142 135 - 145 mmol/L [facility] Potassium 3.9 3.5 - 5.0 mmol/L [facility] Comment: Please note: ??Patients with WBC >100,00 0 may have falsely elevated Potassium levels. ??For accurate Potassium quantif ication in these patients send serum separator tube (gold top) for subsequent determinations. ??Contact the Clinical Chemistry Laboratory if there are any qu estions. Chloride 107 98 - 107 mmol/L [facility] CO2 20 (L) 22 - 31 mmol/L [facility] Anion Gap 15 5 - 15 mmol/L [facility] Calcium 9.5 8.5 - 10.5 mg/dL [facility] Estimated GFR >60 >=60 [facility] Comment: This estimated GFR (eGFR) [...] the following links into your internet browser. [email or web address] [email or web address] Specimen Anatomical Collection Method Collection Time Receive d Time (Source) Location / / Volume Laterality Blood specimen 06/09/2017 10:41 7 (specimen) AM EDT 10:55 AM EDT Resulting Agency Comment Spec In Lab Dylan Hatch MD CHEMISTRY ORDERABLES Performing Organization Address City/State/[place] [address] EKG 12 Lead (06/09/2017 10:21 AM EDT) Component Value Ref Range Test Analysis Performed Pathologis t Method Time At Signature Ventricular rate 67 BPM MUSE SYSTEM Atrial Rate 67 BPM MUSE SYSTEM P-R Interval 134 ms MUSE SYSTEM QRS Duration 82 ms MUSE SYSTEM Q-T Interval 400 ms MUSE SYSTEM QTC Calculated 422 ms MUSE SYSTEM (Bezet) Calculated P [place] 54 degrees MUSE SYSTEM Calculated R [place] 56 degrees MUSE SYSTEM Calculated T [place] 34 degrees MUSE SYSTEM INTERPRETATION Normal sinus rhythm MUSE SYSTEM Nonspecfic ST segment changes Abnormal ECG No previous ECGs available I personally reviewed the tracing and edited the fellows int erpretation Confirmed by fellow MD Antoine, Jeanette ([id number]) on 06/09/2017 11:26:32 AM Confirmed by MD [...] extremity documented in this encounter Care Teams Construction Pit Worker Relationship Specialty Start Date End Date Santhosh Herron MD PCP - General Family Medicine 02/18/[address] [place] [phone] documented as of this encounter
--- OUTSIDE RECORDS SUMMARY | 2022-09-13 00:40 | XMS_ITS | Encounter Summary ---
:1960 Author Organization [facility] [place] [address] Care Team Providers Name Role Phone Santhosh Herron MD Primary Care Provider Encounter Details Date Type Department Care Team Description 03/26/2017 Telephone Orthopaedics at [facility] [place] Daria Chawla, [place] [phone] Social History Tobacco Use Types Packs/Day Years Used Date Smoking Tobacco: Every Day Alcohol Use Standard Drinks/Week Comments Yes 0 (1 standard drink = 0.6 oz pure alcoho l) occasional Sex Assigned at Date Recorded Not on file documented as of this encounter Miscellaneous Notes Telephone Encounter - Daria Chawla RN - 03/26/2017 11:33 AM EDT Patient called hoping to speak with Dr. Hatch about her lab results and next steps. Instructed patient would get a message to Dr. Hatch. Patient acknowledged. documented in this encounter Plan of Treatment Not on filedocumented as of this encounter Visit Diagnoses Not on filedocumented in this encounter Care Teams Tassel Clipper Relationship Specialty Start Date End Date Santhosh Herron MD PCP - General Family Medicine 02/18/17 [address] [place] [phone] documented as of this encounter
--- OUTSIDE RECORDS SUMMARY | 2022-09-13 00:40 | XMS_ITS | Encounter Summary ---
:1960 [place] [address] Care Team Providers Name Role Phone Santhosh [...] Expiration Date Visits Requ ested Visits Authorized [id number] 1 1 Encounter Details Date Type Department Care Team Description 07/08/2017 Anesthesia Event Main Operating Room Howard Head MD [facility] [place] [address] [facility] Zoltan Davis MD [facility] [place] [address] [facility] [place] [address] Anesthesia Record Procedure Summary Procedure Name Responsible Anesthesia Start Anesthesia Stop Time Anesthesiologist Time @TOTAL KNEE Howard Haley MD 07/08/17 1520 07/08/17 172 4 REVISION ARTHROPLASTY, COMPLETE [facility] (Right: Knee) Events Date Time Event Comment 07/08/2017 1404 1520 AN Verify 1520 Start 1520 An Start Data 1524 An Induction 1526 An Intubation 1528 Anesthesia Ready 1542 Procedure Start 1542 An Tourn Inflated 1634 An Tourn Deflated 1707 Extubation/LMA Out 1713 an stop data 1724 Recovery or ICU Handoff Patient care was transferred to the destination unit staff after review of the patient's medica l history, current anesthetic/surgi karl status and plan, according to the Provider Handoff Checklist. 1724 Stop Name Total Midazolam 2 mg fentaNYL 100 mcg Propofol 250 mg Rocuronium 50 mg ePHEDrine 5 mg Ondansetron 8 mg Dexamethasone 8 mg Neostigmine 4 mg Glycopyrrolate 1 mg ceFAZolin (ANCEF) 2g in dextrose 5% 100 mL 2 g tranexamic acid (CYKLOKAPRON) 1,089 mg in sodium chlor opal 0.9% 110.89 mL 1,089 mg PHENYLephrine INF 1,270 mcg Propofol INF 351.38 mg HYDROmorphone 1.2 mg Dexmedetomidine 4 mcg Lactated Ringers 800 mL Agents Name O2 Air N2O Sevoflurane (et) Blood No blood administrations on file. Lines, Drains, and Airways Type Details Placement Removal Incision 07/08/17; knee; midline, 07/08/17 0000 by Waryas , 06/17/22 1715 by vertical; 06/17/22 (LIDIA Lakhani Dierdre L cleanup utility RA#[id number]); 1715 (LDA cleanup utility RA#[id number]) PIV 07/08/17; 1353; cephalic 07/08/17 1353 by Donato , 02/02/18 0921 by Christopher, vein (lateral side of arm), Melva Rinaldi RN User left; [id number] catheter system; 18 gauge, 1 in length; Blaine Yang RN; distraction, intradermal injection, tolerated well, appears comfortable; 02/02/18 (Auto removal via utility); 0921 (Auto removal via utility) ETT Mask Ventilation: Easy (1); 07/08/17 1526 by 1707 by ETT Type: Cuffed, Oral; ETT Damaso Morales CRNA McClellan, Aaron C, Size: 7 mm; Mac Blade: 3; TIRE GROOVER Notes: Asleep, Pre-O2, Stylette; Attempts: 1; Laryngoscopy Grade: 1; ETT Placement Verified By: Auscultation, Capnometry, Visual; Secured at Teeth: 23 cm; Inserted by: ROWDY Morales documented in this encounter Social History Tobacco Use Types Packs/Day Years Used Date Smoking Tobacco: Every Day Cigarettes 0.5 40 Smokeless Tobacco: Never Comments: 3/4 to 1/2 pack a day Alcohol Use Standard Drinks/Week Comments Yes 0 (1 standard drink = 0.6 oz pure alcoho l) occasional Sex Assigned at Date Recorded Not on file documented as of this encounter OR Notes Anesthesia Postprocedure Evaluation - Howard Haley MD - 07/09/2017 6:19 AM EDT [facility] Department of Anesthesiology Post-procedure Note Patient: Alicia Main Procedure Summary Date Anesthesia Start Anesthesia Stop Room / Location 07/08/17 1520 1724 [facility] OR 10 / [facility] MAIN OR Procedure Diagnosis Surgeon Responsible Provider @TOTAL KNEE REVISION ARTHROPLASTY, COMPLETE (WRVU 27.11) (Right Knee); MODIFIER, ATTUNE CURVED FIXED PLATFORM, DEPUY (Right Knee) Status post unicompartmental knee replacement, right; Pain of right lower extremity (RIGHT Failed Total Knee Replacement, RIGHT KNEE) Dylan Hatch MD Spence, Brian C, MD All Anesthesia Providers: Anesthesiologist: Howard Haley MD TIRE GROOVER: Damaso Morales CRNA Most Recent Vitals: 07/09/17 0411 BP: 96/64 Pulse: 62 Resp: 20 Temp: 36.4 ??C (97.5 ??F) SpO2: 90% Pain 2 (07/09/17 0604) Patient Location: PACU/MERGED WITH [facility] Level of Consciousness: Awake and Alert Pain Management: Satisfactory Analgesia PONV: None Cardiovascular Status: At Baseline Respiratory Status: At Baseline Postoperative Fluid Status: Intravascular EUvolemia Possible Anesthetic Complications: NONE apparent at time of evaluation Final Primary Anesthesia Type: General (The anesthetic type performed was the same as planned.) Comments: Anesthesia Procedure Notes - Isabelle Cast - 07/08/2017 2:23 PM EDT Associated Order(s): ANESTHESIA BLOCK Procedure: Anesthesia Block Block: Post-op Pain Control, adductor canal block Start time: 07/08/2017 2:13 PM End time: 07/08/2017 2:20 PM Patient Location: Block Room Indication/Prep Position: supine Prep: chlorhexidine, patient draped, mask, cap, sterile gloves, hand hygeine Laterality: right Skin Medication lidocaine 1% 5 ml Injection Information Ultrasound Guidance: live and in-plane Ultrasound guidance was used to identify the targeted neuronal structure. Ultrasound was also used to identify needle positon and to identify surrounding tissue (bone, muscle, and blood vessels) to prevent inadvertent intraneural or intravascular needle placement and injection. The spread of local anesthetic was confirmed with live ultrasound imaging. Injection technique:single-shot Needle Length: 10 cm Gauge: 21 Needle Type: [id number]-dzcmh Medication injection made incrementally with aspirations. Nerve infiltration solution through a needle Ropivicaine 0.5% 20 mL Resident: ISABELLE CAST Second Resident: Fellow: Attending Physician: ANSHUL GUTIERREZ ~~~~~~~~~~~~~~~~~~~~~~~~~~~~~~~~~~~~~~~~~~~~~~~~~~~~~~~~~~~~ Anesthesia Preprocedure Evaluation - Howard Haley MD - 07/07/2017 1:29 PM EDT Pre-Anesthesia Evaluation for: Alicia Campa mckenna a 56 y.o. female. Procedure(s): @TOTAL KNEE REVISION ARTHROPLASTY, COMPLETE (WRVU 27.11) MODIFIER, ATTUNE CURVED FIXED PLATFORM, DEPUY MODIFIER TC3 ROTATING PLATFORM DEPUY Patient Active Problem List Diagnosis ??? Cigarette smoker ??? Acquired spondylolisthesis ??? Degeneration of lumbar or lumbosacral intervertebral disc ??? Lumbago No past medical history on file. No past surgical history on file. Social History Substance Use Topics ??? Smoking status: Current Every Day Smoker Packs/day: 0.50 Years: 40.00 Types: Cigarettes ??? Smokeless tobacco: Never Used Comment: 3/4 to 1/2 pack a day ??? Alcohol use Yes Comment: occasional History Drug Use No Allergies Allergen Reactions ??? Penicillins Hives ??? Vancomycin Itching Red man's syndrome Medications: MAR and/or home medications have been reviewed. Physical Exam: There were no vitals filed for this visit. There is no height or weight on file to calculate BMI. Airway Assessment: Mallampati: I TM distance: >3 FB Neck ROM: full Cardiovascular Assessment: cardiovascular exam normal Pulmonary Assessment: pulmonary exam normal Dental Assessment: - normal exam Misc Assessment: IV access: Peripheral line Anesthesia Plan: ASA 3 general, with a(n) intravenous induction 56yo female presenting for revision right TKA. PMHx: lumbar spine disc disease with spondylolisthesis and chronic back pain, GERD on PPI Anesthetic Hx: denies prior issues Cardiopulmonary hx: no known disease, >4 METS without difficulty (+) 1/2ppd smoker No recent URI Appropriately NPO Plan: pre-op adductor canal block with GETA The patient was informed of the risks of anesthesia, and consent was obtained. Region - Other Informed Consent: Anesthetic plan and risks discussed with patient. Plan discussed with TIRE GROOVER. PAT Staff Note documented in this encounter Plan of Treatment Not on filedocumented as of this encounter Procedures Procedure Name Priority Date/Time Associated Diagnosis Comme nts ANESTHESIA BLOCK Routine 07/08/2017 2:26 PM Resul ts for this EDT procedure are i n the results section. documented in this encounter Results Anesthesia Block (07/08/2017 2:26 PM EDT) Narrative Anshul Gutierrez MD - 07/08/2017 2:26 PM EDT Isabelle Cast MD ? 07/08/2017 ??2:24 PM Procedure: ??Anesthesia Block Block: Post-op Pain Control, adductor ca nal block Start time: 07/08/2017 2:13 PM End time: 07/08/2017 2:20 PM ?? Patient Location: Block Room ?? Indication/Prep Position: supine Prep: chlorhexidine, patient draped, mas k, cap, sterile gloves, hand hygeine Laterality: right Skin Medication lidocaine 1% 5 ml Injection Information Ultrasound Guidance: live and in-plane ?Ultrasound guidance was used to id entify the targeted neuronal structure. ??Ultrasound was also used to identify needle positon and to identify surrounding tissue (bone, muscl e, and blood vessels) to prevent inadvertent intraneural or intravascular needle placement and injection. ?? The spread of local anesthetic was confi rmed with live ultrasound imaging. Injection technique:single-shot Needle Length: 10 cm Gauge: 21 Needle Type: V-gavcq-bxvuz Medication injection made incrementally with aspirations. Nerve infiltration solution through a ne edle Ropivicaine 0.5% 20 mL Resident: ? ISABELLE CAST Second Resident: ? Fellow: ? Attending Physician: ??ANSHUL GUTIERREZ ?? ~~~~~~~~~~~~~~~~~~~~~~~~~~~~~~~~~~~~~~~~ ~~~~~~~~~~~~~~~~~~~~ Anshul Gutierrez MD ROOF PLUMBER [facility] documented in this encounter Visit Diagnoses Not on filedocumented in this encounter Administered Medications Inactive Administered Medications - up to 3 most recent administrations Medication Order MAR Action Action Date Dose Rate Site ceFAZolin (ANCEF) 2g in dextrose 5% Given 07/08/2017 3:28 PM EDT 2 g 100 mL 2 g, Intravenous, EVERY 3 HOURS, 1 dose, First dose on Fri07/08/17 at 1415, Administer over 30 Minutes, Redose after 3 hours., Intra-Operative (Intra-Procedure), Indication for (Active or Suspected): Prophylaxis dexamethasone (DECADRON) injection Given 07/08/2017 3:38 PM EDT 8 mg PRN, Starting on Fri07/08/17 at 1538, Until Fri07/08/17 at 1724, Anesthesia Intra-op, Routine dexmedetomidine (PRECEDEX) injection Given 07/08/2017 4:47 PM EDT 4 mcg PRN, Starting on Fri07/08/17 at 1647, Until Fri07/08/17 at 1724, Anesthesia Intra-op, Routine ePHEDrine 5 mg/mL multi-dose injection Given 07/08/2017 4:33 PM EDT 5 mg PRN, Starting on Fri07/08/17 at 1633, Until Fri07/08/17 at 1724, Anesthesia Intra-op, Routine fentaNYL 50 mcg/mL multi-dose injection Given 07/08/2017 3:42 PM EDT 50 mcg PRN, Starting on Fri07/08/17 at 1539, Until Fri07/08/17 at 1724, Pain, Anesthesia Intra-op, Routine Given 07/08/2017 3:39 PM EDT 50 mcg glycopyrrolate (ROBINUL) multi-dose inje ction Given 07/08/2017 4:41 PM EDT 0.8 mg PRN, Starting on Fri07/08/17 at 1610, Until Fri07/08/17 at 1724, Anesthesia Intra-op, Routine Given 07/08/2017 4:10 PM EDT 0.2 mg HYDROmorphone (DILAUDID) injection Given 07/08/2017 5:23 PM EDT 0.4 mg PRN, Starting on Fri07/08/17 at 1647, Until Fri07/08/17 at 1724, Pain, Anesthesia Intra-op, Routine Given 07/08/2017 5:08 PM EDT 0.4 mg Given 07/08/2017 4:47 PM EDT 0.4 mg lactated Ringers infusion New Bag 07/08/2017 3:20 PM EDT CONTINUOUS PRN, Starting on Fri07/08/17 at 1520, Until Fri07/08/17 at 1724, Anesthesia Intra-op midazolam (PF) (VERSED) 1 mg/mL multi-dose Given 07/08/2017 3:26 PM EDT 2 mg injection PRN, Starting on Fri07/08/17 at 1526, Until Fri07/08/17 at 1724, Sleep, Anesthesia Intra-op, Routine neostigmine (BLOXIVERZ) injection Given 07/08/2017 4:41 PM EDT 4 mg PRN, Starting on Fri07/08/17 at 1641, Until Fri07/08/17 at 1724, Anesthesia Intra-op, Routine ondansetron (ZOFRAN) injection Given 07/08/2017 4:41 PM EDT 8 mg PRN, Starting on Fri07/08/17 at 1641, Until Fri07/08/17 at 1724, Nausea, Anesthesia Intra-op, Routine PHENYLephrine Rate/Dose Change 07/08/2017 4:35 10 mcg/min 7.5 mL/hr (MAEGAN-SYNEPHRINE) 20 mg in PM EDT sodium chloride 250 mL (standard ADULT & Dieudonne greater than 20kg) infusion CONTINUOUS PRN, Starting on Fri07/08/17 at 1600, Until Fri07/08/17 at 1724, Anesthesia Intra-op, Routine Rate/Dose Change 07/08/2017 4:15 PM EDT 20 mcg/min 15 mL/hr Rate/Dose Change 07/08/2017 4:07 PM EDT 30 mcg/min 22.5 mL/hr propofol (DIPRIVAN) 10 mg/mL bolus injection Given 7 3:39 PM EDT 50 mg (Anesthesia) PRN, Starting on Fri07/08/17 at 1524, Until Fri07/08/17 at 1724, Anesthesia Intra-op Given 07/08/2017 3:24 PM EDT 200 mg propofol (DIPRIVAN) Rate/Dose 07/08/2017 4:50 100 mcg/kg/min 43.6 mL /hr infusion Change PM EDT CONTINUOUS PRN, Starting on Fri07/08/17 at 1602, Until Fri07/08/17 at 1724, Anesthesia Intra-op, Routine New Bag 07/08/2017 4:02 PM EDT 30 mcg/kg/min 13.1 mL/hr rocuronium (ZEMURON) multi-dose injectio n Given 07/08/2017 3:24 PM EDT 50 mg PRN, Starting on Fri07/08/17 at 1524, Until Fri07/08/17 at 1724, Anesthesia Intra-op, Routine tranexamic acid (CYKLOKAPRON) 1,089 mg in New Bag 2016 3:20 PM EDT 1,089 mg sodium chloride 0.9% 110.89 mL 1,089 mg (15 mg/kg/dose ? 72.6 kg), Intravenous, ONCE, 1 dose, On Fri07/08/17 at 1415, Administer over 30 Minutes, Dilute tranexamic acid dose in 100 mL sodium chloride 0.9% prior to administration. For patients less than or equal to 200 kg infuse over 30 minutes. For patients greater than 200 kg infuse over 60 minutes. , Day of Surgery (Day of Procedure) documented in this encounter Care Teams Formula Weigher Relationship Specialty Start Date End Date Santhosh Herron MD PCP - General Family Medicine 02/18/[address] [place] [address] [phone] documented as of this encounter
--- OUTSIDE RECORDS SUMMARY | 2022-09-13 00:40 | XMS_ITS | Encounter Summary ---
:1960 Author Organization [facility] [place] [address] Care Team Providers Name Role Phone Santhosh Herron MD Primary Care Provider Encounter Details Date Type Department Care Team Description 06/09/2017 Notes [place] [address] Social History Tobacco Use Types Packs/Day Years Used Date Smoking Tobacco: Every Day Cigarettes 0.5 40 Smokeless Tobacco: Never Comments: 3/4 to 1/2 pack a day Alcohol Use Standard Drinks/Week Comments Yes 0 (1 standard drink = 0.6 oz pure alcoho l) occasional Sex Assigned at Date Recorded Not on file documented as of this encounter Progress Notes Parisa Jimenez - 06/09/2017 12:30 PM EDT Office of Care Management Initial Assessment Parisa Jimenez reviewed record and discussed patient with Care Team in the outpatient orthopaedicclinic. Source of Information: Alicia Zunigamckenna Introduced self/reviewed role; services accepted. Informed patient that an inpatient health care coordinator will be working to expedite the discharge process and to direct questions to the assigned health care coordinator. 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 Right total knee revision arthroplasty on July 01, 2017. No past medical history on file. Hospitalizations Within the Past 30 Days: Anticipated Length Of Stay (If known): Current Decision-Making Capacity: She is capable of making her own medical decisions. Advance Care Planning: We discussed what an advanced directive is and its purpose thereof. She has acopy at home and intends on bringing one in on day of surgery. Current Coping/Education/Information Needs: She appears to understand the hospital course and discharge plans. Current Functional Ability: Functional Status Prior to Admission: She ambulates independently without an assistive device. She is able to do her ADL without assistance. She still drives. 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 Home Environment: She lives in a 1 level house with a basement. There are 3 stairs into the house with a railing on both sides. She can reach both of them at the same time. She has a tub shower with a grab bar. She has a standard toilet. The washer and dryer are in the basement but her will betaking care of the laundry until she is able. Social & Family Supports/Community Resources: Name/relationship of caregiver(s): Ed, her Caregiver(s) contact information: [phone] (H) Caregiver availability: He is taking 2 weeks off from work. Other family/friends: She has a co-workers daughter that will be there during the day when he goes back to work to assist with things around the house. Does caregiver(s) understand role and responsibilities: Yes Able to cope with physical/emotional stress: Yes Understanding of [facility]: Yes Does caregiver(s) own a vehicle and able to drive: Yes Behavioral Health History: None Substance Use/Abuse: None Other Pertinent/Service Specific Information: I discussed with the patient the potential avenues of discharge postoperatively. We discussed qualifications to go to a prison facility. We discussed potential out of pocket costs associated with non-emergent wheelchair van and ambulance transportation.We discussed the purpose and services provided by [facility]. I communicated that we will not know until after surgery what will be the best course of discharge for the patient based on medical necessityand that this is why we plan for different courses of discharge. I informed the patient that they will be working with a health care coordinator after surgery to facilitate the discharge plan. I encouraged the patient to call me with any questions or concerns prior to the surgery as well as when they discharge home. Health/Prescription Coverage: Primary Insurance: [employer] OPEN ACCESS PLUS Secondary Insurance: None Prescription Coverage: [employer] Rx Preferred Pharmacy: [facility] [address] [facility] [id number] Other: None Primary Care Provider: Santhosh Herron MD [phone] Patient/Caregiver Goals of Treatment: Potential Needs for Transition of Care: Rehab/SNF: No selection Home Health: [facility] [address] [place] [address] The patient/telemarketing sales representative has been provided a list of Home Health Agencies/DME vendors which serve their preferred geographic area. A letter describing our affiliations was reviewed with them and theywere educated about their right to choose where referrals are placed. Patient requests referral to [facility] [address] [place] [id number] Expected date of discharge: Referral routed to the Paper Novelty Maker for matching with agency/vendor and to provide any required information. OP PT: [facility] PT DME: She has a 2 FWW and crutches. Dialysis: No Community Resources: None Transportation: We discussed that since we cannot determine the exact day or time of discharge, transportation must be readily available at time of discharge. Transportation will be provided by Ed. Other: None Anticipated Barriers to Discharge/Special Considerations: None Plan: She prefers to go home with [facility]. A member of the Care Management team will continue to monitor progress, follow for continuity of care and assist with transition of care planning. Parisa Jimenez Pager: [phone] documented in this encounter Plan of Treatment Not on filedocumented as of this encounter Visit Diagnoses Not on filedocumented in this encounter Care Teams Swager Operator Relationship Specialty Start Date End Date Sanhtosh Herron MD PCP - General Family Medicine 02/18/17 [address] [place] [phone] documented as of this encounter
--- OUTSIDE RECORDS SUMMARY | 2022-09-13 00:40 | XMS_ITS | Encounter Summary ---
:1960 [place] [address] Care Team Providers Name Role Phone Unavailable Primary Care Provider Unavailable Encounter Details Date Type Department Care Team Description 05/10/2010 Hospital Encounter Radiology Library at [place], Booker Cadena [facility] [place] [address] ORTHOPAEDIC SURGERY [phone] [place] [address] (Wo rk) Social History Tobacco Use Types [...] Associated Diagnosis Comme nts FILM LIBRARY Routine 05/10/2010 12:00 AM Pain Results for this STORAGE ONLY DX EDT procedure ar e in KNEE the results section. documented in this encounter Results Film Library- Storage Only DX Knee (05/10/2010 12:00 AM EDT) Specimen (Source) Anatomical Location Collection Method / Collectio n Time Received Time / Laterality Volume Narrative RAD - 02/25/2017 12:30 PM EDT This exam is for storage only and is aut o-finalizing. Dylan Hatch MD IMG FILM LIBRARY ORDERABLES Performing Organization Address City/State/ZIP Code Phon e Number [facility] [place], [place] documented in this encounter Visit Diagnoses Diagnosis Pain Generalized pain documented in this encounter
--- OUTSIDE RECORDS SUMMARY | 2022-09-13 00:40 | XMS_ITS | Encounter Summary ---
:1960 Author Organization [facility] [place] [address] Care Team Providers Name Role Phone Santhosh Herron MD Primary Care Provider Encounter Details Date Type Department Care Team Description 06/13/2017 Telephone Orthopaedics at [facility] Dylan Hatch MD [facility] [place] [address] ORTHOPAEDIC SURGERY [phone] [place] [phone] (Wo rk) Social History Tobacco Use Types Packs/Day Years Used Date Smoking Tobacco: Every Day Cigarettes 0.5 40 Smokeless Tobacco: Never Comments: 3/4 to 1/2 pack a day Alcohol Use Standard Drinks/Week Comments Yes 0 (1 standard drink = 0.6 oz pure alcoho l) occasional Sex Assigned at Date Recorded Not on file documented as of this encounter Miscellaneous Notes Telephone Encounter - Manisha Clarke - 06/13/2017 4:26 PM EDT Patient does not want to move surgery up. Telephone Encounter - Janie Oh - 06/13/2017 10:30 AM EDT Left a message to see if patient is interested in moving up her surgery with Dr. Hatch to 06/26/17. Asked patient to call us back either way. Left our direct number. documented in this encounter Plan of Treatment Not on filedocumented as of this encounter Visit Diagnoses Not on filedocumented in this encounter Care Teams Wedding Cake Designer Relationship Specialty Start Date End Date Santhosh Herron MD PCP - General Family Medicine 02/18/[address] [place] [phone] documented as of this encounter
--- OUTSIDE RECORDS SUMMARY | 2022-09-13 00:40 | XMS_ITS | Encounter Summary ---
:1960 [place] [address] Care Team Providers Name Role Phone April Gamez MOHIT Primary Care Provider Encounter Details Date Type Department Care Team Description 07/10/2011 Hospital Encounter Radiology Library at [place], [place], [place] [facility] [place] [address] ORTHOPAEDIC SURGERY [phone] [place], [place] [address] (Wo rk) Social History Tobacco [...] Associated Diagnosis Comme nts FILM LIBRARY Routine 07/10/2011 12:00 AM Pain Results for this STORAGE ONLY DX EDT procedure ar e in KNEE the results section. documented in this encounter Results Film Library- Storage Only DX Knee (07/10/2011 12:00 AM EDT) Specimen (Source) Anatomical Location Collection Method / Collectio n Time Received Time / Laterality Volume Narrative RAD - 02/25/2017 12:26 PM EDT This exam is for storage only and is aut o-finalizing. Dylan Hatch MD IMG FILM LIBRARY ORDERABLES Performing Organization Address City/State/ZIP Code Phon e Number [place], [place] documented in this encounter Visit Diagnoses Diagnosis Pain Generalized pain documented in this encounter Care Teams Reinsurance Clerk Relationship Specialty Start Date End Date April Gamez APRN PCP - General 09/11/10 02/17/[address] [place] [phone] documented as of this encounter
--- NOTE | 2022-09-13 09:15 | DI.MAMMO_ITS ---
Exam(s) MAMMO SCREENING EXAM: MAMMO SCREENING CLINICAL HISTORY: screening TECHNIQUE: Mammograms were interpreted according to the usual protocol including computer analysis w [employer] CAD system, tomosynthesis and C-view imaging. COMPARISON: FINDINGS: The breasts are of moderate density with fairly symmetrical distribution of fibroglandular tissue. N o dominant mass or clumped microcalcification is identified in either breast. The current examinatio n is compared with previous examinations including March 2021 and there has been no gross interval kye nge in appearance in comparison with the prior studies. IMPRESSION: No specific evidence of malignancy at this time. Routine screening examinations are suggested at yea rly intervals due to the family history of breast carcinoma. BI-RADS Category 1 - Negative Breast Density - Category B - Scattered areas of fibroglandular density
== END ==
PROVIDERS: PCP Family Medicine; Visit Provider Obstetrics & Gynecology
DX: Z12.31 Encounter for screening mammogram for malignant neoplasm of breast (principal)
CPT/HCPCS: 77063; 77067

== ENCOUNTER 2023-02-27 02:52 | Outpatient (CLI) | payer OTHER, SELFPAY ==
[2023-02-27 13:24] LABS: Abs Immature Grans 0.02 10^3/uL (0.0-0.06); Absolute Basophil Count 0.03 10^3/uL (0.0-0.2); Absolute Eosinophil Count 0.06 10^3/uL (0.0-0.7); Absolute Lymphocyte Count 0.79 10^3/uL (1.2-3.4); Absolute Monocyte Count 0.58 10^3/uL (0.1-0.8); Absolute Neutrophil Count 4.36 10^3/uL (1.2-6.7); Basophils % 0.5; HCT 34.9 % (36.0-46.0); HGB 11.7 g/dL (11.2-15.7); Immature Grans % 0.3; Lymphocytes % 13.5; MCH 29.4 pg (27.0-33.0); MCHC 33.5 % (32.0-36.0); MCV 88 fL (80-95); MPV 9.8 fL (8.0-11.0); Monocytes % 9.9; Neutrophils % 74.8; Platelet Count 181 10^3/uL (130-400); RBC 3.98 10^6/uL (3.93-5.22); RDW 13.3 % (11.7-14.6); WBC 5.84 10^3/uL (4.4-10.8)
[2023-02-27 13:42] LABS: ALT 15 U/L (14-59); AST 20 U/L (15-37); Albumin 3.3 g/dL (3.4-5.0); Alkaline Phosphatase 137 U/L (46-116); Anion Gap 8.4 mmol/L (3-11); BUN 12 mg/dL (7-18); Bilirubin, Total 0.3 mg/dL (0.2-1.0); CO2 25.6 mmol/L (21.0-32.0); CREATININE 1.1 mg/dL (0.55-1.02); Calcium 9.2 mg/dL (8.5-10.1); Chloride 100 mmol/L (98-107); Estimated GFR 57.52 (mL/min/1.73m2); Glucose 101 mg/dL (74-106); LDH 230 U/L (81-234); Potassium 4.1 mmol/L (3.5-5.1); Sodium 134 mmol/L (136-145); Total Protein 7.1 g/dL (6.4-8.2)
== END 2023-02-27 02:53 | disposition home or self-care (01) ==
LOC: LBO 02:53
PROVIDERS: PCP Family Medicine; Visit Provider Internal Medicine Hematology & Oncology
DX: C82.01 Follicular lymphoma grade I, lymph nodes of head, face, and neck (principal)
CPT/HCPCS: 36415; 80053; 83615; 85025

== ENCOUNTER 2023-08-28 02:16 | Outpatient (CLI) | payer OTHER, SELFPAY ==
[2023-08-28 11:42] LABS: Abs Immature Grans 0.02 10^3/uL (0.0-0.06); Absolute Basophil Count 0.03 10^3/uL (0.0-0.2); Absolute Eosinophil Count 0.06 10^3/uL (0.0-0.7); Absolute Lymphocyte Count 0.75 10^3/uL (1.2-3.4); Absolute Monocyte Count 0.54 10^3/uL (0.1-0.8); Basophils % 0.5; Eosinophils % 0.9; HCT 40.4 % (36.0-46.0); HGB 13.7 g/dL (11.2-15.7); Immature Grans % 0.3; Lymphocytes % 11.7; MCH 30.2 pg (27.0-33.0); MCHC 33.9 % (32.0-36.0); MCV 89 fL (80-95); Monocytes % 8.4; Neutrophils % 78.2; Platelet Count 175 10^3/uL (130-400); RBC 4.53 10^6/uL (3.93-5.22); RDW-SD 42.7 fL
[2023-08-28 11:57] LABS: ALT 18 U/L (14-59); AST 23 U/L (15-37); Albumin 3.6 g/dL (3.4-5.0); Alkaline Phosphatase 106 U/L (46-116); Anion Gap 10.2 mmol/L (3-11); BUN 17 mg/dL (7-18); Bilirubin, Total 0.3 mg/dL (0.2-1.0); CO2 23.8 mmol/L (21.0-32.0); CREATININE 1.2 mg/dL (0.55-1.02); Calcium 9.3 mg/dL (8.5-10.1); Chloride 102 mmol/L (98-107); Glucose 108 mg/dL (74-106); LDH 221 U/L (81-234); Potassium 4.3 mmol/L (3.5-5.1); Sodium 136 mmol/L (136-145); Total Protein 7.2 g/dL (6.4-8.2)
== END 2023-08-28 02:17 | disposition home or self-care (01) ==
LOC: LBO 02:16
PROVIDERS: PCP Family Medicine; Visit Provider Internal Medicine Hematology & Oncology
DX: C82.90 Follicular lymphoma, unspecified, unspecified site (principal)
CPT/HCPCS: 36415; 80053; 83615; 85025

== ENCOUNTER 2023-12-18 05:24 | Outpatient (CLI) | payer OTHER, SELFPAY ==
[2023-12-18 08:34] LABS: Abs Immature Grans 0.01 10^3/uL (0.0-0.06); Absolute Basophil Count 0.03 10^3/uL (0.0-0.2); Absolute Eosinophil Count 0.06 10^3/uL (0.0-0.7); Absolute Lymphocyte Count 0.51 10^3/uL (1.2-3.4); Absolute Monocyte Count 0.41 10^3/uL (0.1-0.8); Absolute Neutrophil Count 4.26 10^3/uL (1.2-6.7); Basophils % 0.6; Eosinophils % 1.1; HCT 38.5 % (36.0-46.0); HGB 12.9 g/dL (11.2-15.7); Immature Grans % 0.2; Lymphocytes % 9.7; MCH 29.9 pg (27.0-33.0); MCHC 33.5 % (32.0-36.0); MCV 89 fL (80-95); MPV 9.8 fL (8.0-11.0); Monocytes % 7.8; Neutrophils % 80.6; Platelet Count 162 10^3/uL (130-400); RBC 4.32 10^6/uL (3.93-5.22); RDW 12.6 % (11.7-14.6); RDW-SD 41.6 fL; WBC 5.28 10^3/uL (4.4-10.8)
[2023-12-18 08:50] LABS: ALT 19 U/L (14-59); AST 23 U/L (15-37); Albumin 3.5 g/dL (3.4-5.0); Alkaline Phosphatase 124 U/L (46-116); Anion Gap 10.8 mmol/L (3-11); BUN 15 mg/dL (7-18); Bilirubin, Total 0.5 mg/dL (0.2-1.0); CO2 24.2 mmol/L (21.0-32.0); CREATININE 1.2 mg/dL (0.55-1.02); Calcium 9.2 mg/dL (8.5-10.1); Chloride 103 mmol/L (98-107); Glucose 116 mg/dL (74-106); LDH 233 U/L (81-234); Potassium 4.2 mmol/L (3.5-5.1); Sodium 138 mmol/L (136-145); Total Protein 7.1 g/dL (6.4-8.2)
== END 2023-12-18 05:25 | disposition home or self-care (01) ==
PROVIDERS: PCP Family Medicine; Visit Provider Internal Medicine Hematology & Oncology
DX: C82.01 Follicular lymphoma grade I, lymph nodes of head, face, and neck (principal)
CPT/HCPCS: 36415; 80053; 83615; 85025

== ENCOUNTER 2024-01-22 13:22 | Outpatient (CLI) | payer OTHER, SELFPAY ==
[2024-01-22 13:46] LABS: Abs Immature Grans 0.02 10^3/uL (0.0-0.06); Absolute Basophil Count 0.02 10^3/uL (0.0-0.2); Absolute Eosinophil Count 0.09 10^3/uL (0.0-0.7); Absolute Lymphocyte Count 0.61 10^3/uL (1.2-3.4); Absolute Monocyte Count 0.59 10^3/uL (0.1-0.8); Absolute Neutrophil Count 3.86 10^3/uL (1.2-6.7); Basophils % 0.4; Eosinophils % 1.7; HCT 36.5 % (36.0-46.0); HGB 12.1 g/dL (11.2-15.7); Immature Grans % 0.4; Lymphocytes % 11.8; MCH 30.3 pg (27.0-33.0); MCHC 33.2 % (32.0-36.0); MCV 92 fL (80-95); MPV 10.3 fL (8.0-11.0); Monocytes % 11.4; Neutrophils % 74.3; Platelet Count 166 10^3/uL (130-400); RBC 3.99 10^6/uL (3.93-5.22); RDW 12.4 % (11.7-14.6); RDW-SD 41.2 fL; WBC 5.19 10^3/uL (4.4-10.8)
[2024-01-22 14:01] LABS: ALT 17 U/L (14-59); AST 18 U/L (15-37); Albumin 3.3 g/dL (3.4-5.0); Alkaline Phosphatase 120 U/L (46-116); Anion Gap 9.6 mmol/L (3-11); BUN 11 mg/dL (7-18); Bilirubin, Total 0.3 mg/dL (0.2-1.0); CO2 26.4 mmol/L (21.0-32.0); Calcium 8.8 mg/dL (8.5-10.1); Chloride 105 mmol/L (98-107); Estimated GFR 64.09 (mL/min/1.73m2); Glucose 65 mg/dL (74-106); LDH 204 U/L (81-234); Sodium 141 mmol/L (136-145); Total Protein 6.7 g/dL (6.4-8.2)
== END 2024-01-22 13:23 | disposition home or self-care (01) ==
LOC: LBO 13:23
PROVIDERS: PCP Family Medicine; Visit Provider Internal Medicine Hematology & Oncology
DX: C82.98 Follicular lymphoma, unspecified, lymph nodes of multiple sites (principal)
CPT/HCPCS: 36415; 80053; 83615; 84550; 85025

== ENCOUNTER 2024-03-11 04:57 | Outpatient (RCR) | payer OTHER, SELFPAY ==
[2024-02-19] MEDS: Normal Saline Flush 10 ML SYR IVP (08:03)
[2024-02-19 08:47] LABS: Abs Immature Grans 0.02 10^3/uL (0.0-0.06); Absolute Basophil Count 0.04 10^3/uL (0.0-0.2); Absolute Eosinophil Count 0.12 10^3/uL (0.0-0.7); Absolute Lymphocyte Count 0.52 10^3/uL (1.2-3.4); Absolute Monocyte Count 0.37 10^3/uL (0.1-0.8); Absolute Neutrophil Count 2.78 10^3/uL (1.2-6.7); Eosinophils % 3.1 %; HCT 33.8 % (36.0-46.0); HGB 11.2 g/dL (11.2-15.7); Immature Grans % 0.5 %; Lymphocytes % 13.5 %; MCH 30.2 pg (27.0-33.0); MCHC 33.1 % (32.0-36.0); MCV 91 fL (80-95); MPV 10.2 fL (8.0-11.0); Monocytes % 9.6 %; Neutrophils % 72.3 %; Platelet Count 181 10^3/uL (130-400); RBC 3.71 10^6/uL (3.93-5.22); RDW 13.9 % (11.7-14.6); RDW-SD 46.3 fL; WBC 3.85 10^3/uL (4.4-10.8)
[2024-02-19 09:07] LABS: ALT 21 U/L (14-59); AST 20 U/L (15-37); Albumin 3.3 g/dL (3.4-5.0); Alkaline Phosphatase 105 U/L (46-116); Anion Gap 10.1 mmol/L (3-11); BUN 13 mg/dL (7-18); Bilirubin, Total 0.5 mg/dL (0.2-1.0); CO2 23.9 mmol/L (21.0-32.0); Calcium 8.9 mg/dL (8.5-10.1); Chloride 105 mmol/L (98-107); Estimated GFR 64.09 (mL/min/1.73m2); Glucose 125 mg/dL (74-106); LDH 199 U/L (81-234); Sodium 139 mmol/L (136-145); Total Protein 6.6 g/dL (6.4-8.2); Uric Acid 5.5 mg/dL (2.6-6.0)
[2024-03-04] MEDS: Normal Saline Flush 10 ML SYR IVP (08:40)
[2024-03-04 09:52] LABS: Absolute Basophil Count 0.02 10^3/uL (0.0-0.2); Absolute Eosinophil Count 0.02 10^3/uL (0.0-0.7); Absolute Lymphocyte Count 0.34 10^3/uL (1.2-3.4); Absolute Monocyte Count 0.42 10^3/uL (0.1-0.8); Basophils % 2.3 %; Eosinophils % 2.3 %; HCT 30.8 % (36.0-46.0); HGB 10.3 g/dL (11.2-15.7); Lymphocytes % 38.6 %; MCH 30.4 pg (27.0-33.0); MCHC 33.4 % (32.0-36.0); MCV 91 fL (80-95); MPV 10.2 fL (8.0-11.0); Monocytes % 47.7 %; Neutrophils % 9.1 %; RBC 3.39 10^6/uL (3.93-5.22); RDW 13.3 % (11.7-14.6)
[2024-03-04 10:18] LABS: ALT 20 U/L (14-59); AST 17 U/L (15-37); Albumin 3.2 g/dL (3.4-5.0); Alkaline Phosphatase 87 U/L (46-116); BUN 12 mg/dL (7-18); Bilirubin, Total 0.4 mg/dL (0.2-1.0); Calcium 9.1 mg/dL (8.5-10.1); Chloride 103 mmol/L (98-107); Diff Comment Agrees w/ Instrument; Estimated GFR 64.09 (mL/min/1.73m2); Glucose 114 mg/dL (74-106); LDH 183 U/L (81-234); Platelet Count 147 10^3/uL (130-400); Sodium 138 mmol/L (136-145); Total Protein 6.7 g/dL (6.4-8.2); Uric Acid 4.9 mg/dL (2.6-6.0)
[2024-03-04 10:21] LABS: Absolute Neutrophil Count 0.08 10^3/uL (1.2-6.7); RBC Morphology Normal; WBC 0.88 10^3/uL (4.4-10.8)
[2024-03-11] MEDS: Normal Saline Flush 10 ML SYR IVP (09:10)
[2024-03-11 09:59] LABS: Abs Immature Grans 0.02 10^3/uL (0.0-0.06); Absolute Basophil Count 0.03 10^3/uL (0.0-0.2); Absolute Eosinophil Count 0.01 10^3/uL (0.0-0.7); Absolute Lymphocyte Count 0.64 10^3/uL (1.2-3.4); Absolute Monocyte Count 0.71 10^3/uL (0.1-0.8); Basophils % 0.5 %; Eosinophils % 0.2 %; HCT 31.5 % (36.0-46.0); HGB 10.7 g/dL (11.2-15.7); Immature Grans % 0.4 %; Lymphocytes % 11.4 %; MCH 30.4 pg (27.0-33.0); MCV 90 fL (80-95); Monocytes % 12.7 %; Neutrophils % 74.8 %; Platelet Count 250 10^3/uL (130-400); RBC 3.52 10^6/uL (3.93-5.22); WBC 5.61 10^3/uL (4.4-10.8)
[2024-03-11 10:25] LABS: ALT 20 U/L (14-59); AST 17 U/L (15-37); Albumin 3.2 g/dL (3.4-5.0); Alkaline Phosphatase 94 U/L (46-116); Anion Gap 10.2 mmol/L (3-11); BUN 11 mg/dL (7-18); Bilirubin, Total 0.3 mg/dL (0.2-1.0); CO2 23.8 mmol/L (21.0-32.0); Chloride 99 mmol/L (98-107); Estimated GFR 64.09 (mL/min/1.73m2); Glucose 96 mg/dL (74-106); LDH 224 U/L (81-234); Potassium 4.3 mmol/L (3.5-5.1); Sodium 133 mmol/L (136-145); Total Protein 6.8 g/dL (6.4-8.2); Uric Acid 4.4 mg/dL (2.6-6.0)
== END 2024-03-19 23:59 | disposition home or self-care (01) ==
LOC: INF 04:57
PROVIDERS: PCP Family Medicine; Visit Provider Internal Medicine Hematology & Oncology
DX: C85.88 Other specified types of non-Hodgkin lymphoma, lymph nodes of multiple sites (principal); C82.90 Follicular lymphoma, unspecified, unspecified site; Z45.2 Encounter for adjustment and management of vascular access device
CPT/HCPCS: 36591; 80053; 83615; 84550; 85025

== ENCOUNTER 2024-03-26 10:11 | Emergency (ER) | payer OTHER, SELFPAY ==
[2024-03-26 10:14] VITALS: BP 151/93; PULSE 76; RESP 18; TEMP 36.4; O2SAT 96
--- NOTE | 2024-03-26 10:22 | W.ED.GENAD ---
Discharge Plan Disposition Patient Disposition: Home Condition: Stable Discharge Details Clinical Impression: Pneumonia, Hypomagnesemia Primary Care Provider: Santhosh Herron ED Provider: Jesse Rollins Home Meds and New Rx's Prescriptions: New levofloxacin 750 mg tablet 750 mg PO DAILY 5 Days Qty: 5 0RF magnesium 250 mg tablet 250 mg PO DAILY 7 Days Qty: 7 0RF Continued pregabalin 75 mg capsule 75 mg PO DAILY omeprazole 20 mg capsule,delayed release(DR/EC) 20 mg PO DAILY gabapentin 600 MG tablet 600 mg PO TID ibuprofen 800 MG tablet 800 mg PO BID acetaminophen [Tylenol] 325 MG tablet 325 mg PO PRN Discharge Instructions Instructions: Levofloxacin (By mouth), Magnesium Oxide (By mouth), Hypomagnesemia (ED), Pneumonia (ED) Additional Instructions: You were seen in the emergency department for your cough of several days onset, and low-grade fevers that are well-controlled with Tylenol and ibuprofen. We did perform a CT of your chest to look for any sign of blood clot in your chest due to your active lymphoma, it shows that there is a right-sided pneumonia as well as a 1 cm liver lesion that you are aware of. Shows no evidence of acute blood clot of the lung, you displayed no signs of severe respiratory distress or toxic vital signs here in the department. I think it is reasonable that we trial treatment for pneumonia with levofloxacin due to your other antibiotic allergies. We loaded you with IV levofloxacin and sent the rest to your pharmacy of [facility] in [place]. I have also sent magnesium supplements for 1 week to this pharmacy for your mildly low magnesium. He had an incidental finding of low hemoglobin that he should recheck with your primary care provider or oncologist. Please clear your next chemo treatment with your oncologist team and let them know you are on levofloxacin for pneumonia. Due to your immunocompromise status please have a low threshold to return to the ER for any increased respiratory distress, worsening cough, fevers not responding to Tylenol and ibuprofen, weakness, nausea or vomiting, fast heart rate. Referrals: Santhosh Herron [Primary Care Provider] - [facility] General Date/Time Provider Initiated Documentation: 03/26/24 10:22. HPI Narrative: 63 year-old female presents to ED today by POV/ambulating with a chief complaint of cough, fevers with onset several days ago, now having some back pain and pain with deep inspiration. Patient is in active lymphoma treatment, has a port. Quality described as productive cough, fevers between 101 and 100.4F after Tylenol, no radiation to severe respiratory distress, nausea increased from baseline chemo treatment, inability to tolerate PO intake, black/bloody stools, diarrhea, confusion, chest pain, tachycardia. Severity is described as moderate. Palliating factors include has a rescue inhaler at home, hasn't used it. Provoking factors include last had chemo treatment a couple weeks ago. Patient not anticoagulated. Related Data Home Medications Medication Instructions Recorded Confirmed acetaminophen 325 mg tablet 325 mg PO PRN 04/29/18 03/26/24 (Tylenol) gabapentin 600 mg tablet 600 mg PO TID 04/29/18 03/26/24 ibuprofen 800 mg tablet 800 mg PO BID 04/29/18 03/26/24 omeprazole 20 mg capsule,delayed 20 mg PO DAILY 09/10/22 03/26/24 release pregabalin 75 mg capsule 75 mg PO DAILY 09/10/22 03/26/24 levofloxacin 750 mg tablet 750 mg PO DAILY pneumonia 5 days 03/26/24 #5 tabs magnesium 250 mg tablet 250 mg PO DAILY hypomagnesemia 7 03/26/24 days #7 tabs Previous Rx's Medication Instructions Recorded levofloxacin 750 mg tablet 750 mg PO DAILY pneumonia 5 days 03/26/24 #5 tabs magnesium 250 mg tablet 250 mg PO DAILY hypomagnesemia 7 03/26/24 days #7 tabs Allergies Allergy/AdvReac Type Severity Reaction Status Date / Time Penicillins Allergy Severe Hives Unverified 03/26/24 12:37 vancomycin Allergy Severe Red Man's Unverified 03/26/24 12:37 syndrome, itchy erythromycin lactobionate AdvReac Intermediate Nausea/vomi Unverified 03/26/24 12:37 [From Erythrocin] tting General Stated Complaint: RespSymp DANIEL: 3 Review of Systems All systems reviewed & are unremarkable except as noted in HPI and below Exam Narrative Exam Narrative: GENERAL APPEARANCE: Well-nourished, non-toxic, awake and alert, atraumatic, no acute distress. SKIN: Warm, pink, dry, intact, without rashes/lesions/ulcerations. HEAD: Normocephalic, atraumatic, normal hair distribution for gender/age. EYES: Pupils PERRLA, EOMs intact without nystagmus, normal conjunctiva, no exudates on lids/lashes. ENT: Nares patent, no circumoral cyanosis, no facial swelling NECK: Supple, trachea midline, painless cervical ROM. LUNGS/CHEST: Lungs CTA bilaterally, non-labored respirations, normal A/P diameter, symmetrical expansion, no chest wall deformity HEART (CV/PV): Regular rate and rhythm without murmur, no peripheral edema, no JVD. ABDOMEN: Soft, non-distended, no guarding. MSK: Normal ROM, no swelling/deformity to bilateral UEs or LEs, moving all extremities without weakness, no cyanosis, spine midline without tenderness, normal curvature. NEURO: Mental Status AAOx4 - alert to person, place, time, events No facial droop, no forehead involvement. Motor: No focal weakness - strength 5/5 in bilateral UEs and LEs, proximal and distal, symmetric. Sensory: sensation intact to light touch globally. Gait normal: patient ambulated without ataxia into ED room. PSYCH: euthymic, cooperative, pleasant, appropriate speech Course Vital Signs Vital signs: Vital Signs Temperature 36.4 C L 03/26/24 10:14 Pulse 76 03/26/24 10:14 Respiratory Rate 18 03/26/24 10:14 Blood Pressure 151/93 H 03/26/24 10:14 Pulse Oximetry 96 03/26/24 10:14 Temperature 36.4 C L 03/26/24 10:14 Temperature Source Tympanic 03/26/24 10:14 Pulse 76 03/26/24 10:14 Respiratory Rate 18 03/26/24 10:14 Blood Pressure 151/93 H 03/26/24 10:14 Blood Pressure Position Sitting 03/26/24 10:14 Pulse Oximetry 96 03/26/24 10:14 Oxygen Delivery Method Room Air 03/26/24 10:14 Oxygen Flow Rate 0 03/26/24 10:14 Pain Level 5 03/26/24 10:14 Comment Had APAP today at approx 0630 03/26/24 10:14 Medical Decision Making This dictation utilizes [id number] dictation software and may contain unedited grammatical errors. 63 year-old female presents to ED today by POV/ambulating with a chief complaint of cough, fevers with onset several days ago, now having some back pain and pain with deep inspiration. Patient is in active lymphoma treatment, has a port. Quality described as productive cough, fevers between 101 and 100.4F after Tylenol, no radiation to severe respiratory distress, nausea increased from baseline chemo treatment, inability to tolerate PO intake, black/bloody stools, diarrhea, confusion, chest pain, tachycardia. Severity is described as moderate. Palliating factors include has a rescue inhaler at home, hasn't used it. Provoking factors include last had chemo treatment a couple weeks ago. Patients' medical history: Active lymphoma non-Hodgkin's, otherwise noncontributory, denies COPD and asthma. Family and social history: Noncontributory. Pertinent exam findings / vital signs include mild rhonchi right base, otherwise no adventitious lung sounds, no respiratory distress, no increased work of breathing, benign abdomen, tenderness to palpation in the mid right posterior back. Differential / pathologies of concern include pneumonia, pulmonary embolism, ACS, bronchitis, viral syndrome, sepsis. Diagnostic studies of: -CBC, CMP, lactate, procalcitonin, troponin I, BNP, CRP, magnesium, COVID/flu/RSV PCR, EKG, CTA chest PE study, blood cultures. -CBC shows no leukocytosis but the patient is immune suppressed, has anemia this may be a side effect of chemo, I am recommending a recheck by outpatient lab draw -CMP shows no major electrolyte abnormalities -Lactate is negative, procalcitonin is negative-do not suspect sepsis -Troponin is negative there is a mild increase of BNP -CRP is elevated at 13 this may be a side effect of chemotherapy -Magnesium is mildly low at 1.6 will replete orally -COVID/flu/RSV negative -CT shows a small infiltrate at the right lung base consistent with likely pneumonia with the patient's presentation, there is a 1 cm nodule in the posterior segment of the lobe of the right liver that the patient is aware of and has monitoring for, no pulmonary embolism -EKG shows sinus rhythm at 71 bpm with P waves followed by narrow complex QRS, normal axis, no T wave inversions, no ST elevations or depressions, normal QT QTc, good R wave progression Interventions of: -IV levofloxacin due to the patient's allergies. ED Course/Assessment/Plan: Counseled the patient on no signs of sepsis and that her CT shows a small pneumonia and no pulmonary embolism. I discussed with her a low threshold for her to return for any worsening due to her active chemotherapy and immune suppression. But for now I think it is reasonable to treat her with monotherapy of levofloxacin, she was loaded IV and I did send the rest of the oral prescription to her pharmacy, she has a rescue inhaler at home that she may use 4-6 times per day as needed but has not displayed any respiratory distress at this time. I counseled her on strict return criteria for any tachycardia, intractable nausea or vomiting, worsening respiratory status, black or bloody stools, recommend outpatient lab draw to check her hemoglobin for chronic versus acute anemia without suspicion of GI hemorrhage at this time, recommend oral magnesium supplements- which were sent to pharmacy. Findings not consistent with pulmonary embolism, acute hypoxic respiratory failure, sepsis. Disposition of pneumonia, hypomagnesemia. Patient verbalized understanding of the plan and return to ED criteria and engaged in shared decision making. Medical Records Medical records reviewed: Yes I reviewed the patient's medical records. Imaging Data Radiologic Study: Attestation: I personally reviewed and interpreted this imaging study as follows: Imaging: CT Scan Radiologist's impression: EXAM: CT CHEST PE CTA CLINICAL HISTORY: pleuritic back pain, cough, active cancer. TECHNIQUE: Imaging Protocol: Axial CT angiography was performed with multi-slice acquisition and multi-planar and/or 3D reconstructions. CONTRAST MATERIAL: Intravenous: Omnipaque 350 contrast volume:70 mL COMPARISON: No exams were available for comparison FINDINGS: Tracheobronchial tree: Patent where visualized. Pulmonary parenchyma: There is a small infiltrate seen in the right lung base. This may represent atelectasis or pneumonia. There is a calcified granuloma in the left lingula. Moderate centrilobular emphysematous changes are present in the lungs. Pulmonary Arteries: No evidence of filling defect to suggest pulmonary emboli. Mediastinum and Cadence: No dominant adenopathy or fluid collection. The esophagus is unremarkable. Visualized thyroid gland: Unremarkable. Pleura: No effusion or pneumothorax. Heart: The heart is not dilated. Coronary artery calcifications are present. No pericardial effusion. Aorta: Thoracic aorta non-dilated. No evidence of dissection. 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 Atherosclerotic calcification is present. Upper abdomen: There is a 1 cm enhancing nodule in the posterior segment of the right lobe of the liver. Comparison should be made with prior examinations. Tubes, Catheters, and Lines: There is a right-sided [id number] type catheter. Soft tissues: Unremarkable. Bones: Within normal limits for the patient's age.No aggressive osseous lesion. No acute fracture or subluxation. IMPRESSION: 1. No evidence of pulmonary embolism, thoracic aortic dissection or aneurysm. 2. Small infiltrate in the right lung base which may represent atelectasis or pneumonia. 3. 1 cm enhancing nodule in the posterior segment of the right lobe of the liver. There are no priors available for comparison at this time. Comparison should be made with prior examinations. An addendum will be issued at that time. Lab Data Lab results reviewed: Yes I reviewed the patient's lab results. Labs: 03/26/24 13:34 Blood Blood Culture - Pending 03/26/24 12:00 Blood Blood Culture - Pending Laboratory Tests Range/Units 03/26/24 03/26/24 12:00 12:10 WBC (4.4-10.8) 10^3/uL 7.77 RBC (3.93-5.22) 10^6/uL 2.91 L Hgb (11.2-15.7) g/dL 8.9 L Hct (36.0-46.0) % 26.4 L MCV (80-95) fL 91 MCH (27.0-33.0) pg 30.6 MCHC (32.0-36.0) % 33.7 RDW (11.7-14.6) % 14.2 Plt Count (130-400) 10^3/uL 187 MPV (8.0-11.0) fL 10.3 Immature Gran % % 1.0 Neutrophils % % 82.4 Lymphocytes % % 7.2 Monocytes % % 8.9 Eosinophils % % 0.1 Basophils % % 0.4 Nucleated RBC % (0.0-0.3) % 0.0 Absolute Neutrophils (1.2-6.7) 10^3/uL 6.40 Absolute Lymphocytes (1.2-3.4) 10^3/uL 0.56 L Absolute Monocytes (0.1-0.8) 10^3/uL 0.69 Absolute Eosinophils (0.0-0.7) 10^3/uL 0.01 Absolute Basophils (0.0-0.2) 10^3/uL 0.03 VBG Lactate (0.6-1.4) mmol/L 0.6 Sodium (136-145) mmol/L 138 Potassium (3.5-5.1) mmol/L 4.0 Chloride (98-107) mmol/L 104 Carbon Dioxide (21.0-32.0) mmol/L 26.2 Anion Gap (3-11) mmol/L 7.8 BUN (7-18) mg/dL 8 Creatinine (0.55-1.02) mg/dL 0.9 Est GFR (CKD-EPI 2020) (mL/min/1.73m2) 72.73 Glucose (74-106) mg/dL 98 Calcium (8.5-10.1) mg/dL 9.0 Magnesium (1.8-2.4) mg/dL 1.6 L Total Bilirubin (0.2-1.0) mg/dL 0.3 AST (15-37) U/L 13 L ALT (14-59) U/L 16 Alkaline Phosphatase (46-116) U/L 109 Troponin I (< or =60) ng/L < 50 C-Reactive Protein (<or=0.5) mg/dL 13.15 H NT-Pro-B Natriuret Pep (<300) pg/mL 1489 H Total Protein (6.4-8.2) g/dL 6.5 Albumin (3.4-5.0) g/dL 2.9 L Procalcitonin ng/mL 0.1 COVID-19 Source Nasopharynx SARS-CoV-2 (PCR) (Negative) Negative Influenza Type A (PCR) (Negative) Negative Influenza Type B (PCR) (Negative) Negative RSV (PCR) (Negative) Negative Quality:SDOH Health Related Social Needs: No Data to Display PFSH All Active Problems (Updated 03/26/24 @ 14:13 by WILLA Mclean) Hypomagnesemia (Acute) Pneumonia (Acute) Non-Hodgkin lymphoma (Chronic) Well woman exam with routine gynecological exam (Acute) Breast cancer screening (Acute) Medical History Breast cancer screening Trigeminal neuralgia of left side of face Well woman exam with routine gynecological exam Surgical History back fusion x2 Endometrial Ablation (~2004) R partial knee Family History Sister No problems noted. Grandmother No problems noted. Social History Smoking/Tobacco Use Status: Current every day Tobacco: How many years used: 40 Second Hand Exposure: No Smoking risk assessment performed?: Yes Alcohol Intake: current Alcohol Intake frequency: holidays/special occasions only Drug use: Never Substance use type: does not use Household members: spouse Number of Children: 2 What is your relationship status?: Panel score (0-1 are the most socially isolated patients): 1 Seatbelt use: always
--- NOTE | 2024-03-26 10:30 | DI.CT_ITS ---
Exam(s) CT CHEST PE CTA EXAM: CT CHEST PE CTA CLINICAL HISTORY: pleuritic back pain, cough, active cancer. TECHNIQUE: Imaging Protocol: Axial CT angiography was performed with multi-slice acquisition and mu lti-planar and/or 3D reconstructions. CONTRAST MATERIAL: Intravenous: Omnipaque 350 contrast volume:70 mL COMPARISON: No exams were available for comparison FINDINGS: Tracheobronchial tree: Patent where visualized. Pulmonary parenchyma: There is a small infiltrate seen in the right lung base. This may represent at electasis or pneumonia. There is a calcified granuloma in the left lingula. Moderate centrilobular emphysematous changes are present in the lungs. Pulmonary Arteries: No evidence of filling defect to suggest pulmonary emboli. Mediastinum and Cadence: No dominant adenopathy or fluid collection. The esophagus is unremarkable. Visualized thyroid gland: Unremarkable. Pleura: No effusion or pneumothorax. Heart: The heart is not dilated. Coronary artery calcifications are present. No pericardial effusion . Aorta: Thoracic aorta non-dilated. No evidence of dissection. Note is made of an aberrant right subcl paris artery which is a normal variant. Atherosclerotic calcification is present. Upper abdomen: There is a 1 cm enhancing nodule in the posterior segment of the right lobe of the li talat. Comparison should be made with prior examinations. Tubes, Catheters, and Lines: There is a right-sided Wrvlog-D-Stni type catheter. Soft tissues: Unremarkable. Bones: Within normal limits for the patient's age.No aggressive osseous lesion. No acute fracture or subluxation. IMPRESSION: 1. No evidence of pulmonary embolism, thoracic aortic dissection or aneurysm. 2. Small infiltrate in the right lung base which may represent atelectasis or pneumonia. 3. 1 cm enhancing nodule in the posterior segment of the right lobe of the liver. There are no prior s available for comparison at this time. Comparison should be made with prior examinations. An adde ndum will be issued at that time. RADIATION DOSE DELIVERED: 440.25mGy.cm Total DLP DATA REPOSITORY: All CT scans at this facility are submitted to the National Radiology Data Registry (NRDR) Dose Index Registry (DIR) with the [employer] ([employer]). RADIATION OPTIMIZATION: All CT scans at this facility use at least one of these dose optimization te chniques: automated exposure control; mA and/or kV adjustment per patient size (includes targeted exa ms where dose is matched to clinical indication); or iterative reconstruction.
[2024-03-26 12:18] LABS: Lactate 0.6 mmol/L (0.6-1.4)
[2024-03-26 12:24] LABS: Abs Immature Grans 0.08 10^3/uL (0.0-0.06); Absolute Basophil Count 0.03 10^3/uL (0.0-0.2); Absolute Eosinophil Count 0.01 10^3/uL (0.0-0.7); Absolute Lymphocyte Count 0.56 10^3/uL (1.2-3.4); Absolute Monocyte Count 0.69 10^3/uL (0.1-0.8); Basophils % 0.4 %; Eosinophils % 0.1 %; HCT 26.4 % (36.0-46.0); HGB 8.9 g/dL (11.2-15.7); Lymphocytes % 7.2 %; MCH 30.6 pg (27.0-33.0); MCHC 33.7 % (32.0-36.0); MCV 91 fL (80-95); MPV 10.3 fL (8.0-11.0); Monocytes % 8.9 %; Neutrophils % 82.4 %; Platelet Count 187 10^3/uL (130-400); RBC 2.91 10^6/uL (3.93-5.22); RDW 14.2 % (11.7-14.6); RDW-SD 45.9 fL; WBC 7.77 10^3/uL (4.4-10.8)
[2024-03-26 12:31] VITALS: BP 180/85; PULSE 63; RESP 22; TEMP 36.7; O2SAT 98
[2024-03-26 12:45] LABS: ALT 16 U/L (14-59); AST 13 U/L (15-37); Albumin 2.9 g/dL (3.4-5.0); Alkaline Phosphatase 109 U/L (46-116); Anion Gap 7.8 mmol/L (3-11); BUN 8 mg/dL (7-18); Bilirubin, Total 0.3 mg/dL (0.2-1.0); C-Reactive Protein 13.15 mg/dL (<or=0.5); CO2 26.2 mmol/L (21.0-32.0); CREATININE 0.9 mg/dL (0.55-1.02); Chloride 104 mmol/L (98-107); Estimated GFR 72.73 (mL/min/1.73m2); Glucose 98 mg/dL (74-106); Magnesium 1.6 mg/dL (1.8-2.4); NT-proBNP 1489 pg/mL (<300); Sodium 138 mmol/L (136-145); Total Protein 6.5 g/dL (6.4-8.2); Troponin I < 50 ng/L (< or =60)
--- NOTE | 2024-03-26 12:45 | RT.EKG_ITS ---
APPROVED REPORT Exam: Resting ECG Reason for Exam: back pain Patient Location: E HR:71 bpm ECG Measurements Heart Rate 71 AXIS WV 145 P 58 QRSd 81 QRS 44 QT 401 T 22 QTc 434 Conclusion Sinus rhythm...normal P axis, V-rate 60- 99
[2024-03-26 12:56] LABS: COVID-19 PCR Negative (Negative); Influenza A PCR Negative (Negative); Influenza B PCR Negative (Negative); RSV PCR Negative (Negative); Source Nasopharynx
[2024-03-26] MEDS: Omnipaque 350 MG/ML 100 ML BTL 65 ML IJ (13:04)
[2024-03-26] MEDS: Normal Saline - Diluent 50 ML VIAL IJ (13:05)
[2024-03-26 13:13] LABS: Procalcitonin 0.1 ng/mL
[2024-03-26] MEDS: levoFLOXacin 750 MG/150 ML BAG 100 MG IVPB (14:07)
[2024-03-26 14:15] VITALS: BP 193/97; PULSE 58; RESP 18; TEMP 36.7; O2SAT 99
[2024-03-26] MEDS: Magnesium Oxide 400 MG TAB PO (14:15)
[2024-03-26 15:41] VITALS: BP 180/74; PULSE 82; RESP 16; TEMP 37.1; O2SAT 98
== END 2024-03-26 15:46 | disposition home or self-care (01) ==
LOC: ER 14:48
PROVIDERS: Emergency Provider Physician Assistant; PCP Family Medicine
DX: J18.9 Pneumonia, unspecified organism (principal); R05.1 Acute cough; R50.9 Fever, unspecified; I10 Essential (primary) hypertension; M54.9 Dorsalgia, unspecified; E83.42 Hypomagnesemia
CPT/HCPCS: 71275; 80053; 84145; 87040; 87637; 93005; 96365; 99285; 83605; 83735; 83880; 84484; 85025; 86140; 93010; 99283; J1956; J3490

== ENCOUNTER 2024-04-15 01:10 | Outpatient (RCR) | payer OTHER, SELFPAY ==
[2024-04-01] MEDS: Normal Saline Flush 10 ML SYR IVP (10:50)
[2024-04-01 12:49] LABS: ALT 18 U/L (14-59); AST 18 U/L (15-37); Albumin 3.1 g/dL (3.4-5.0); Alkaline Phosphatase 101 U/L (46-116); Anion Gap 12.7 mmol/L (3-11); BUN 13 mg/dL (7-18); Bilirubin, Total 0.3 mg/dL (0.2-1.0); CO2 23.3 mmol/L (21.0-32.0); CREATININE 1.2 mg/dL (0.55-1.02); Calcium 9.2 mg/dL (8.5-10.1); Chloride 104 mmol/L (98-107); Glucose 133 mg/dL (74-106); LDH 226 U/L (81-234); Potassium 3.7 mmol/L (3.5-5.1); Sodium 140 mmol/L (136-145); Total Protein 6.6 g/dL (6.4-8.2)
[2024-04-01 12:51] LABS: Absolute Lymphocyte Count 0.58 10^3/uL (1.2-3.4); Absolute Monocyte Count 0.79 10^3/uL (0.1-0.8); Absolute Neutrophil Count 3.54 10^3/uL (1.2-6.7); HCT 29.7 % (36.0-46.0); HGB 9.7 g/dL (11.2-15.7); Lymphocytes % 11.6 %; MCH 30.3 pg (27.0-33.0); MCHC 32.7 % (32.0-36.0); MCV 93 fL (80-95); MPV 9.6 fL (8.0-11.0); Monocytes % 15.8 %; Neutrophils % 70.8 %; Platelet Count 330 10^3/uL (130-400); RDW 14.9 % (11.7-14.6); RDW-SD 49.1 fL
[2024-04-01 12:52] LABS: Abs Immature Grans 0.03 10^3/uL (0.0-0.06); Absolute Basophil Count 0.05 10^3/uL (0.0-0.2); Absolute Eosinophil Count 0.01 10^3/uL (0.0-0.7); Eosinophils % 0.2 %; Immature Grans % 0.6 %
[2024-04-15] MEDS: Normal Saline Flush 10 ML SYR IVP (08:02)
[2024-04-15 08:16] LABS: Abs Immature Grans 0.35 10^3/uL (0.0-0.06); Absolute Basophil Count 0.06 10^3/uL (0.0-0.2); Absolute Eosinophil Count 0.02 10^3/uL (0.0-0.7); Absolute Monocyte Count 0.98 10^3/uL (0.1-0.8); Absolute Neutrophil Count 8.32 10^3/uL (1.2-6.7); Basophils % 0.6 %; Eosinophils % 0.2 %; HCT 27.9 % (36.0-46.0); Immature Grans % 3.4 %; Lymphocytes % 4.9 %; MCH 30.9 pg (27.0-33.0); MCHC 32.3 % (32.0-36.0); MCV 96 fL (80-95); MPV 10.6 fL (8.0-11.0); Monocytes % 9.6 %; Neutrophils % 81.3 %; Platelet Count 132 10^3/uL (130-400); RBC 2.91 10^6/uL (3.93-5.22); RDW 16.3 % (11.7-14.6); RDW-SD 53.8 fL; WBC 10.23 10^3/uL (4.4-10.8)
[2024-04-15 08:33] LABS: ALT 17 U/L (14-59); AST 14 U/L (15-37); Albumin 3.2 g/dL (3.4-5.0); Alkaline Phosphatase 124 U/L (46-116); Anion Gap 10.3 mmol/L (3-11); BUN 10 mg/dL (7-18); Bilirubin, Total 0.27 mg/dL (0.2-1.0); CO2 25.7 mmol/L (21.0-32.0); CREATININE 1.1 mg/dL (0.55-1.02); Calcium 8.9 mg/dL (8.5-10.1); Chloride 104 mmol/L (98-107); Estimated GFR 57.17 (mL/min/1.73m2); Glucose 92 mg/dL (74-106); LDH 238 U/L (81-234); Potassium 4.4 mmol/L (3.5-5.1); Sodium 140 mmol/L (136-145); Total Protein 6.6 g/dL (6.4-8.2)
== END 2024-04-18 23:59 | disposition home or self-care (01) ==
LOC: INF 01:10
PROVIDERS: PCP Family Medicine; Visit Provider Internal Medicine Hematology & Oncology
DX: Z45.2 Encounter for adjustment and management of vascular access device (principal); C85.88 Other specified types of non-Hodgkin lymphoma, lymph nodes of multiple sites
CPT/HCPCS: 36591; 80053; 83615; 85025

== ENCOUNTER 2024-04-16 09:28 | Emergency (ER) | payer OTHER, SELFPAY ==
[2024-04-16] VITALS (39 sets, daily range): BP systolic 94–152; BP diastolic 63–86; PULSE 68–86; RESP 14–28; TEMP 36.8; O2SAT 97–100
--- NOTE | 2024-04-16 09:41 | ED.GENADUL_ITS ---
Discharge Plan Disposition Patient Disposition: Home Condition: Stable Discharge Details Clinical Impression: Interstitial pneumonitis Primary Care Provider: Santhosh Herron ED Provider: Jesse Rollins Home Meds and New Rx's Prescriptions: New azithromycin 250 mg tablet See Rx Instructions .ROUTE .COMPLEX Qty: 6 0RF Rx Instructions: For 250 mg dose pack: take 500 mg today (day 1), then 250 mg for 4 days (days 2-5) Continued pregabalin 75 mg capsule 75 mg PO TID omeprazole 20 mg capsule,delayed release(DR/EC) 20 mg PO DAILY ibuprofen 800 MG tablet 800 mg PO BID acetaminophen [Tylenol] 325 MG tablet 325 mg PO PRN metoprolol succinate 25 mg tablet extended release 24 hr 25 mg PO DAILY losartan 50 mg tablet 50 mg PO DAILY Patient Comments: TAKE ONE TABLET BY MOUTH EVERY DAY varenicline 1 mg tablet 1 mg PO BID Patient Comments: TAKE ONE TABLET BY MOUTH TWICE A DAY prednisone 20 mg tablet 100 mg PO DAILY Patient Comments: TAKE THREE TABLETS BY MOUTH EVERY DAY FOR 5 DAYS Rx Instructions: Take the 4 days following chemotherapy prochlorperazine maleate 10 mg tablet 10 mg PO Q6H PRN Patient Comments: TAKE ONE TABLET BY MOUTH EVERY 6 HOURS NEEDED FOR NAUSEA Discharge Instructions Instructions: Atypical Pneumonia (Mycoplasma and Viral) (DC) Additional Instructions: You were seen in the emergency department for your coughing as well as some pleuritic back pain with cough, there is concern for pulmonary embolism with any active cancer with treatment but we ruled this out by CTA. Your labs are reassuring for no sepsis currently though please monitor yourself very carefully for increasing symptoms and fever and respiratory distress. Your CT shows some interstitial fluid present in both lungs, we are going to start you on an antibiotic called azithromycin, sent to [facility] in [place]. Please take this as directed use your at home nausea medications for any side effects of nausea or vomiting with this antibiotic. Please stay well-hydrated, eat nourishing foods. Please check in with your providers at the cancer center before your upcoming infusion on Friday as they may hold your chemotherapy if you are not feeling better at that time. We have sent an expanded respiratory panel PCR test off, you should have results for this in a few days for any viruses that may be the cause of your respiratory infection Referrals: Santhosh Herron [Primary Care Provider] - HPI General Date/Time Provider Initiated Documentation: 04/16/24 09:41 . HPI Narrative: 63 year-old female presents to ED today by POV/ambulating with a chief complaint of cough, pleuritic thoracic paraspinal back pain that is worse when coughing, with onset over a few weeks- has been diagnosed with PNA here on March 26, given levofloxacin without relief. Recommended ED evaluation by [facility]. Quality described as coughing with back pain, and some yellow phlegm, no radiation to chest pain, severe shortness of breath, high fever, nausea or vomiting, weakness. Severity is described as moderate. Palliating factors include levofloxacin without relief, takes daily steroids. Provoking factors include nothing specific. Events leading up to the incident/Associated Symptoms: Patient receives chemo on Wednesdays, is scheduled for this Friday, we will not have her normal oncology follow-up on as it is close for the april. Patient not anticoagulated. Related Data Home Medications Medication Instructions Recorded Confirmed acetaminophen 325 mg tablet 325 mg PO PRN 04/29/18 04/16/24 (Tylenol) ibuprofen 800 mg tablet 800 mg PO BID 04/29/18 03/26/24 omeprazole 20 mg capsule,delayed 20 mg PO DAILY 09/10/22 03/26/24 release pregabalin 75 mg capsule 75 mg PO TID 09/10/22 04/16/24 azithromycin 250 mg tablet See Rx Instructions PO .COMPLEX #6 04/16/24 tabs losartan 50 mg tablet 50 mg PO DAILY 04/16/24 04/16/24 metoprolol succinate 25 mg 25 mg PO DAILY 04/16/24 04/16/24 tablet,extended release 24 hr prednisone 20 mg tablet 100 mg PO DAILY 04/16/24 04/16/24 prochlorperazine maleate 10 mg 10 mg PO Q6H PRN 04/16/24 04/16/24 tablet varenicline 1 mg tablet 1 mg PO BID 04/16/24 04/16/24 Previous Rx's Medication Instructions Recorded azithromycin 250 mg tablet See Rx Instructions PO .COMPLEX #6 04/16/24 tabs Allergies Allergy/AdvReac Type Severity Reaction Status Date / Time Penicillins Allergy Severe Hives Unverified 04/16/24 09:54 vancomycin Allergy Severe Red Man's Unverified 04/16/24 09:54 syndrome, itchy cephalexin [From Keflex] Allergy Mild Nausea Verified 04/16/24 09:54 oxycodone Allergy Mild Itching Verified 04/16/24 09:54 erythromycin lactobionate AdvReac Intermediate Nausea/vomi Unverified 04/16/24 09:54 [From Erythrocin] tting General Stated Complaint: RespSymp DANIEL: 3 Review of Systems All systems reviewed & are unremarkable except as noted in HPI and below Exam Narrative Exam Narrative: GENERAL APPEARANCE: Well-nourished, non-toxic, awake and alert, atraumatic, no acute distress. SKIN: Warm, pink, dry, intact, without rashes/lesions/ulcerations. HEAD: Normocephalic, atraumatic, normal hair distribution for gender/age. EYES: Pupils PERRLA, EOMs intact without nystagmus, normal conjunctiva, no exudates on lids/lashes. ENT: Nares patent, no circumoral cyanosis, no facial swelling NECK: Supple, trachea midline, painless cervical ROM. LUNGS/CHEST: Lungs CTA bilaterally, non-labored respirations, normal A/P diameter, symmetrical expansion, no chest wall deformity HEART (CV/PV): Regular rate and rhythm without murmur, no peripheral edema, no JVD. ABDOMEN: Soft, non-distended, no guarding. MSK: Normal ROM, no swelling/deformity to bilateral UEs or LEs, moving all extremities without weakness, no cyanosis, spine midline without tenderness, normal curvature. NEURO: Mental Status AAOx4 - alert to person, place, time, events No facial droop, no forehead involvement. Motor: No focal weakness - strength 5/5 in bilateral UEs and LEs, proximal and distal, symmetric. Sensory: sensation intact to light touch globally. Gait normal: patient ambulated without ataxia into ED room. PSYCH: euthymic, cooperative, pleasant, appropriate speech Course Vital Signs Vital signs: Vital Signs Temperature 36.8 C 04/16/24 09:33 Pulse 85 04/16/24 09:33 Respiratory Rate 16 04/16/24 09:33 Blood Pressure 139/86 04/16/24 09:33 Pulse Oximetry 98 04/16/24 09:33 Temperature 36.8 C 04/16/24 09:33 Temperature Source Oral 04/16/24 09:33 Pulse 85 04/16/24 09:33 Respiratory Rate 16 04/16/24 09:33 Blood Pressure 139/86 04/16/24 09:33 Blood Pressure Position Sitting 04/16/24 09:33 Pulse Oximetry 98 04/16/24 09:33 Oxygen Delivery Method Room Air 04/16/24 09:33 Oxygen Flow Rate 0 04/16/24 09:33 Medical Decision Making This dictation utilizes [id number] dictation software and may contain unedited grammatical errors. 63 year-old female presents to ED today by POV/ambulating with a chief complaint of cough, pleuritic thoracic paraspinal back pain that is worse when coughing, with onset over a few weeks- has been diagnosed with PNA here on March 26, given levofloxacin without relief. Recommended ED evaluation by [facility]. Quality described as coughing with back pain, and some yellow phlegm, no radiation to chest pain, severe shortness of breath, high fever, nausea or vomiting, weakness. Severity is described as moderate. Palliating factors include levofloxacin without relief, takes daily steroids. Provoking factors include nothing specific. Events leading up to the incident/Associated Symptoms: Patient receives chemo on Wednesdays, is scheduled for this Friday, we will not have her normal oncology follow-up on as it is close for the april. Patients' medical history: Non-Hodgkin's lymphoma on chemo, otherwise noncontributory. Family and social history: Noncontributory. Pertinent exam findings / vital signs include lungs CTA, no severe rhonchi or adventitious lung sounds, benign cardiac exam, benign abdomen, nontoxic vitals. Differential / pathologies of concern include pneumonia, sepsis, pulmonary embolism, pulmonary edema, pleural effusion, viral syndrome. Diagnostic studies of: -CBC, CMP, lactate, lipase, BNP, troponin, D-dimer, chest x-ray, CTA chest, expanded respiratory panel send out. -CBC reassuring -BMP shows no major electrolyte abnormality -Troponin negative, BNP reduced from prior visit, do not suspect right heart strain -Lipase within normal limits -D-dimer elevated to 1250 -lactate 1.0 -Chest x-ray shows no acute pulmonary findings -CTA of the chest shows no PE, shows some interstitial pneumonitis Interventions of: -Discussed case with oncology provider on-call, they recommend trial of azithromycin, patient has nausea medicines at home for past allergic reaction for possible allergy to erythromycin. Patient will follow-up with cancer center over the phone, has PCP appointment in about 2 weeks, they may hold her chemotherapy this coming Friday if she is not feeling any better, she already takes prednisone, is in no acute respiratory distress needing any breathing treatments. ED Course/Assessment/Plan: 63-year-old female with non-Hodgkin's lymphoma undergoing chemotherapy presents with a persistent cough with some developing pleuritic pain with coughing and some yellow phlegm, nonresponsive to levofloxacin which was started on March 26. Discussed with oncology providers, no sepsis, no PE, no focal pneumonia, no evidence of right heart strain, leukocytes not overly suspicious and a normal lactate. She is to trial azithromycin and follow-up with them over the phone before her chemotherapy Friday, strict return criteria for any increasing respiratory distress, high fevers, weakness, worsening chest or back pain. Findings not consistent with hypoxic respiratory failure, PE, ACS. Disposition of interstitial pneumonitis. Patient verbalized understanding of the plan and return to ED criteria and engaged in shared decision making. Medical Records Medical records reviewed: Yes I reviewed the patient's medical records. Imaging Data Radiologic Study: Attestation: I personally reviewed and interpreted this imaging study as follows: Imaging: X-Ray Radiologist's impression: EXAM: XR CHEST 2V PA LATERAL CLINICAL HISTORY: pain worse when coughing TECHNIQUE: 2D digital imaging was performed of the chest. Two images were obt ained. PA and lateral views were obtained. COMPARISON: CT CT CHEST PE CTA from 03/26/2024 FINDINGS: MEDIASTINUM: Normal. HEART: Normal. PULMONARY VASCULATURE: Normal. LUNGS: No focal consolidating infiltrates are present. The patient has diffuse moderate centrilobular emphysematous change as evidence on the CT scan from 03/26/2024. PLEURAL SPACE: No pleural effusion or pneumothorax. BONE:Within normal limits for the patient's age. OTHER FINDINGS:The indwelling central venous catheter is in good position. The tip is in the superior vena cava. IMPRESSION: No acute changes identified. No focal consolidating infiltrates are present. Radiologic Study #2: Attestation: I personally reviewed and interpreted this imaging study as follows: Imaging: CT Scan Radiologist's impression: EXAM: CT CHEST PE CTA CLINICAL HISTORY: elevated d-dimer. TECHNIQUE: Imaging Protocol: Axial CT angiography was performed with multi- slice acquisition and multi-planar and/or 3D reconstructions. CONTRAST MATERIAL: Intravenous: Omnipaque 350 contrast volume:100 mL COMPARISON: CT CT CHEST PE CTA from 03/26/2024 FINDINGS: The examination is limited due to patient motion artifact. Tracheobronchial tree: Patent where visualized. Pulmonary parenchyma: Calcified granuloma present. No focal consolidating infiltrates. There is again seen diffuse centrilobular emphysematous change present. Mild prominence of the interstitium is seen predominantly in the upper lobes. This may represent an interstitial pneumonitis or edema. Pulmonary Arteries: No evidence of filling defect to suggest pulmonary emboli. Mediastinum and Cadence: No dominant adenopathy or fluid collection. The esophagus is unremarkable. Visualized thyroid gland: Unremarkable. Pleura: No effusion or pneumothorax. Heart: The heart is not dilated. Coronary artery calcifications are present. No pericardial effusion. Aorta: Thoracic aorta non-dilated. No evidence of dissection. Atherosclerotic calcification is present. 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 Upper abdomen: Unremarkable. Soft tissues: Unremarkable. Bones: Within normal limits for the patient's age. There is a right sided Hwjpwz-V-Ukry catheter in place. IMPRESSION: 1. No evidence of pulmonary embolism, thoracic aortic dissection or aneurysm. 2. Mild prominence of the interstitium bilaterally predominantly in the upper lobes. This may represent an interstitial pneumonitis or edema. Please correlate clinically. 3. No focal consolidating infiltrates. Lab Data Lab results reviewed: Yes I reviewed the patient's lab results. Labs: Laboratory Tests Range/Units 04/16/24 04/16/24 10:00 10:00 WBC (4.4-10.8) 10^3/uL 9.82 RBC (3.93-5.22) 10^6/uL 2.76 L Hgb (11.2-15.7) g/dL 8.7 L Hct (36.0-46.0) % 25.8 L MCV (80-95) fL 94 MCH (27.0-33.0) pg 31.5 MCHC (32.0-36.0) % 33.7 RDW (11.7-14.6) % 16.4 H Plt Count (130-400) 10^3/uL 146 MPV (8.0-11.0) fL 10.3 Immature Gran % % 1.5 Neutrophils % % 84.9 Lymphocytes % % 4.5 Monocytes % % 8.4 Eosinophils % % 0.1 Basophils % % 0.6 Nucleated RBC % (0.0-0.3) % 0.0 Absolute Neutrophils (1.2-6.7) 10^3/uL 8.34 H Absolute Lymphocytes (1.2-3.4) 10^3/uL 0.44 L Absolute Monocytes (0.1-0.8) 10^3/uL 0.82 H Absolute Eosinophils (0.0-0.7) 10^3/uL 0.01 Absolute Basophils (0.0-0.2) 10^3/uL 0.06 D-Dimer (<500) ng/mlFEU 1264 H VBG Lactate (0.6-1.4) mmol/L 1.0 Sodium (136-145) mmol/L 139 Potassium (3.5-5.1) mmol/L 4.2 Chloride (98-107) mmol/L 105 Carbon Dioxide (21.0-32.0) mmol/L 25.0 Anion Gap (3-11) mmol/L 9.0 BUN (7-18) mg/dL 8 Creatinine (0.55-1.02) mg/dL 1.0 Est GFR (CKD-EPI 2020) (mL/min/1.73m2) 64.09 Glucose (74-106) mg/dL 120 H Calcium (8.5-10.1) mg/dL 8.9 Total Bilirubin (0.2-1.0) mg/dL 0.26 AST (15-37) U/L 14 L ALT (14-59) U/L 17 Alkaline Phosphatase (46-116) U/L 124 H Troponin I (< or =60) ng/L < 50 NT-Pro-B Natriuret Pep (<300) pg/mL 889 H Cancelled Total Protein (6.4-8.2) g/dL 6.4 Albumin (3.4-5.0) g/dL 3.1 L Lipase (16-77) U/L 25 Quality:[facility] Health Related Social Needs: No Data to Display PFSH All Active Problems (Updated 04/16/24 @ 14:16 by WILLA Mclean) Interstitial pneumonitis (Acute) Hypomagnesemia (Acute) Pneumonia (Acute) Non-Hodgkin lymphoma (Chronic) Well woman exam with routine gynecological exam (Acute) Breast cancer screening (Acute) Medical History Breast cancer screening Trigeminal neuralgia of left side of face Well woman exam with routine gynecological exam Surgical History back fusion x2 Endometrial Ablation (~2004) R partial knee Family History Sister No problems noted. Grandmother No problems noted. Social History Smoking/Tobacco Use Status: Current every day Tobacco: How many years used: 40 Second Hand Exposure: No Smoking risk assessment performed?: Yes Alcohol Intake: current Alcohol Intake frequency: holidays/special occasions only Drug use: Never Substance use type: does not use Household members: spouse Housing: house Number of Children: 2 What is your relationship status?: Panel score (0-1 are the most socially isolated patients): 1 Seatbelt use: always Do you feel safe at home: Yes Do you feel safe in your relationship?: Yes
[2024-04-16 10:08] LABS: Abs Immature Grans 0.15 10^3/uL (0.0-0.06); Absolute Basophil Count 0.06 10^3/uL (0.0-0.2); Absolute Eosinophil Count 0.01 10^3/uL (0.0-0.7); Absolute Lymphocyte Count 0.44 10^3/uL (1.2-3.4); Absolute Monocyte Count 0.82 10^3/uL (0.1-0.8); Absolute Neutrophil Count 8.34 10^3/uL (1.2-6.7); Basophils % 0.6 %; Eosinophils % 0.1 %; HCT 25.8 % (36.0-46.0); HGB 8.7 g/dL (11.2-15.7); Immature Grans % 1.5 %; Lymphocytes % 4.5 %; MCH 31.5 pg (27.0-33.0); MCHC 33.7 % (32.0-36.0); MCV 94 fL (80-95); MPV 10.3 fL (8.0-11.0); Monocytes % 8.4 %; Neutrophils % 84.9 %; Platelet Count 146 10^3/uL (130-400); RBC 2.76 10^6/uL (3.93-5.22); RDW 16.4 % (11.7-14.6); RDW-SD 52.8 fL; WBC 9.82 10^3/uL (4.4-10.8)
--- NOTE | 2024-04-16 10:29 | DI.RAD_ITS ---
Exam(s) XR CHEST 2V PA LATERAL EXAM: XR CHEST 2V PA LATERAL CLINICAL HISTORY: pain worse when coughing TECHNIQUE: 2D digital imaging was performed of the chest. Two images were obtained. PA and lateral views were obtained. COMPARISON: CT CT CHEST PE CTA from 03/26/2024 FINDINGS: MEDIASTINUM: Normal. HEART: Normal. PULMONARY VASCULATURE: Normal. LUNGS: No focal consolidating infiltrates are present. The patient has diffuse moderate centrilobula r emphysematous change as evidence on the CT scan from 03/26/2024. PLEURAL SPACE: No pleural effusion or pneumothorax. BONE:Within normal limits for the patient's age. OTHER FINDINGS:The indwelling central venous catheter is in good position. The tip is in the superio r vena cava. IMPRESSION: No acute changes identified. No focal consolidating infiltrates are present. DATA REPOSITORY: RADIATION DOSE DELIVERED:
[2024-04-16 10:31] LABS: ALT 17 U/L (14-59); AST 14 U/L (15-37); Albumin 3.1 g/dL (3.4-5.0); Alkaline Phosphatase 124 U/L (46-116); BUN 8 mg/dL (7-18); Bilirubin, Total 0.26 mg/dL (0.2-1.0); Calcium 8.9 mg/dL (8.5-10.1); Chloride 105 mmol/L (98-107); Estimated GFR 64.09 (mL/min/1.73m2); Glucose 120 mg/dL (74-106); Lipase 25 U/L (16-77); NT-proBNP 889 pg/mL (<300); Potassium 4.2 mmol/L (3.5-5.1); Sodium 139 mmol/L (136-145); Total Protein 6.4 g/dL (6.4-8.2); Troponin I < 50 ng/L (< or =60)
[2024-04-16 10:37] LABS: D-Dimer 1264 ng/mlFEU (<500)
--- NOTE | 2024-04-16 10:45 | DI.CT_ITS ---
Exam(s) CT CHEST PE CTA EXAM: CT CHEST PE CTA CLINICAL HISTORY: elevated d-dimer. TECHNIQUE: Imaging Protocol: Axial CT angiography was performed with multi-slice acquisition and mu lti-planar and/or 3D reconstructions. CONTRAST MATERIAL: Intravenous: Omnipaque 350 contrast volume:100 mL COMPARISON: CT CT CHEST PE CTA from 03/26/2024 FINDINGS: The examination is limited due to patient motion artifact. Tracheobronchial tree: Patent where visualized. Pulmonary parenchyma: Calcified granuloma present. No focal consolidating infiltrates. There is aga in seen diffuse centrilobular emphysematous change present. Mild prominence of the interstitium is s een predominantly in the upper lobes. This may represent an interstitial pneumonitis or edema. Pulmonary Arteries: No evidence of filling defect to suggest pulmonary emboli. Mediastinum and Cadence: No dominant adenopathy or fluid collection. The esophagus is unremarkable. Visualized thyroid gland: Unremarkable. Pleura: No effusion or pneumothorax. Heart: The heart is not dilated. Coronary artery calcifications are present. No pericardial effusion . Aorta: Thoracic aorta non-dilated. No evidence of dissection. Atherosclerotic calcification is presen t. 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 Upper abdomen: Unremarkable. Soft tissues: Unremarkable. Bones: Within normal limits for the patient's age. There is a right sided Lrcuyz-U-Zevg catheter in place. IMPRESSION: 1. No evidence of pulmonary embolism, thoracic aortic dissection or aneurysm. 2. Mild prominence of the interstitium bilaterally predominantly in the upper lobes. This may repres ent an interstitial pneumonitis or edema. Please correlate clinically. 3. No focal consolidating infiltrates. RADIATION DOSE DELIVERED: 407.04mGy.cm Total DLP DATA REPOSITORY: All CT scans at this facility are submitted to the National Radiology Data Registry (NRDR) Dose Index Registry (DIR) with the [employer] (A[employer]). RADIATION OPTIMIZATION: All CT scans at this facility use at least one of these dose optimization te chniques: automated exposure control; mA and/or kV adjustment per patient size (includes targeted exa ms where dose is matched to clinical indication); or iterative reconstruction.
[2024-04-16] MEDS: Normal Saline - Diluent 50 ML VIAL IJ (11:29)
[2024-04-16] MEDS: Omnipaque 350 MG/ML 500 ML BTL-Imaging package 100 ML IJ (12:54)
[2024-04-17 01:41] LABS: Adenovirus DNA Result Negative (Negative); Metapneumovirus RNA Result Negative (Negative); Parainfluenza Type1 RNA Result Negative (Negative); Parainfluenza Type2 RNA Result Negative (Negative); Parainfluenza Type3 RNA Result Negative (Negative); Parainfluenza Type4 RNA Result Negative (Negative); Rhinovirus RNA Result Positive (Negative)
== END 2024-04-16 14:40 | disposition home or self-care (01) ==
PROVIDERS: Emergency Provider Physician Assistant; PCP Family Medicine
DX: R05.1 Acute cough (principal); R07.89 Other chest pain; J84.89 Other specified interstitial pulmonary diseases; M54.9 Dorsalgia, unspecified; C85.90 Non-Hodgkin lymphoma, unspecified, unspecified site
CPT/HCPCS: 71275; 80053; 83690; 87632; 99285; 71046; 83605; 83880; 84484; 85025; 85379; 99283

== ENCOUNTER 2024-05-13 02:06 | Outpatient (RCR) | payer OTHER, SELFPAY ==
[2024-04-21] MEDS: Normal Saline Flush 10 ML SYR IVP (08:16)
[2024-04-21 08:46] LABS: Abs Immature Grans 0.02 10^3/uL (0.0-0.06); Absolute Basophil Count 0.04 10^3/uL (0.0-0.2); Absolute Eosinophil Count 0.01 10^3/uL (0.0-0.7); Absolute Lymphocyte Count 0.51 10^3/uL (1.2-3.4); Absolute Monocyte Count 0.55 10^3/uL (0.1-0.8); Absolute Neutrophil Count 4.07 10^3/uL (1.2-6.7); Basophils % 0.8 %; Eosinophils % 0.2 %; HGB 8.8 g/dL (11.2-15.7); Immature Grans % 0.4 %; Lymphocytes % 9.8 %; MCH 31.1 pg (27.0-33.0); MCHC 32.6 % (32.0-36.0); MCV 95 fL (80-95); Monocytes % 10.6 %; Neutrophils % 78.2 %; Platelet Count 218 10^3/uL (130-400); RBC 2.83 10^6/uL (3.93-5.22); RDW 16.9 % (11.7-14.6); RDW-SD 57.8 fL
[2024-04-21 09:04] LABS: ALT 16 U/L (14-59); AST 14 U/L (15-37); Albumin 3.2 g/dL (3.4-5.0); Alkaline Phosphatase 106 U/L (46-116); Anion Gap 12.4 mmol/L (3-11); BUN 12 mg/dL (7-18); Bilirubin, Total 0.26 mg/dL (0.2-1.0); CO2 21.6 mmol/L (21.0-32.0); CREATININE 1.2 mg/dL (0.55-1.02); Calcium 8.7 mg/dL (8.5-10.1); Chloride 105 mmol/L (98-107); Glucose 120 mg/dL (74-106); LDH 221 U/L (81-234); Potassium 3.7 mmol/L (3.5-5.1); Sodium 139 mmol/L (136-145); Total Protein 6.3 g/dL (6.4-8.2)
[2024-05-13] MEDS: Normal Saline Flush 10 ML SYR IVP (07:50)
[2024-05-13 08:20] LABS: Abs Immature Grans 0.02 10^3/uL (0.0-0.06); Absolute Basophil Count 0.04 10^3/uL (0.0-0.2); Absolute Eosinophil Count 0.01 10^3/uL (0.0-0.7); Absolute Lymphocyte Count 0.55 10^3/uL (1.2-3.4); Absolute Monocyte Count 0.64 10^3/uL (0.1-0.8); Absolute Neutrophil Count 3.31 10^3/uL (1.2-6.7); Basophils % 0.9 %; Eosinophils % 0.2 %; HCT 27.3 % (36.0-46.0); HGB 8.8 g/dL (11.2-15.7); Immature Grans % 0.4 %; MCH 31.7 pg (27.0-33.0); MCHC 32.2 % (32.0-36.0); MCV 98 fL (80-95); Neutrophils % 72.5 %; Platelet Count 234 10^3/uL (130-400); RBC 2.78 10^6/uL (3.93-5.22); RDW 18.1 % (11.7-14.6); WBC 4.57 10^3/uL (4.4-10.8)
[2024-05-13 08:40] LABS: ALT 20 U/L (14-59); AST 18 U/L (15-37); Albumin 3.3 g/dL (3.4-5.0); Alkaline Phosphatase 89 U/L (46-116); BUN 12 mg/dL (7-18); Bilirubin, Total 0.39 mg/dL (0.2-1.0); Calcium 8.9 mg/dL (8.5-10.1); Chloride 107 mmol/L (98-107); Estimated GFR 64.09 (mL/min/1.73m2); Glucose 86 mg/dL (74-106); LDH 205 U/L (81-234); Sodium 142 mmol/L (136-145); Total Protein 6.3 g/dL (6.4-8.2)
== END 2024-05-19 23:59 | disposition home or self-care (01) ==
LOC: INF 02:06
PROVIDERS: PCP Family Medicine; Visit Provider Internal Medicine Hematology & Oncology
DX: Z45.2 Encounter for adjustment and management of vascular access device (principal); C85.88 Other specified types of non-Hodgkin lymphoma, lymph nodes of multiple sites
CPT/HCPCS: 36591; 80053; 83615; 85025

== ENCOUNTER 2024-06-03 07:20 | Outpatient (RCR) | payer OTHER, SELFPAY ==
[2024-06-03] MEDS: Normal Saline Flush 10 ML SYR IVP (07:40)
[2024-06-03 07:45] LABS: Abs Immature Grans 0.02 10^3/uL (0.0-0.06); Absolute Basophil Count 0.06 10^3/uL (0.0-0.2); Absolute Eosinophil Count 0.01 10^3/uL (0.0-0.7); Absolute Lymphocyte Count 0.48 10^3/uL (1.2-3.4); Absolute Monocyte Count 0.72 10^3/uL (0.1-0.8); Absolute Neutrophil Count 3.58 10^3/uL (1.2-6.7); Basophils % 1.2 %; Eosinophils % 0.2 %; HCT 29.3 % (36.0-46.0); HGB 9.4 g/dL (11.2-15.7); Immature Grans % 0.4 %; Lymphocytes % 9.9 %; MCH 32.6 pg (27.0-33.0); MCHC 32.1 % (32.0-36.0); MCV 102 fL (80-95); MPV 10.6 fL (8.0-11.0); Monocytes % 14.8 %; Neutrophils % 73.5 %; Platelet Count 230 10^3/uL (130-400); RBC 2.88 10^6/uL (3.93-5.22); RDW 16.5 % (11.7-14.6); RDW-SD 62.6 fL; WBC 4.87 10^3/uL (4.4-10.8)
[2024-06-03 08:00] LABS: ALT 14 U/L (14-59); AST 15 U/L (15-37); Albumin 3.4 g/dL (3.4-5.0); Alkaline Phosphatase 106 U/L (46-116); Anion Gap 12.2 mmol/L (3-11); BUN 22 mg/dL (7-18); Bilirubin, Total 0.33 mg/dL (0.2-1.0); CO2 21.8 mmol/L (21.0-32.0); CREATININE 1.1 mg/dL (0.55-1.02); Calcium 9.3 mg/dL (8.5-10.1); Chloride 106 mmol/L (98-107); Estimated GFR 57.17 (mL/min/1.73m2); Glucose 103 mg/dL (74-106); LDH 190 U/L (81-234); Potassium 3.9 mmol/L (3.5-5.1); Sodium 140 mmol/L (136-145); Total Protein 6.5 g/dL (6.4-8.2)
== END 2024-06-19 23:59 | disposition home or self-care (01) ==
LOC: INF 07:20
PROVIDERS: PCP Family Medicine; Visit Provider Internal Medicine Hematology & Oncology
DX: C85.88 Other specified types of non-Hodgkin lymphoma, lymph nodes of multiple sites (principal)
CPT/HCPCS: 36591; 80053; 83615; 85025

== ENCOUNTER 2024-06-13 10:19 | Emergency (ER) | payer OTHER, SELFPAY ==
[2024-06-13 10:38] VITALS: BP 123/76; PULSE 92; RESP 20; TEMP 36.9; O2SAT 100
[2024-06-13 10:42] VITALS: BP 123/76; PULSE 92; RESP 20; TEMP 36.9; O2SAT 100
--- NOTE | 2024-06-13 10:45 | DI.RAD_ITS ---
Exam(s) XR CHEST 2V PA LATERAL EXAM: XR CHEST 2V PA LATERAL CLINICAL HISTORY: SOB, Cough TECHNIQUE: 2D digital imaging was performed. Two views. COMPARISON: CT CT CHEST PE CTA from 03/26/[address] CHEST PE CTA from 04/16/2024 CR XR CHEST 2V PA LATERAL from 04/16/2024 FINDINGS: Port again noted. HEART: Normal size. Aorta: Not dilated. PULMONARY VASCULATURE: Normal. MEDIASTINUM: Unremarkable. LUNGS: Clear. Mild hyperinflation. PLEURAL SPACE: No pleural effusion or pneumothorax. BONE:Unremarkable for age. SOFT TISSUES: Unremarkable. IMPRESSION: No acute abnormality. DATA REPOSITORY: RADIATION DOSE DELIVERED:
--- NOTE | 2024-06-13 10:52 | ED.GENADUL_ITS ---
Discharge Plan Disposition Patient Disposition: Home Condition: Stable Discharge Details Clinical Impression: Cough Primary Care Provider: Santhosh Herron ED Provider: Jennifer Tavares Home Meds and New Rx's Prescriptions: New benzonatate 100 mg capsule 100 mg PO BID PRN (Reason: cough) Qty: 10 0RF Rx Instructions: Take one capsule twice daily as needed for cough No Action pregabalin 75 mg capsule 75 mg PO TID omeprazole 20 mg capsule,delayed release(DR/EC) 20 mg PO DAILY ibuprofen 800 MG tablet 800 mg PO BID acetaminophen [Tylenol] 325 MG tablet 325 mg PO PRN metoprolol succinate 25 mg tablet extended release 24 hr 25 mg PO DAILY losartan 50 mg tablet 50 mg PO DAILY Patient Comments: TAKE ONE TABLET BY MOUTH EVERY DAY varenicline 1 mg tablet 1 mg PO BID Patient Comments: TAKE ONE TABLET BY MOUTH TWICE A DAY prochlorperazine maleate 10 mg tablet 10 mg PO Q6H PRN Patient Comments: TAKE ONE TABLET BY MOUTH EVERY 6 HOURS NEEDED FOR NAUSEA Discharge Instructions Instructions: Cough, Adult ED Additional Instructions: No evidence of pneumonia on CXR, please take the cough medicine as directed. Covid, flu, RSV negative. Continue using the albuterol inhaler 1 or 2 puffs every 4-6 hours as needed. Follow up with primary care provider in 3-5 days. Return to ED sooner if any worsening or concerns. Referrals: Santhosh Herron [Primary Care Provider] - 3 days Discharge Data Discharge Date/Time-TO BE ENTERED AT DEPARTURE: 06/13/24 12:24 HPI General Mode of arrival: ambulatory . Date/Time Provider Initiated Documentation: 06/13/24 10:20 . Limitations to Documentation: no limitations . Information obtained by: patient, RN notes reviewed and old records reviewed . HPI Narrative: 63 year old female presents to the ED with cc of tight cough for the last 4 days. Reports has been using Albuterol inhaler with little to no relief. Hx of Lymphoma currently undergoing chemotherapy, last 8-15. Reports low grade fever of 99 on Friday. Denies any chest pain no hemoptysis reports initially productive cough but now tight. Speaking in full sentences. No increased work of breathing O2 sat 100% on room air. Other past medical history includes hypertension, non-Hodgkin's lymphoma. Related Data Home Medications ?Medication ?Instructions ?Recorded ?Confirmed acetaminophen 325 mg tablet 325 mg PO PRN 04/29/18 06/13/24 (Tylenol) ibuprofen 800 mg tablet 800 mg PO BID 04/29/18 06/13/24 omeprazole 20 mg capsule,delayed 20 mg PO DAILY 09/10/22 06/13/24 release pregabalin 75 mg capsule 75 mg PO TID 09/10/22 06/13/24 losartan 50 mg tablet 50 mg PO DAILY 04/16/24 06/13/24 metoprolol succinate 25 mg 25 mg PO DAILY 04/16/24 06/13/24 tablet,extended release 24 hr prochlorperazine maleate 10 mg 10 mg PO Q6H PRN 04/16/24 06/13/24 tablet varenicline 1 mg tablet 1 mg PO BID 04/16/24 06/13/24 benzonatate 100 mg capsule 100 mg PO BID PRN cough #10 caps 06/13/24 Previous Rx's ?Medication ?Instructions ?Recorded benzonatate 100 mg capsule 100 mg PO BID PRN cough #10 caps 06/13/24 Allergies Allergy/AdvReac Type Severity Reaction Status Date / Time Penicillins Allergy Severe Hives Unverified 04/16/24 09:54 vancomycin Allergy Severe Red Man's Unverified 04/16/24 09:54 syndrome, itchy cephalexin (From Keflex) Allergy Mild Nausea Verified 04/16/24 09:54 oxycodone Allergy Mild Itching Verified 04/16/24 09:54 erythromycin lactobionate AdvReac Intermediate Nausea/vomi Unverified 04/16/24 09:54 (From Erythrocin) tting General Stated Complaint: RespSymp DANIEL: 4 Review of Systems All systems reviewed & are unremarkable except as noted in HPI and below Cardiovascular Cardiovascular: Reports dyspnea Respiratory Respiratory: Reports cough, Denies hemoptysis and Reports dyspnea Exam Narrative Exam Narrative: Constitutional: Alert and oriented x3. Appears stated age. Normal body habitus. Patient appears chronically ill. Head: Normocephalic, no trauma. Eyes: Pupils PERRL, Red reflex noted, EOM's intact. Eyelids symmetrical without lesions, discharge, or swelling. ENT: Bilateral TM's WNL, External ear normal to inspection, no mastoid TTP, swelling, or erythema, Nasal turbinates WNL, no nasal discharge. Normal dentition, Posterior pharynx WNL, no exudate. Chest: RRR, Normal S1, S2, distal pulses intact. Resp: Lungs clear to auscultation bilaterally, no wheezes, rales, or rhonchi. Scattered rhonchi noted in the right lobe. Abdomen: Soft, non-distended, Normoactive bowel sounds all 4 quads. Musculoskeletal: Normal gait, Moves all 4 extremities without difficulty. Skin: No suspicious rashes or lesions. Capillary refill less than 2 sec. Neurologic: Cranial nerves II-XII intact. Alert and oriented x 3. Motor: No deficits noted. Sensory: Intact bilaterally all 4 extremities. Hematologic/Lymphatic: No ecchymosis, no lymphadenopathy. Course Vital Signs Vital signs: Vital Signs Temperature 36.9 C 06/13/24 10:38 Pulse 92 H 06/13/24 10:38 Respiratory Rate 20 06/13/24 10:38 Blood Pressure 123/76 06/13/24 10:38 Pulse Oximetry 100 06/13/24 10:38 Temperature 36.9 C 06/13/24 10:42 Pulse 92 H 06/13/24 10:42 Respiratory Rate 20 06/13/24 10:42 Respiratory Effort Normal 06/13/24 10:42 Blood Pressure 123/76 06/13/24 10:42 Blood Pressure Position Sitting 06/13/24 10:42 Pulse Oximetry 100 06/13/24 10:42 Oxygen Delivery Method Room Air 06/13/24 10:42 Oxygen Flow Rate 0 06/13/24 10:38 Pain Level 0 06/13/24 10:42 Medical Decision Making 63 year old female presents to the ED with cc of tight cough for the last 4 days. Reports has been using Albuterol inhaler with little to no relief. Hx of Lymphoma currently undergoing chemotherapy, last 8-15. Reports low grade fever of 99 on Friday. Denies any chest pain no hemoptysis reports initially producti ve cough but now tight. Speaking in full sentences. No increased work of breathing O2 sat 100% on room air. Other past medical history includes hypertension, non-Hodgkin's lymphoma. Fluvid swab ordered and chest x-ray. Differential diagnosis includes but not limited to COVID, flu, bronchitis, pneumonia CXR WNL, Covid, Flu, RSV negative. Will give tessalon perrles and discharge home. This text was generated using [employer] dictation system, please disregard any oddities of phrase or misspellings. Imaging Data Radiologic Study: Imaging: X-Ray Radiologist's impression: Imaging protocol: Radiologic exam of the chest. Views: 2 views. COMPARISON: CT CHEST PE CTA 04/16/2024 12:55 PM FINDINGS: Tubes, catheters and devices: Infusion port noted. Lungs: Unremarkable. No consolidation. Pleural spaces: Unremarkable. No pleural effusion. No pneumothorax. Heart/Mediastinum: Unremarkable. No cardiomegaly. Bones/joints: Unremarkable. IMPRESSION: No evidence of active cardiopulmonary disease Quality:SDOH Health Related Social Needs: No Data to Display PFSH All Active Problems (Updated 06/13/24 @ 12:07 by Jennifer Tavares NP) Cough (Acute) Non-Hodgkin lymphoma (Chronic) Well woman exam with routine gynecological exam (Acute) Breast cancer screening (Acute) Medical History Trigeminal neuralgia of left side of face Surgical History back fusion x2 R partial knee Endometrial Ablation (~2004) Family History Sister No problems noted. Grandmother No problems noted. Social History Smoking/Tobacco Use Status: Current every day Tobacco: How many years used: 40 Second Hand Exposure: No Smoking risk assessment performed?: Yes Alcohol Intake: current Alcohol Intake frequency: holidays/special occasions only Drug use: Never Substance use type: does not use Household members: spouse Housing: house Number of Children: 2 What is your relationship status?: Panel score (0-1 are the most socially isolated patients): 1 Seatbelt use: always Do you feel safe at home: Yes Do you feel safe in your relationship?: Yes
[2024-06-13] MEDS: Albuterol/Ipratropium 3 ML UPD VIAL UPD (11:24)
[2024-06-13] MEDS: Benzonatate 100 MG CAP PO ×2 (11:24→12:22)
[2024-06-13 11:25] LABS: COVID-19 PCR Negative (Negative); Influenza A PCR Negative (Negative); Influenza B PCR Negative (Negative); RSV PCR Negative (Negative)
[2024-06-13 11:26] LABS: Source Nasopharynx
--- NOTE | 2024-06-13 11:41 | DI.VRAD_ITS ---
PROCEDURE INFORMATION: Exam: XR Chest Exam date and time: 06/13/2024 11:13 AM Age: 63 years old Clinical indication: Cough and shortness of breath TECHNIQUE: Imaging protocol: Radiologic exam of the chest. Views: 2 views. COMPARISON: CT CHEST PE CTA 04/16/2024 12:55 PM FINDINGS: Tubes, catheters and devices: Infusion port noted. Lungs: Unremarkable. No consolidation. Pleural spaces: Unremarkable. No pleural effusion. No pneumothorax. Heart/Mediastinum: Unremarkable. No cardiomegaly. Bones/joints: Unremarkable. IMPRESSION: No evidence of active cardiopulmonary disease. Dictated and Authenticated by: Renée Ragland MD. Ordering:MARIAJOSE Rodriguez MD
[2024-06-13 12:23] VITALS: PULSE 89; RESP 20; TEMP 36.7; O2SAT 100
== END 2024-06-13 12:24 | disposition home or self-care (01) ==
PROVIDERS: Emergency Provider Registered Nurse Emergency; PCP Family Medicine
DX: R05.9 Cough, unspecified (principal); R06.02 Shortness of breath; I10 Essential (primary) hypertension; C85.90 Non-Hodgkin lymphoma, unspecified, unspecified site; F17.200 Nicotine dependence, unspecified, uncomplicated; Z92.21 Personal history of antineoplastic chemotherapy
CPT/HCPCS: 87637; 94640; 99284; 71046; 99283; J7620

== ENCOUNTER 2024-07-01 12:51 | Outpatient (RCR) | payer OTHER, SELFPAY ==
[2024-07-01] MEDS: Normal Saline Flush 10 ML SYR IVP (12:11)
[2024-07-01 12:30] LABS: Abs Immature Grans 0.04 10^3/uL (0.0-0.06); Absolute Basophil Count 0.03 10^3/uL (0.0-0.2); Absolute Eosinophil Count 0.03 10^3/uL (0.0-0.7); Absolute Lymphocyte Count 0.47 10^3/uL (1.2-3.4); Absolute Neutrophil Count 6.42 10^3/uL (1.2-6.7); Basophils % 0.4 %; Eosinophils % 0.4 %; HCT 32.7 % (36.0-46.0); HGB 10.8 g/dL (11.2-15.7); Immature Grans % 0.5 %; Lymphocytes % 5.7 %; MCH 33.5 pg (27.0-33.0); MCV 102 fL (80-95); MPV 10.2 fL (8.0-11.0); Monocytes % 14.7 %; Neutrophils % 78.3 %; Platelet Count 149 10^3/uL (130-400); RBC 3.22 10^6/uL (3.93-5.22); RDW 15.1 % (11.7-14.6); RDW-SD 56.9 fL; WBC 8.19 10^3/uL (4.4-10.8)
[2024-07-01 12:43] LABS: ALT 22 U/L (14-59); AST 19 U/L (15-37); Albumin 3.5 g/dL (3.4-5.0); Alkaline Phosphatase 76 U/L (46-116); Anion Gap 7.9 mmol/L (3-11); BUN 11 mg/dL (7-18); Bilirubin, Total 0.36 mg/dL (0.2-1.0); CO2 25.1 mmol/L (21.0-32.0); Calcium 9.4 mg/dL (8.5-10.1); Chloride 101 mmol/L (98-107); Estimated GFR 64.09 (mL/min/1.73m2); Glucose 84 mg/dL (74-106); LDH 193 U/L (81-234); Potassium 4.4 mmol/L (3.5-5.1); Sodium 134 mmol/L (136-145); Total Protein 6.4 g/dL (6.4-8.2)
== END 2024-07-19 23:59 | disposition home or self-care (01) ==
LOC: INF 12:51
PROVIDERS: PCP Family Medicine; Visit Provider Internal Medicine Hematology & Oncology
DX: C85.88 Other specified types of non-Hodgkin lymphoma, lymph nodes of multiple sites (principal)
CPT/HCPCS: 36591; 80053; 83615; 85025

== ENCOUNTER 2024-07-29 09:47 | Outpatient (RCR) | payer OTHER, SELFPAY ==
[2024-07-29] MEDS: Normal Saline Flush 10 ML SYR IVP (09:49)
[2024-07-29 12:37] LABS: Abs Immature Grans 0.01 10^3/uL (0.0-0.06); Absolute Basophil Count 0.02 10^3/uL (0.0-0.2); Absolute Eosinophil Count 0.14 10^3/uL (0.0-0.7); Absolute Lymphocyte Count 0.66 10^3/uL (1.2-3.4); Absolute Monocyte Count 0.58 10^3/uL (0.1-0.8); Absolute Neutrophil Count 4.27 10^3/uL (1.2-6.7); Basophils % 0.4 %; Eosinophils % 2.5 %; HCT 35.9 % (36.0-46.0); HGB 12.1 g/dL (11.2-15.7); Immature Grans % 0.2 %; Lymphocytes % 11.6 %; MCH 32.1 pg (27.0-33.0); MCHC 33.7 % (32.0-36.0); MCV 95 fL (80-95); MPV 9.8 fL (8.0-11.0); Monocytes % 10.2 %; Neutrophils % 75.1 %; Platelet Count 207 10^3/uL (130-400); RBC 3.77 10^6/uL (3.93-5.22); RDW 12.3 % (11.7-14.6); RDW-SD 43.2 fL; WBC 5.68 10^3/uL (4.4-10.8)
[2024-07-29 14:38] LABS: Calcium 9.5 mg/dL (8.5-10.1)
[2024-07-29 14:39] LABS: Albumin 3.5 g/dL (3.4-5.0); Alkaline Phosphatase 97 U/L (46-116); Anion Gap 11.1 mmol/L (3-11); BUN 14 mg/dL (7-18); Bilirubin, Total 0.41 mg/dL (0.2-1.0); CO2 23.9 mmol/L (21.0-32.0); Chloride 109 mmol/L (98-107); Estimated GFR 64.09 (mL/min/1.73m2); Glucose 89 mg/dL (74-106); Sodium 144 mmol/L (136-145); Total Protein 6.7 g/dL (6.4-8.2)
[2024-07-29 14:40] LABS: ALT 24 U/L (14-59); AST 25 U/L (15-37); LDH 225 U/L (81-234)
== END 2024-08-19 23:59 | disposition home or self-care (01) ==
LOC: INF 09:47
PROVIDERS: PCP Family Medicine; Visit Provider Internal Medicine Hematology & Oncology
DX: C85.88 Other specified types of non-Hodgkin lymphoma, lymph nodes of multiple sites (principal); Z45.2 Encounter for adjustment and management of vascular access device
CPT/HCPCS: 36591; 80053; 83615; 85025

== ENCOUNTER 2024-09-22 02:08 | Outpatient (RCR) | payer OTHER, SELFPAY ==
[2024-09-22] MEDS: Normal Saline Flush 10 ML SYR IVP (10:39)
[2024-09-22 10:41] LABS: Abs Immature Grans 0.06 10^3/uL (0.0-0.06); Absolute Basophil Count 0.04 10^3/uL (0.0-0.2); Absolute Eosinophil Count 0.08 10^3/uL (0.0-0.7); Absolute Lymphocyte Count 0.68 10^3/uL (1.2-3.4); Absolute Monocyte Count 0.86 10^3/uL (0.1-0.8); Basophils % 0.3 %; Eosinophils % 0.7 %; HCT 36.1 % (36.0-46.0); HGB 11.9 g/dL (11.2-15.7); Immature Grans % 0.5 %; Lymphocytes % 5.8 %; MCH 30.3 pg (27.0-33.0); MCV 92 fL (80-95); MPV 9.8 fL (8.0-11.0); Monocytes % 7.3 %; Neutrophils % 85.4 %; Platelet Count 175 10^3/uL (130-400); RBC 3.93 10^6/uL (3.93-5.22); RDW 12.4 % (11.7-14.6); RDW-SD 41.6 fL; WBC 11.73 10^3/uL (4.4-10.8)
[2024-09-22 10:42] LABS: Absolute Neutrophil Count 10.02 10^3/uL (1.2-6.7)
[2024-09-22 11:04] LABS: ALT 18 U/L (14-59); AST 18 U/L (15-37); Albumin 3.5 g/dL (3.4-5.0); Alkaline Phosphatase 117 U/L (46-116); Anion Gap 9.4 mmol/L (3-11); BUN 14 mg/dL (7-18); Bilirubin, Total 0.74 mg/dL (0.2-1.0); CO2 24.6 mmol/L (21.0-32.0); CREATININE 1.3 mg/dL (0.55-1.02); Calcium 9.2 mg/dL (8.5-10.1); Chloride 106 mmol/L (98-107); Estimated GFR 46.49 (mL/min/1.73m2); Glucose 116 mg/dL (74-106); LDH 196 U/L (81-234); Potassium 3.8 mmol/L (3.5-5.1); Sodium 140 mmol/L (136-145); Total Protein 6.8 g/dL (6.4-8.2)
== END 2024-10-19 23:59 | disposition home or self-care (01) ==
LOC: INF 02:08
PROVIDERS: PCP Family Medicine; Visit Provider Internal Medicine Hematology & Oncology
DX: C85.88 Other specified types of non-Hodgkin lymphoma, lymph nodes of multiple sites (principal); Z45.2 Encounter for adjustment and management of vascular access device
CPT/HCPCS: 36591; 80053; 83615; 85025

== ENCOUNTER 2024-12-01 03:55 | Outpatient (RCR) | payer BC, SELFPAY ==
[2024-12-01] MEDS: Normal Saline Flush 10 ML SYR IVP (08:08)
[2024-12-01 08:37] LABS: Abs Immature Grans 0.01 10^3/uL (0.0-0.06); Absolute Basophil Count 0.04 10^3/uL (0.0-0.2); Absolute Eosinophil Count 0.12 10^3/uL (0.0-0.7); Absolute Lymphocyte Count 0.64 10^3/uL (1.2-3.4); Absolute Monocyte Count 0.55 10^3/uL (0.1-0.8); Absolute Neutrophil Count 3.77 10^3/uL (1.2-6.7); Basophils % 0.8 %; Eosinophils % 2.3 %; HCT 37.6 % (36.0-46.0); HGB 12.6 g/dL (11.2-15.7); Immature Grans % 0.2 %; Lymphocytes % 12.5 %; MCHC 33.5 % (32.0-36.0); MCV 90 fL (80-95); Monocytes % 10.7 %; Neutrophils % 73.5 %; Platelet Count 177 10^3/uL (130-400); RDW 13.5 % (11.7-14.6); RDW-SD 44.6 fL; WBC 5.13 10^3/uL (4.4-10.8)
[2024-12-01 08:45] LABS: BUN 17 mg/dL (7-18); Calcium 9.1 mg/dL (8.5-10.1); Glucose 120 mg/dL (74-106)
[2024-12-01 08:46] LABS: ALT 25 U/L (14-59); AST 20 U/L (15-37); Albumin 3.6 g/dL (3.4-5.0); Alkaline Phosphatase 118 U/L (46-116); Anion Gap 10.4 mmol/L (3-11); Bilirubin, Total 0.44 mg/dL (0.2-1.0); CO2 23.6 mmol/L (21.0-32.0); CREATININE 1.2 mg/dL (0.55-1.02); Chloride 109 mmol/L (98-107); Estimated GFR 51.18 (mL/min/1.73m2); LDH 186 U/L (81-234); Potassium 3.5 mmol/L (3.5-5.1); Sodium 143 mmol/L (136-145); Total Protein 6.5 g/dL (6.4-8.2)
== END 2024-12-17 23:59 | disposition home or self-care (01) ==
LOC: INF 03:55
PROVIDERS: PCP Family Medicine; Visit Provider Internal Medicine Hematology & Oncology
DX: C85.88 Other specified types of non-Hodgkin lymphoma, lymph nodes of multiple sites (principal); C82.90 Follicular lymphoma, unspecified, unspecified site
CPT/HCPCS: 36591; 80053; 83615; 85025

== ENCOUNTER 2025-01-26 01:49 | Outpatient (RCR) | payer BC, SELFPAY ==
[2025-01-26] MEDS: Normal Saline Flush 10 ML SYR IVP (10:35)
[2025-01-26 10:42] LABS: Abs Immature Grans 0.02 10^3/uL (0.0-0.06); Absolute Basophil Count 0.03 10^3/uL (0.0-0.2); Absolute Eosinophil Count 0.05 10^3/uL (0.0-0.7); Absolute Lymphocyte Count 0.86 10^3/uL (1.2-3.4); Absolute Monocyte Count 0.51 10^3/uL (0.1-0.8); Absolute Neutrophil Count 4.66 10^3/uL (1.2-6.7); Basophils % 0.5 %; Eosinophils % 0.8 %; HCT 37.6 % (36.0-46.0); HGB 12.3 g/dL (11.2-15.7); Immature Grans % 0.3 %; MCH 30.4 pg (27.0-33.0); MCHC 32.7 % (32.0-36.0); MCV 93 fL (80-95); MPV 10.1 fL (8.0-11.0); Monocytes % 8.3 %; Neutrophils % 76.1 %; Platelet Count 145 10^3/uL (130-400); RBC 4.04 10^6/uL (3.93-5.22); RDW 13.2 % (11.7-14.6); RDW-SD 45.4 fL; WBC 6.13 10^3/uL (4.4-10.8)
[2025-01-26 11:03] LABS: ALT 21 U/L (14-59); AST 20 U/L (15-37); Albumin 3.6 g/dL (3.4-5.0); Alkaline Phosphatase 117 U/L (46-116); Anion Gap 8.6 mmol/L (3-11); BUN 14 mg/dL (7-18); Bilirubin, Total 0.3 mg/dL (0.2-1.0); CO2 25.4 mmol/L (21.0-32.0); CREATININE 1.2 mg/dL (0.55-1.02); Calcium 9.3 mg/dL (8.5-10.1); Chloride 108 mmol/L (98-107); Estimated GFR 51.18 (mL/min/1.73m2); Glucose 107 mg/dL (74-106); LDH 202 U/L (81-234); Potassium 4.1 mmol/L (3.5-5.1); Sodium 142 mmol/L (136-145); Total Protein 6.6 g/dL (6.4-8.2)
== END 2025-02-16 23:59 | disposition home or self-care (01) ==
LOC: INF 01:49
PROVIDERS: PCP Family Medicine; Visit Provider Internal Medicine Hematology & Oncology
DX: C82.90 Follicular lymphoma, unspecified, unspecified site (principal); C85.88 Other specified types of non-Hodgkin lymphoma, lymph nodes of multiple sites
CPT/HCPCS: 36591; 80053; 83615; 85025

== ENCOUNTER 2025-03-23 02:03 | Outpatient (RCR) | payer BC, SELFPAY ==
[2025-03-23] MEDS: Normal Saline Flush 10 ML SYR IVP (09:07)
[2025-03-23 09:23] LABS: Abs Immature Grans 0.02 10^3/uL (0.0-0.06); Absolute Basophil Count 0.04 10^3/uL (0.0-0.2); Absolute Eosinophil Count 0.11 10^3/uL (0.0-0.7); Absolute Lymphocyte Count 0.91 10^3/uL (1.2-3.4); Absolute Monocyte Count 0.55 10^3/uL (0.1-0.8); Absolute Neutrophil Count 5.52 10^3/uL (1.2-6.7); Basophils % 0.6 %; Eosinophils % 1.5 %; Immature Grans % 0.3 %; Lymphocytes % 12.7 %; MCH 30.2 pg (27.0-33.0); MCHC 33.3 % (32.0-36.0); MCV 91 fL (80-95); MPV 10.5 fL (8.0-11.0); Monocytes % 7.7 %; Neutrophils % 77.2 %; Platelet Count 170 10^3/uL (130-400); RDW 12.6 % (11.7-14.6); RDW-SD 41.6 fL; WBC 7.15 10^3/uL (4.4-10.8)
[2025-03-23 09:32] LABS: ALT 18 U/L (14-59); AST 21 U/L (15-37); Albumin 3.5 g/dL (3.4-5.0); Alkaline Phosphatase 125 U/L (46-116); Anion Gap 8.4 mmol/L (3-11); BUN 13 mg/dL (7-18); Bilirubin, Total 0.5 mg/dL (0.2-1.0); CO2 25.6 mmol/L (21.0-32.0); Calcium 9.1 mg/dL (8.5-10.1); Chloride 107 mmol/L (98-107); Glucose 98 mg/dL (74-106); LDH 200 U/L (81-234); Potassium 4.3 mmol/L (3.5-5.1); Sodium 141 mmol/L (136-145); Total Protein 6.6 g/dL (6.4-8.2)
== END 2025-04-18 23:59 | disposition home or self-care (01) ==
LOC: INF 02:03
PROVIDERS: PCP Family Medicine; Visit Provider Internal Medicine Hematology & Oncology
DX: C85.88 Other specified types of non-Hodgkin lymphoma, lymph nodes of multiple sites (principal); C82.90 Follicular lymphoma, unspecified, unspecified site; Z45.2 Encounter for adjustment and management of vascular access device
CPT/HCPCS: 36591; 80053; 83615; 85025

== ENCOUNTER 2025-05-18 09:04 | Outpatient (RCR) | payer BC, SELFPAY ==
[2025-05-18] MEDS: Normal Saline Flush 10 ML SYR IVP (09:35)
[2025-05-18 09:59] LABS: Abs Immature Grans 0.03 10^3/uL (0.0-0.06); HCT 38.9 % (36.0-46.0); HGB 13.6 g/dL (11.2-15.7); Immature Grans % 0.4 %; MCH 31.4 pg (27.0-33.0); MCHC 35.0 % (32.0-36.0); MCV 90 fL (80-95); MPV 10.3 fL (8.0-11.0); Platelet Count 210 10^3/uL (130-400); RBC 4.33 10^6/uL (3.93-5.22); RDW 12.9 % (11.7-14.6); RDW-SD 43.0 fL; WBC 7.65 10^3/uL (4.4-10.8)
[2025-05-18 10:00] LABS: ALT 24 U/L (14-59); AST 26 U/L (15-37); Albumin 3.8 g/dL (3.4-5.0); Alkaline Phosphatase 113 U/L (46-116); Anion Gap 9.6 mmol/L (3-11); BUN 13 mg/dL (7-18); Bilirubin, Total 0.6 mg/dL (0.2-1.0); CO2 24.4 mmol/L (21.0-32.0); Calcium 9.2 mg/dL (8.5-10.1); Chloride 105 mmol/L (98-107); Estimated GFR 63.70 (mL/min/1.73m2); Glucose 110 mg/dL (74-106); LDH 250 U/L (81-234); Potassium 4.0 mmol/L (3.5-5.1); Sodium 139 mmol/L (136-145); Total Protein 6.9 g/dL (6.4-8.2)
== END 2025-05-19 23:59 | disposition home or self-care (01) ==
LOC: INF 09:04
PROVIDERS: PCP Family Medicine; Visit Provider Internal Medicine Hematology & Oncology
DX: C85.88 Other specified types of non-Hodgkin lymphoma, lymph nodes of multiple sites (principal); C82.90 Follicular lymphoma, unspecified, unspecified site
CPT/HCPCS: 36591; 80053; 83615; 85025

== ENCOUNTER 2025-08-03 01:49 | Outpatient (RCR) | payer BC, SELFPAY ==
[2025-07-20 07:37] LABS: Abs Immature Grans 0.02 10^3/uL (0.0-0.06); HCT 39.0 % (36.0-46.0); HGB 12.9 g/dL (11.2-15.7); Immature Grans % 0.3 %; MCH 30.3 pg (27.0-33.0); MCHC 33.1 % (32.0-36.0); MCV 92 fL (80-95); MPV 10.2 fL (8.0-11.0); Platelet Count 171 10^3/uL (130-400); RBC 4.26 10^6/uL (3.93-5.22); RDW 13.2 % (11.7-14.6); RDW-SD 44.1 fL; WBC 6.37 10^3/uL (4.4-10.8)
[2025-07-20] MEDS: Normal Saline Flush 10 ML SYR IVP (07:38)
[2025-07-20 07:55] LABS: ALT 21 U/L (14-59); AST 22 U/L (15-37); Albumin 3.6 g/dL (3.4-5.0); Alkaline Phosphatase 105 U/L (46-116); Anion Gap 10.9 mmol/L (3-11); BUN 10 mg/dL (7-18); Bilirubin, Total 0.6 mg/dL (0.2-1.0); CO2 24.1 mmol/L (21.0-32.0); Calcium 8.9 mg/dL (8.5-10.1); Chloride 109 mmol/L (98-107); Glucose 97 mg/dL (74-106); LDH 212 U/L (81-234); Potassium 3.6 mmol/L (3.5-5.1); Sodium 144 mmol/L (136-145); Total Protein 6.6 g/dL (6.4-8.2)
== END 2025-08-19 23:59 | disposition home or self-care (01) ==
LOC: INF 01:49
PROVIDERS: PCP Family Medicine; Visit Provider Internal Medicine Hematology & Oncology
DX: Z45.2 Encounter for adjustment and management of vascular access device (principal); C85.88 Other specified types of non-Hodgkin lymphoma, lymph nodes of multiple sites; C82.90 Follicular lymphoma, unspecified, unspecified site
CPT/HCPCS: 36591; 80053; 83615; 85025